=== PATIENT | female | born 1935 | race Caucasian/White ===

== ENCOUNTER → 2016-09-04 | Outpatient (CLI) | payer OTHER ==
[~2016-09-04] MED LIST: ACET-1311 PO; AMIL5TAB15 PO; ASPI-435 PO; ATOR-26 PO; BISA10SU3 PR; CALC500C3 PO; CHOL100010 PO; LCTX PO; LEVO50TA PO; LTH300T PO; MAALOX PO; MAGNSUS5 PO; NF406 PO; POLY335019 PO; PRAM0.129 PO; RISP-99 PO; RISP12.5 IM; SENN8.6C PO; SODI1ENE RE; UMEC1INH INH
[2016-09-04 11:19] LABS: URINE APPEARANCE CLEAR (CLEAR); URINE BILIRUBIN NEG (NEG); URINE COLOR YELLOW; URINE NITRITE NEG (NEG); URINE PH 7.5 (4.5-7.5); URINE SPECIFIC GRAVITY 1.002 (1.000-1.030); UROBILINOGEN NEG (NEG)
[2016-09-04 11:28] LABS: MANUAL MICROSCOPIC REQUIRED? NO; REVIEW REQ? NO
--- NOTE | 2016-09-05 15:03 | CODING QUERY NO DIAGNOSIS ---
TREATMENT RENDERED WITHOUT A DIAGNOSIS 37 To promote full compliance with coding requirements relating to patient care, physician participation is requested in all cases of set and exhibit designer uncertainty. Please assist us with providing a diagnosis/symptom for the test(s) below: A diagnosis/symptom was not documented on your Order. A valid diagnosis/symptom is required to bill all insurances. Please remember that we are unable to code a diagnosis of rule out, probable, possible, questionable, or suspected. DOS 09/04/16 Tests that require a diagnosis: * URINALYSIS DIAGNOSIS: * URINE CULTURE DIAGNOSIS: Provider Signature: Date: Thank you Claudia Gonzalez [facility] Information Management Once completed, please kindly fax back to [phone] For questions please call [phone]
== END ==
LOC: C.LABUPHEI 10:54
PROVIDERS: ATTEND Family Medicine
DX: R32 Unspecified urinary incontinence (principal)

== ENCOUNTER → 2016-09-05 | Outpatient (CLI) | payer OTHER ==
[2016-09-05 13:01] LABS: BLOOD UREA NITROGEN 26 mg/dl (7-18); BUN/CREATININE RATIO 18.5 (10-20); CARBON DIOXIDE 26 mmol/L (21-32); CHLORIDE 112 mmol/L (98-107); GLUCOSE 88 mg/dl (70-99); POTASSIUM 4.1 mmol/L (3.5-5.1); SODIUM 144 mmol/L (136-145)
== END ==
LOC: C.LABUPHEI 12:12
PROVIDERS: ATTEND Family Medicine
DX: F31.9 Bipolar disorder, unspecified (principal); N18.3 Chronic kidney disease, stage 3 (moderate); D64.9 Anemia, unspecified

== ENCOUNTER → 2016-09-11 | Outpatient (CLI) | payer OTHER ==
[2016-09-11 09:47] LABS: BLOOD UREA NITROGEN 35 mg/dl (7-18); BUN/CREATININE RATIO 24.6 (10-20); CALCIUM 9.7 mg/dl (8.5-10.1); CARBON DIOXIDE 23 mmol/L (21-32); CHLORIDE 112 mmol/L (98-107); GLUCOSE 77 mg/dl (70-99); POTASSIUM 5.6 mmol/L (3.5-5.1); SODIUM 143 mmol/L (136-145)
== END | disposition home or self-care (01) ==
LOC: C.LABUPHEI 09:08
PROVIDERS: ATTEND Family Medicine
DX: E87.1 Hypo-osmolality and hyponatremia (principal); F31.9 Bipolar disorder, unspecified; Z51.81 Encounter for therapeutic drug level monitoring; Z79.899 Other long term (current) drug therapy

== ENCOUNTER → 2016-09-17 | Outpatient (CLI) | payer OTHER ==
[2016-09-17 09:56] LABS: BLOOD UREA NITROGEN 29 mg/dl (7-18); CALCIUM 10.2 mg/dl (8.5-10.1); CARBON DIOXIDE 24 mmol/L (21-32); CHLORIDE 113 mmol/L (98-107); GLUCOSE 59 mg/dl (70-99); MAGNESIUM 2.6 mg/dl (1.8-2.4); SODIUM 144 mmol/L (136-145)
== END | disposition home or self-care (01) ==
LOC: C.LABUPHEI 09:02
PROVIDERS: ATTEND Family Medicine
DX: N18.3 Chronic kidney disease, stage 3 (moderate) (principal); M62.81 Muscle weakness (generalized)

== ENCOUNTER → 2016-09-19 | Outpatient (CLI) | payer OTHER ==
[2016-09-19 08:50] LABS: BLOOD UREA NITROGEN 29 mg/dl (7-18); BUN/CREATININE RATIO 20.5 (10-20); CALCIUM 10.1 mg/dl (8.5-10.1); CARBON DIOXIDE 23 mmol/L (21-32); CHLORIDE 115 mmol/L (98-107); GLUCOSE 79 mg/dl (70-99); MAGNESIUM 2.4 mg/dl (1.8-2.4); POTASSIUM 4.8 mmol/L (3.5-5.1); SODIUM 144 mmol/L (136-145)
== END | disposition home or self-care (01) ==
LOC: C.LABUPHEI 08:14
PROVIDERS: ATTEND Family Medicine
DX: E87.0 Hyperosmolality and hypernatremia (principal); M62.81 Muscle weakness (generalized)

== ENCOUNTER → 2016-09-20 | Outpatient (CLI) | payer OTHER | LOC: C.LABUPHEI 12:17 | PROVIDERS: ATTEND Family Medicine | DX: F31.9 Bipolar disorder, unspecified (principal) ==

== ENCOUNTER → 2016-09-23 | Outpatient (CLI) | payer OTHER | LOC: C.LABUPHEI 09:03 | PROVIDERS: ATTEND Family Medicine | DX: F31.9 Bipolar disorder, unspecified (principal) ==

== ENCOUNTER → 2016-09-30 | Outpatient (CLI) | payer OTHER ==
[2016-09-30 09:13] LABS: BLOOD UREA NITROGEN 28 mg/dl (7-18); BUN/CREATININE RATIO 18.5 (10-20); CALCIUM 9.8 mg/dl (8.5-10.1); CARBON DIOXIDE 23 mmol/L (21-32); CHLORIDE 114 mmol/L (98-107); GLUCOSE 84 mg/dl (70-99); MAGNESIUM 2.4 mg/dl (1.8-2.4); POTASSIUM 4.6 mmol/L (3.5-5.1); SODIUM 145 mmol/L (136-145)
== END ==
LOC: C.LABUPHEI 08:48
PROVIDERS: ATTEND Family Medicine
DX: N18.3 Chronic kidney disease, stage 3 (moderate) (principal); M62.81 Muscle weakness (generalized); F31.9 Bipolar disorder, unspecified

== ENCOUNTER → 2016-10-10 | Outpatient (CLI) | payer OTHER | LOC: C.LABUPHEI 08:51 | PROVIDERS: ATTEND Family Medicine | DX: F31.9 Bipolar disorder, unspecified (principal) ==

== ENCOUNTER → 2016-10-16 | Outpatient (CLI) | payer OTHER ==
[2016-10-16 09:34] LABS: BLOOD UREA NITROGEN 29 mg/dl (7-18); BUN/CREATININE RATIO 22.2 (10-20); CALCIUM 9.2 mg/dl (8.5-10.1); CARBON DIOXIDE 22 mmol/L (21-32); CHLORIDE 113 mmol/L (98-107); GLUCOSE 104 mg/dl (70-99); SODIUM 143 mmol/L (136-145)
== END ==
LOC: C.LABUPHEI 09:04
PROVIDERS: ATTEND Family Medicine
DX: J44.9 Chronic obstructive pulmonary disease, unspecified (principal); F31.9 Bipolar disorder, unspecified

== ENCOUNTER → 2016-10-22 | Outpatient (CLI) | payer OTHER | LOC: C.LABUPHEI 08:37 | PROVIDERS: ATTEND Family Medicine | DX: F31.9 Bipolar disorder, unspecified (principal) ==

== ENCOUNTER → 2016-10-22 | Outpatient (CLI) | payer OTHER ==
[2016-10-22 09:43] LABS: URINE APPEARANCE CLEAR (CLEAR); URINE BILIRUBIN NEG (NEG); URINE COLOR YELLOW; URINE NITRITE NEG (NEG); URINE SPECIFIC GRAVITY 1.002 (1.000-1.030); UROBILINOGEN NEG (NEG)
[2016-10-22 09:58] LABS: MANUAL MICROSCOPIC REQUIRED? NO; REVIEW REQ? NO
== END ==
LOC: C.LABUPHEI 08:51
PROVIDERS: ATTEND Family Medicine
DX: R30.0 Dysuria (principal)

== ENCOUNTER → 2016-10-29 | Outpatient (CLI) | payer OTHER ==
[2016-10-29 09:21] LABS: BLOOD UREA NITROGEN 33 mg/dl (7-18); BUN/CREATININE RATIO 21.9 (10-20); CALCIUM 10.3 mg/dl (8.5-10.1); CARBON DIOXIDE 22 mmol/L (21-32); CHLORIDE 114 mmol/L (98-107); GLUCOSE 90 mg/dl (70-99); SODIUM 144 mmol/L (136-145)
== END ==
LOC: C.LABUPHEI 08:47
PROVIDERS: ATTEND Family Medicine
DX: E87.0 Hyperosmolality and hypernatremia (principal)

== ENCOUNTER → 2016-11-12 | Outpatient (CLI) | payer OTHER ==
[2016-11-12 10:01] LABS: BLOOD UREA NITROGEN 41 mg/dl (7-18); BUN/CREATININE RATIO 31.3 (10-20); CALCIUM 9.8 mg/dl (8.5-10.1); CARBON DIOXIDE 22 mmol/L (21-32); CHLORIDE 118 mmol/L (98-107); GLUCOSE 62 mg/dl (70-99); POTASSIUM 5.5 mmol/L (3.5-5.1); SODIUM 145 mmol/L (136-145)
== END ==
LOC: C.LABUPBEA 09:37
PROVIDERS: ATTEND Family Medicine
DX: E87.0 Hyperosmolality and hypernatremia (principal)

== ENCOUNTER → 2016-11-15 | Outpatient (CLI) | payer OTHER ==
[2016-11-15 08:55] LABS: BLOOD UREA NITROGEN 40 mg/dl (7-18); BUN/CREATININE RATIO 30.8 (10-20); CARBON DIOXIDE 22 mmol/L (21-32); CHLORIDE 116 mmol/L (98-107); GLUCOSE 72 mg/dl (70-99); POTASSIUM 5.9 mmol/L (3.5-5.1); SODIUM 144 mmol/L (136-145)
== END | disposition home or self-care (01) ==
LOC: C.LABUPBEA 10:37
PROVIDERS: ATTEND Family Medicine
DX: E87.0 Hyperosmolality and hypernatremia (principal)

== ENCOUNTER → 2016-11-16 | Outpatient (CLI) | payer OTHER ==
[2016-11-16 12:44] LABS: BLOOD UREA NITROGEN 35 mg/dl (7-18); BUN/CREATININE RATIO 23.2 (10-20); CALCIUM 9.5 mg/dl (8.5-10.1); CARBON DIOXIDE 26 mmol/L (21-32); CHLORIDE 113 mmol/L (98-107); GLUCOSE 66 mg/dl (70-99); POTASSIUM 5.3 mmol/L (3.5-5.1); SODIUM 146 mmol/L (136-145)
== END | disposition home or self-care (01) ==
LOC: C.LABUPBEA 10:04
PROVIDERS: ATTEND Family Medicine
DX: E87.5 Hyperkalemia (principal)

== ENCOUNTER → 2016-11-18 | Outpatient (CLI) | payer OTHER ==
[2016-11-18 10:14] LABS: BLOOD UREA NITROGEN 41 mg/dl (7-18); BUN/CREATININE RATIO 27.5 (10-20); CALCIUM 9.5 mg/dl (8.5-10.1); CARBON DIOXIDE 24 mmol/L (21-32); CHLORIDE 113 mmol/L (98-107); GLUCOSE 85 mg/dl (70-99); SODIUM 144 mmol/L (136-145)
== END ==
LOC: C.LABUPBEA 09:31
PROVIDERS: ATTEND Family Medicine
DX: E87.5 Hyperkalemia (principal)

== ENCOUNTER → 2016-11-22 | Outpatient (CLI) | payer OTHER ==
[2016-11-22 06:37] LABS: URINE APPEARANCE CLEAR (CLEAR); URINE BILIRUBIN NEG (NEG); URINE COLOR YELLOW; URINE NITRITE NEG (NEG); URINE PH 6.5 (4.5-7.5); URINE SPECIFIC GRAVITY 1.006 (1.000-1.030); UROBILINOGEN NEG (NEG)
[2016-11-22 06:44] LABS: MANUAL MICROSCOPIC REQUIRED? NO; REVIEW REQ? NO
== END ==
LOC: C.LABUPBEA 11:00
PROVIDERS: ATTEND Family Medicine
DX: R30.0 Dysuria (principal)

== ENCOUNTER → 2016-11-24 | Outpatient (CLI) | payer OTHER ==
[2016-11-24 08:52] LABS: BLOOD UREA NITROGEN 37 mg/dl (7-18); BUN/CREATININE RATIO 26.1 (10-20); CALCIUM 9.8 mg/dl (8.5-10.1); CARBON DIOXIDE 24 mmol/L (21-32); CHLORIDE 116 mmol/L (98-107); GLUCOSE 71 mg/dl (70-99); MAGNESIUM 2.6 mg/dl (1.8-2.4); POTASSIUM 5.9 mmol/L (3.5-5.1); SODIUM 145 mmol/L (136-145)
== END | disposition home or self-care (01) ==
LOC: C.LABUPUNI 08:24
PROVIDERS: ATTEND Family Medicine
DX: E87.5 Hyperkalemia (principal); M62.81 Muscle weakness (generalized)

== ENCOUNTER → 2016-12-05 | Outpatient (CLI) | payer OTHER ==
[2016-12-05 08:23] LABS: BASO % 0.2 %; BASO ABS # 0.01 K/uL (0-0.2); EOS % 5.5 %; HEMATOCRIT 26.3 % (37-47); IG% 0.2 %; LYMPH % 36.9 %; LYMPH ABS # 1.69 K/uL (1.2-3.4); MEAN CELL VOLUME 87.7 fL (80-100); MEAN CORPUSCULAR HEMOGLOBIN 26.7 pg (25-34); MEAN CORPUSCULAR HGB CONC 30.4 g/dl (32-36); MEAN PLATELET VOLUME 9.8 fL (7.4-10.4); MONO % 9.8 %; NEUT % 47.4 %; PLATELET COUNT 163 K/uL (130-400); WHITE BLOOD COUNT 4.58 K/uL (4.8-10.8)
[2016-12-05 08:30] LABS: ALT/SGPT 42 U/L (12-78); BLOOD UREA NITROGEN 28 mg/dl (7-18); BUN/CREATININE RATIO 19.9 (10-20); CALCIUM 9.2 mg/dl (8.5-10.1); CARBON DIOXIDE 22 mmol/L (21-32); CHLORIDE 112 mmol/L (98-107); GLUCOSE 80 mg/dl (70-99); POTASSIUM 5.1 mmol/L (3.5-5.1); SODIUM 142 mmol/L (136-145)
[2016-12-05 08:40] LABS: ALB/GLOB RATIO 0.8 (0.9-2); ALKALINE PHOSPHATASE 132 U/L (45-117); AST/SGOT 33 U/L (15-37)
[2016-12-05 08:47] LABS: COMPLETE YES
== END ==
LOC: C.LABUPBEA 07:56
PROVIDERS: ATTEND Family Medicine
DX: E03.9 Hypothyroidism, unspecified (principal); E87.5 Hyperkalemia; E56.8 Deficiency of other vitamins

== ENCOUNTER → 2016-12-09 | Outpatient (CLI) | payer OTHER ==
[2016-12-09 08:37] LABS: BLOOD UREA NITROGEN 29 mg/dl (7-18); BUN/CREATININE RATIO 19.1 (10-20); CALCIUM 9.3 mg/dl (8.5-10.1); CARBON DIOXIDE 22 mmol/L (21-32); CHLORIDE 116 mmol/L (98-107); GLUCOSE 78 mg/dl (70-99); SODIUM 145 mmol/L (136-145)
== END ==
LOC: C.LABUPBEA 07:55
PROVIDERS: ATTEND Family Medicine
DX: E87.0 Hyperosmolality and hypernatremia (principal)

== ENCOUNTER → 2016-12-10 | Outpatient (CLI) | payer OTHER ==
[2016-12-10 09:15] LABS: HEMATOCRIT 27.2 % (37-47)
[2016-12-10 09:47] LABS: BLOOD UREA NITROGEN 25 mg/dl (7-18); CALCIUM 9.6 mg/dl (8.5-10.1); CARBON DIOXIDE 24 mmol/L (21-32); CHLORIDE 116 mmol/L (98-107); GLUCOSE 99 mg/dl (70-99); POTASSIUM 5.4 mmol/L (3.5-5.1); SODIUM 144 mmol/L (136-145)
== END | disposition home or self-care (01) ==
LOC: C.LABUPBEA 08:50
PROVIDERS: ATTEND Family Medicine
DX: D64.9 Anemia, unspecified (principal); E87.5 Hyperkalemia

== ENCOUNTER → 2016-12-12 | Outpatient (CLI) | payer OTHER ==
[2016-12-12 10:13] LABS: URINE APPEARANCE CLEAR (CLEAR); URINE BILIRUBIN NEG (NEG); URINE COLOR YELLOW; URINE NITRITE NEG (NEG); URINE SPECIFIC GRAVITY 1.007 (1.000-1.030); UROBILINOGEN NEG (NEG)
[2016-12-12 10:25] LABS: MANUAL MICROSCOPIC REQUIRED? NO; REVIEW REQ? NO
== END ==
LOC: C.LABUPBEA 09:03
PROVIDERS: ATTEND Family Medicine
DX: N39.0 Urinary tract infection, site not specified (principal)

== ENCOUNTER → 2016-12-13 | Outpatient (CLI) | payer OTHER ==
[2016-12-13 10:09] LABS: C-REACTIVE PROTEIN 0.32 mg/dl (0-0.29); RHEUMATOID FACTOR < 10.0 U/mL (0-15)
--- NOTE | 2016-12-18 16:23 | CODING QUERY MEDICAL NECESSITY ---
CQSUPPORTING DIAGNOSIS NEEDED A supporting diagnosis is required for the test/procedure performed on this patient in order for us to be reimbursed by the patient's insurance. Please provide a supporting diagnosis for the following test/procedure listed below next to the test name along with your signature. *If there is no additional diagnosis for this patient that would support the following test/procedure please document that below next to the test/procedure. Test(s)/Procedure(s) that require a supporting diagnosis: DOS 12/13/16 VITAMIN D TEST HEARTHSIDE -EKLUTNA QUERY RETURNED WITH SIGANATURE BUT NO DIAGNOSIS TO COVER TEST-PLEASE ADD DIAGNOSIS AND SIGNATURE THANK YOU Provider Signature: Date: Thank you Colleen Ruiz Health Information Management Once completed, please kindly fax back to [phone] For questions please call [phone]
== END | disposition home or self-care (01) ==
LOC: C.LABUPBEA 10:43
PROVIDERS: ATTEND Family Medicine
DX: E87.5 Hyperkalemia (principal); E56.8 Deficiency of other vitamins

== ENCOUNTER → 2016-12-15 | Outpatient (CLI) | payer OTHER ==
[2016-12-15 09:27] LABS: HEMATOCRIT 28.1 % (37-47); MEAN CORPUSCULAR HEMOGLOBIN 26.6 pg (25-34); MEAN CORPUSCULAR HGB CONC 30.6 g/dl (32-36); MEAN PLATELET VOLUME 9.8 fL (7.4-10.4); PLATELET COUNT 243 K/uL (130-400); RED BLOOD COUNT 3.23 M/uL (4.2-5.4); WHITE BLOOD COUNT 6.19 K/uL (4.8-10.8)
== END | disposition home or self-care (01) ==
LOC: C.LABUPBEA 09:09
PROVIDERS: ATTEND Family Medicine
DX: E78.5 Hyperlipidemia, unspecified (principal)

== ENCOUNTER → 2016-12-17 | Outpatient (CLI) | payer OTHER ==
[2016-12-17 08:27] LABS: HEMATOCRIT 28.1 % (37-47)
[2016-12-17 08:33] LABS: BLOOD UREA NITROGEN 33 mg/dl (7-18); BUN/CREATININE RATIO 23.5 (10-20); CARBON DIOXIDE 22 mmol/L (21-32); CHLORIDE 114 mmol/L (98-107); GLUCOSE 81 mg/dl (70-99); POTASSIUM 5.5 mmol/L (3.5-5.1); SODIUM 142 mmol/L (136-145)
[2016-12-17 09:10] LABS: CALCIUM 9.6 mg/dl (8.5-10.1)
== END ==
LOC: C.LABUPBEA 08:05
PROVIDERS: ATTEND Family Medicine
DX: D64.9 Anemia, unspecified (principal); E87.0 Hyperosmolality and hypernatremia

== ENCOUNTER → 2016-12-18 | Outpatient (CLI) | payer OTHER | END | disposition home or self-care (01) | LOC: C.LABUPBEA 07:56 | PROVIDERS: ATTEND Family Medicine | DX: E87.5 Hyperkalemia (principal) ==

== ENCOUNTER → 2016-12-19 | Outpatient (CLI) | payer OTHER | END | disposition home or self-care (01) | LOC: C.LABUPBEA 08:38 | PROVIDERS: ATTEND Family Medicine | DX: E87.5 Hyperkalemia (principal) ==

== ENCOUNTER → 2016-12-23 | Outpatient (CLI) | payer OTHER ==
[2016-12-23 10:09] LABS: CALCIUM 9.9 mg/dl (8.5-10.1)
[2016-12-23 10:11] LABS: BLOOD UREA NITROGEN 31 mg/dl (7-18); BUN/CREATININE RATIO 22.2 (10-20); CARBON DIOXIDE 24 mmol/L (21-32); CHLORIDE 115 mmol/L (98-107); GLUCOSE 75 mg/dl (70-99); POTASSIUM 5.7 mmol/L (3.5-5.1); SODIUM 144 mmol/L (136-145)
== END | disposition home or self-care (01) ==
LOC: C.LABUPBEA 09:44
PROVIDERS: ATTEND Family Medicine
DX: E87.0 Hyperosmolality and hypernatremia (principal)

== ENCOUNTER → 2016-12-26 | Outpatient (CLI) | payer OTHER ==
[2016-12-26 09:13] LABS: BLOOD UREA NITROGEN 31 mg/dl (7-18); BUN/CREATININE RATIO 20.5 (10-20); CARBON DIOXIDE 24 mmol/L (21-32); CHLORIDE 116 mmol/L (98-107); GLUCOSE 88 mg/dl (70-99); POTASSIUM 5.6 mmol/L (3.5-5.1); SODIUM 146 mmol/L (136-145)
== END | disposition home or self-care (01) ==
LOC: C.LABUPBEA 08:37
PROVIDERS: ATTEND Nurse Practitioner Family
DX: E87.0 Hyperosmolality and hypernatremia (principal)

== ENCOUNTER → 2016-12-30 | Outpatient (CLI) | payer OTHER ==
[2016-12-30 10:24] LABS: BLOOD UREA NITROGEN 28 mg/dl (7-18); BUN/CREATININE RATIO 21.6 (10-20); CARBON DIOXIDE 24 mmol/L (21-32); CHLORIDE 114 mmol/L (98-107); GLUCOSE 74 mg/dl (70-99); POTASSIUM 4.9 mmol/L (3.5-5.1); SODIUM 145 mmol/L (136-145)
[2016-12-30 10:28] LABS: CALCIUM 9.8 mg/dl (8.5-10.1)
== END ==
LOC: C.LABUPBEA 09:26
PROVIDERS: ATTEND Family Medicine
DX: E87.0 Hyperosmolality and hypernatremia (principal)

== ENCOUNTER → 2017-01-06 | Outpatient (CLI) | payer OTHER ==
[2017-01-06 09:48] LABS: CALCIUM 9.9 mg/dl (8.5-10.1)
[2017-01-06 09:55] LABS: BLOOD UREA NITROGEN 40 mg/dl (7-18); BUN/CREATININE RATIO 23.6 (10-20); CARBON DIOXIDE 24 mmol/L (21-32); CHLORIDE 115 mmol/L (98-107); GLUCOSE 80 mg/dl (70-99); POTASSIUM 5.4 mmol/L (3.5-5.1); SODIUM 145 mmol/L (136-145)
== END | disposition home or self-care (01) ==
LOC: C.LABUPBEA 09:15
PROVIDERS: ATTEND Family Medicine
DX: E87.0 Hyperosmolality and hypernatremia (principal)

== ENCOUNTER → 2017-01-12 | Outpatient (CLI) | payer OTHER ==
[2017-01-12 09:16] LABS: CALCIUM 9.6 mg/dl (8.5-10.1)
[2017-01-12 09:18] LABS: BLOOD UREA NITROGEN 31 mg/dl (7-18); BUN/CREATININE RATIO 19.4 (10-20); CARBON DIOXIDE 24 mmol/L (21-32); CHLORIDE 114 mmol/L (98-107); GLUCOSE 76 mg/dl (70-99); SODIUM 145 mmol/L (136-145)
== END ==
LOC: C.LABUPBEA 08:41
PROVIDERS: ATTEND Family Medicine
DX: E87.5 Hyperkalemia (principal)

== ENCOUNTER → 2017-01-14 | Outpatient (CLI) | payer OTHER ==
[2017-01-14 09:01] LABS: BLOOD UREA NITROGEN 34 mg/dl (7-18); BUN/CREATININE RATIO 22.9 (10-20); CALCIUM 9.7 mg/dl (8.5-10.1); CARBON DIOXIDE 28 mmol/L (21-32); CHLORIDE 114 mmol/L (98-107); GLUCOSE 85 mg/dl (70-99); MAGNESIUM 2.6 mg/dl (1.8-2.4); POTASSIUM 5.1 mmol/L (3.5-5.1); SODIUM 145 mmol/L (136-145)
[2017-01-14 09:02] LABS: PHOSPHORUS 4.2 mg/dl (2.5-4.9)
== END ==
LOC: C.LABUPBEA 08:37
PROVIDERS: ATTEND Family Medicine
DX: N18.3 Chronic kidney disease, stage 3 (moderate) (principal)

== ENCOUNTER → 2017-01-20 | Outpatient (CLI) | payer OTHER ==
[2017-01-20 11:05] LABS: BLOOD UREA NITROGEN 31 mg/dl (7-18); BUN/CREATININE RATIO 22.3 (10-20); CALCIUM 9.2 mg/dl (8.5-10.1); CARBON DIOXIDE 25 mmol/L (21-32); CHLORIDE 114 mmol/L (98-107); GLUCOSE 76 mg/dl (70-99); POTASSIUM 5.3 mmol/L (3.5-5.1); SODIUM 145 mmol/L (136-145)
== END | disposition home or self-care (01) ==
LOC: C.LABUPBEA 09:17
PROVIDERS: ATTEND Nurse Practitioner Family
DX: E87.0 Hyperosmolality and hypernatremia (principal); F31.9 Bipolar disorder, unspecified; Z51.81 Encounter for therapeutic drug level monitoring; Z79.899 Other long term (current) drug therapy

== ENCOUNTER → 2017-01-28 | Outpatient (CLI) | payer OTHER ==
[2017-01-28 09:16] LABS: BLOOD UREA NITROGEN 31 mg/dl (7-18); BUN/CREATININE RATIO 22.3 (10-20); CARBON DIOXIDE 25 mmol/L (21-32); CHLORIDE 112 mmol/L (98-107); GLUCOSE 101 mg/dl (70-99); POTASSIUM 4.5 mmol/L (3.5-5.1); SODIUM 145 mmol/L (136-145)
--- NOTE | 2017-03-06 09:46 | CODING QUERY NO DIAGNOSIS ---
TREATMENT RENDERED WITHOUT A DIAGNOSIS To promote full compliance with coding requirements relating to patient care, physician participation is requested in all cases of pocket setter uncertainty. Please assist us with providing a diagnosis/symptom for the test(s) below: A diagnosis/symptom was not documented on your Order. A valid diagnosis/symptom is required to bill all insurances. Please remember that we are unable to code a diagnosis of rule out, probable, possible, questionable, or suspected. Tests that require a diagnosis: * PARTIAL RENAL PROFILE DIAGNOSIS: Provider Signature: Date: Thank you Aurelia Hutchinson [employer] Information Management Once completed, please kindly fax back to [phone] For questions please call [phone]
== END ==
LOC: C.LABUPBEA 08:41
PROVIDERS: ATTEND Nurse Practitioner Family
DX: N18.9 Chronic kidney disease, unspecified (principal)

== ENCOUNTER → 2017-02-09 | Outpatient (CLI) | payer OTHER ==
[2017-02-09 11:27] LABS: BLOOD UREA NITROGEN 33 mg/dl (7-18); BUN/CREATININE RATIO 20.7 (10-20); CALCIUM 9.6 mg/dl (8.5-10.1); CARBON DIOXIDE 24 mmol/L (21-32); CHLORIDE 116 mmol/L (98-107); GLUCOSE 70 mg/dl (70-99); MAGNESIUM 2.3 mg/dl (1.8-2.4); POTASSIUM 5.1 mmol/L (3.5-5.1); SODIUM 148 mmol/L (136-145)
[2017-02-09 11:28] LABS: PHOSPHORUS 3.5 mg/dl (2.5-4.9)
== END ==
LOC: C.LABUPBEA 09:12
PROVIDERS: ATTEND Family Medicine
DX: N18.3 Chronic kidney disease, stage 3 (moderate) (principal)

== ENCOUNTER → 2017-02-19 | Outpatient (CLI) | payer OTHER ==
[2017-02-19 10:47] LABS: BLOOD UREA NITROGEN 31 mg/dl (7-18); BUN/CREATININE RATIO 20.5 (10-20); CALCIUM 9.5 mg/dl (8.5-10.1); CARBON DIOXIDE 28 mmol/L (21-32); CHLORIDE 110 mmol/L (98-107); GLUCOSE 95 mg/dl (70-99); POTASSIUM 4.4 mmol/L (3.5-5.1); SODIUM 142 mmol/L (136-145)
== END | disposition home or self-care (01) ==
LOC: C.LABUPBEA 09:25
PROVIDERS: ATTEND Family Medicine
DX: N18.3 Chronic kidney disease, stage 3 (moderate) (principal)

== ENCOUNTER → 2017-02-27 | Outpatient (CLI) | payer OTHER ==
[2017-02-27 09:31] LABS: BLOOD UREA NITROGEN 28 mg/dl (7-18); BUN/CREATININE RATIO 19.8 (10-20); CALCIUM 9.7 mg/dl (8.5-10.1); CARBON DIOXIDE 25 mmol/L (21-32); CHLORIDE 112 mmol/L (98-107); GLUCOSE 114 mg/dl (70-99); POTASSIUM 4.5 mmol/L (3.5-5.1); SODIUM 143 mmol/L (136-145)
== END ==
LOC: C.LABUPBEA 08:26
PROVIDERS: ATTEND Nurse Practitioner Family
DX: N18.3 Chronic kidney disease, stage 3 (moderate) (principal)

== ENCOUNTER → 2017-03-25 | Outpatient (CLI) | payer OTHER | LOC: C.LABUPBEA 09:06 | PROVIDERS: ATTEND Family Medicine | DX: F31.9 Bipolar disorder, unspecified (principal) ==

== ENCOUNTER → 2017-03-31 | Outpatient (CLI) | payer OTHER ==
[2017-03-31 11:41] LABS: HEMATOCRIT 28.9 % (37-47); MEAN CELL VOLUME 89.2 fL (80-100); MEAN CORPUSCULAR HEMOGLOBIN 25.9 pg (25-34); MEAN CORPUSCULAR HGB CONC 29.1 g/dl (32-36); MEAN PLATELET VOLUME 9.9 fL (7.4-10.4); PLATELET COUNT 318 K/uL (130-400); RED BLOOD COUNT 3.24 M/uL (4.2-5.4); WHITE BLOOD COUNT 6.54 K/uL (4.8-10.8)
[2017-03-31 11:49] LABS: BLOOD UREA NITROGEN 33 mg/dl (7-18); BUN/CREATININE RATIO 20.8 (10-20); CALCIUM 9.6 mg/dl (8.5-10.1); CARBON DIOXIDE 26 mmol/L (21-32); CHLORIDE 112 mmol/L (98-107); GLUCOSE 91 mg/dl (70-99); MAGNESIUM 2.4 mg/dl (1.8-2.4); PHOSPHORUS 3.6 mg/dl (2.5-4.9); POTASSIUM 4.2 mmol/L (3.5-5.1); SODIUM 142 mmol/L (136-145)
== END | disposition home or self-care (01) ==
LOC: C.LABUPBEA 10:14
PROVIDERS: ATTEND Nurse Practitioner Family
DX: D64.9 Anemia, unspecified (principal); N18.3 Chronic kidney disease, stage 3 (moderate); M62.81 Muscle weakness (generalized)

== ENCOUNTER → 2017-04-14 | Outpatient (CLI) | payer OTHER | LOC: C.LABUPBEA 10:05 | PROVIDERS: ATTEND Nurse Practitioner Family | DX: D64.9 Anemia, unspecified (principal) ==

== ENCOUNTER → 2017-04-21 | Outpatient (CLI) | payer OTHER ==
[2017-04-21 10:07] LABS: HEMATOCRIT 30.1 % (37-47)
--- NOTE | 2017-04-27 13:15 | CODING QUERY MEDICAL NECESSITY ---
CQSUPPORTING DIAGNOSIS NEEDED A supporting diagnosis is required for the test/procedure performed on this patient in order for us to be reimbursed by the patient's insurance. Please provide a supporting diagnosis for the following test/procedure listed below next to the test name along with your signature. *If there is no additional diagnosis for this patient that would support the following test/procedure please document that below next to the test/procedure. Test(s)/Procedure(s) that require a supporting diagnosis: DOS 04/21/17 FOLIC ACID TEST VITAMIN B12 TEST Provider Signature: Date: Thank you Colleen Ruiz Health Information Management Once completed, please kindly fax back to [phone] For questions please call [phone]
== END ==
LOC: C.LABUPBEA 09:41
PROVIDERS: ATTEND Nurse Practitioner Family
DX: D64.9 Anemia, unspecified (principal)

== ENCOUNTER → 2017-04-24 | Outpatient (CLI) | payer OTHER ==
[2017-04-24 10:45] LABS: BLOOD UREA NITROGEN 31 mg/dl (7-18); BUN/CREATININE RATIO 22.1 (10-20); CALCIUM 10.2 mg/dl (8.5-10.1); CARBON DIOXIDE 24 mmol/L (21-32); CHLORIDE 111 mmol/L (98-107); GLUCOSE 79 mg/dl (70-99); POTASSIUM 4.3 mmol/L (3.5-5.1); SODIUM 143 mmol/L (136-145)
== END ==
LOC: C.LABUPBEA 09:00
PROVIDERS: ATTEND Nurse Practitioner Family
DX: E87.0 Hyperosmolality and hypernatremia (principal)

== ENCOUNTER → 2017-05-01 | Outpatient (CLI) | payer OTHER ==
[2017-05-01 10:33] LABS: BLOOD UREA NITROGEN 34 mg/dl (7-18); BUN/CREATININE RATIO 22.7 (10-20); CALCIUM 9.7 mg/dl (8.5-10.1); CARBON DIOXIDE 29 mmol/L (21-32); CHLORIDE 110 mmol/L (98-107); GLUCOSE 69 mg/dl (70-99); MAGNESIUM 2.5 mg/dl (1.8-2.4); PHOSPHORUS 3.7 mg/dl (2.5-4.9); POTASSIUM 3.8 mmol/L (3.5-5.1); SODIUM 143 mmol/L (136-145)
== END ==
LOC: C.LABUPBEA 09:38
PROVIDERS: ATTEND Internal Medicine Nephrology
DX: N18.3 Chronic kidney disease, stage 3 (moderate) (principal); M62.81 Muscle weakness (generalized)

== ENCOUNTER → 2017-05-19 | Outpatient (CLI) | payer OTHER ==
[2017-05-19 09:24] LABS: HEMATOCRIT 30.9 % (37-47)
[2017-05-19 09:33] LABS: BLOOD UREA NITROGEN 31 mg/dl (7-18); BUN/CREATININE RATIO 20.9 (10-20); CALCIUM 9.8 mg/dl (8.5-10.1); CARBON DIOXIDE 29 mmol/L (21-32); CHLORIDE 112 mmol/L (98-107); GLUCOSE 89 mg/dl (70-99); POTASSIUM 4.7 mmol/L (3.5-5.1); SODIUM 144 mmol/L (136-145)
[2017-05-19 11:20] LABS: MEAN PLATELET VOLUME 9.7 fL (7.4-10.4); PLATELET COUNT 211 K/uL (130-400); RED BLOOD COUNT 3.22 M/uL (4.2-5.4); WHITE BLOOD COUNT 6.47 K/uL (4.8-10.8)
[2017-05-19 14:44] LABS: MEAN CELL VOLUME 95.1 fL (80-100); MEAN CORPUSCULAR HGB CONC 29.1 g/dl (32-36)
== END | disposition home or self-care (01) ==
LOC: C.LABUPBEA 08:54
PROVIDERS: ATTEND Nurse Practitioner Family
DX: D64.9 Anemia, unspecified (principal); R60.9 Edema, unspecified

== ENCOUNTER → 2017-05-20 | Outpatient (CLI) | payer OTHER ==
[2017-05-20 10:06] LABS: HEMATOCRIT 30.6 % (37-47); MEAN CELL VOLUME 94.4 fL (80-100); MEAN CORPUSCULAR HEMOGLOBIN 27.5 pg (25-34); MEAN CORPUSCULAR HGB CONC 29.1 g/dl (32-36); MEAN PLATELET VOLUME 9.4 fL (7.4-10.4); PLATELET COUNT 213 K/uL (130-400); RED BLOOD COUNT 3.24 M/uL (4.2-5.4); WHITE BLOOD COUNT 6.96 K/uL (4.8-10.8)
[2017-05-20 10:21] LABS: URINE APPEARANCE CLOUDY (CLEAR); URINE BILIRUBIN NEG (NEG); URINE COLOR YELLOW; URINE NITRITE POS (NEG); URINE PH 7.5 (4.5-7.5); URINE SPECIFIC GRAVITY 1.015 (1.000-1.030); UROBILINOGEN NEG (NEG)
[2017-05-20 10:22] LABS: MANUAL MICROSCOPIC REQUIRED? NO; REVIEW REQ? NO
== END ==
LOC: C.LABUPBEA 09:22
PROVIDERS: ATTEND Nurse Practitioner Family
DX: D64.9 Anemia, unspecified (principal); R30.0 Dysuria

== ENCOUNTER → 2017-05-23 | Outpatient (CLI) | payer OTHER ==
[2017-05-23 07:16] LABS: HEMATOCRIT 31.1 % (37-47); MEAN CELL VOLUME 93.7 fL (80-100); MEAN CORPUSCULAR HEMOGLOBIN 28.3 pg (25-34); MEAN CORPUSCULAR HGB CONC 30.2 g/dl (32-36); MEAN PLATELET VOLUME 9.4 fL (7.4-10.4); PLATELET COUNT 209 K/uL (130-400); RED BLOOD COUNT 3.32 M/uL (4.2-5.4); WHITE BLOOD COUNT 6.78 K/uL (4.8-10.8)
[2017-05-23 07:27] LABS: BLOOD UREA NITROGEN 27 mg/dl (7-18); BUN/CREATININE RATIO 14.3 (10-20); CALCIUM 9.1 mg/dl (8.5-10.1); CARBON DIOXIDE 26 mmol/L (21-32); CHLORIDE 112 mmol/L (98-107); GLUCOSE 75 mg/dl (70-99); POTASSIUM 4.1 mmol/L (3.5-5.1); SODIUM 143 mmol/L (136-145)
== END ==
LOC: C.LABUPBEA 09:16
PROVIDERS: ATTEND Nurse Practitioner Family
DX: D64.9 Anemia, unspecified (principal); R60.9 Edema, unspecified; Z16.21 Resistance to vancomycin

== ENCOUNTER → 2017-05-24 | Outpatient (CLI) | payer OTHER | LOC: C.LABUPBEA 09:24 | PROVIDERS: ATTEND Nurse Practitioner Family | DX: Z16.21 Resistance to vancomycin (principal) ==

== ENCOUNTER → 2017-05-27 | Outpatient (CLI) | payer OTHER ==
[2017-05-27 08:48] LABS: BLOOD UREA NITROGEN 37 mg/dl (7-18); GLUCOSE 75 mg/dl (70-99)
[2017-05-27 08:49] LABS: BUN/CREATININE RATIO 21.5 (10-20); CALCIUM 9.8 mg/dl (8.5-10.1); CARBON DIOXIDE 24 mmol/L (21-32); CHLORIDE 110 mmol/L (98-107); POTASSIUM 4.4 mmol/L (3.5-5.1); SODIUM 142 mmol/L (136-145)
[2017-05-27 09:10] LABS: HEMATOCRIT 32.2 % (37-47); MEAN CELL VOLUME 95.8 fL (80-100); MEAN CORPUSCULAR HGB CONC 29.2 g/dl (32-36); MEAN PLATELET VOLUME 9.8 fL (7.4-10.4); PLATELET COUNT 219 K/uL (130-400); RED BLOOD COUNT 3.36 M/uL (4.2-5.4)
== END ==
LOC: C.LABUPBEA 08:31
PROVIDERS: ATTEND Nurse Practitioner Family
DX: N18.3 Chronic kidney disease, stage 3 (moderate) (principal); E87.0 Hyperosmolality and hypernatremia; Z51.81 Encounter for therapeutic drug level monitoring; Z79.2 Long term (current) use of antibiotics

== ENCOUNTER → 2017-05-27 | Outpatient (CLI) | payer OTHER ==
[2017-05-27 10:31] LABS: BLOOD UREA NITROGEN 34 mg/dl (7-18); CALCIUM 9.8 mg/dl (8.5-10.1); CARBON DIOXIDE 23 mmol/L (21-32); CHLORIDE 110 mmol/L (98-107); GLUCOSE 140 mg/dl (70-99); POTASSIUM 4.4 mmol/L (3.5-5.1); SODIUM 142 mmol/L (136-145)
== END ==
LOC: C.LABUPBEA 09:56
PROVIDERS: ATTEND Nurse Practitioner Family
DX: Z51.81 Encounter for therapeutic drug level monitoring (principal); Z79.2 Long term (current) use of antibiotics

== ENCOUNTER → 2017-05-28 | Outpatient (CLI) | payer OTHER ==
[2017-05-28 08:53] LABS: BLOOD UREA NITROGEN 38 mg/dl (7-18); BUN/CREATININE RATIO 22.3 (10-20); CALCIUM 9.6 mg/dl (8.5-10.1); CARBON DIOXIDE 24 mmol/L (21-32); CHLORIDE 111 mmol/L (98-107); GLUCOSE 81 mg/dl (70-99); POTASSIUM 4.2 mmol/L (3.5-5.1); SODIUM 143 mmol/L (136-145)
== END | disposition home or self-care (01) ==
LOC: C.LABUPBEA 08:25
PROVIDERS: ATTEND Nurse Practitioner Family
DX: E87.0 Hyperosmolality and hypernatremia (principal); Z16.30 Resistance to unspecified antimicrobial drugs

== ENCOUNTER → 2017-05-29 | Outpatient (CLI) | payer OTHER | LOC: C.LABUPBEA 09:31 | PROVIDERS: ATTEND Nurse Practitioner Family | DX: N39.0 Urinary tract infection, site not specified (principal) ==

== ENCOUNTER → 2017-05-30 | Outpatient (CLI) | payer OTHER | LOC: C.LABUPBEA 06:19 | PROVIDERS: ATTEND Nurse Practitioner Family | DX: Z51.81 Encounter for therapeutic drug level monitoring (principal) ==

== ENCOUNTER → 2017-06-01 | Outpatient (CLI) | payer OTHER ==
[2017-06-01 10:01] LABS: BLOOD UREA NITROGEN 34 mg/dl (7-18); BUN/CREATININE RATIO 18.9 (10-20); CALCIUM 10.2 mg/dl (8.5-10.1); CARBON DIOXIDE 26 mmol/L (21-32); CHLORIDE 109 mmol/L (98-107); GLUCOSE 77 mg/dl (70-99); MAGNESIUM 2.4 mg/dl (1.8-2.4); POTASSIUM 4.2 mmol/L (3.5-5.1); SODIUM 142 mmol/L (136-145)
[2017-06-01 10:02] LABS: PHOSPHORUS 3.5 mg/dl (2.5-4.9)
== END ==
LOC: C.LABUPBEA 09:04
PROVIDERS: ATTEND Nurse Practitioner Family
DX: N18.3 Chronic kidney disease, stage 3 (moderate) (principal)

== ENCOUNTER → 2017-06-18 | Outpatient (CLI) | payer OTHER ==
[2017-06-18 08:34] LABS: HEMATOCRIT 31.8 % (37-47)
== END ==
LOC: C.LABUPBEA 08:12
PROVIDERS: ATTEND Nurse Practitioner Family
DX: D64.9 Anemia, unspecified (principal)

== ENCOUNTER → 2017-06-22 | Outpatient (CLI) | payer OTHER | LOC: C.LABUPBEA 09:06 | PROVIDERS: ATTEND Nurse Practitioner Family | DX: E03.9 Hypothyroidism, unspecified (principal) ==

== ENCOUNTER → 2017-07-20 | Outpatient (CLI) | payer OTHER ==
[2017-07-20 09:47] LABS: HEMATOCRIT 34.8 % (37-47)
== END ==
LOC: C.LABUPBEA 08:42
PROVIDERS: ATTEND Nurse Practitioner Family
DX: D64.9 Anemia, unspecified (principal)

== ENCOUNTER → 2017-08-05 | Outpatient (CLI) | payer OTHER ==
[~2017-08-05] MED LIST changes: -NF406 PO; +OSEL75CA23 PO; +PRAM0.1212 PO; -PRAM0.129 PO
[2017-08-05 09:46] LABS: BLOOD UREA NITROGEN 27 mg/dl (7-18); CARBON DIOXIDE 28 mmol/L (21-32); CREATININE 1.52 mg/dl (0.60-1.20); GLUCOSE 78 mg/dl (70-99); POTASSIUM 3.6 mmol/L (3.5-5.1); SODIUM 140 mmol/L (136-145)
--- NOTE | 2017-08-06 14:07 | CODING QUERY NO DIAGNOSIS ---
: 1935 TREATMENT RENDERED WITHOUT A DIAGNOSIS To promote full compliance with coding requirements relating to patient care, physician participation is requested in all cases of livestock broker uncertainty. Please assist us with providing a diagnosis/symptom for the test(s) below: A diagnosis/symptom was not documented on your Order. A valid diagnosis/symptom is required to bill all insurances. Please remember that we are unable to code a diagnosis of rule out, probable, possible, questionable, or suspected. Tests that require a diagnosis: DOS: 08/05/17 * PARTIAL RENAL PROFILE DIAGNOSIS: Provider Signature: Date: Thank you Ya Leach Health Information Management Once completed, please kindly fax back to [phone] For questions please call [phone]
== END ==
LOC: C.LABUPBEA 08:59
PROVIDERS: ATTEND Nurse Practitioner Family
DX: N18.3 Chronic kidney disease, stage 3 (moderate) (principal)

== ENCOUNTER → 2017-08-11 | Outpatient (CLI) | payer OTHER ==
[~2017-08-11] MED LIST changes: +NF406 PO; -OSEL75CA23 PO; -PRAM0.1212 PO; +PRAM0.129 PO
[2017-08-11 08:51] LABS: ALKALINE PHOSPHATASE 95 U/L (45-117); ALT/SGPT 29 U/L (12-78); AST/SGOT 17 U/L (15-37); BLOOD UREA NITROGEN 18 mg/dl (7-18); BUN/CREATININE RATIO 12.7 (10-20); CALCIUM 9.8 mg/dl (8.5-10.1); CARBON DIOXIDE 26 mmol/L (21-32); CHLORIDE 108 mmol/L (98-107); CREATININE 1.45 mg/dl (0.60-1.20); GLUCOSE 99 mg/dl (70-99); POTASSIUM 3.8 mmol/L (3.5-5.1); SODIUM 141 mmol/L (136-145)
== END | disposition home or self-care (01) ==
LOC: C.LABUPBEA 08:10
PROVIDERS: ATTEND Nurse Practitioner Family
DX: R60.9 Edema, unspecified (principal)

== ENCOUNTER → 2017-08-25 | Outpatient (CLI) | payer OTHER ==
[2017-08-25 09:47] LABS: HEMATOCRIT 37.8 % (37-47)
== END ==
LOC: C.LABUPBEA 08:50
PROVIDERS: ATTEND Nurse Practitioner Family
DX: D64.9 Anemia, unspecified (principal)

== ENCOUNTER → 2017-09-01 | Outpatient (CLI) | payer OTHER ==
[~2017-09-01] MED LIST changes: -NF406 PO; +OSEL75CA23 PO
[2017-09-01 08:19] LABS: ALBUMIN 2.8 gm/dl (3.4-5.0); ALT/SGPT 26 U/L (12-78); AST/SGOT 19 U/L (15-37); BLOOD UREA NITROGEN 25 mg/dl (7-18); CARBON DIOXIDE 28 mmol/L (21-32); CREATININE 1.27 mg/dl (0.60-1.20); GLUCOSE 84 mg/dl (70-99); POTASSIUM 4.2 mmol/L (3.5-5.1); SODIUM 143 mmol/L (136-145)
[2017-09-01 08:22] LABS: ALKALINE PHOSPHATASE 102 U/L (45-117)
--- NOTE | 2017-09-25 07:21 | CODING QUERY NO DIAGNOSIS ---
TREATMENT RENDERED WITHOUT A DIAGNOSIS To promote full compliance with coding requirements relating to patient care, physician participation is requested in all cases of clothespin machine operator uncertainty. Please assist us with providing a diagnosis/symptom for the test(s) below: A diagnosis/symptom was not documented on your Order. A valid diagnosis/symptom is required to bill all insurances. Please remember that we are unable to code a diagnosis of rule out, probable, possible, questionable, or suspected. Tests that require a diagnosis: DOS: 09/01/17 * COMPREHNSIVE METABOLIC PANEL DIAGNOSIS: Provider Signature: Date: Thank you Anna Aguilar [employer] Information Management Once completed, please kindly fax back to [phone] For questions please call [phone]
== END ==
LOC: C.LABUPBEA 07:32
PROVIDERS: ATTEND Nurse Practitioner Family
DX: N18.9 Chronic kidney disease, unspecified (principal)

== ENCOUNTER → 2017-09-22 | Outpatient (CLI) | payer OTHER | LOC: C.LABUPBEA 08:55 | PROVIDERS: ATTEND Nurse Practitioner Family | DX: E03.9 Hypothyroidism, unspecified (principal) ==

== ENCOUNTER → 2017-10-01 | Outpatient (CLI) | payer OTHER ==
[2017-10-01 08:23] LABS: BLOOD UREA NITROGEN 18 mg/dl (7-18); CALCIUM 9.9 mg/dl (8.5-10.1); CARBON DIOXIDE 27 mmol/L (21-32); CREATININE 1.41 mg/dl (0.60-1.20); GLUCOSE 105 mg/dl (70-99); POTASSIUM 4.1 mmol/L (3.5-5.1); SODIUM 142 mmol/L (136-145)
--- NOTE | 2017-10-06 13:17 | CODING QUERY NO DIAGNOSIS ---
DOS: 1935 Valid Physician Order Needed A valid physician order must be submitted in order to properly bill for the service(s) provided, including date of service(s), valid diagnosis, and physician signature. If these tests are done on a recurring basis the original physician order must be submitted in order to code and bill for the service(s) provided. Please fax us the original, signed physician order so that we may expedite billing to [phone] DOS 10/01/2017 * BMP (code that was provided on form is invalid for patient {vomiting of P92.09}) Thank you Elin Han [facility] Information [facility]
== END ==
LOC: C.LABUPBEA 07:55
PROVIDERS: ATTEND Nurse Practitioner Family
DX: N18.3 Chronic kidney disease, stage 3 (moderate) (principal)

== ENCOUNTER → 2017-10-20 | Outpatient (CLI) | payer OTHER ==
[~2017-10-20] MED LIST changes: +PRAM0.1212 PO; -PRAM0.129 PO
[2017-10-20 09:51] LABS: HEMATOCRIT 34.1 % (37-47); HEMOGLOBIN 10.4 g/dL (12.0-16.0)
== END | disposition home or self-care (01) ==
LOC: C.LABUPBEA 09:10
PROVIDERS: ATTEND Nurse Practitioner Family
DX: D64.9 Anemia, unspecified (principal)

== ENCOUNTER → 2017-12-21 | Outpatient (CLI) | payer OTHER | END | disposition home or self-care (01) | LOC: C.LABUPBEA 08:49 | PROVIDERS: ATTEND Nurse Practitioner Family | DX: E03.9 Hypothyroidism, unspecified (principal) ==

== ENCOUNTER → 2018-01-11 | Outpatient (CLI) | payer OTHER ==
[2018-01-11 10:15] LABS: BASO % 0.2 %; BASO ABS # 0.02 K/uL (0-0.2); EOS % 1.9 %; EOS ABS # 0.21 K/uL (0-0.5); HEMATOCRIT 39.4 % (37-47); HEMOGLOBIN 12.2 g/dL (12.0-16.0); IG# 0.02 K/uL (0.00-0.02); LYMPH % 13.7 %; LYMPH ABS # 1.54 K/uL (1.2-3.4); MEAN CELL VOLUME 92.9 fL (80-100); MEAN CORPUSCULAR HEMOGLOBIN 28.8 pg (25-34); MEAN PLATELET VOLUME 9.5 fL (7.4-10.4); MONO % 6.1 %; MONO ABS # 0.68 K/uL (0.11-0.59); NEUT % 77.9 %; NEUT ABS # 8.76 K/uL (1.4-6.5); PLATELET COUNT 296 K/uL (130-400); RED CELL DISTRIBUTION WIDTH CV 15.2 % (11.5-14.5); RED CELL DISTRIBUTION WIDTH SD 51.3 fL (36.4-46.3); WHITE BLOOD COUNT 11.23 K/uL (4.8-10.8)
[2018-01-11 10:40] LABS: ALBUMIN 3.3 gm/dl (3.4-5.0); BLOOD UREA NITROGEN 24 mg/dl (7-18); CALCIUM 9.8 mg/dl (8.5-10.1); CARBON DIOXIDE 25 mmol/L (21-32); CREATININE 1.48 mg/dl (0.60-1.20); GLUCOSE 134 mg/dl (70-99); PHOSPHORUS 2.6 mg/dl (2.5-4.9); POTASSIUM 3.8 mmol/L (3.5-5.1); SODIUM 143 mmol/L (136-145)
== END | disposition home or self-care (01) ==
LOC: C.LABUPBEA 09:45
PROVIDERS: ATTEND Nurse Practitioner Family
DX: E56.8 Deficiency of other vitamins (principal); N18.3 Chronic kidney disease, stage 3 (moderate); E03.9 Hypothyroidism, unspecified

== ENCOUNTER → 2018-01-13 | Outpatient (CLI) | payer OTHER ==
[2018-01-13 08:47] LABS: BASO % 0.3 %; BASO ABS # 0.03 K/uL (0-0.2); EOS % 3.7 %; EOS ABS # 0.38 K/uL (0-0.5); HEMATOCRIT 37.3 % (37-47); HEMOGLOBIN 11.6 g/dL (12.0-16.0); IG# 0.04 K/uL (0.00-0.02); LYMPH % 23.3 %; MEAN CELL VOLUME 92.1 fL (80-100); MEAN CORPUSCULAR HEMOGLOBIN 28.6 pg (25-34); MEAN CORPUSCULAR HGB CONC 31.1 g/dl (32-36); MEAN PLATELET VOLUME 9.5 fL (7.4-10.4); MONO % 6.9 %; MONO ABS # 0.71 K/uL (0.11-0.59); NEUT % 65.4 %; NEUT ABS # 6.75 K/uL (1.4-6.5); PLATELET COUNT 264 K/uL (130-400); RED CELL DISTRIBUTION WIDTH CV 15.3 % (11.5-14.5); RED CELL DISTRIBUTION WIDTH SD 51.2 fL (36.4-46.3); WHITE BLOOD COUNT 10.31 K/uL (4.8-10.8)
== END ==
LOC: C.LABUPBEA 08:04
PROVIDERS: ATTEND Nurse Practitioner Family
DX: D64.9 Anemia, unspecified (principal)

== ENCOUNTER → 2018-03-22 | Outpatient (CLI) | payer OTHER ==
[2018-03-22 11:53] LABS: HEMOGLOBIN A1C < 4.0 % (4.5-5.6)
== END ==
LOC: C.LABUPBEA 08:48
PROVIDERS: ATTEND Nurse Practitioner Family
DX: N18.3 Chronic kidney disease, stage 3 (moderate) (principal); E03.9 Hypothyroidism, unspecified

== ENCOUNTER 2019-07-01 10:33 | Inpatient (IN) ==
[2019-07-01 12:03] LABS: Hematocrit (blood only) 27.1 % (37-47); Hemoglobin 7.7 g/dL (12.0-16.0); Mean Corpuscular Hemoglobin 25.6 pg (25-34); Mean Corpuscular Hgb Conc 28.4 g/dL (32-36); Mean Platelet Volume 8.7 fL (7.4-10.4); Nucleated RBC # (auto) 0.05 K/uL (0-0); Nucleated RBC % (auto) 0.3 %; Platelet Count 425 K/uL (130-400); RDW Coefficient of Variation 18.5 % (11.5-14.5); RDW Standard Deviation 60.8 fL (36.4-46.3); Red Blood Count 3.01 M/uL (4.2-5.4); White Blood Count 17.46 K/uL (4.8-10.8)
[2019-07-01 12:22] LABS: Albumin Level 2.3 gm/dl (3.4-5.0); BUN Creatinine Ratio 9.9 (10-20); Calcium 9.8 mg/dl (8.5-10.1); Creatinine Clr Calc Pharmacy 35.7 ml/min; Est GFR (Non-African American) 34.6; Potassium 3.7 mmol/L (3.5-5.1)
[2019-07-01 12:24] LABS: Albumin Globulin Ratio 0.5 (0.9-2); Bilirubin,Total 0.2 mg/dl (0.2-1); Globulin 4.4 gm/dl (2.5-4.0); Total Protein 6.7 gm/dl (6.4-8.2)
[2019-07-01 12:30] LABS: Basophils # (auto) 0.02 K/uL (0-0.2); Basophils % (auto) 0.1 %; Eosinophils # (auto) 0.36 K/uL (0-0.5); Eosinophils % (auto) 2.1 %; Immature Granulocytes % (auto) 0.6 %; Lymphocytes # (auto) 1.28 K/uL (1.2-3.4); Lymphocytes % (auto) 7.3 %; Monocytes # (auto) 0.79 K/uL (0.11-0.59); Monocytes % (auto) 4.5 %; Neutrophils # (auto) 14.91 K/uL (1.4-6.5); Neutrophils % (auto) 85.4 %
[2019-07-01] MEDS ORDERED: SODIUM CHLORIDE 0.9% 1000ML 1,000 ML IV SCH (12:30)
[2019-07-01 12:35] LABS: Anisocytosis Present; Hypochromasia Present
[2019-07-01] MEDS ORDERED: IOVERSOL 100ml IV PRN (12:36)
--- NOTE | 2019-07-01 12:52 | CT Scan Report ---
CT abd pelvis IV con only CT DOSE: 884.15 mGy.cm HISTORY: Pain. Nausea. abd pain TECHNIQUE: Multiaxial CT images of the abdomen and pelvis were performed following the use of intrave nous contrast. A dose lowering technique was utilized adhering to the principles of ALARA. COMPARISON STUDY: 12/22/2013 FINDINGS: Minimal nonspecific interstitial infiltrative change right base. Left base is clear. Liver spleen and pancreas are unremarkable. No evidence for gallbladder distention. 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 Left kidney is negative for hydronephrosis. There is a 2.3 cm exophytic cyst extending from the anter ior aspect of the upper pole. This is unchanged from the prior exam. Nonobstructive bowel pattern. Mild wall thickening of the rectosigmoid and transverse colon consisten t with a nonspecific colitis. No evidence for abscess collection or obstructive change. IMPRESSION: 1. Mild nonspecific mid to distal colitis. 2. No evidence for abscess collection or obstruction. 3. Minimal interstitial infiltrative process right lung base. The above report was generated using voice recognition software. It may contain grammatical, syntax or spelling errors. Electronically signed by: Marvel Yanez M.D. 07/01/2019 12:50 PM
[2019-07-01 13:42] LABS: Partial Thromboplastin Ratio 0.9; Partial Thromboplastin Time 24.2 Seconds (21.0-31.0); Prothrombin Time 10.7 Seconds (9.0-12.0)
[2019-07-01 13:45] LABS: Appearance Urine Turbid (Clear); Bacteria Urine Automated 1+ (Negative); Bilirubin Urine Negative (Negative); Blood Urine 2+ (Negative); Color Urine Yellow; Epithelial Cell Urine Auto 20-30 /lpf (0-5); Glucose Urine UA Negative (Negative); Ketones Urine Negative (Negative); Leukocyte Esterase Urine 3+ (Negative); Nitrite Urine Negative (Negative); Protein Urine Trace (Negative); Specific Gravity Urine 1.013 (1.000-1.030); Urobilinogen Urine Negative (Negative); WBC Urine Automated >30 /hpf (0-5); pH Urine 6.5 (4.5-7.5)
--- NOTE | 2019-07-01 15:05 | Emergency Department Note ---
Entered by Kimi Trinidad acting as a scribe for History of Present Illness General Chief complaint: Illness Source: patient History of Present Illness Onset (ago): day(s) (several) Location: abdomen Pain Consistency: + intermittent Maximum Pain Intensity: 5 Quality: + other (rectal bleeding) Associated symptoms: + cough (blood), + nausea/vomiting (with blood) and + other (abdominal pain, burning with urination) The patient is a 83 year old female who presents to the Emergency Room with complaints of bleeding of questionable etiology for several days. Per [facility] staff the bleeding was thought to be vaginal and has now resolved. Patient apparently had some coughing the patient reports abdominal pain. The patient denies a history of a blood transfusion, and states she does not want one-she would rather "." She reports a history of hysterectomy. Per the nurses note, the patient was coughing or vomiting blood, and she had burning with urination. HPI is limited. Home Medications Home Medications Medication Instructions Recorded Confirmed Type ascorbic acid (vitamin C) 500 mg 500 mg PO QAM tab 04/20/19 07/01/19 History tablet atorvastatin 80 mg tablet 80 mg PO HS tab 04/20/19 07/01/19 History folic acid 1 mg tablet 1 mg PO QAM #30 tab 04/20/19 07/01/19 History furosemide 20 mg tablet 20 mg PO QAM #90 tab 04/20/19 07/01/19 History levothyroxine 75 mcg tablet 75 mcg PO HS #90 tab 04/20/19 07/01/19 History lithium carbonate 300 mg capsule 300 mg PO QAM cap 04/20/19 07/01/19 History melatonin 3 mg tablet 3 mg PO HS tab 04/20/19 07/01/19 History potassium chloride ER 10 mEq 10 meq PO QAM tab 04/20/19 07/01/19 History tablet,extended release pramipexole 0.5 mg tablet 0.5 mg PO HS tab 04/20/19 07/01/19 History risperidone 0.5 mg tablet 0.5 mg PO BID tab 04/20/19 07/01/19 History umeclidinium 62.5 mcg/actuation 1 puffs INHALATION QAM ea 04/20/19 07/01/19 History blister powder for inhalation acetaminophen 300 mg-codeine 30 mg 1 tab PO DAILY@1200 tab 05/06/19 07/01/19 History tablet cholecalciferol (vitamin D3) 2,000 4,000 units PO QAM cap 05/06/19 07/01/19 History unit capsule d-mannose 1,000 mg PO BID 05/06/19 07/01/19 History ferrous sulfate 325 mg (65 mg 325 mg PO QAM #60 tab 05/06/19 07/01/19 History iron) tablet lactobacillus combination no.8 3 0 mmu cells PO BID 05/06/19 07/01/19 History billion cell capsule polyethylene glycol 3350 17 17 gm PO QAM 05/06/19 07/01/19 History gram/dose oral powder sennosides 8.6 mg-docusate sodium 1 tab PO BID 05/06/19 07/01/19 History 50 mg tablet Calazime 1 applic TOPICAL BID 07/01/19 07/01/19 History acetaminophen [Tylenol] 650 mg PO TID 07/01/19 07/01/19 History aspirin 81 mg PO QAM 07/01/19 07/01/19 History hyoscyamine sulfate [Levsin] 0.125 mg PO BID 07/01/19 07/01/19 History vitamin B complex 1 tab PO QAM 07/01/19 07/01/19 History Allergies Allergy/AdvReac Type Severity Reaction Status Date / Time levofloxacin Allergy Intermediate RASH Verified 07/01/19 12:20 tramadol Allergy Intermediate rash Verified 07/01/19 12:20 amoxicillin Allergy Unknown UNKNOWN Verified 07/01/19 12:20 Penicillins Allergy Unknown HIVES Verified 07/01/19 12:20 Past Med/Surg History Medical History Bipolar disorder COPD (chronic obstructive pulmonary disease) Chronic kidney disease Dementia UTI (urinary tract infection) Surgical History S/P hysterectomy Family History Other Lung cancer Social History Preferred Language: Wolof Communication Ability: Effective Beliefs That Will Affect Care: None Current Living Situation: Correction Feels Safe at Home: Yes Smoking Status: Former smoker Hx Alcohol Use: No Hx Substance Use: No Review of Systems See HPI for pertinent positives & negatives. and A total of 10 systems reviewed and were otherwise negative Physical Exam Vital Signs Vital Signs - 24 hr 07/01/19 10:36 07/01/19 10:39 07/01/19 10:41 Temperature 36.4 C L Temperature Source Oral Sepsis Recent Fever Within 48 Hours No Sepsis New/Unexplained Change in Mental Status No Sepsis Action Taken by Nursing No Action Required Pulse Rate 122 H 95 H 97 H Pulse Rate from SpO2 Sensor 97 H 94 H Respiratory Rate 23 14 20 Respiratory Effort / Characteristics Non-Labored Spontaneous Respiratory Depth Normal Blood Pressure 142/68 H 142/68 H Blood Pressure Mean 92 92 Pulse Oximetry 93 94 93 Oxygen Delivery Method Room Air 07/01/19 11:00 07/01/19 11:30 07/01/19 12:00 Temperature Temperature Source Sepsis Recent Fever Within 48 Hours Sepsis New/Unexplained Change in Mental Status Sepsis Action Taken by Nursing Pulse Rate 71 77 95 H Pulse Rate from SpO2 Sensor 72 Respiratory Rate 14 18 21 Respiratory Effort / Characteristics Respiratory Depth Blood Pressure Blood Pressure Mean Pulse Oximetry Oxygen Delivery Method 07/01/19 12:01 07/01/19 12:29 07/01/19 12:30 Temperature Temperature Source Sepsis Recent Fever Within 48 Hours Sepsis New/Unexplained Change in Mental Status Sepsis Action Taken by Nursing Pulse Rate 87 80 Pulse Rate from SpO2 Sensor Respiratory Rate 20 19 Respiratory Effort / Characteristics Respiratory Depth Blood Pressure 135/98 Blood Pressure Mean 110 Pulse Oximetry Oxygen Delivery Method Room Air 07/01/19 13:00 07/01/19 13:30 07/01/19 14:00 Temperature Temperature Source Sepsis Recent Fever Within 48 Hours Sepsis New/Unexplained Change in Mental Status Sepsis Action Taken by Nursing Pulse Rate 87 64 Pulse Rate from SpO2 Sensor Respiratory Rate 21 19 17 Respiratory Effort / Characteristics Respiratory Depth Blood Pressure Blood Pressure Mean Pulse Oximetry Oxygen Delivery Method 07/01/19 14:30 07/01/19 14:49 07/01/19 15:00 Temperature Temperature Source Sepsis Recent Fever Within 48 Hours Sepsis New/Unexplained Change in Mental Status Sepsis Action Taken by Nursing Pulse Rate 72 80 78 Pulse Rate from SpO2 Sensor Respiratory Rate 21 18 15 Respiratory Effort / Characteristics Respiratory Depth Blood Pressure 142/69 H Blood Pressure Mean 93 Pulse Oximetry Oxygen Delivery Method 07/01/19 15:30 Temperature Temperature Source Sepsis Recent Fever Within 48 Hours Sepsis New/Unexplained Change in Mental Status Sepsis Action Taken by Nursing Pulse Rate 72 Pulse Rate from SpO2 Sensor Respiratory Rate 26 H Respiratory Effort / Characteristics Respiratory Depth Blood Pressure Blood Pressure Mean Pulse Oximetry Oxygen Delivery Method Vital signs reviewed. General: Chronically ill-appearing obese elderly female , in no significant distress. HEENT: Dried secretions around mouth. No scleral icterus, PERRLA, neck supple. Atraumatic. Cardiovascular: Regular rate and rhythm, no extra sounds. Pulmonary: Clear to auscultation bilaterally, normal work of breathing. Abdomen: Tender to lower abdomen, no rebound or guarding. Soft, nondistended, positive bowel sounds. Musculoskeletal: Atraumatic, no peripheral edema. Neurologic: Patient awake alert and answering questions appropriately. Moves all extremities equally however limited by body habitus and deconditioning. Skin: Warm, dry, no rash Rectal: Incontinent of loose brown stool, no gross blood, guaiac positive. Course 1215: Past medical records reviewed. The patient was evaluated in room B04B. A complete history and physical exam was performed. 1410: Upon reevaluation, I discussed findings and results with the patient. She verbalized agreement of the treatment plan. I spoke with Dr. Kohler of the [facility] Hospitalist Service. The patient will be evaluated for further management and care. Administered Medications Atorvastatin Calcium (Lipitor) 80 mg PO HS [facility] Stop: 07/31/19 20:59 Last Admin: 07/01/19 20:02 Dose: 80 mg Documented by: [id number] Piperacillin Sod/Tazobactam (Sod 3.375 gm/ Dextrose) 115 mls @ 28.75 mls/hr IV Q8H RODOLFO; Protocol Stop: 07/11/19 17:59 Last Infusion: 07/02/19 06:06 Dose: 0 mls/hr Documented by: [id number] Admin: 07/02/19 02:00 Dose: 28.8 mls/hr Documented by: [id number] Pantoprazole Sodium 40 mg/ (Syringe) 10 mls @ 5 mls/min IV BID@0900,2100 RODOLFO Stop: 07/31/19 20:59 Last Admin: 07/01/19 20:18 Dose: 5 mls/min Documented by: [id number] Levothyroxine Sodium (Synthroid) 75 mcg PO HS RODOLFO Stop: 07/31/19 20:59 Last Admin: 07/01/19 20:02 Dose: 75 mcg Documented by: [id number] Miscellaneous (Order Awaiting Action) 1 ea N/A QS RODOLFO Stop: 08/01/19 00:00 Last Admin: 07/01/19 23:40 Dose: Not Given Documented by: [id number] Ondansetron HCl (Zofran) 4 mg IV Q6H PRN PRN Reason: Nausea Stop: 07/31/19 23:42 Last Admin: 07/02/19 00:00 Dose: 4 mg Documented by: [id number] Pramipexole Dihydrochloride (Mirapex) 0.5 mg PO HS RODLOFO Stop: 07/31/19 20:59 Last Admin: 07/01/19 20:03 Dose: 0.5 mg Documented by: [id number] Risperidone (Risperdal) 0.5 mg PO BID RODOLFO Stop: 07/31/19 20:59 Last Admin: 07/01/19 20:03 Dose: 0.5 mg Documented by: [id number] Discontinued Medications Sodium Chloride (Nss 1000ml) 1,000 mls @ 100 mls/hr IV .Q10H RODOLFO Stop: 07/01/19 22:29 Last Infusion: 07/01/19 22:31 Dose: 100 mls/hr Documented by: [id number] Admin: 07/01/19 12:27 Dose: 100 mls/hr Documented by: [id number] Piperacillin Sod/Tazobactam (Sod 3.375 gm/ Dextrose) 115 mls @ 230 mls/hr IV 1930 ONE; Protocol Stop: 07/01/19 19:59 Last Infusion: 07/01/19 20:19 Dose: 230 mls/hr Documented by: [id number] Admin: 07/01/19 19:41 Dose: 230 mls/hr Documented by: [id number] Ioversol (Optiray 320 100ml) 94 ml IV ONCE PRN PRN Reason: Interaction Checking Stop: 07/05/19 12:35 Last Admin: 07/01/19 12:37 Dose: 94 ml Documented by: [id number] Medical Decision Making Differential Diagnosis Differential diagnosis includes etiologies such as diverticulosis, AVM, coagulopathy, colitis, inflammatory bowel disease, malignancy, [place] tear, esophagitis, peptic ulcer disease, variceal bleed, gastritis, epistaxis, fissure, hemorrhoids, as well as others were entertained. Medical Records Attestation: I reviewed the patient's medical records. Home Medications Current Medication List: was personally reviewed by me Laboratory Data Attestation: I reviewed the patient's lab results. Result diagrams: 07/02/19 05:47 07/02/19 05:47 Lab Results 07/01/19 07/01/19 07/01/19 Range/Units 11:42 11:42 12:29 WBC 17.46 H (4.8-10.8) K/uL RBC 3.01 L (4.2-5.4) M/uL Hgb 7.7 L (12.0-16.0) g/dL Hct 27.1 L (37-47) % MCV 90.0 (80-100) fL MCH 25.6 (25-34) pg MCHC 28.4 L (32-36) g/dL RDW Std Deviation 60.8 H (36.4-46.3) fL RDW Coeff of Catarino 18.5 H (11.5-14.5) % Plt Count 425 H (130-400) K/uL MPV 8.7 (7.4-10.4) fL Immature Gran % (Auto) 0.6 % Neut % (Auto) 85.4 % Lymph % (Auto) 7.3 % [place] % (Auto) 4.5 % Eos % (Auto) 2.1 % Baso % (Auto) 0.1 % Immature Gran # (Auto) 0.10 H (0.00-0.02) K/uL Neut # (Auto) 14.91 H (1.4-6.5) K/uL Lymph # (Auto) 1.28 (1.2-3.4) K/uL [place] # (Auto) 0.79 H (0.11-0.59) K/uL Eos # (Auto) 0.36 (0-0.5) K/uL Baso # (Auto) 0.02 (0-0.2) K/uL Absolute Nucleated RBC 0.05 H (0-0) K/uL Nucleated RBC % (auto) 0.3 % Hypochromasia Present Anisocytosis Present PT (9.0-12.0) Seconds INR (0.9-1.1) APTT (21.0-31.0) Seconds PTT Ratio Sodium 141 (136-145) mmol/L Potassium 3.7 (3.5-5.1) mmol/L Chloride 109 H (98-107) mmol/L Carbon Dioxide 28 (21-32) mmol/L Anion Gap 4.0 (3-11) BUN 14 (7-18) mg/dl Creatinine 1.42 H (0.6-1.2) mg/dl Est Cr Clr Drug Dosing 35.7 ml/min Est GFR ( Amer) 40.0 Est GFR (Non-Af Amer) 34.6 BUN/Creatinine Ratio 9.9 L (10-20) Glucose 152 H (70-99) mg/dl Calcium 9.8 (8.5-10.1) mg/dl Total Bilirubin 0.2 (0.2-1) mg/dl AST 10 L (15-37) U/L ALT 19 (12-78) U/L Alkaline Phosphatase 128 H (45-117) U/L Total Protein 6.7 (6.4-8.2) gm/dl Albumin 2.3 L (3.4-5.0) gm/dl Globulin 4.4 H (2.5-4.0) gm/dl Albumin/Globulin Ratio 0.5 L (0.9-2) Urine Color Urine Appearance (Clear) Urine pH (4.5-7.5) Ur Specific [place] (1.000-1.030) Urine Protein (Negative) Urine Glucose (UA) (Negative) Urine Ketones (Negative) Urine Blood (Negative) Urine Nitrite (Negative) Urine Bilirubin (Negative) Urine Urobilinogen (Negative) Ur Leukocyte Esterase (Negative) Urine WBC (Auto) (0-5) /hpf Urine RBC (Auto) (0-4) /hpf U Hyaline Cast (Auto) (0-5) /lpf U Epithel Cells (Auto) (0-5) /lpf Urine Bacteria (Auto) (Negative) POC Stool Occult Blood Positive A (Negative) Blood Type Antibody Screen 07/01/19 07/01/19 07/01/19 Range/Units 12:59 12:59 13:22 WBC (4.8-10.8) K/uL RBC (4.2-5.4) M/uL Hgb (12.0-16.0) g/dL Hct (37-47) % MCV (80-100) fL MCH (25-34) pg MCHC (32-36) g/dL RDW Std Deviation (36.4-46.3) fL RDW Coeff of Catarino (11.5-14.5) % Plt Count (130-400) K/uL MPV (7.4-10.4) fL Immature Gran % (Auto) % Neut % (Auto) % Lymph % (Auto) % [place] % (Auto) % Eos % (Auto) % Baso % (Auto) % Immature Gran # (Auto) (0.00-0.02) K/uL Neut # (Auto) (1.4-6.5) K/uL Lymph # (Auto) (1.2-3.4) K/uL [place] # (Auto) (0.11-0.59) K/uL Eos # (Auto) (0-0.5) K/uL Baso # (Auto) (0-0.2) K/uL Absolute Nucleated RBC (0-0) K/uL Nucleated RBC % (auto) % Hypochromasia Anisocytosis PT 10.7 (9.0-12.0) Seconds INR 1.0 (0.9-1.1) APTT 24.2 (21.0-31.0) Seconds PTT Ratio 0.9 Sodium (136-145) mmol/L Potassium (3.5-5.1) mmol/L Chloride (98-107) mmol/L Carbon Dioxide (21-32) mmol/L Anion Gap (3-11) BUN (7-18) mg/dl Creatinine (0.6-1.2) mg/dl Est Cr Clr Drug Dosing ml/min Est GFR ( Amer) Est GFR (Non-Af Amer) BUN/Creatinine Ratio (10-20) Glucose (70-99) mg/dl Calcium (8.5-10.1) mg/dl Total Bilirubin (0.2-1) mg/dl AST (15-37) U/L ALT (12-78) U/L Alkaline Phosphatase (45-117) U/L Total Protein (6.4-8.2) gm/dl Albumin (3.4-5.0) gm/dl Globulin (2.5-4.0) gm/dl Albumin/Globulin Ratio (0.9-2) Urine Color Yellow Urine Appearance Turbid A (Clear) Urine pH 6.5 (4.5-7.5) Ur Specific [place] 1.013 (1.000-1.030) Urine Protein Trace H (Negative) Urine Glucose (UA) Negative (Negative) Urine Ketones Negative (Negative) Urine Blood 2+ H (Negative) Urine Nitrite Negative (Negative) Urine Bilirubin Negative (Negative) Urine Urobilinogen Negative (Negative) Ur Leukocyte Esterase 3+ H (Negative) Urine WBC (Auto) >30 H (0-5) /hpf Urine RBC (Auto) 5-10 H (0-4) /hpf U Hyaline Cast (Auto) 1-5 (0-5) /lpf U Epithel Cells (Auto) 20-30 H (0-5) /lpf Urine Bacteria (Auto) 1+ H (Negative) POC Stool Occult Blood (Negative) Blood Type O Positive Antibody Screen NEGATIVE Imaging Data Radiologist's Impression: Radiology results as stated below per my review and the radiologist's interpretation: CT abd pelvis IV con only CT DOSE: 884.15 mGy.cm HISTORY: Pain. Nausea. abd pain TECHNIQUE: Multiaxial CT images of the abdomen and pelvis were performed fo llowing the use of intravenous contrast. A dose lowering technique was utilized adhering to the principles of ALARA. COMPARISON STUDY: 12/22/2013 FINDINGS: Minimal nonspecific interstitial infiltrative change right base. Left base is clear. Liver spleen and pancreas are unremarkable. No evidence for gallbladder distention. 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 Left kidney is negative for hydronephrosis. There is a 2.3 cm exophytic cyst extending from the anterior aspect of the upper pole. This is unchanged from the prior exam. Nonobstructive bowel pattern. Mild wall thickening of the rectosigmoid and transverse colon consistent with a nonspecific colitis. No evidence for abscess collection or obstructive change. IMPRESSION: 1. Mild nonspecific mid to distal colitis. 2. No evidence for abscess collection or obstruction. 3. Minimal interstitial infiltrative process right lung base. The above report was generated using voice recognition software. It may contain grammatical, syntax or spelling errors. Electronically signed by: Marvel Yanez M.D. 07/01/2019 12:50 PM ECG Data Attestation: I personally reviewed and interpreted this ECG as follows: Indication: weakness Rate (beats per minute): 84 Rhythm: normal sinus ECG ST segments: ST depression (no ) ECG Findings: PACs (no), PVCs (no) and Other (low voltage, previous septal infarct, nonspecific ST change, no ST elevation) Comparison ECG Date: from (08/19/2016) Change: the following changes noted (rate has decreased by 20 bpm, lower voltage, otherwise no change) Blood Pressure Blood Pressure Findings: Elevated blood pressure Blood Pressure Disposition: Referred to patients primary care provider MDM Narrative This patient was evaluated and appeared to be in no significant distress. Vital signs are stable and patient is afebrile. Patient is incontinent of a soft/liquid brown stool that is guaiac positive. She admits to history of hysterectomy. Catheterized urine specimen was obtained and reveals evidence of greater than 30 WBCs however is contaminated. It is negative for nitrates positive for leukocyte Estrace. It is difficult to say if this is a true UTI or contamination. CT scan of the abdomen and pelvis was performed and is read as above. There is "minimal infiltrate" at the right base however the patient has no signs or symptoms of pneumonia at this time. Patient's hemoglobin is noted to be 7.7 from 7.6 yesterday which is a significant drop from her baseline of approximately 10 in March. WBC is 17 which is slightly increased from yesterday which was 15. A type and screen has been sent. IV normal saline solution has been initiated. Patient will be evaluated by the hospitalist service for further management. Impression & Plan Anemia, GI bleed, Leukocytosis Discharge Plan Visit Data *Final* Discharge Date/Time: 07/01/19 18:13 Chief Complaint: Illness ED Provider: Purvi Sierra Discharge Problem: Anemia, GI bleed, Leukocytosis Patient Disposition: Admitted As Inpatient Discharge Instructions Interventions: ED Discharge Assessment Last Done: 07/01/19 18:13 The scribe's documentation has been prepared under my direction and personally reviewed by me in its entirety. I confirm that the note above accurately reflects all work, treatment, procedures, and medical decision making performed by me.
--- NOTE | 2019-07-01 15:41 | History & Physical Report ---
Date of Service July 01, 2019 Assessment & Plan (1) GI bleed: Rule out lower GI bleed. Consult gastroenterology. Monitor CBC and transfuse accordingly. Further plan per GI. Add IV Protonix. (2) Colitis: Rule out colitis. Questionable colitis changes on the CAT scan. Will start IV antibiotics. Check stool cultures. (3) CKD (chronic kidney disease), stage III: Monitor renal function closely. We will add gentle IV fluids. (4) COPD, moderate: DuoNeb as needed basis. (5) Bipolar disorder: Continue home medications. (6) Hypothyroidism: Continue Synthroid (7) Hyperlipemia: Continue statins. (8) HTN (hypertension): Monitor the blood pressure closely as patient has rectal bleeding. (9) Drug-induced Parkinsonism: (10) History of hysterectomy: (11) Dementia with Lewy bodies: (12) Dementia, vascular: (13) Leukocytosis: Probably secondary colitis. Repeat labs in a.m. Add SCD for DVT prophylaxis History of Present Illness Chief Complaint: Rectal bleeding [facility] The patient is 83 years old female was is a resident of retirement. She has history of dementia and bipolar disorder and is a poor historian. She has sent from the retirement with the complaints of rectal bleeding for last few days. It appears that initially the nursing staff thought that she is having vaginal bleeding but now it appears that she is having rectal bleeding. Stool for occult blood is positive in the ER. The CT scan shows questionable colitis. Labs showed leukocytosis. The patient herself is a very poor historian. No history of vomiting or hematemesis. No significant abdominal pain. The patient will be admitted for further evaluation and management. Allergies Allergy/AdvReac Type Severity Reaction Status Date / Time levofloxacin Allergy Intermediate RASH Verified 07/01/19 12:20 tramadol Allergy Intermediate rash Verified 07/01/19 12:20 amoxicillin Allergy Unknown UNKNOWN Verified 07/01/19 12:20 Penicillins Allergy Unknown HIVES Verified 07/01/19 12:20 Home Medications Home Medications Medication Instructions Recorded Confirmed Type ascorbic acid (vitamin C) 500 mg 500 mg PO QAM tab 04/20/19 07/01/19 History tablet atorvastatin 80 mg tablet 80 mg PO HS tab 04/20/19 07/01/19 History folic acid 1 mg tablet 1 mg PO QAM #30 tab 04/20/19 07/01/19 History furosemide 20 mg tablet 20 mg PO QAM #90 tab 04/20/19 07/01/19 History levothyroxine 75 mcg tablet 75 mcg PO HS #90 tab 04/20/19 07/01/19 History lithium carbonate 300 mg capsule 300 mg PO QAM cap 04/20/19 07/01/19 History melatonin 3 mg tablet 3 mg PO HS tab 04/20/19 07/01/19 History potassium chloride ER 10 mEq 10 meq PO QAM tab 04/20/19 07/01/19 History tablet,extended release pramipexole 0.5 mg tablet 0.5 mg PO HS tab 04/20/19 07/01/19 History risperidone 0.5 mg tablet 0.5 mg PO BID tab 04/20/19 07/01/19 History umeclidinium 62.5 mcg/actuation 1 puffs INHALATION QAM ea 04/20/19 07/01/19 History blister powder for inhalation acetaminophen 300 mg-codeine 30 mg 1 tab PO DAILY@1200 tab 05/06/19 07/01/19 History tablet cholecalciferol (vitamin D3) 2,000 4,000 units PO QAM cap 05/06/19 07/01/19 History unit capsule d-mannose 1,000 mg PO BID 05/06/19 07/01/19 History ferrous sulfate 325 mg (65 mg 325 mg PO QAM #60 tab 05/06/19 07/01/19 History iron) tablet lactobacillus combination no.8 3 0 mmu cells PO BID 05/06/19 07/01/19 History billion cell capsule polyethylene glycol 3350 17 17 gm PO QAM 05/06/19 07/01/19 History gram/dose oral powder sennosides 8.6 mg-docusate sodium 1 tab PO BID 05/06/19 07/01/19 History 50 mg tablet Calazime 1 applic TOPICAL BID 07/01/19 07/01/19 History acetaminophen [Tylenol] 650 mg PO TID 07/01/19 07/01/19 History aspirin 81 mg PO QAM 07/01/19 07/01/19 History hyoscyamine sulfate [Levsin] 0.125 mg PO BID 07/01/19 07/01/19 History vitamin B complex 1 tab PO QAM 07/01/19 07/01/19 History Past Med/Surg History Medical History Bipolar disorder COPD (chronic obstructive pulmonary disease) Chronic kidney disease Dementia UTI (urinary tract infection) Surgical History S/P hysterectomy Family History Other Lung cancer Social History Preferred Language: Argentine Communication Ability: Effective Beliefs That Will Affect Care: None Current Living Situation: [facility] Other Information That Helps Us Care for You: No Feels Safe at Home: Yes Safety Concerns: Feels Safe At This Time Smoking Status: Former smoker Hx Alcohol Use: No Hx Substance Use: No Review of Systems Review of Systems: Unobtainable due to mental health condition Physical Exam Physical Exam: GENERAL : No acute distress EYES: No icterus, gaze conjugate NOSE: No evidence of epistaxis MOUTH: No lesions or candidiasis, mucosa moist NECK: Supple LUNGS: CTA B/L, no wheezes, rales or rhonchi HEART: Regular, rate controlled ABDOMEN: Soft, NT, ND, BS Present EXTREMITIES: No LE edema, pedal pulses intact NEURO: A&OX3 Results & Data Vital Signs (Past 12 Hours) Vital Signs Temp Pulse Resp BP Pulse Ox 07/01/19 15:00 78 15 07/01/19 14:49 80 18 142/69 H 07/01/19 14:30 72 21 07/01/19 14:00 64 17 07/01/19 13:30 19 07/01/19 13:00 87 21 07/01/19 12:30 80 19 07/01/19 12:01 87 20 135/98 07/01/19 12:00 95 H 21 07/01/19 11:30 77 18 07/01/19 11:00 71 14 07/01/19 10:41 97.5 F L 97 H 20 142/68 H 93 07/01/19 10:39 95 H 14 94 07/01/19 10:36 122 H 23 142/68 H 93 Laboratory Results 07/01/19 11:42 07/01/19 11:[address] abd pelvis IV con only CT DOSE: 884.15 mGy.cm HISTORY: Pain. Nausea. abd pain TECHNIQUE: Multiaxial CT images of the abdomen and pelvis were performed follow ing the use of intravenous contrast. A dose lowering technique was utilized adhering to the principles of ALARA. COMPARISON STUDY: 12/22/2013 FINDINGS: Minimal nonspecific interstitial infiltrative change right base. Left base is clear. Liver spleen and pancreas are unremarkable. No evidence for gallbladder distention. 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 Left kidney is negative for hydronephrosis. There is a 2.3 cm exophytic cyst extending from the anterior aspect of the upper pole. This is unchanged from the prior exam. Nonobstructive bowel pattern. Mild wall thickening of the rectosigmoid and transverse colon consistent with a nonspecific colitis. No evidence for abscess collection or obstructive change. IMPRESSION: 1. Mild nonspecific mid to distal colitis. 2. No evidence for abscess collection or obstruction. 3. Minimal interstitial infiltrative process right lung base. Code Status & VTE Plan VTE Prophylaxis Plan VTE Prophylaxis will be ordered: Yes PG Care Time/CCT Total # of Minutes Spent Total Time Spent with Patient: Total time spent is greater than 50% in coordination of care (as documented) at patient's floor/unit and/or counseling patient: 60m (1) GI bleed GI bleed type/associated pathology: unspecified gastrointestinal hemorrhage type Qualified Code(s): K92.2 - Gastrointestinal hemorrhage, unspecified
[2019-07-01] MEDS ORDERED: PIPERACILL/TAZOBAC CONSULT ACTIVE PRN (18:53)
[2019-07-01] MEDS ORDERED: PIPERACILLIN/TAZOBACTAM 3.375 GM in DEXTROSE 5% 100 ML IV ONE (19:30)
[2019-07-01] MEDS: ATORVASTATIN 40 MG TAB PO SCH (20:02)
[2019-07-01] MEDS: LEVOTHYROXINE SODIUM 75 MCG TABLET PO SCH (20:02)
[2019-07-01] MEDS: risperiDONE 0.5 MG TABLET PO SCH (20:03)
[2019-07-01] MEDS: PRAMIPEXOLE DIHYDROCHLO 0.5 MG TAB PO SCH (20:03)
[2019-07-01] MEDS: PANTOprazole 40 MG in SYRINGE 0 ML IV SCH (20:18)
[2019-07-01 20:57] LABS: Basophils # (auto) 0.04 K/uL (0-0.2); Basophils % (auto) 0.2 %; Eosinophils # (auto) 0.26 K/uL (0-0.5); Eosinophils % (auto) 1.5 %; Hematocrit (blood only) 27.7 % (37-47); Hemoglobin 8.2 g/dL (12.0-16.0); Immature Granulocytes # (auto) 0.09 K/uL (0.00-0.02); Immature Granulocytes % (auto) 0.5 %; Lymphocytes # (auto) 1.15 K/uL (1.2-3.4); Lymphocytes % (auto) 6.5 %; Mean Corpuscular Hemoglobin 26.5 pg (25-34); Mean Corpuscular Hgb Conc 29.6 g/dL (32-36); Mean Corpuscular Volume 89.4 fL (80-100); Mean Platelet Volume 8.6 fL (7.4-10.4); Monocytes # (auto) 0.62 K/uL (0.11-0.59); Monocytes % (auto) 3.5 %; Neutrophils % (auto) 87.8 %; Nucleated RBC # (auto) 0.06 K/uL (0-0); Nucleated RBC % (auto) 0.3 %; Platelet Count 418 K/uL (130-400); RDW Coefficient of Variation 18.4 % (11.5-14.5); RDW Standard Deviation 60.2 fL (36.4-46.3); White Blood Count 17.66 K/uL (4.8-10.8)
[2019-07-01] MEDS ORDERED: DiphenhydrAMINE HCL 50 MG/ML VIAL IV PRN (21:02)
[2019-07-02] MEDS: ONDANSETRON INJ 2 MG/ML 2 ML VIAL IV PRN
[2019-07-02] MEDS: PIPERACILLIN/TAZOBACTAM 3.375 GM in DEXTROSE 5% 100 ML IV SCH ×3 (02:00→18:04)
[2019-07-02 06:43] LABS: Hematocrit (blood only) 29.6 % (37-47); Hemoglobin 8.3 g/dL (12.0-16.0); Mean Corpuscular Hemoglobin 25.9 pg (25-34); Mean Corpuscular Volume 92.2 fL (80-100); Mean Platelet Volume 8.6 fL (7.4-10.4); Platelet Count 435 K/uL (130-400); RDW Coefficient of Variation 18.5 % (11.5-14.5); RDW Standard Deviation 62.5 fL (36.4-46.3); Red Blood Count 3.21 M/uL (4.2-5.4); White Blood Count 18.09 K/uL (4.8-10.8)
[2019-07-02 07:09] LABS: Albumin Level 2.5 gm/dl (3.4-5.0); BUN Creatinine Ratio 8.2 (10-20); Bilirubin Direct 0.1 mg/dl (0-0.2); Calcium 9.7 mg/dl (8.5-10.1); Creatinine Clr Calc Pharmacy 35.2 ml/min; Est GFR (African American) 39.4; Magnesium 2.5 mg/dl (1.8-2.4); Potassium 3.9 mmol/L (3.5-5.1)
[2019-07-02 07:12] LABS: Albumin Globulin Ratio 0.6 (0.9-2); Bilirubin,Total 0.3 mg/dl (0.2-1); Globulin 4.5 gm/dl (2.5-4.0)
[2019-07-02] MEDS ORDERED: UMECLIDINIUM INH SCH (09:00)
[2019-07-02] MEDS: FOLIC ACID 1 MG TAB PO SCH (09:58)
[2019-07-02] MEDS: LITHIUM CARBONATE 300 MG TAB PO SCH (09:59)
[2019-07-02] MEDS: risperiDONE 0.5 MG TABLET PO SCH ×2 (09:59→20:01)
[2019-07-02] MEDS: PANTOprazole 40 MG in SYRINGE 0 ML IV SCH ×2 (10:33→20:06)
--- NOTE | 2019-07-02 12:11 | Consultation Report ---
DATE OF CONSULTATION: 07/02/2019 GASTROINTESTINAL CONSULT NOTE REASON FOR EVALUATION: Anemia with heme-positive stool and dysphagia. HISTORY OF PRESENT ILLNESS: The patient is an 83-year-old with bipolar disorder, who presented to the Emergency Room with abdominal pain and weakness. The patient was noted to be anemic with heme-positive stools. She is taking a baby aspirin daily and has not been on any gastric protective medication. The patient has had frequent urinary tract infections in the past and also appears to have an E. coli UTI as well. She was started empirically on piperacillin and her aspirin is being held and she has been placed on twice a day Protonix 40 mg. She has also been having difficulty swallowing intermittently. She had a speech evaluation this morning and she was able to swallow normally, but now is spitting up just mucus and saliva. She was observed to swallow gulps of water without difficulty. She does not recall if she has ever had an upper endoscopy or colonoscopy. PAST MEDICAL HISTORY: Remarkable for bipolar disorder, COPD, chronic kidney disease, dementia, urinary tract infections and a hysterectomy. SOCIAL HISTORY: The patient lives in a custodial. She is a former smoker, does not use any alcohol. FAMILY HISTORY: Positive for lung cancer. MEDICATIONS: Per list including a baby aspirin once a day. ALLERGIES: LEVOFLOXACIN, TRAMADOL, AMOXICILLIN, PENICILLIN. REVIEW OF SYSTEMS: Not really reliable due to her mental status. PHYSICAL EXAMINATION: GENERAL: The patient is sitting in bed, spitting up saliva. VITAL SIGNS: She is afebrile. Blood pressure is 142/68, pulse 95. HEENT: Mouth shows her to be edentulous with a retracted chin. LUNGS: Clear. HEART: Showed a normal S1 and S2. Regular rate and rhythm. ABDOMEN: Shows a low transverse scar. It is distended. There are no masses or tenderness appreciated. EXTREMITIES: Have sequential compression devices on, but there is no significant edema present. IMPRESSION AND PLAN: The patient has anemia with hemoglobin of 8.3, MCV is normal at 90. Stool is heme positive. It is possible she may have an ulcer from her aspirin. She could have a tumor. It is not clear whether she has ever been endoscoped before. I discussed with her about the possibility of doing a bowel prep and doing an upper and lower endoscopy. She is amenable to this, but will need to find out if she can swallow first. We will get a barium swallow to make sure there is nothing obstructing her esophagus or preventing her from taking a colon prep. If that is acceptable, then we will prep her tomorrow and Thursday morning and do EGD and colonoscopy Thursday. In the meantime, she will stay on Protonix. Her aspirin is being held and her urinary tract infection will be treated. She will stay on clear liquids.
--- NOTE | 2019-07-02 14:37 | Hospitalist Progress Note ---
Date of Service July 02, 2019 Assessment & Plan (1) GI bleed: reports of melena at SNF and also had some melena here this morning Hb is stable at 8.6 repeat tomorrow AM continue Protonix IV BID Dr. Galen mijares, might consider endoscopy early this week (2) Colitis: colitis seen on CT WBC is elevated at 18k with the bleeding and colitis might consider C diff, high risk living in SNF will check stool for C diff if she can provide sample (3) Recurrent UTI: culture growing E coli continue on Zosyn no signs of sepsis at this time (4) CKD (chronic kidney disease), stage III: continue on IV fluids with GI losses Cr is stable at 1.44 (5) Leukocytosis: high at 18k has evidence of both colitis but also UTI, growing E coli continue on Zosyn check for C diff (6) COPD, moderate: DuoNeb as needed basis. (7) Bipolar disorder: Continue home medications. (8) Hypothyroidism: Continue Synthroid (9) Hyperlipemia: Continue statins. (10) HTN (hypertension): Monitor the blood pressure closely as patient has rectal bleeding. (11) Drug-induced Parkinsonism: (12) History of hysterectomy: (13) Dementia with Lewy bodies: (14) Dementia, vascular: (15) Vaginal candidiasis: has vaginal discharge and labia are red, irritated place on both Miconazole insert and topical cream for 7 days, today is day 1 Subjective patient alert and conversive today she was seen by speech therapy due to concerns for aspiration she passed their bedside study, but then coughed up a large amount of liquids later will get video swallow on Thursday might consider EGD with colonoscopy for the dark stools Hb is up slightly at 8.3 WBC is elevated at 18k, asked RN to send sample for C diff if she can get sample Cr stable at 1.44 Review of Systems Review of Systems: All systems reviewed & are unremarkable except as noted in HPI & below Constitutional: + fatigue and + weakness; no fever, no chills and no sweats Respiratory: + cough; no dyspnea, no sputum production and no wheezing Cardiovascular: no chest pain Gastrointestinal: + diarrhea/loose stools and + melena; no abdominal pain, no nausea, no vomiting and no constipation Genitourinary: + vaginal discharge and + vaginal odor Physical Exam Constitutional: WD/WN, vitals as above + overweight Eyes: PERRL, conjunctivae normal, anicteric sclerae ENMT: external ear and nose normal, oropharynx normal Neck: trachea midline, no thyromegaly Respiratory: normal respiratory effort, lungs clear to auscultation (decreased in bases) Cardiovascular: RRR, no murmur, no edema Gastrointestinal (Abdomen): normal bowel sounds, soft, nontender, no hepatosplenomegaly Musculoskeletal: no cyanosis or clubbing, extremities motor strength 5/5 Skin: no rashes, warm and dry Neurologic: patellar DTR's 2+ bilat, sensation intact and PERRL, EOMI, accommodation nl, no face palsy, no dysarthria Psychiatric: Orientation: alert and oriented to person; + not oriented to place and + not oriented to time Lymphatic: no cervical or axillary lymphadenopathy Results & Data Vital Signs (Past 12 Hours) Vital Signs Temp Pulse Pulse Resp BP Pulse Ox 07/02/19 11:24 36.8 C 100 H 20 123/76 95 07/02/19 08:00 92 H 07/02/19 07:15 36.9 C 97 H 16 122/79 98 07/02/19 04:31 36.7 C 106 H 22 141/75 H 94 Laboratory Results Laboratory Results - last 24 hr 07/01/19 07/02/19 07/02/19 20:51 05:47 05:47 WBC 17.66 H 18.09 H RBC 3.10 L 3.21 L Hgb 8.2 L 8.3 L Hct 27.7 L 29.6 L MCV 89.4 92.2 MCH 26.5 25.9 MCHC 29.6 L 28.0 L RDW Std Deviation 60.2 H 62.5 H RDW Coeff of Catarino 18.4 H 18.5 H Plt Count 418 H 435 H MPV 8.6 8.6 Immature Gran % (Auto) 0.5 Neut % (Auto) 87.8 Lymph % (Auto) 6.5 [place] % (Auto) 3.5 Eos % (Auto) 1.5 Baso % (Auto) 0.2 Immature Gran # (Auto) 0.09 H Neut # (Auto) 15.50 H Lymph # (Auto) 1.15 L [place] # (Auto) 0.62 H Eos # (Auto) 0.26 Baso # (Auto) 0.04 Absolute Nucleated RBC 0.06 H Nucleated RBC % (auto) 0.3 Sodium 143 Potassium 3.9 Chloride 112 H Carbon Dioxide 25 Anion Gap 6.0 BUN 12 Creatinine 1.44 H Est Cr Clr Drug Dosing 35.2 Est GFR ( Amer) 39.4 Est GFR (Non-Af Amer) 34.0 BUN/Creatinine Ratio 8.2 L Glucose 137 H Calcium 9.7 Magnesium 2.5 H Total Bilirubin 0.3 Direct Bilirubin 0.1 AST 11 L ALT 19 Alkaline Phosphatase 135 H Total Protein 7.0 Albumin 2.5 L Globulin 4.5 H Albumin/Globulin Ratio 0.6 L Microbiology 07/01/19 13:22 Urine,Straight Cath Urine Culture - Preliminary Escherichia coli Medications Administered Current Inpatient Medications Atorvastatin Calcium (Lipitor) 80 mg PO [facility] Stop: 07/31/19 20:59 Last Admin: 07/01/19 20:02 Dose: 80 mg Documented by: Diphenhydramine HCl (Benadryl) 25 mg IV 3XDQ4 PRN PRN Reason: Allergic Symptoms Stop: 07/31/19 21:01 Folic Acid ([facility]vite) [facility] [place] Stop: 08/01/19 08:59 Last Admin: 07/02/19 09:58 Dose: 1 mg Documented by: Piperacillin Sod/Tazobactam (Sod 3.375 gm/ Dextrose) 115 mls @ 28.75 mls/hr IV Q8H [facility]; Protocol Stop: 07/11/19 17:59 Last Admin: 07/02/19 10:33 Dose: 28.8 mls/hr Documented by: Pantoprazole Sodium 40 mg/ (Syringe) 10 mls @ 5 mls/min IV BID@0900,2100 [facility] Stop: 07/31/19 20:59 Last Admin: 07/02/19 10:33 Dose: 5 mls/min Documented by: Levothyroxine Sodium (Synthroid) 75 mcg PO [facility] Stop: 07/31/19 20:59 Last Admin: 07/01/19 20:02 Dose: 75 mcg Documented by: Comer Carbonate (Comer Carbonate) 300 mg PO QAM [facility] Stop: 08/01/19 08:59 Last Admin: 07/02/19 09:59 Dose: 300 mg Documented by: Miconazole Nitrate (Monistat Derm) 1 appln EXT BID [facility] Stop: 07/09/19 20:59 Miconazole Nitrate (Monistat 7 Vag) 1 supp PV HS [facility] Stop: 07/09/19 20:59 Miscellaneous (Order Awaiting Action) 1 ea N/A QS [facility] Stop: 08/01/19 00:00 Last Admin: 07/01/19 23:40 Dose: Not Given Documented by: Miscellaneous Information (Consult) 1 ea N/A UD PRN PRN Reason: Consult Stop: 07/31/19 18:52 Ondansetron HCl (Zofran) 4 mg IV Q6H PRN PRN Reason: Nausea Stop: 07/31/19 23:42 Last Admin: 07/02/19 00:00 Dose: 4 mg Documented by: Pramipexole Dihydrochloride (Mirapex) 0.5 mg PO HS [facility] Stop: 07/31/19 20:59 Last Admin: 07/01/19 20:03 Dose: 0.5 mg Documented by: Risperidone (Risperdal) 0.5 mg PO BID [facility] Stop: 07/31/19 20:59 Last Admin: 07/02/19 09:59 Dose: 0.5 mg Documented by: PG Care Time/CCT Total # of Minutes Spent Total Time Spent with Patient: Total time spent is greater than 50% in coordina tion of care (as documented) at patient's floor/unit and/or counseling patient: (1) GI bleed GI bleed type/associated pathology: unspecified gastrointestinal hemorrhage type Qualified Code(s): K92.2 - Gastrointestinal hemorrhage, unspecified
[2019-07-02] MEDS: LEVOTHYROXINE SODIUM 75 MCG TABLET PO SCH (20:01)
[2019-07-02] MEDS: PRAMIPEXOLE DIHYDROCHLO 0.5 MG TAB PO SCH (20:01)
[2019-07-02] MEDS: ATORVASTATIN 40 MG TAB PO SCH (20:02)
[2019-07-02] MEDS: MICONAZOLE NITRATE 2% CR 30 GM TUBE EXT SCH (20:04)
[2019-07-02] MEDS: MICONAZOLE NITRATE-7 (100 MG EA SUPP) BOX PV SCH (20:05)
[2019-07-03] MEDS: PIPERACILLIN/TAZOBACTAM 3.375 GM in DEXTROSE 5% 100 ML IV SCH ×3 (01:38→17:28)
[2019-07-03 07:50] LABS: Creatinine Clr Calc Pharmacy 27.5 ml/min; Est GFR (African American) 26.6
[2019-07-03 08:21] LABS: Hematocrit (blood only) 25.6 % (37-47); Hemoglobin 7.3 g/dL (12.0-16.0); Mean Corpuscular Hgb Conc 28.5 g/dL (32-36); Mean Corpuscular Volume 91.1 fL (80-100); Mean Platelet Volume 8.5 fL (7.4-10.4); Nucleated RBC # (auto) 0.05 K/uL (0-0); Nucleated RBC % (auto) 0.3 %; Platelet Count 385 K/uL (130-400); RDW Coefficient of Variation 18.3 % (11.5-14.5); Red Blood Count 2.81 M/uL (4.2-5.4); White Blood Count 16.03 K/uL (4.8-10.8)
[2019-07-03] MEDS: FOLIC ACID 1 MG TAB PO SCH (08:49)
[2019-07-03] MEDS: LITHIUM CARBONATE 300 MG TAB PO SCH (08:49)
[2019-07-03] MEDS: risperiDONE 0.5 MG TABLET PO SCH ×2 (08:50→20:02)
[2019-07-03 08:52] LABS: Calcium 9.6 mg/dl (8.5-10.1); Creatinine Clr Calc Pharmacy 27.2 ml/min; Est GFR (African American) 26.3; Est GFR (Non-African American) 22.7; Potassium 3.8 mmol/L (3.5-5.1)
[2019-07-03] MEDS: PANTOprazole 40 MG in SYRINGE 0 ML IV SCH ×2 (08:52→20:07)
[2019-07-03 08:54] LABS: Anisocytosis Present; Basophils # (auto) 0.03 K/uL (0-0.2); Basophils % (auto) 0.2 %; Eosinophils % (auto) 1.9 %; Immature Granulocytes # (auto) 0.11 K/uL (0.00-0.02); Immature Granulocytes % (auto) 0.7 %; Lymphocytes # (auto) 1.36 K/uL (1.2-3.4); Lymphocytes % (auto) 8.5 %; Monocytes # (auto) 0.97 K/uL (0.11-0.59); Monocytes % (auto) 6.1 %; Neutrophils # (auto) 13.26 K/uL (1.4-6.5); Neutrophils % (auto) 82.6 %; Polychromasia 1+
[2019-07-03] MEDS: MICONAZOLE NITRATE 2% CR 30 GM TUBE EXT SCH ×2 (10:16→21:37)
--- NOTE | 2019-07-03 14:48 | Hospitalist Progress Note ---
Date of Service July 03, 2019 Assessment & Plan (1) Acute kidney injury superimposed on chronic kidney disease: Cr climbing to 2.[address] on NSS + 20mEq KCl at 80cc/hr repeat BMP in the morning (2) GI bleed: reports of melena at SNF and also had some melena here yesterday AM (07/02) Hb down slightly at 7.3, no need for transfusion unless < 7, BP is stable repeat tomorrow AM continue Protonix IV BID Dr. Aaron following, might consider endoscopy early this week (3) Colitis: colitis seen on CT WBC down to 16k from 18k with the bleeding and colitis might consider C diff, high risk living in SNF will check stool for C diff if she can provide sample, has not provided sample yet might consider colonoscopy later this week (4) Recurrent UTI: culture growing E coli, dugan sensitive change Zosyn to Rocephin 1gm IV q24 would complete 7 days total treatment no signs of sepsis at this time (5) Dysphagia: failed bedside study with nectar thick and thin liquids plan for video swallow tomorrow can have pills with pudding strict NPO otherwise place on maintenance IV fluids (6) Vaginal candidiasis: has vaginal discharge and labia are red, irritated place on both Miconazole insert and topical cream for 7 days, today is day 2 (7) CKD (chronic kidney disease), stage III: continue on IV fluids with GI losses Cr up to 2.0 today, see above (8) Leukocytosis: high at 18k on discharge down to 16k today has evidence of both colitis but also UTI, growing E coli continue on Rocephin check for C diff (9) COPD, moderate: DuoNeb as needed basis. (10) Bipolar disorder: Continue home medications. (11) Hypothyroidism: Continue Synthroid (12) Hyperlipemia: Continue statins. (13) HTN (hypertension): Monitor the blood pressure closely as patient has rectal bleeding. (14) Drug-induced Parkinsonism: (15) History of hysterectomy: (16) Dementia with Lewy bodies: (17) Dementia, vascular: she is DNR from [facility] that came from [facility] Subjective patient not very talkative today, sleeping a lot d/w speech therapy, they re-evaluated her with nectar thick liquids, she did not do well, aspirated will be NPO, can have pills with pudding plan for video swallow tomorrow WBC down to 16k from 18k, Hb down to 7.3 from 8.3 Cr trending up to 2.0, K is 3.8 no sample sent for C diff testing yet urine culture with E coli, dugan sensitive, change Zosyn to Rocephin Review of Systems Review of Systems: Unobtainable due to cognitive status (more sleepy today) Physical Exam Constitutional: WD/WN, vitals as above + lethargic and + overweight Eyes: PERRL, conjunctivae normal, anicteric sclerae ENMT: external ear and nose normal, oropharynx normal Neck: trachea midline, no thyromegaly Respiratory: normal respiratory effort, lungs clear to auscultation (decreased in bases) Cardiovascular: RRR, no murmur, no edema Gastrointestinal (Abdomen): normal bowel sounds, soft, nontender, no hepatosplenomegaly Musculoskeletal: no cyanosis or clubbing, extremities motor strength 5/5 Skin: no rashes, warm and dry Neurologic: patellar DTR's 2+ bilat, sensation intact and PERRL, EOMI, accommodation nl, no face palsy, no dysarthria Psychiatric: Orientation: oriented to person; + not alert, + not oriented to place and + not oriented to time Lymphatic: no cervical or axillary lymphadenopathy Results & Data Vital Signs (Past 12 Hours) Vital Signs Temp Pulse Pulse Resp BP Pulse Ox 07/03/19 11:00 36.8 C 69 18 127/78 93 07/03/19 07:28 91 H 07/03/19 07:00 36.7 C 78 18 116/79 97 07/03/19 03:25 36.6 C 90 20 119/74 96 Laboratory Results Laboratory Results - last 24 hr 07/03/19 07/03/19 07/03/19 06:32 08:02 08:02 WBC 16.03 H RBC 2.81 L Hgb 7.3 L Hct 25.6 L MCV 91.1 MCH 26.0 MCHC 28.5 L RDW Std Deviation 61.0 H RDW Coeff of Catarino 18.3 H Plt Count 385 MPV 8.5 Immature Gran % (Auto) 0.7 Neut % (Auto) 82.6 Lymph % (Auto) 8.5 [place] % (Auto) 6.1 Eos % (Auto) 1.9 Baso % (Auto) 0.2 Immature Gran # (Auto) 0.11 H Neut # (Auto) 13.26 H Lymph # (Auto) 1.36 [place] # (Auto) 0.97 H Eos # (Auto) 0.30 Baso # (Auto) 0.03 Absolute Nucleated RBC 0.05 H Nucleated RBC % (auto) 0.3 Polychromasia 1+ Anisocytosis Present Sodium 144 Potassium 3.8 Chloride 113 H Carbon Dioxide 25 Anion Gap 6.0 BUN 12 Creatinine 1.99 H D 2.01 H Est Cr Clr Drug Dosing 27.5 27.2 Est GFR ( Amer) 26.6 26.3 Est GFR (Non-Af Amer) 23.0 22.7 BUN/Creatinine Ratio 6.0 L Glucose 113 H Calcium 9.6 Microbiology 07/01/19 13:22 Urine,Straight Cath Urine Culture - Final Escherichia coli Medications Administered Current Inpatient Medications Atorvastatin Calcium (Lipitor) 80 mg PO [facility] Stop: 07/31/19 20:59 Last Admin: 07/02/19 20:02 Dose: 80 mg Documented by: Diphenhydramine HCl (Benadryl) 25 mg IV 3XDQ4 PRN PRN Reason: Allergic Symptoms Stop: 07/31/19 21:01 Folic Acid (Folvite) 1 mg PO [facility] Stop: 08/01/19 08:59 Last Admin: 07/03/19 08:49 Dose: 1 mg Documented by: Piperacillin Sod/Tazobactam (Sod 3.375 gm/ Dextrose) 115 mls @ 28.75 mls/hr IV Q8H [facility]; Protocol Stop: 07/11/19 17:59 Last Infusion: 07/03/19 14:35 Dose: Infused Documented by: Pantoprazole Sodium 40 mg/ (Syringe) 10 mls @ 5 mls/min IV BID@0900,2100 [facility] Stop: 07/31/19 20:59 Last Admin: 07/03/19 08:52 Dose: 5 mls/min Documented by: Levothyroxine Sodium (Synthroid) 75 mcg PO [facility] Stop: 07/31/19 20:59 Last Admin: 07/02/19 20:01 Dose: 75 mcg Documented by: Abiquiu Carbonate (Abiquiu Carbonate) 300 mg PO [facility] Stop: 08/01/19 08:59 Last Admin: 07/03/19 08:49 Dose: 300 mg Documented by: Miconazole Nitrate (Monistat Derm) 1 appln EXT BID [facility] Stop: 07/09/19 20:59 Last Admin: 07/03/19 10:16 Dose: 1 appln Documented by: Miconazole Nitrate (Monistat 7 Vag) 1 supp PV HS [facility] Stop: 07/09/19 20:59 Last Admin: 07/02/19 20:05 Dose: 1 supp Documented by: Miscellaneous (Order Awaiting Action) 1 ea N/A QS [facility] Stop: 08/01/19 00:00 Last Admin: 07/03/19 08:58 Dose: Not Given Documented by: Miscellaneous Information (Consult) 1 ea N/A UD PRN PRN Reason: Consult Stop: 07/31/19 18:52 Ondansetron HCl (Zofran) 4 mg IV Q6H PRN PRN Reason: Nausea Stop: 07/31/19 23:42 Last Admin: 07/02/19 00:00 Dose: 4 mg Documented by: Pramipexole Dihydrochloride (Mirapex) 0.5 mg PO HS [facility] Stop: 07/31/19 20:59 Last Admin: 07/02/19 20:01 Dose: 0.5 mg Documented by: Risperidone (Risperdal) 0.5 mg PO BID [facility] Stop: 07/31/19 20:59 Last Admin: 07/03/19 08:50 Dose: 0.5 mg Documented by: PG Care Time/CCT Total # of Minutes Spent Total Time Spent with Patient: Total time spent is greater than 50% in coordination of care (as documented) at patient's floor/unit and/or counseling patient: (1) GI bleed GI bleed type/associated pathology: unspecified gastrointestinal hemorrhage type Qualified Code(s): K92.2 - Gastrointestinal hemorrhage, unspecified
[2019-07-03] MEDS: ATORVASTATIN 40 MG TAB PO SCH (20:01)
[2019-07-03] MEDS: LEVOTHYROXINE SODIUM 75 MCG TABLET PO SCH (20:01)
[2019-07-03] MEDS: PRAMIPEXOLE DIHYDROCHLO 0.5 MG TAB PO SCH (20:01)
[2019-07-03] MEDS: MICONAZOLE NITRATE-7 (100 MG EA SUPP) BOX PV SCH (21:38)
[2019-07-03] MEDS: NSS + 20MEQ KCL 20 MEQ/1,000 ML BAG IV SCH (21:39)
[2019-07-04 06:47] LABS: Hematocrit (blood only) 25.4 % (37-47); Hemoglobin 7.1 g/dL (12.0-16.0); Mean Corpuscular Hemoglobin 25.4 pg (25-34); Mean Platelet Volume 8.6 fL (7.4-10.4); Nucleated RBC # (auto) 0.02 K/uL (0-0); Nucleated RBC % (auto) 0.2 %; Platelet Count 356 K/uL (130-400); RDW Coefficient of Variation 18.5 % (11.5-14.5); RDW Standard Deviation 62.2 fL (36.4-46.3); Red Blood Count 2.79 M/uL (4.2-5.4)
[2019-07-04 07:21] LABS: BUN Creatinine Ratio 6.5 (10-20); Basophilic Stippling 1+; Basophils # (auto) 0.03 K/uL (0-0.2); Basophils % (auto) 0.2 %; Calcium 9.5 mg/dl (8.5-10.1); Creatinine Clr Calc Pharmacy 27.5 ml/min; Eosinophils # (auto) 0.21 K/uL (0-0.5); Eosinophils % (auto) 1.5 %; Est GFR (African American) 26.8; Est GFR (Non-African American) 23.1; Immature Granulocytes # (auto) 0.06 K/uL (0.00-0.02); Immature Granulocytes % (auto) 0.4 %; Lymphocytes # (auto) 1.32 K/uL (1.2-3.4); Lymphocytes % (auto) 9.4 %; Monocytes # (auto) 0.78 K/uL (0.11-0.59); Monocytes % (auto) 5.6 %; Neutrophils % (auto) 82.9 %; Polychromasia 1+; Potassium 3.8 mmol/L (3.5-5.1)
[2019-07-04] MEDS ORDERED: cefTRIAXone SODIUM 1,000 MG in DEXTROSE 5% 50 ML IV SCH (09:00)
[2019-07-04] MEDS: FOLIC ACID 1 MG TAB PO SCH (09:53)
[2019-07-04] MEDS: LITHIUM CARBONATE 300 MG TAB PO SCH (09:54)
[2019-07-04] MEDS: risperiDONE 0.5 MG TABLET PO SCH ×2 (09:55→21:12)
[2019-07-04] MEDS: PANTOprazole 40 MG in SYRINGE 0 ML IV SCH ×2 (09:55→21:11)
[2019-07-04] MEDS: cefTRIAXone SODIUM 2,000 MG in DEXTROSE 5% 50 ML IV SCH (09:56)
[2019-07-04] MEDS: NSS + 20MEQ KCL 20 MEQ/1,000 ML BAG IV SCH ×2 (09:56→23:30)
[2019-07-04] MEDS: MICONAZOLE NITRATE 2% CR 30 GM TUBE EXT SCH ×2 (10:13→21:23)
--- NOTE | 2019-07-04 13:21 | Fluoroscopy Report ---
FL video swallow CLINICAL HISTORY: 83 years-old Female presenting with assess for aspiration. TECHNIQUE: Video fluoroscopic evaluation of swallowing was performed in the AP and lateral projection s in conjunction with speech pathology. The patient was administered various textures, including thin liquids, nectar thick liquids, honey thick liquids, pudding, and solids. COMPARISON: 12/17/2015. FINDINGS: Limited evaluation of the esophagus within normal limits. Delayed initiation of the swallow reflex with palatal oscillation though adequate tongue-soft palate seal during the oral transit. Normal soft palate-superior constrictor muscle seal without evidence of nasopharyngeal regurgitation. Normal oral transport/propulsion of the food bolus. Normal hyoid eleva tion and epiglottic deflection. Significant residual pharyngeal bolus with administration of solids w ith incomplete clearance on repeated swallows. Intermittent solid aspiration of thin liquids and nectar thick liquids. No aspiration resulted from a dministration of honey thick liquids. No evidence of aspiration of the administration of solids inclu ding barium pudding and cracker consistencies. Fluoroscopy dosage (mGy): Not available. Fluoroscopy time: 3.3 minutes Number or time of high level fluoroscopy (HLF), digital spot, or digital subtraction images: 0. IMPRESSION: 1. Silent aspiration intermittently observed with administration of all liquid consistencies. 2. Delayed swallow. 3. Please see the speech pathologist report for detailed findings and recommendations. Electronically signed by: Gino Haddad M.D. 07/04/2019 1:20 PM
--- NOTE | 2019-07-04 17:02 | Progress Note ---
DATE: 07/04/2019 SUBJECTIVE: The patient had a video swallow today, which showed that she has some difficulty getting food through her esophagus mechanically, but there is no obstruction. She does have a little bit of silent aspiration with certain textures, but there is no foreign body or obvious tumor in her esophagus. She continues to drop her blood count down to 7.1 today and continues to be treated for urinary tract infection. PHYSICAL EXAMINATION: GENERAL: The patient appears a little bit disheveled. VITAL SIGNS: Blood pressure is 126/60, pulse 90, temperature is 36.3. There is no gross bleeding evident. IMPRESSION AND PLAN: The patient has anemia and heme positive stool, dysphagia. I plan on prepping her tonight and proceeding with both an EGD and colonoscopy tomorrow for further evaluation of her symptoms.
[2019-07-04 17:30] LABS: Hematocrit (blood only) 24.9 % (37-47)
[2019-07-04] MEDS: LAVAGE SOLUTION 4000ML PO SCH (21:09)
[2019-07-04] MEDS: ATORVASTATIN 40 MG TAB PO SCH (21:12)
[2019-07-04] MEDS: LEVOTHYROXINE SODIUM 75 MCG TABLET PO SCH (21:13)
[2019-07-04] MEDS: PRAMIPEXOLE DIHYDROCHLO 0.5 MG TAB PO SCH (21:13)
[2019-07-04] MEDS: MICONAZOLE NITRATE-7 (100 MG EA SUPP) BOX PV SCH (21:24)
--- NOTE | 2019-07-04 21:34 | Hospitalist Progress Note ---
Date of Service July 04, 2019 Assessment & Plan (1) Acute kidney injury superimposed on chronic kidney disease: Cr peaked at 2, hoevering around this level for past 3 days. will continue to monitor Patient is having clear liquid diet and IVF (2) GI bleed: reports of melena at SNF and also had some melena here yesterday AM (07/02) Hb down slightly at 7.1, no need for transfusion unless < 7, BP is stable repeat tomorrow AM continue Protonix IV BID Dr. Aaron following, might consider endoscopy early this week Patient currently refusing blood product (3) Colitis: colitis seen on CT WBC down to 14k from 18k with the bleeding and colitis might consider C diff, high risk living in SNF not provided sample. doubt c diff at this point. also wbc is improving. (4) Recurrent UTI: culture growing E coli, dugan sensitive change Zosyn to Rocephin 1gm IV q24 would complete 7 days total treatment no signs of sepsis at this time (5) Dysphagia: failed bedside study with nectar thick and thin liquids plan for video swallow tomorrow can have pills with pudding on clear liquis diet place on maintenance IV fluids (6) Vaginal candidiasis: has vaginal discharge and labia are red, irritated place on both Miconazole insert and topical cream for 7 days, today is day 2 (7) CKD (chronic kidney disease), stage III: continue on IV fluids with GI losses Cr up to 2.0 today, see above (8) Leukocytosis: high at 18k on discharge down to 14k today has evidence of both colitis but also UTI, growing E coli continue on Rocephin (9) COPD, moderate: DuoNeb as needed basis. (10) Bipolar disorder: Continue home medications. (11) Hypothyroidism: Continue Synthroid (12) Hyperlipemia: Continue statins. (13) HTN (hypertension): Monitor the blood pressure closely as patient has rectal bleeding. 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 Subjective Patient reports no new symptoms. Review of Systems Review of Systems: All systems reviewed & are unremarkable except as noted in HPI & below Physical Exam Physical Exam: Constitutional: WD/WN, vitals as above + lethargic and + overweight Eyes: PERRL, conjunctivae normal, anicteric sclerae ENMT: external ear and nose normal, oropharynx normal Neck: trachea midline, no thyromegaly Respiratory: normal respiratory effort, lungs clear to auscultation (decreased in bases) Cardiovascular: RRR, no murmur, no edema Gastrointestinal (Abdomen): normal bowel sounds, soft, nontender, no hepatosplenomegaly Musculoskeletal: no cyanosis or clubbing, extremities motor strength 5/5 Skin: no rashes, warm and dry Neurologic: patellar DTR's 2+ bilat, sensation intact and PERRL, EOMI, accommodation nl, no face palsy, no dysarthria Psychiatric: Orientation: oriented to person; + not alert, + not oriented to place and + not oriented to time Lymphatic: no cervical or axillary lymphadenopathy Results & Data Vital Signs (Past 12 Hours) Vital Signs Temp Pulse Pulse Resp BP Pulse Ox 07/04/19 19:40 36.6 C 89 20 98/59 L 100 07/04/19 17:09 90 07/04/19 15:52 36.3 C L 90 18 126/60 99 07/04/19 11:53 36.5 C 90 18 144/71 H 99 PG Care Time/CCT Total # of Minutes Spent Total Time Spent with Patient: Total time spent is greater than 50% in coordina tion of care (as documented) at patient's floor/unit and/or counseling patient: (1) GI bleed GI bleed type/associated pathology: unspecified gastrointestinal hemorrhage type Qualified Code(s): K92.2 - Gastrointestinal hemorrhage, unspecified
[2019-07-05] MEDS: LAVAGE SOLUTION 4000ML PO SCH ×2 (05:53→21:06)
[2019-07-05 07:28] LABS: Hematocrit (blood only) 24.2 % (37-47); Hemoglobin 6.7 g/dL (12.0-16.0); Mean Corpuscular Hemoglobin 25.3 pg (25-34); Mean Corpuscular Hgb Conc 27.7 g/dL (32-36); Mean Corpuscular Volume 91.3 fL (80-100); Mean Platelet Volume 8.5 fL (7.4-10.4); Platelet Count 344 K/uL (130-400); RDW Coefficient of Variation 18.5 % (11.5-14.5); RDW Standard Deviation 61.6 fL (36.4-46.3); Red Blood Count 2.65 M/uL (4.2-5.4); White Blood Count 13.65 K/uL (4.8-10.8)
[2019-07-05 07:47] LABS: BUN Creatinine Ratio 5.8 (10-20); Calcium 9.2 mg/dl (8.5-10.1); Creatinine Clr Calc Pharmacy 35.4 ml/min; Est GFR (African American) 36.3; Est GFR (Non-African American) 31.3; Potassium 3.9 mmol/L (3.5-5.1)
[2019-07-05] MEDS: PANTOprazole 40 MG in SYRINGE 0 ML IV SCH ×2 (07:50→21:53)
[2019-07-05] MEDS: cefTRIAXone SODIUM 2,000 MG in DEXTROSE 5% 50 ML IV SCH (07:50)
[2019-07-05] MEDS: MICONAZOLE NITRATE 2% CR 30 GM TUBE EXT SCH ×2 (07:52→22:31)
[2019-07-05] MEDS: risperiDONE 0.5 MG TABLET PO SCH ×2 (07:53→21:51)
[2019-07-05] MEDS: LITHIUM CARBONATE 300 MG TAB PO SCH (07:53)
[2019-07-05] MEDS: FOLIC ACID 1 MG TAB PO SCH (07:53)
[2019-07-05] MEDS: NSS + 20MEQ KCL 20 MEQ/1,000 ML BAG IV SCH (12:28)
--- NOTE | 2019-07-05 16:02 | Progress Note ---
DATE: 07/05/2019 The patient was scheduled for an EGD and colonoscopy today to evaluate her anemia and heme positive stool. Unfortunately, she was not able to complete her bowel prep and only took 350 mL total and did not have any results. Her hemoglobin today is 6.7 and anesthesiologists were unwilling to sedate her today without blood transfusion and she is refusing blood. She does have a son, but no one has been able to reach him today to get a consent for endoscopic procedures or blood transfusions. Consequently, her procedures have to be canceled today. Hopefully, tomorrow, we will be able to get consent and get her some blood, which would make it is more safe to do sedation and hopefully we can proceed with at least an upper endoscopy tomorrow. There is probably no expectation that she will be able to complete a bowel prep to do a colonoscopy. We will follow the patient and see if she is able to complete her exam tomorrow.
[2019-07-05] MEDS ORDERED: SODIUM CHLORIDE 0.9% 250 ML IV PRN (19:49)
[2019-07-05] MEDS ORDERED: ALBUT/IPRATROP 3MG/0.5MG NEB 3 ML VIAL NEB ONE (21:42)
[2019-07-05] MEDS: ATORVASTATIN 40 MG TAB PO SCH (21:51)
[2019-07-05] MEDS: LEVOTHYROXINE SODIUM 75 MCG TABLET PO SCH (21:52)
[2019-07-05] MEDS: PRAMIPEXOLE DIHYDROCHLO 0.5 MG TAB PO SCH (21:52)
[2019-07-05] MEDS: MICONAZOLE NITRATE-7 (100 MG EA SUPP) BOX PV SCH (22:31)
--- NOTE | 2019-07-05 22:38 | Hospitalist Progress Note ---
Date of Service July 05, 2019 Assessment & Plan (1) Acute kidney injury superimposed on chronic kidney disease: Cr peaked at 2, improved to 1.5 will continue to monitor Patient is having clear liquid diet and IVF (2) GI bleed: reports of melena at SNF and also had some melena here yesterday AM (07/02) Hb down slightly at 6.8, patient refusing transfusion. uable to reach son. continue Protonix IV BID Dr. Aaron following, unable to do scope as patient refuses prep. Patient currently refusing blood product (3) Colitis: colitis seen on CT WBC down to 14k from 18k with the bleeding and colitis might consider C diff, high risk living in SNF not provided sample. doubt c diff at this point. also wbc is improving. (4) Recurrent UTI: culture growing E coli, dugan sensitive change Zosyn to Rocephin 1gm IV q24 would complete 7 days total treatment no signs of sepsis at this time (5) Dysphagia: failed bedside study with nectar thick and thin liquids plan for video swallow tomorrow can have pills with pudding on clear liquis diet place on maintenance IV fluids (6) Vaginal candidiasis: has vaginal discharge and labia are red, irritated place on both Miconazole insert and topical cream for 7 days, today is day 2 (7) CKD (chronic kidney disease), stage III: continue on IV fluids with GI losses (8) Leukocytosis: high at 18k on discharge down to 14k today has evidence of both colitis but also UTI, growing E coli continue on Rocephin (9) COPD, moderate: DuoNeb as needed basis. (10) Bipolar disorder: Continue home medications. (11) Hypothyroidism: Continue Synthroid (12) Hyperlipemia: Continue statins. (13) HTN (hypertension): Monitor the blood pressure closely as patient has rectal bleeding. 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 She is a poor historian Tried calling son, but no one answered. Patient refusing blood. Review of Systems Review of Systems: All systems reviewed & are unremarkable except as noted in HPI & below Physical Exam Physical Exam: Constitutional: WD/WN, vitals as above + lethargic and + overweight Eyes: PERRL, conjunctivae normal, anicteric sclerae ENMT: external ear and nose normal, oropharynx normal Neck: trachea midline, no thyromegaly Respiratory: normal respiratory effort, lungs clear to auscultation (decreased in bases) Cardiovascular: RRR, no murmur, no edema Gastrointestinal (Abdomen): normal bowel sounds, soft, nontender, no hepatosplenomegaly Musculoskeletal: no cyanosis or clubbing, extremities motor strength 5/5 Skin: no rashes, warm and dry Neurologic: patellar DTR's 2+ bilat, sensation intact and PERRL, EOMI, accommodation nl, no face palsy, no dysarthria Psychiatric: Orientation: oriented to person; + not alert, + not oriented to place and + not oriented to time Lymphatic: no cervical or axillary lymphadenopathy Results & Data Vital Signs (Past 12 Hours) Vital Signs Temp Pulse Pulse Resp BP BP Pulse Ox 07/05/19 22:11 96 H 16 96 07/05/19 22:05 36.2 C L 96 H 18 134/65 95 07/05/19 21:50 36.5 C 99 H 16 151/78 H 95 07/05/19 21:45 36.3 C L 97 H 18 126/77 96 07/05/19 21:31 36.8 C 88 20 105/69 98 07/05/19 19:31 36.4 C L 96 H 16 121/55 L 96 07/05/19 15:30 81 07/05/19 15:20 36.7 C 91 H 18 135/70 98 07/05/19 11:36 36.5 C 97 H 20 142/75 H 97 07/05/19 10:39 94 H PG Care Time/CCT Total # of Minutes Spent Total Time Spent with Patient: Total time spent is greater than 50% in coordination of care (as documented) at patient's floor/unit and/or counseling patient: (1) GI bleed GI bleed type/associated pathology: unspecified gastrointestinal hemorrhage type Qualified Code(s): K92.2 - Gastrointestinal hemorrhage, unspecified
[2019-07-06] MEDS: NSS + 20MEQ KCL 20 MEQ/1,000 ML BAG IV SCH ×2 (05:46→06:29)
[2019-07-06] MEDS: LAVAGE SOLUTION 4000ML PO SCH ×2 (06:30→20:57)
[2019-07-06 09:12] LABS: Creatinine Clr Calc Pharmacy 36.9 ml/min; Est GFR (African American) 37.2; Est GFR (Non-African American) 32.1
[2019-07-06] MEDS: FOLIC ACID 1 MG TAB PO SCH (09:32)
[2019-07-06] MEDS: LITHIUM CARBONATE 300 MG TAB PO SCH (09:33)
[2019-07-06] MEDS: risperiDONE 0.5 MG TABLET PO SCH ×2 (09:33→21:31)
[2019-07-06] MEDS: PANTOprazole 40 MG in SYRINGE 0 ML IV SCH ×2 (09:35→21:01)
[2019-07-06] MEDS: cefTRIAXone SODIUM 2,000 MG in DEXTROSE 5% 50 ML IV SCH (09:36)
[2019-07-06] MEDS: MICONAZOLE NITRATE 2% CR 30 GM TUBE EXT SCH ×2 (09:42→21:00)
[2019-07-06 09:50] LABS: Hematocrit (blood only) 31.4 % (37-47); Hemoglobin 9.3 g/dL (12.0-16.0); Mean Corpuscular Hgb Conc 29.6 g/dL (32-36); Mean Corpuscular Volume 91.3 fL (80-100); Mean Platelet Volume 8.8 fL (7.4-10.4); Platelet Count 363 K/uL (130-400); RDW Coefficient of Variation 17.2 % (11.5-14.5); RDW Standard Deviation 55.8 fL (36.4-46.3); Red Blood Count 3.44 M/uL (4.2-5.4); White Blood Count 12.67 K/uL (4.8-10.8)
[2019-07-06 10:03] LABS: BUN Creatinine Ratio 4.1 (10-20); Calcium 10.1 mg/dl (8.5-10.1); Creatinine Clr Calc Pharmacy 37.6 ml/min; Est GFR (African American) 38.1; Est GFR (Non-African American) 32.9; Potassium 4.3 mmol/L (3.5-5.1)
[2019-07-06] MEDS ORDERED: DEXTROSE 5% 500 ML IV SCH (10:15)
[2019-07-06] MEDS ORDERED: Nursing to Pharmacy Communication ONE (16:28)
--- NOTE | 2019-07-06 20:29 | Progress Note ---
DATE: 07/06/2019 The patient was not able to take her bowel prep yesterday to complete her colonoscopy and esophagogastroduodenoscopy and we were unable to secure consents from her son. He is here today, but her sodium is quite high at 158 and the anesthesiologists were reluctant to sedate her for an elective type procedure unless she was actively bleeding which she is not. Her hemoglobin remains relatively stable at 9.3. BUN 6. Creatinine 1.51. Plan is to reschedule her esophagogastroduodenoscopy for tomorrow in the hopes that we can get her sodium down to closer range to normal. I did secure consent from her son who is here today provided that conditions are better. We have abandoned trying to do a colonoscopy as she is not really able to drink the bowel prep at all to prep for colonoscopy. Hopefully, we will have more success tomorrow in completing her esophagogastroduodenoscopy.
[2019-07-06] MEDS: DEXTROSE 5% 1,000 ML IV SCH (20:56)
[2019-07-06] MEDS: ATORVASTATIN 40 MG TAB PO SCH (20:58)
[2019-07-06] MEDS: PRAMIPEXOLE DIHYDROCHLO 0.5 MG TAB PO SCH (20:59)
[2019-07-06] MEDS: MICONAZOLE NITRATE-7 (100 MG EA SUPP) BOX PV SCH (21:00)
[2019-07-06] MEDS: LEVOTHYROXINE SODIUM 75 MCG TABLET PO SCH (21:02)
--- NOTE | 2019-07-06 21:43 | Hospitalist Progress Note ---
Date of Service July 06, 2019 Assessment & Plan (1) Acute kidney injury superimposed on chronic kidney disease: Cr peaked at 2, improved to 1.48 will continue to monitor (2) GI bleed: reports of melena at SNF and also had some melena here yesterday AM (07/02) Hb improved appropiately with 2 blood transfusion. overnight resident discussed case with son who arrived after hours. (after 7 pm) Dr. Aaron following, unable to do scope as patient refuses prep. (3) Colitis: colitis seen on CT WBC down to 12k from 18k with the bleeding and colitis might consider C diff, high risk living in SNF not provided sample. doubt c diff at this point. also wbc is improving. (4) Recurrent UTI: culture growing E coli, dugan sensitive change Zosyn to Rocephin 1gm IV q24 would complete 7 days total treatment no signs of sepsis at this time (5) Dysphagia: failed bedside study with nectar thick and thin liquids plan for video swallow tomorrow can have pills with pudding on clear liquis diet place on maintenance IV fluids (6) Vaginal candidiasis: has vaginal discharge and labia are red, irritated place on both Miconazole insert and topical cream for 7 days, today is day 2 (7) CKD (chronic kidney disease), stage III: continue on IV fluids with GI losses (8) Leukocytosis: high at 18k on discharge down to 12k today has evidence of both colitis but also UTI, growing E coli continue on Rocephin (9) COPD, moderate: DuoNeb as needed basis. (10) Bipolar disorder: Continue home medications. (11) Hypothyroidism: Continue Synthroid (12) Hyperlipemia: Continue statins. (13) HTN (hypertension): Monitor the blood pressure closely as patient has rectal bleeding. 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 will give D5 and closely monitor. Subjective Patient does not provide signifcant medical histoty. She just moans and states that she is hungry. Had discussion with nurse, patient had no new episodes of bleeding. Review of Systems Review of Systems: All systems reviewed & are unremarkable except as noted in HPI & below Physical Exam Physical Exam: Constitutional: WD/WN, vitals as above + lethargic and + overweight Eyes: PERRL, conjunctivae normal, anicteric sclerae ENMT: external ear and nose normal, oropharynx normal Neck: trachea midline, no thyromegaly Respiratory: normal respiratory effort, lungs clear to auscultation (decreased in bases) Cardiovascular: RRR, no murmur, no edema Gastrointestinal (Abdomen): normal bowel sounds, soft, nontender, no hepatosplenomegaly Musculoskeletal: no cyanosis or clubbing, extremities motor strength 5/5 Skin: no rashes, warm and dry Neurologic: patellar DTR's 2+ bilat, sensation intact and PERRL, EOMI, accommodation nl, no face palsy, no dysarthria Psychiatric: Orientation: oriented to person; + not alert, + not oriented to place and + not oriented to time Lymphatic: no cervical or axillary lymphadenopathy Results & Data Vital Signs (Past 12 Hours) Vital Signs Temp Pulse Pulse Resp BP BP Pulse Ox 07/06/19 19:49 36.5 C 97 H 18 141/61 H 94 07/06/19 16:00 87 07/06/19 15:45 36.4 C L 89 18 141/81 H 98 07/06/19 11:14 36.3 C L 86 20 131/75 95 PG Care Time/CCT Total # of Minutes Spent Total Time Spent with Patient: Total time spent is greater than 50% in coordination of care (as documented) at patient's floor/unit and/or counseling patient: (1) GI bleed GI bleed type/associated pathology: unspecified gastrointestinal hemorrhage type Qualified Code(s): K92.2 - Gastrointestinal hemorrhage, unspecified
[2019-07-07] MEDS: DEXTROSE 5% 1,000 ML IV SCH ×3 (02:57→16:58)
[2019-07-07] MEDS: LAVAGE SOLUTION 4000ML PO SCH ×2 (06:42→20:02)
[2019-07-07 07:32] LABS: BUN Creatinine Ratio 3.7 (10-20); Calcium 9.9 mg/dl (8.5-10.1); Creatinine Clr Calc Pharmacy 39.6 ml/min; Est GFR (African American) 41.5; Est GFR (Non-African American) 35.8
[2019-07-07 07:52] LABS: Potassium 3.6 mmol/L (3.5-5.1)
[2019-07-07 08:37] LABS: Hematocrit (blood only) 31.3 % (37-47); Hemoglobin 9.1 g/dL (12.0-16.0); Mean Corpuscular Hemoglobin 26.8 pg (25-34); Mean Corpuscular Hgb Conc 29.1 g/dL (32-36); Mean Corpuscular Volume 92.3 fL (80-100); Mean Platelet Volume 8.9 fL (7.4-10.4); Platelet Count 364 K/uL (130-400); RDW Coefficient of Variation 17.7 % (11.5-14.5); RDW Standard Deviation 59.4 fL (36.4-46.3); Red Blood Count 3.39 M/uL (4.2-5.4); White Blood Count 13.27 K/uL (4.8-10.8)
[2019-07-07] MEDS: FOLIC ACID 1 MG TAB PO SCH (09:14)
[2019-07-07] MEDS: LITHIUM CARBONATE 300 MG TAB PO SCH (09:14)
[2019-07-07] MEDS: cefTRIAXone SODIUM 2,000 MG in DEXTROSE 5% 50 ML IV SCH (09:15)
[2019-07-07] MEDS: MICONAZOLE NITRATE 2% CR 30 GM TUBE EXT SCH ×2 (09:15→20:59)
[2019-07-07] MEDS: risperiDONE 0.5 MG TABLET PO SCH ×2 (09:15→21:00)
[2019-07-07] MEDS: PANTOprazole 40 MG in SYRINGE 0 ML IV SCH ×2 (10:12→20:59)
[2019-07-07] MEDS ORDERED: FAMOTIDINE 20 MG TAB PO ONE (16:27)
--- NOTE | 2019-07-07 16:27 | Progress Note ---
DATE: 07/07/2019 The patient has a sodium of 154 today down from 158 yesterday, but still out of the range where the anesthesiologist would feel comfortable sedating her for a semielective procedure. Her hemoglobin remains relatively stable at 9.1, white count is 13.27. At this point, we can go ahead and put her on full liquids and try to get her sodium down with some additional free water and see if we can get it below 150, at which point maybe tomorrow, we can complete her upper endoscopy. We did get consent yesterday from her son for the EGD.
[2019-07-07] MEDS: ATORVASTATIN 40 MG TAB PO SCH (20:58)
[2019-07-07] MEDS: PRAMIPEXOLE DIHYDROCHLO 0.5 MG TAB PO SCH (20:58)
[2019-07-07] MEDS: MICONAZOLE NITRATE-7 (100 MG EA SUPP) BOX PV SCH (20:59)
[2019-07-07] MEDS: LEVOTHYROXINE SODIUM 75 MCG TABLET PO SCH (21:00)
--- NOTE | 2019-07-07 22:05 | Hospitalist Progress Note ---
Date of Service July 07, 2019 Assessment & Plan (1) Acute kidney injury superimposed on chronic kidney disease: Cr peaked at 2, improved to 1.38 will continue to monitor (2) GI bleed: reports of melena at SNF and also had some melena on (07/02-07/05) Hb improved appropiately with [address] Aaron following, unable to do scope as patient refuses prep. plan is to do upper endoscpy, however patient has hypernatremia. awaiting to correct this. will monitor. (3) Colitis: colitis seen on CT WBC down to 13k from 18k, slight increase from 12k the day before. with the bleeding and colitis might consider C diff, high risk living in SNF not provided sample. doubt c diff at this point. also wbc is improving. (4) Recurrent UTI: culture growing E coli, dugan sensitive change Zosyn to Rocephin 1gm IV q24 would complete 7 days total treatment no signs of sepsis at this time (5) Dysphagia: failed bedside study with nectar thick and thin liquids plan for video swallow tomorrow can have pills with pudding on clear liquis diet place on maintenance IV fluids (6) Vaginal candidiasis: has vaginal discharge and labia are red, irritated place on both Miconazole insert and topical cream for 7 days, today is day 2 (7) CKD (chronic kidney disease), stage III: continue on IV fluids with GI losses (8) Leukocytosis: high at 18k on discharge down to 13k today has evidence of both colitis but also UTI, growing E coli continue on Rocephin (9) COPD, moderate: DuoNeb as needed basis. (10) Bipolar disorder: Continue home medications. (11) Hypothyroidism: Continue Synthroid (12) Hyperlipemia: Continue statins. (13) HTN (hypertension): Monitor the blood pressure closely as patient has rectal bleeding. 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 will give D5 and closely monitor. Subjective Patient does not provide significant past medical history. Review of Systems Review of Systems: All systems reviewed & are unremarkable except as noted in HPI & below Physical Exam Physical Exam: Constitutional: WD/WN, vitals as above + lethargic and + overweight Eyes: PERRL, conjunctivae normal, anicteric sclerae ENMT: external ear and nose normal, oropharynx normal Neck: trachea midline, no thyromegaly Respiratory: normal respiratory effort, lungs clear to auscultation (decreased in bases) Cardiovascular: RRR, no murmur, no edema Gastrointestinal (Abdomen): normal bowel sounds, soft, nontender, no hepatosplenomegaly Musculoskeletal: no cyanosis or clubbing, extremities motor strength 5/5 Skin: no rashes, warm and dry Neurologic: patellar DTR's 2+ bilat, sensation intact and PERRL, EOMI, accommodation nl, no face palsy, no dysarthria Psychiatric: Orientation: oriented to person; + not alert, + not oriented to place and + not oriented to time Lymphatic: no cervical or axillary lymphadenopathy Results & Data Vital Signs (Past 12 Hours) Vital Signs Temp Pulse Resp BP BP Pulse Ox 07/07/19 19:06 36.7 C 86 18 151/83 H 99 07/07/19 16:01 36.5 C 80 20 154/75 H 99 07/07/19 15:59 36.3 C L 80 16 153/81 H 97 07/07/19 13:55 84 146/74 H 07/07/19 12:26 36.3 C L 85 20 174/81 H 96 PG Care Time/CCT Total # of Minutes Spent Total Time Spent with Patient: Total time spent is greater than 50% in coordination of care (as documented) at patient's floor/unit and/or counseling patient: (1) GI bleed GI bleed type/associated pathology: unspecified gastrointestinal hemorrhage type Qualified Code(s): K92.2 - Gastrointestinal hemorrhage, unspecified
[2019-07-08] MEDS: DEXTROSE 5% 1,000 ML IV SCH ×5 (00:26→19:51)
[2019-07-08] MEDS ORDERED: ACETAMINOPHEN 1,000 MG/100 ML VIAL IV ONE (04:30)
[2019-07-08 06:49] LABS: Basophils # (auto) 0.03 K/uL (0-0.2); Basophils % (auto) 0.2 %; Eosinophils # (auto) 0.31 K/uL (0-0.5); Eosinophils % (auto) 2.6 %; Hematocrit (blood only) 32.9 % (37-47); Hemoglobin 9.5 g/dL (12.0-16.0); Immature Granulocytes # (auto) 0.03 K/uL (0.00-0.02); Immature Granulocytes % (auto) 0.2 %; Lymphocytes # (auto) 0.84 K/uL (1.2-3.4); Mean Corpuscular Hemoglobin 26.9 pg (25-34); Mean Corpuscular Hgb Conc 28.9 g/dL (32-36); Mean Corpuscular Volume 93.2 fL (80-100); Mean Platelet Volume 8.7 fL (7.4-10.4); Monocytes # (auto) 0.59 K/uL (0.11-0.59); Monocytes % (auto) 4.9 %; Neutrophils # (auto) 10.24 K/uL (1.4-6.5); Neutrophils % (auto) 85.1 %; Platelet Count 314 K/uL (130-400); RDW Coefficient of Variation 17.7 % (11.5-14.5); RDW Standard Deviation 60.4 fL (36.4-46.3); Red Blood Count 3.53 M/uL (4.2-5.4); White Blood Count 12.04 K/uL (4.8-10.8)
[2019-07-08 07:14] LABS: Albumin Level 2.1 gm/dl (3.4-5.0); BUN Creatinine Ratio 3.6 (10-20); Calcium 10.3 mg/dl (8.5-10.1); Creatinine Clr Calc Pharmacy 40.3 ml/min; Est GFR (African American) 41.8; Est GFR (Non-African American) 36.1; Potassium 3.4 mmol/L (3.5-5.1)
[2019-07-08 07:16] LABS: Albumin Globulin Ratio 0.5 (0.9-2); Bilirubin,Total 0.4 mg/dl (0.2-1); Globulin 4.3 gm/dl (2.5-4.0); Total Protein 6.4 gm/dl (6.4-8.2)
[2019-07-08] MEDS: FOLIC ACID 1 MG TAB PO SCH (08:29)
[2019-07-08] MEDS: LITHIUM CARBONATE 300 MG TAB PO SCH (08:29)
[2019-07-08] MEDS: PANTOprazole 40 MG in SYRINGE 0 ML IV SCH ×2 (08:30→21:21)
[2019-07-08] MEDS: MICONAZOLE NITRATE 2% CR 30 GM TUBE EXT SCH ×2 (08:30→21:21)
[2019-07-08] MEDS: risperiDONE 0.5 MG TABLET PO SCH ×2 (08:30→21:23)
[2019-07-08] MEDS: cefTRIAXone SODIUM 2,000 MG in DEXTROSE 5% 50 ML IV SCH (09:06)
[2019-07-08] MEDS: LAVAGE SOLUTION 4000ML PO SCH ×2 (09:56→19:52)
--- NOTE | 2019-07-08 12:43 | Progress Note ---
DATE: 07/01/2019 SUBJECTIVE: The patient continues with poor p.o. intake. She is getting D5 water at 150 an hour, but her sodium still remains at 154, which is too high for safe sedation per anesthesia, who would like to have her sodium below 150 at least. We will cancel her EGD for today and try for Thursday. In the meantime, she will continue on full liquids and will increase her IV from D5 water from 150-200 an hour. Her hemoglobin remains relatively stable at 9.5 today. Blood pressure is 123/59, pulse 83. IMPRESSION: The patient has anemia and heme positive stool with hypernatremia, will increase her free water intake 200 mL an hour and hopefully if her sodium is below 150 by Thursday, we will be able to proceed with her EGD at that time.
[2019-07-08] MEDS: ACETAMINOPHEN 325 MG TAB PO PRN (14:21)
[2019-07-08] MEDS ORDERED: Nursing to Pharmacy Communication ONE (20:58)
[2019-07-08] MEDS: ATORVASTATIN 40 MG TAB PO SCH (21:21)
[2019-07-08] MEDS: PRAMIPEXOLE DIHYDROCHLO 0.5 MG TAB PO SCH (21:22)
[2019-07-08] MEDS: POTASSIUM CHLORIDE 20 MEQ TABCR PO SCH (21:23)
[2019-07-08] MEDS: LEVOTHYROXINE SODIUM 75 MCG TABLET PO SCH (21:23)
--- NOTE | 2019-07-08 21:53 | Hospitalist Progress Note ---
Date of Service July 08, 2019 Assessment & Plan (1) Acute kidney injury superimposed on chronic kidney disease: Cr peaked at 2, improved to 1.35 will continue to monitor (2) GI bleed: reports of melena at SNF and also had some melena on (07/02-07/05) Hb improved appropiately with [address] Aaron following, unable to do scope as patient refuses prep. plan is to do upper endoscpy, however patient has hypernatremia. Sodium has been gradually improving, but needed to increase D5W to 200 ml/hr. will monitor. (3) Colitis: Colitis seen on CT WBC down to 12k from 18k, with the bleeding and colitis might consider C diff, high risk living in SNF not provided sample. doubt c diff at this point. also wbc is improving. (4) Recurrent UTI: culture growing E coli, dugan sensitive change Zosyn to Rocephin 1gm IV q24 would complete 7 days total treatment no signs of sepsis at this time will stop antibiotics on 07/09 (5) Dysphagia: failed bedside study with nectar thick and thin liquids plan for video swallow tomorrow can have pills with pudding on clear liquis diet place on maintenance IV fluids (6) Vaginal candidiasis: has vaginal discharge and labia are red, irritated place on both Miconazole insert and topical cream for 7 days, will complete day 7 on 07/09 (7) CKD (chronic kidney disease), stage III: continue on IV fluids with GI losses (8) Leukocytosis: high at 18k on discharge down to 12k today has evidence of both colitis but also UTI, growing E coli continue on Rocephin (9) COPD, moderate: DuoNeb as needed basis. (10) Bipolar disorder: Continue home medications. (11) Hypothyroidism: Continue Synthroid (12) Hyperlipemia: Continue statins. (13) HTN (hypertension): Monitor the blood pressure closely as patient has rectal bleeding. 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 will give D5 and closely monitor. Sodium remains elevated, will increase fluids to 200 ml/hr Subjective Patient is not very talkative Asking for water, continues to refuse lab test as per nursing staff. Patient denies any new complaints. Review of Systems Review of Systems: All systems reviewed & are unremarkable except as noted in HPI & below Physical Exam Physical Exam: Constitutional: WD/WN, vitals as above + lethargic and + overweight Eyes: PERRL, conjunctivae normal, anicteric sclerae ENMT: external ear and nose normal, oropharynx normal Neck: trachea midline, no thyromegaly Respiratory: normal respiratory effort, lungs clear to auscultation (decreased in bases) Cardiovascular: RRR, no murmur, no edema Gastrointestinal (Abdomen): normal bowel sounds, soft, nontender, no hepatosplenomegaly Musculoskeletal: no cyanosis or clubbing, extremities motor strength 5/5 Skin: no rashes, warm and dry Neurologic: patellar DTR's 2+ bilat, sensation intact and PERRL, EOMI, accommodation nl, no face palsy, no dysarthria Psychiatric: Orientation: oriented to person; + not alert, + not oriented to place and + not oriented to time Lymphatic: no cervical or axillary lymphadenopathy Results & Data Vital Signs (Past 12 Hours) Vital Signs Temp Pulse Pulse Resp BP BP Pulse Ox 07/08/19 18:54 36.5 C 66 20 112/72 100 07/08/19 15:17 36.3 C L 83 20 166/78 H 98 07/08/19 14:20 83 07/08/19 12:21 36.5 C 83 18 123/59 L 100 PG Care Time/CCT Total # of Minutes Spent Total Time Spent with Patient: Total time spent is greater than 50% in coordination of care (as documented) at patient's floor/unit and/or counseling patient: (1) GI bleed GI bleed type/associated pathology: unspecified gastrointestinal hemorrhage type Qualified Code(s): K92.2 - Gastrointestinal hemorrhage, unspecified
[2019-07-08] MEDS: MICONAZOLE NITRATE-7 (100 MG EA SUPP) BOX PV SCH (22:20)
[2019-07-09] MEDS: DEXTROSE 5% 1,000 ML IV SCH ×5 (00:55→22:41)
[2019-07-09] MEDS: ACETAMINOPHEN 325 MG TAB PO PRN ×2 (03:52→16:48)
[2019-07-09] MEDS: LAVAGE SOLUTION 4000ML PO SCH ×2 (05:44→21:02)
[2019-07-09 07:52] LABS: Basophils # (auto) 0.02 K/uL (0-0.2); Basophils % (auto) 0.2 %; Eosinophils # (auto) 0.38 K/uL (0-0.5); Eosinophils % (auto) 3.1 %; Hematocrit (blood only) 28.3 % (37-47); Hemoglobin 8.3 g/dL (12.0-16.0); Immature Granulocytes # (auto) 0.03 K/uL (0.00-0.02); Immature Granulocytes % (auto) 0.2 %; Lymphocytes % (auto) 9.9 %; Mean Corpuscular Hemoglobin 26.9 pg (25-34); Mean Corpuscular Hgb Conc 29.3 g/dL (32-36); Mean Corpuscular Volume 91.9 fL (80-100); Mean Platelet Volume 8.6 fL (7.4-10.4); Monocytes # (auto) 0.51 K/uL (0.11-0.59); Monocytes % (auto) 4.2 %; Neutrophils # (auto) 10.04 K/uL (1.4-6.5); Neutrophils % (auto) 82.4 %; Platelet Count 267 K/uL (130-400); RDW Coefficient of Variation 17.6 % (11.5-14.5); RDW Standard Deviation 58.6 fL (36.4-46.3); Red Blood Count 3.08 M/uL (4.2-5.4); White Blood Count 12.18 K/uL (4.8-10.8)
[2019-07-09 08:28] LABS: BUN Creatinine Ratio 4.5 (10-20); Calcium 9.6 mg/dl (8.5-10.1); Est GFR (African American) 42.6; Est GFR (Non-African American) 36.7; Potassium 3.3 mmol/L (3.5-5.1)
[2019-07-09] MEDS: POTASSIUM CHLORIDE 20 MEQ TABCR PO SCH ×3 (09:27→21:05)
[2019-07-09] MEDS: FOLIC ACID 1 MG TAB PO SCH (09:27)
[2019-07-09] MEDS: LITHIUM CARBONATE 300 MG TAB PO SCH (09:28)
[2019-07-09] MEDS: MICONAZOLE NITRATE 2% CR 30 GM TUBE EXT SCH (09:34)
[2019-07-09] MEDS: PANTOprazole 40 MG in SYRINGE 0 ML IV SCH ×2 (09:35→21:49)
[2019-07-09] MEDS: risperiDONE 0.5 MG TABLET PO SCH ×2 (09:37→21:06)
[2019-07-09] MEDS: cefTRIAXone SODIUM 2,000 MG in DEXTROSE 5% 50 ML IV SCH (09:39)
[2019-07-09] MEDS: TIOTROPIUM BROMIDE 5 PUFF/90 MCG INH INH SCH (09:39)
[2019-07-09] MEDS: ATORVASTATIN 40 MG TAB PO SCH (21:05)
[2019-07-09] MEDS: LEVOTHYROXINE SODIUM 75 MCG TABLET PO SCH (21:06)
[2019-07-09] MEDS: PRAMIPEXOLE DIHYDROCHLO 0.5 MG TAB PO SCH (21:06)
--- NOTE | 2019-07-09 23:01 | Hospitalist Progress Note ---
Date of Service July 09, 2019 Assessment & Plan (1) Acute kidney injury superimposed on chronic kidney disease: Cr peaked at 2, improved to 1.35 will continue to monitor. (2) GI bleed: reports of melena at SNF and also had some melena on (07/02-07/05) Hb improved appropiately with [address] Aaron following, unable to do scope as patient refuses prep. plan is to do upper endoscpy, however patient has hypernatremia. Sodium has been gradually improving, but needed to increase D5W to 200 ml/hr. will monitor. (3) Colitis: Colitis seen on CT WBC down to 12k from 18k, with the bleeding and colitis might consider C diff, high risk living in SNF not provided sample. doubt c diff at this point. also wbc is improving. (4) Recurrent UTI: culture growing E coli, dugan sensitive change Zosyn to Rocephin 1gm IV q24 would complete 7 days total treatment no signs of sepsis at this time will stop antibiotics on 07/09 (5) Dysphagia: failed bedside study with nectar thick and thin liquids plan for video swallow tomorrow can have pills with pudding on clear liquis diet place on maintenance IV fluids (6) Vaginal candidiasis: has vaginal discharge and labia are red, irritated place on both Miconazole insert and topical cream for 7 days, will complete day 7 on 07/09 (7) CKD (chronic kidney disease), stage III: continue on IV fluids with GI losses (8) Leukocytosis: high at 18k on discharge down to 12k today has evidence of both colitis but also UTI, growing E coli continue on Rocephin (9) COPD, moderate: DuoNeb as needed basis. (10) Bipolar disorder: Continue home medications. (11) Hypothyroidism: Continue Synthroid (12) Hyperlipemia: Continue statins. (13) HTN (hypertension): Monitor the blood pressure closely as patient has rectal bleeding. 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 will give D5 and closely monitor. Sodium is responding, will continue fluids to 200 ml/hr Sodium improved to 148. Patient has been intermittently refusing blood draws which makes monitoring sodium difficult. If unable to draw sodium, will likely hold IVF at 21:00 and monitor morning sodium. Subjective Patient is a 57 yo female who reports no new symptoms today. Review of Systems Review of Systems: All systems reviewed & are unremarkable except as noted in HPI & below Physical Exam Physical Exam: Constitutional: WD/WN, vitals as above +awake, + overweight Eyes: PERRL, conjunctivae normal, anicteric sclerae ENMT: external ear and nose normal, oropharynx normal Neck: trachea midline, no thyromegaly Respiratory: normal respiratory effort, lungs clear to auscultation (decreased in bases) Cardiovascular: RRR, no murmur, no edema Gastrointestinal (Abdomen): normal bowel sounds, soft, nontender, no hepatosplenomegaly Musculoskeletal: no cyanosis or clubbing, extremities motor strength 5/5 Skin: no rashes, warm and dry Neurologic: patellar DTR's 2+ bilat, sensation intact and PERRL, EOMI, accommodation nl, no face palsy, no dysarthria Psychiatric: Orientation: oriented to person; + not alert, + not oriented to place and + not oriented to time Lymphatic: no cervical or axillary lymphadenopathy Results & Data Vital Signs (Past 12 Hours) Vital Signs Temp Pulse Pulse Resp BP BP Pulse Ox 07/09/19 18:55 36.4 C L 66 16 103/65 99 07/09/19 18:01 67 07/09/19 15:10 73 20 130/80 100 07/09/19 11:15 36.7 C 72 20 116/72 99 PG Care Time/CCT Total # of Minutes Spent Total Time Spent with Patient: Total time spent is greater than 50% in coordination of care (as documented) at patient's floor/unit and/or counseling patient: (1) GI bleed GI bleed type/associated pathology: unspecified gastrointestinal hemorrhage type Qualified Code(s): K92.2 - Gastrointestinal hemorrhage, unspecified
[2019-07-10] MEDS: ACETAMINOPHEN 325 MG TAB PO PRN ×4 (05:52→21:05)
[2019-07-10 06:47] LABS: Basophils # (auto) 0.02 K/uL (0-0.2); Basophils % (auto) 0.1 %; Eosinophils # (auto) 0.46 K/uL (0-0.5); Eosinophils % (auto) 3.4 %; Hematocrit (blood only) 34.2 % (37-47); Immature Granulocytes # (auto) 0.03 K/uL (0.00-0.02); Immature Granulocytes % (auto) 0.2 %; Lymphocytes # (auto) 1.16 K/uL (1.2-3.4); Lymphocytes % (auto) 8.6 %; Mean Corpuscular Hemoglobin 26.7 pg (25-34); Mean Corpuscular Hgb Conc 29.2 g/dL (32-36); Mean Corpuscular Volume 91.4 fL (80-100); Monocytes # (auto) 0.56 K/uL (0.11-0.59); Monocytes % (auto) 4.1 %; Neutrophils # (auto) 11.27 K/uL (1.4-6.5); Neutrophils % (auto) 83.6 %; Platelet Count 305 K/uL (130-400); RDW Coefficient of Variation 17.4 % (11.5-14.5); RDW Standard Deviation 58.3 fL (36.4-46.3); Red Blood Count 3.74 M/uL (4.2-5.4)
[2019-07-10 07:32] LABS: BUN Creatinine Ratio 5.5 (10-20); Calcium 10.4 mg/dl (8.5-10.1); Creatinine Clr Calc Pharmacy 43.3 ml/min; Est GFR (African American) 46.7; Est GFR (Non-African American) 40.3; Potassium 4.4 mmol/L (3.5-5.1)
[2019-07-10] MEDS: POTASSIUM CHLORIDE 20 MEQ TABCR PO SCH (08:14)
[2019-07-10] MEDS: PANTOprazole 40 MG in SYRINGE 0 ML IV SCH ×2 (08:14→21:06)
[2019-07-10] MEDS: LITHIUM CARBONATE 300 MG TAB PO SCH (08:15)
[2019-07-10] MEDS: TIOTROPIUM BROMIDE 5 PUFF/90 MCG INH INH SCH (08:15)
[2019-07-10] MEDS: risperiDONE 0.5 MG TABLET PO SCH ×2 (08:15→21:08)
[2019-07-10] MEDS: FOLIC ACID 1 MG TAB PO SCH (08:15)
[2019-07-10] MEDS: cefTRIAXone SODIUM 2,000 MG in DEXTROSE 5% 50 ML IV SCH (08:26)
[2019-07-10] MEDS ORDERED: DEXTROSE 5% 500 ML IV SCH (11:15)
[2019-07-10] MEDS: DEXTROSE 5% 1,000 ML IV SCH ×2 (13:46→21:04)
[2019-07-10] MEDS: ATORVASTATIN 40 MG TAB PO SCH (21:06)
[2019-07-10] MEDS: PRAMIPEXOLE DIHYDROCHLO 0.5 MG TAB PO SCH (21:06)
[2019-07-10] MEDS: LEVOTHYROXINE SODIUM 75 MCG TABLET PO SCH (21:08)
--- NOTE | 2019-07-10 23:38 | Hospitalist Progress Note ---
Date of Service July 10, 2019 Assessment & Plan (1) Acute kidney injury superimposed on chronic kidney disease: Cr peaked at 2, improved to 1.25 will continue to monitor. (2) GI bleed: reports of melena at SNF and also had some melena on (07/02-07/05) Hb improved appropiately with [address] Aaron following, unable to do scope as patient refuses prep. plan is to do upper endosocpy, however patient has hypernatremia. Sodium has been gradually improving, will continue d5w 200ml/hr will monitor. (3) Colitis: Colitis seen on CT WBC down to 12k from 18k, with the bleeding and colitis might consider C diff, high risk living in SNF not provided sample. doubt c diff at this point. also wbc is improving. (4) Recurrent UTI: culture growing E coli, dugan sensitive change Zosyn to Rocephin 1gm IV q24 will co stop antibiotics on 06/11. This will be ore than 10 days of antibiotics will check procal in the AM (5) Dysphagia: failed bedside study with nectar thick and thin liquids can have pills with pudding on clear liquis diet place on maintenance IV fluids (6) Vaginal candidiasis: has vaginal discharge and labia are red, irritated place on both Miconazole insert and topical cream for 7 days, will complete day 7 on 07/09 (7) CKD (chronic kidney disease), stage III: continue on IV fluids with GI losses (8) Leukocytosis: high at 18k on discharge down to 13k today has evidence of both colitis but also UTI, growing E coli will check procal on thursday (9) COPD, moderate: DuoNeb as needed basis. (10) Bipolar disorder: Continue home medications. (11) Hypothyroidism: Continue Synthroid (12) Hyperlipemia: Continue statins. (13) HTN (hypertension): Monitor the blood pressure closely as patient has rectal bleeding. 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 will give D5 and closely monitor. Sodium is responding, will continue fluids to 200 ml/hr Sodium improved to 149. will contt d5w at 200 ml/hr UPDATED SON ON 07/10 NPO aftermidnight for upper GI scope Subjective No new symptoms today. Review of Systems Review of Systems: All systems reviewed & are unremarkable except as noted in HPI & below Physical Exam Physical Exam: Constitutional: WD/WN, vitals as above +awake, + overweight Eyes: PERRL, conjunctivae normal, anicteric sclerae ENMT: external ear and nose normal, oropharynx normal Neck: trachea midline, no thyromegaly Respiratory: normal respiratory effort, lungs clear to auscultation (decreased in bases) Cardiovascular: RRR, no murmur, no edema Gastrointestinal (Abdomen): normal bowel sounds, soft, nontender, no hepatosplenomegaly Musculoskeletal: no cyanosis or clubbing, extremities motor strength 5/5 Skin: no rashes, warm and dry Neurologic: patellar DTR's 2+ bilat, sensation intact and PERRL, EOMI, accommodation nl, no face palsy, no dysarthria Psychiatric: Orientation: oriented to person; + not alert, + not oriented to place and + not oriented to time Lymphatic: no cervical or axillary lymphadenopathy Results & Data Vital Signs (Past 12 Hours) Vital Signs Temp Pulse Pulse Resp BP Pulse Ox 07/10/19 22:55 36.3 C L 75 21 156/83 H 99 07/10/19 19:27 36.3 C L 79 23 133/74 97 07/10/19 15:50 78 07/10/19 14:45 36.5 C 81 20 140/61 96 PG Care Time/CCT Total # of Minutes Spent Total Time Spent with Patient: Total time spent is greater than 50% in coordination of care (as documented) at patient's floor/unit and/or counseling patient: (1) GI bleed GI bleed type/associated pathology: unspecified gastrointestinal hemorrhage type Qualified Code(s): K92.2 - Gastrointestinal hemorrhage, unspecified
[2019-07-11] MEDS: DEXTROSE 5% 1,000 ML IV SCH ×3 (02:34→17:01)
[2019-07-11 06:49] LABS: Basophils # (auto) 0.03 K/uL (0-0.2); Basophils % (auto) 0.3 %; Eosinophils # (auto) 0.29 K/uL (0-0.5); Eosinophils % (auto) 2.6 %; Hematocrit (blood only) 31.9 % (37-47); Hemoglobin 9.5 g/dL (12.0-16.0); Immature Granulocytes # (auto) 0.02 K/uL (0.00-0.02); Immature Granulocytes % (auto) 0.2 %; Lymphocytes # (auto) 1.14 K/uL (1.2-3.4); Lymphocytes % (auto) 10.1 %; Mean Corpuscular Hemoglobin 27.5 pg (25-34); Mean Corpuscular Hgb Conc 29.8 g/dL (32-36); Mean Corpuscular Volume 92.2 fL (80-100); Mean Platelet Volume 9.2 fL (7.4-10.4); Monocytes % (auto) 4.4 %; Neutrophils % (auto) 82.4 %; Platelet Count 263 K/uL (130-400); RDW Coefficient of Variation 17.5 % (11.5-14.5); RDW Standard Deviation 59.1 fL (36.4-46.3); Red Blood Count 3.46 M/uL (4.2-5.4); White Blood Count 11.28 K/uL (4.8-10.8)
[2019-07-11 07:26] LABS: BUN Creatinine Ratio 7.6 (10-20); Calcium 10.1 mg/dl (8.5-10.1); Creatinine Clr Calc Pharmacy 41.5 ml/min; Est GFR (African American) 43.7; Est GFR (Non-African American) 37.7
[2019-07-11] MEDS: FOLIC ACID 1 MG TAB PO SCH (09:57)
[2019-07-11] MEDS: PANTOprazole 40 MG in SYRINGE 0 ML IV SCH (09:58)
[2019-07-11] MEDS: risperiDONE 0.5 MG TABLET PO SCH ×2 (09:59→20:18)
[2019-07-11] MEDS: TIOTROPIUM BROMIDE 5 PUFF/90 MCG INH INH SCH (10:01)
[2019-07-11] MEDS: cefTRIAXone SODIUM 2,000 MG in DEXTROSE 5% 50 ML IV SCH (10:01)
[2019-07-11] MEDS: ACETAMINOPHEN 325 MG TAB PO PRN ×2 (10:02→19:15)
[2019-07-11] MEDS: LITHIUM CARBONATE 300 MG TAB PO SCH (11:53)
[2019-07-11] MEDS ORDERED: LIDOCAINE HCL 2% 2 ML VIAL/AMP(20MG/ML) INFIL ONE (13:32)
[2019-07-11] MEDS ORDERED: PROPOFOL IV EMULSION 10 MG/ML 20 ML VIAL IV ONE (13:32)
--- NOTE | 2019-07-11 14:10 | Gastroenterology Progress Note ---
Date of Service July 11, 2019 Assessment & Plan (1) Anemia: heme pos stool TC and rectosigmoid thickening on CT EGD planned today but awaiting call back from son. Pt would not cooperate with prep so no plans for colonoscopy. Subjective cc f/u anemia, heme pos stool. HPI Pt denies abd pain. She was seen in endo. Dr Aaron obtained informed consent from son but anesthesia cannot get consent yet because no answer with sons number (message left). Review of Systems Respiratory: no dyspnea Cardiovascular: no chest pain Physical Exam Constitutional: WD/WN, vitals as above Respiratory: normal respiratory effort, lungs clear to auscultation Cardiovascular: RRR, no murmur, no edema Gastrointestinal (Abdomen): Inspection/Auscultation: abdomen normal to inspection pos bs, soft, no guarding nor rebound Neurologic: PERRL, EOMI, accommodation nl, no face palsy, no dysarthria Psychiatric: Insight: + poor insight Judgement: + poor judgement Results & Data Vital Signs (Past 12 Hours) Vital Signs Temp Pulse Pulse Resp BP BP Pulse Ox 07/11/19 13:42 36.4 C L 77 20 142/75 H 94 07/11/19 11:28 36.2 C L 80 12 133/78 99 07/11/19 09:05 36.2 C L 82 16 137/76 98 07/11/19 08:00 76 07/11/19 03:08 36.3 C L 80 22 135/80 94 (1) Anemia Anemia type: unspecified type Qualified Code(s): D64.9 - Anemia, unspecified
--- NOTE | 2019-07-11 14:39 | Anesthesiology Consultation ---
Date of Service July 11, 2019 Assessment & Plan (1) Encounter for pre-operative examination: Chart Review Chart Review: Acceptable Risk for Surgery and Patient NOT seen in Pre Admission Testing Consults Requested none Pulmonary ASA ASA3 Proposed Anesthesia Anesthesia Type: MAC History Surgery Operation Date: 07/06/19 16:00 Proposed Procedures p Esophagogastroduodenoscopy Dr Galen Aaron Operation Date: 07/07/19 16:30 Proposed Procedures p Esophagogastroduodenoscopy Dr Galen Aaron Operation Date: 07/11/19 16:00 Proposed Procedures p Esophagogastroduodenoscopy Dr Peri Whitt Height/Weight Height: 5 ft 6 in Weight: 107.8 kg Allergies Allergy/AdvReac Type Severity Reaction Status Date / Time levofloxacin Allergy Intermediate RASH Verified 07/01/19 12:20 Penicillins Allergy Intermediate HIVES Verified 07/02/19 14:24 tramadol Allergy Intermediate rash Verified 07/01/19 12:20 amoxicillin Allergy Unknown UNKNOWN Verified 07/01/19 12:20 Medications Home Medications Medication Instructions Recorded Confirmed Last Taken ascorbic acid (vitamin C) 500 mg 500 mg PO QAM tab 04/20/19 07/01/19 07/01/19 08:00 tablet atorvastatin 80 mg tablet 80 mg PO HS tab 04/20/19 07/01/19 06/30/19 20:00 folic acid 1 mg tablet 1 mg PO QAM #30 tab 04/20/19 07/01/19 07/01/19 08:00 furosemide 20 mg tablet 20 mg PO QAM #90 tab 04/20/19 07/01/19 07/01/19 08:00 levothyroxine 75 mcg tablet 75 mcg PO HS #90 tab 04/20/19 07/01/19 06/30/19 21:0 0 lithium carbonate 300 mg capsule 300 mg PO QAM cap 04/20/19 07/01/19 07/01/19 08:00 melatonin 3 mg tablet 3 mg PO HS tab 04/20/19 07/01/19 06/30/19 20:00 potassium chloride ER 10 mEq 10 meq PO QAM tab 04/20/19 07/01/19 07/01/19 08:00 tablet,extended release pramipexole 0.5 mg tablet 0.5 mg PO HS tab 04/20/19 07/01/19 06/30/19 20:00 risperidone 0.5 mg tablet 0.5 mg PO BID tab 04/20/19 07/01/19 07/01/19 08:00 umeclidinium 62.5 mcg/actuation 1 puffs INHALATION QAM ea 04/20/19 07/01/19 07/01/19 08:00 blister powder for inhalation acetaminophen 300 mg-codeine 30 mg 1 tab PO DAILY@1200 tab 05/06/19 07/01/19 06/30/19 12:00 tablet cholecalciferol (vitamin D3) 50 4,000 units PO QAM cap 05/06/19 07/01/19 07/01/19 08:00 mcg (2,000 unit) capsule d-mannose 1,000 mg PO BID 05/06/19 07/01/19 07/01/19 08:00 ferrous sulfate 325 mg (65 mg 325 mg PO QAM #60 tab 05/06/19 07/01/19 07/01/19 08:00 iron) tablet lactobacillus combination no.8 3 0 mmu cells PO BID 05/06/19 07/01/19 07/01/19 08:00 billion cell capsule polyethylene glycol 3350 17 17 gm PO QAM 05/06/19 07/01/19 07/01/19 08:00 gram/dose oral powder sennosides 8.6 mg-docusate sodium 1 tab PO BID 05/06/19 07/01/19 07/01/19 08:00 50 mg tablet acetaminophen [Tylenol] 650 mg PO TID 07/01/19 07/01/19 07/01/19 08:00 650mg aspirin 81 mg PO QAM 07/01/19 07/01/19 Unknown hyoscyamine sulfate [Levsin] 0.125 mg PO BID 07/01/19 07/01/19 07/01/19 09:00 vitamin B complex 1 tab PO QAM 07/01/19 07/01/19 07/01/19 09:00 Active Medications Generic Name Dose Route Start Last Admin Trade Name Freq PRN Reason Stop Dose Admin Acetaminophen 650 mg 07/08/19 13:55 07/11/19 10:02 Tylenol PO 08/07/19 13:54 650 mg Q4H PRN Administration Pain Atorvastatin Calcium 80 mg 07/01/19 21:00 07/10/19 21:06 Lipitor PO 07/31/19 20:59 80 mg HS RODOLFO Administration Folic Acid 1 mg 07/02/19 09:00 07/11/19 09:57 Folvite PO 08/01/19 08:59 1 mg QAM RODOLFO Administration Pantoprazole Sodium 40 mg/ 10 mls @ 5 mls/min 07/01/19 21:00 07/11/19 09:58 Syringe IV 07/31/19 20:59 5 mls/min BID@0900,2100 RODOLFO Administration Ceftriaxone Sodium 2,000 mg/ 70 mls @ 140 mls/hr 07/04/19 09:00 07/11/19 11:41 Dextrose IV 07/14/19 08:59 Infused Q24H RODOLFO Infusion Dextrose 1,000 mls @ 200 mls/hr 07/10/19 12:00 07/11/19 07:45 D5w IV 08/09/19 11:59 200 mls/hr .Q5H RODOLFO Administration Levothyroxine Sodium 75 mcg 07/01/19 21:00 07/10/19 21:08 Synthroid PO 07/31/19 20:59 75 mcg HS RODOLFO Administration Susitna Carbonate 300 mg 07/02/19 09:00 07/11/19 11:53 Susitna Carbonate PO 08/01/19 08:59 300 mg QAM RODOLFO Administration Ondansetron HCl 4 mg 07/01/19 23:43 07/02/19 00:00 Zofran IV 07/31/19 23:42 4 mg Q6H PRN Administration Nausea Pramipexole Dihydrochloride 0.5 mg 07/01/19 21:00 07/10/19 21:06 Mirapex PO 07/31/19 20:59 0.5 mg HS RODOLFO Administration Risperidone 0.5 mg 07/01/19 21:00 07/11/19 09:59 Risperdal PO 07/31/19 20:59 0.5 mg BID RODOLFO Administration Tiotropium [place] 1 puffs 07/09/19 09:00 07/11/19 10:01 Spiriva INH 08/08/19 08:59 1 puffs DAILY RODOLFO Administration Protocol NPO Date Last Intake of Fluids: 07/10/19 Time Last Intake of Fluids: 23:55 Date Last Intake of Solids: 07/10/19 Time Last Intake of Solids: 23:55 Past Medical History Medical History Bipolar disorder COPD (chronic obstructive pulmonary disease) Chronic kidney disease Dementia UTI (urinary tract infection) Past Family History Family History Other Lung cancer Past Surgical History Surgical History S/P hysterectomy Social History Smoking Status: Former smoker Hx Alcohol Use: No Hx Substance Use: No Physical Exam Vital Signs Last Vital Signs Temp 36.4 C L 07/11/19 13:42 Pulse 77 07/11/19 13:42 Resp 20 07/11/19 13:42 BP 142/75 H 07/11/19 13:42 Pulse Ox 94 07/11/19 13:42 Testing Laboratory Results 07/11/19 06:34 07/11/19 06:34 PT 10.7 Seconds (9.0-12.0) 07/01/19 12:59 INR 1.0 (0.9-1.1) 07/01/19 12:59 APTT 24.2 Seconds (21.0-31.0) 07/01/19 12:59 Urine Color Yellow 07/01/19 13:22 Urine Appearance Turbid (Clear) A 07/01/19 13:22 Urine pH 6.5 (4.5-7.5) 07/01/19 13:22 Ur Specific [place] 1.013 (1.000-1.030) 07/01/19 13:22 Urine Protein Trace (Negative) H 07/01/19 13:22 Urine Glucose (UA) Negative (Negative) 07/01/19 13:22 Urine Ketones Negative (Negative) 07/01/19 13:22 Urine Nitrite Negative (Negative) 07/01/19 13:22 Ur Leukocyte Esterase 3+ (Negative) H 07/01/19 13:22 Urine WBC (Auto) >30 /hpf (0-5) H 07/01/19 13:22 Urine RBC (Auto) 5-10 /hpf (0-4) H 07/01/19 13:22 U Hyaline Cast (Auto) 1-5 /lpf (0-5) 07/01/19 13:22 U Epithel Cells (Auto) 20-30 /lpf (0-5) H 07/01/19 13:22 Urine Bacteria (Auto) 1+ (Negative) H 07/01/19 13:22 Blood Type O Positive 07/05/19 19:58 Antibody Screen NEGATIVE 07/05/19 19:58 07/07/19 10:15 Escherichia coli Shiga Toxins Test - Final Stool Stool Culture - Final No Salmonella isolated, No Shigella isolated, No Campylobacter jejuni isolated. 07/07/19 10:15 WBC Smear - Final Stool 07/01/19 13:22 Urine Culture - Final Urine,Straight Cath Escherichia coli
[2019-07-11] MEDS ORDERED: ATROPINE SULFATE 0.1 MG/ML 10ML SYR IV PRN (14:42)
[2019-07-11] MEDS ORDERED: ePHEDrine sulfate 50 MG/ML AMP IV PRN (14:42)
--- NOTE | 2019-07-11 15:17 | GI REPORT ---
Patient Name: Lora Wright Procedure Date: 07/11/2019 2:13 PM Date of : 1935 Admit Type: Inpatient Age: 83 Gender: Female Attending MD: Chad Whitt MD Procedure: Upper GI endoscopy Providers: Chad Whitt MD Referring MD: Ramin Elam Indications: Iron deficiency anemia secondary to chronic blood loss, Heme positive stool Medicines: Monitored Anesthesia Care Complications: No immediate complications. Estimated blood loss: Minimal. Estimated Blood Loss: Estimated blood loss was minimal. Procedure: Pre-Anesthesia Assessment: - The risks and benefits of the procedure and the sedation options and risks were discussed with the patient. All questions were answered and informed consent was obtained. - Patient identification and proposed procedure were verified prior to the procedure by the physician, the nurse and the director long term care. The procedure was verified in the procedure room. After obtaining informed consent, the endoscope was passed under direct vision. Throughout the procedure, the patient's blood pressure, pulse, and oxygen saturations were monitored continuously. The Endoscope was introduced through the mouth, and advanced to the second part of duodenum. The upper GI endoscopy was accomplished without difficulty. The patient tolerated the procedure well. Procedure and risks explained to patient son on the phone just prior to procedure which include but not limited to medication reaction, bleeding, perforation, aspiration , and missed lesions. Judicious gas insufflation was used and gas removal done on the way out. The lumen was always visualized when advancing the scope. Prep was good. Washes and suctioning used as needed to get good visualization of the mucosa. Retroflexion to look at the fundus and cardia of the stomach and GE junction was done. Findings: The Z-line was irregular and was found 40 cm from the incisors. Biopsies were taken with a cold forceps for histology. Estimated blood loss was minimal. Two 2 to 5 mm non bleeding angioectasias were found on the greater curvature of the gastric body and on the lesser curvature of the gastric body. Coagulation for bleeding prevention using argon plasma at 0.8 liters/minute and 40 maynard was successful. Estimated blood loss: none. The examined duodenum was normal. The exam was otherwise without abnormality. Impression: - Z-line irregular, 40 cm from the incisors. Biopsied. 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 Treated with argon plasma coagulation (APC). - Normal examined duodenum. - The examination was otherwise normal. Recommendation: - [facility]. - Solid diet as tolerated. Chad Whitt M.D. Chad Whitt MD 07/11/2019 3:17:13 PM This report has been signed electronically. Note Initiated On: 07/11/2019 2:13 PM Number of Addenda: 0 I attest to the content of the Intraoperative Record and orders documented therein, exceptions below {[id number]}
--- NOTE | 2019-07-11 15:28 | Post Operative Brief Note ---
Immediate Post Op Note v1 Date of Surgery July 11, 2019 EGD irregular Z line (? 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 If AVM were source of bleeding then H and H should stabilize. Ok for solid diet Discussed with patients son. Pre & Post Diagnosis Operation Date: 07/06/19 16:00 <No data on this case meets the specified criteria> Operation Date: 07/07/19 16:30 <No data on this case meets the specified criteria> Operation Date: 07/11/19 16:00 Pre-Op Diagnosis: RECTAL BLEEDING I identified the patient and participated in the time-out.: Yes Procedure Operation Date: 07/06/19 16:00 <No data on this case meets the specified criteria> Operation Date: 07/07/19 16:30 <No data on this case meets the specified criteria> Operation Date: 07/11/19 16:00 <No data on this case meets the specified criteria> Surgeon Chad Whitt [employer] Reservation[employer] see formal report Estimated Blood Loss 3 Findings Consistent with Post-Op Diagnosis
--- NOTE | 2019-07-11 16:12 | Anesthesiology Progress Note ---
Date of Service July 11, 2019 Anesthesia Post Procedure Vital Signs Vital Signs: Temp Pulse Pulse Resp BP BP Pulse Ox 07/11/19 15:51 69 20 120/57 L 93 07/11/19 15:34 70 20 112/48 L 99 07/11/19 15:19 71 20 126/55 L 99 07/11/19 13:42 36.4 C L 77 20 142/75 H 94 07/11/19 11:28 36.2 C L 80 12 133/78 99 07/11/19 09:05 36.2 C L 82 16 137/76 98 07/11/19 08:00 76 07/11/19 03:08 36.3 C L 80 22 135/80 94 07/10/19 22:55 36.3 C L 75 21 156/83 H 99 07/10/19 22:20 75 07/10/19 19:27 36.3 C L 79 23 133/74 97 Pain Intensity Abdomen: Pain Intensity: 8 Transfer of Care Handoff Completed per policy Notes Mental Status: alert / awake / arousable Patient Amnestic to Procedure: Yes Nausea / Vomiting: adequately controlled Pain: adequately controlled Airway Patency, RR, SpO2: stable & adequate BP & HR: stable & adequate Hydration State: stable & adequate Anesthetic Complications: no major complications apparent and Pt Satisfied with anesthetic care
[2019-07-11] MEDS: PANTOprazole 40 MG TAB PO SCH ×2 (16:23→19:15)
[2019-07-11] MEDS: LEVOTHYROXINE SODIUM 75 MCG TABLET PO SCH (20:17)
[2019-07-11] MEDS: ATORVASTATIN 40 MG TAB PO SCH (20:17)
[2019-07-11] MEDS: PRAMIPEXOLE DIHYDROCHLO 0.5 MG TAB PO SCH (20:18)
[2019-07-12] MEDS: ACETAMINOPHEN 325 MG TAB PO PRN ×2 (05:10→21:24)
[2019-07-12 06:40] LABS: Basophils # (auto) 0.02 K/uL (0-0.2); Basophils % (auto) 0.2 %; Eosinophils % (auto) 3.4 %; Hematocrit (blood only) 31.1 % (37-47); Hemoglobin 8.9 g/dL (12.0-16.0); Immature Granulocytes # (auto) 0.02 K/uL (0.00-0.02); Immature Granulocytes % (auto) 0.2 %; Lymphocytes # (auto) 1.15 K/uL (1.2-3.4); Lymphocytes % (auto) 9.7 %; Mean Corpuscular Hemoglobin 26.6 pg (25-34); Mean Corpuscular Hgb Conc 28.6 g/dL (32-36); Mean Corpuscular Volume 93.1 fL (80-100); Mean Platelet Volume 9.6 fL (7.4-10.4); Monocytes # (auto) 0.66 K/uL (0.11-0.59); Monocytes % (auto) 5.6 %; Neutrophils # (auto) 9.56 K/uL (1.4-6.5); Neutrophils % (auto) 80.9 %; Platelet Count 253 K/uL (130-400); RDW Coefficient of Variation 17.6 % (11.5-14.5); RDW Standard Deviation 59.4 fL (36.4-46.3); Red Blood Count 3.34 M/uL (4.2-5.4); White Blood Count 11.81 K/uL (4.8-10.8)
[2019-07-12 07:19] LABS: BUN Creatinine Ratio 10.4 (10-20); Calcium 10.2 mg/dl (8.5-10.1); Creatinine Clr Calc Pharmacy 40.3 ml/min; Est GFR (African American) 42.2; Est GFR (Non-African American) 36.4; Potassium 4.1 mmol/L (3.5-5.1)
[2019-07-12 07:24] LABS: Albumin Globulin Ratio 0.5 (0.9-2); Bilirubin,Total 0.3 mg/dl (0.2-1); Globulin 4.1 gm/dl (2.5-4.0); Total Protein 6.1 gm/dl (6.4-8.2)
[2019-07-12] MEDS: cefTRIAXone SODIUM 2,000 MG in DEXTROSE 5% 50 ML IV SCH (09:29)
[2019-07-12] MEDS: FOLIC ACID 1 MG TAB PO SCH (09:31)
[2019-07-12] MEDS: PANTOprazole 40 MG TAB PO SCH (09:32)
[2019-07-12] MEDS: LITHIUM CARBONATE 300 MG TAB PO SCH (09:33)
[2019-07-12] MEDS: TIOTROPIUM BROMIDE 5 PUFF/90 MCG INH INH SCH (09:33)
[2019-07-12] MEDS: risperiDONE 0.5 MG TABLET PO SCH ×2 (09:33→20:13)
[2019-07-12] MEDS: DEXTROSE 5% 1,000 ML IV SCH ×2 (11:00→18:05)
[2019-07-12 13:41] LABS: BUN Creatinine Ratio 9.8 (10-20); Calcium 10.5 mg/dl (8.5-10.1); Creatinine Clr Calc Pharmacy 38.3 ml/min; Est GFR (African American) 39.7; Est GFR (Non-African American) 34.3; Potassium 4.3 mmol/L (3.5-5.1)
--- NOTE | 2019-07-12 17:55 | Progress Note ---
DATE: 07/12/2019 SUBJECTIVE: The patient is not having any overt signs of bleeding. She underwent an EGD yesterday by Dr. Whitt which showed normal caliber esophagus without any stricture. Biopsies of the GE junction showed some chronic inflammation, but no signs of malignancy or Pabon's esophagus. There were 2 small angioectasias in the stomach which he cauterized but he was not sure if these were the source of her anemia. Her blood count today is 8.9. Sodium is back up to 150, chloride is 116, creatinine 1.43. IMPRESSION: The patient's nutritional status and electrolytes continue to be problematic. There is nothing in her esophagus necessarily that would prevent her from swallowing or eating structurally. She is unable to take a bowel prep for colonoscopy. At this point, we really do not have anything more to add to her condition. If further GI input is needed, please contact us.
[2019-07-12] MEDS: ATORVASTATIN 40 MG TAB PO SCH (20:13)
[2019-07-12] MEDS: PRAMIPEXOLE DIHYDROCHLO 0.5 MG TAB PO SCH (20:13)
[2019-07-12] MEDS: LEVOTHYROXINE SODIUM 75 MCG TABLET PO SCH (20:13)
[2019-07-13] MEDS: DEXTROSE 5% 1,000 ML IV SCH ×3 (00:26→16:18)
[2019-07-13] MEDS: cefTRIAXone SODIUM 2,000 MG in DEXTROSE 5% 50 ML IV SCH (09:00)
[2019-07-13 09:22] LABS: BUN Creatinine Ratio 10.6 (10-20); Calcium 10.2 mg/dl (8.5-10.1); Est GFR (African American) 45.4; Est GFR (Non-African American) 39.2; Potassium 3.8 mmol/L (3.5-5.1)
--- NOTE | 2019-07-13 09:22 | Hospitalist Progress Note ---
Date of Service July 11, 2019 Assessment & Plan (1) Hypernatremia: likely due to poor oral intake, not drinking enough free water with nectar thick liquids Na down to 147 on 07/11 with D5W will stop fluids, allow her to drink, repeat Na in the morning (2) Acute kidney injury superimposed on chronic kidney disease: prerenal due to poor oral intake patient having difficulty swallowing Cr peaked at 2, down to 1.32 which is baseline continue fluids for now since not taking PO well (3) GI bleed: reports of melena at SNF and also had some melena on (07/02-07/05) Hb improved appropiately with 2 blood transfusion. EGD done on 07/11, showed AVM, no stigmata of recent bleeding cannot get colonoscopy because she will not complete the prep Hb is stable at 9.5, BP stable, no further melena acute issue likely resolved (4) Colitis: Colitis seen on CT WBC down to 11k from 18k, with the bleeding and colitis might consider C diff, high risk living in [facility] no evidence of C diff (5) Recurrent UTI: culture growing E coli, dugan sensitive change Zosyn to Rocephin 1gm IV q24 will stop antibiotics as she had more than 7 days procalcitonin normal on 07/11 (6) Dysphagia: failed bedside study with nectar thick and thin liquids can have pills with pudding unclear why she developed worsening dysphagia at this point she needs pureed diet and nectar thick liquids doubt she can maintain hydration with this (7) Vaginal candidiasis: has vaginal discharge and labia are red, irritated place on both Miconazole insert and topical cream for 7 days, treatment completed (8) CKD (chronic kidney disease), stage III: continue on IV fluids with GI losses (9) Leukocytosis: high at 18k on discharge down to 13k today has evidence of both colitis but also UTI, growing E coli will check procal on thursday (10) COPD, moderate: DuoNeb as needed basis. (11) Bipolar disorder: Continue home medications. (12) Hypothyroidism: Continue Synthroid (13) Hyperlipemia: Continue statins. (14) HTN (hypertension): Monitor the blood pressure closely as patient has rectal bleeding. 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 Whitt Review of Systems Review of Systems: All systems reviewed & are unremarkable except as noted in HPI & below Constitutional: + fatigue and + weakness; no fever Respiratory: no cough and no dyspnea Cardiovascular: no chest pain and no edema Gastrointestinal: + dysphagia; no abdominal pain, no nausea, no vomiting, no constipation, no diarrhea/loose stools and no blood in stools Physical Exam Constitutional: WD/WN, vitals as above + overweight Eyes: PERRL, conjunctivae normal, anicteric sclerae ENMT: external ear and nose normal, oropharynx normal Neck: trachea midline, no thyromegaly Respiratory: normal respiratory effort, lungs clear to auscultation (decreased in bases) Cardiovascular: RRR, no murmur, no edema Gastrointestinal (Abdomen): normal bowel sounds, soft, nontender, no hepatosplenomegaly Musculoskeletal: no cyanosis or clubbing, extremities motor strength 5/5 Skin: no rashes, warm and dry Neurologic: patellar DTR's 2+ bilat, sensation intact and PERRL, EOMI, accommodation nl, no face palsy, no dysarthria Psychiatric: Orientation: oriented to person; + not oriented to place and + not oriented to time Lymphatic: no cervical or axillary lymphadenopathy Results & Data Vital Signs (Past 12 Hours) Vital Signs Temp Pulse Pulse Resp BP BP Pulse Ox 07/13/19 07:29 76 20 126/70 96 07/13/19 03:54 37 C 81 20 103/68 93 07/12/19 23:18 36.5 C 83 20 146/72 H 98 07/12/19 22:56 90 Laboratory Results WBC 11k Hb 9.5 plts 263 Na 147, K 4.0, BUN 10, Cr 1.32 Medications Administered Current Inpatient Medications Acetaminophen (Tylenol) 650 mg PO Q4H PRN PRN Reason: Pain Stop: 08/07/19 13:54 Last Admin: 07/12/19 21:24 Dose: 650 mg Documented by: Atorvastatin Calcium (Lipitor) 80 mg PO HS [facility] Stop: 07/31/19 20:59 Last Admin: 07/12/19 20:13 Dose: 80 mg Documented by: Diphenhydramine HCl (Benadryl) 25 mg IV [id number] PRN PRN Reason: Allergic Symptoms Stop: 07/31/19 21:01 Folic Acid (Folvite) [facility] Stop: 08/01/19 08:59 Last Admin: 07/12/19 09:31 Dose: 1 mg Documented by: Ceftriaxone Sodium 2,000 mg/ (Dextrose) 70 mls @ 140 mls/hr IV Q24H [facility] Stop: 07/14/19 08:59 Last Infusion: 07/12/19 11:50 Dose: Infused Documented by: Sodium Chloride (Nss) 250 mls @ 15 mls/hr IV .[id number] PRN PRN Reason: For Transfusion Stop: 08/04/19 19:48 Dextrose (D5w) 1,000 mls @ 125 mls/hr IV .Q8H [facility] Stop: 08/11/19 07:59 Last Admin: 07/13/19 00:26 Dose: 125 mls/hr Documented by: Levothyroxine Sodium (Synthroid) 75 mcg PO [facility] Stop: 07/31/19 20:59 Last Admin: 07/12/19 20:13 Dose: 75 mcg Documented by: Lindy Carbonate (Lindy Carbonate) 300 mg [facility] Stop: 08/01/19 08:59 Last Admin: 07/12/19 09:33 Dose: 300 mg Documented by: Ondansetron HCl (Zofran) 4 mg IV Q6H PRN PRN Reason: Nausea Stop: 07/31/19 23:42 Last Admin: 07/02/19 00:00 Dose: 4 mg Documented by: Pantoprazole Sodium (Protonix) 40 mg PO [facility] Stop: 08/10/19 15:59 Last Admin: 07/12/19 09:32 Dose: 40 mg Documented by: Pramipexole Dihydrochloride (Mirapex) 0.5 mg PO [facility] Stop: 07/31/19 20:59 Last Admin: 07/12/19 20:13 Dose: 0.5 mg Documented by: Risperidone (Risperdal) 0.5 mg PO BID [facility] Stop: 07/31/19 20:59 Last Admin: 07/12/19 20:13 Dose: 0.5 mg Documented by: Tiotropium [place] (Spiriva) 1 puffs INH DAILY [facility]; Protocol Stop: 08/08/19 08:59 Last Admin: 07/12/19 09:33 Dose: 1 puffs Documented by: PG Care Time/CCT Total # of Minutes Spent Total Time Spent with Patient: Total time spent is greater than 50% in coordination of care (as documented) at patient's floor/unit and/or counseling patient: (1) GI bleed GI bleed type/associated pathology: unspecified gastrointestinal hemorrhage type Qualified Code(s): K92.2 - Gastrointestinal hemorrhage, unspecified
--- NOTE | 2019-07-13 09:35 | Hospitalist Progress Note ---
Date of Service July 12, 2019 Assessment & Plan (1) Hypernatremia: likely due to poor oral intake, not drinking enough free water with nectar thick liquids Na up to 150 after stopping free water replacement still not drinking enough discussed with her son that this will likely be very difficult to control since she cannot swallow well (2) Acute kidney injury superimposed on chronic kidney disease: prerenal due to poor oral intake patient having difficulty swallowing Cr peaked at 2, stable at 1.36 will need to resume fluids since Na went up (3) GI bleed: reports of melena at [facility] and also had some melena on (07/02-07/05) Hb improved appropriately with 2 units of PRBC EGD done on 07/11, showed AVM, no stigmata of recent bleeding cannot get colonoscopy because she will not complete the prep Hb is stable at 8.9, BP stable, no further melena acute issue likely resolved (4) Colitis: Colitis seen on CT WBC down to 11k from 18k, with the bleeding and colitis might consider C diff, high risk living in [facility] no evidence of C diff (5) Recurrent UTI: culture growing E coli, dugan sensitive change Zosyn to Rocephin 1gm IV q24 will stop antibiotics as she had more than 7 days procalcitonin normal on 07/11 (6) Dysphagia: failed bedside study with nectar thick and thin liquids can have pills with pudding unclear why she developed worsening dysphagia at this point she needs pureed diet and nectar thick liquids doubt she can maintain hydration with this discussed with her son, this happened before and then completely resolved at the [facility] (7) Vaginal candidiasis: has vaginal discharge and labia are red, irritated place on both Miconazole insert and topical cream for 7 days, treatment completed (8) CKD (chronic kidney disease), stage III: continue on IV fluids with GI losses (9) Leukocytosis: high at 18k on discharge down to 13k today has evidence of both colitis but also UTI, growing E coli will check procal on thursday (10) COPD, moderate: DuoNeb as needed basis. (11) Bipolar disorder: Continue home medications. (12) Hypothyroidism: Continue Synthroid (13) Hyperlipemia: Continue statins. (14) HTN (hypertension): Monitor the blood pressure closely as patient has rectal bleeding. 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 Subjective patient continues to struggle to drink enough long discussion with patient's son at the bedside on 07/12 he said that she has had issues with swallowing on prior admission, no clear reason he said that after she returned to [facility] she was able to advance back to clear liquids he says that every time he visits her there she is drinking water, able to feed herself reviewed labs, Na back up to 150, Cl 117, repeated in afternoon, still 150 resumed D5W BUN 14, Cr 1.36, Hb 8.9, WBC 11k Review of Systems Review of Systems: All systems reviewed & are unremarkable except as noted in HPI & below Respiratory: no cough Cardiovascular: no chest pain and no edema Gastrointestinal: + dysphagia and + diarrhea/loose stools; no abdominal pain, no nausea, no vomiting and no constipation Physical Exam Constitutional: WD/WN, vitals as above + overweight Eyes: PERRL, conjunctivae normal, anicteric sclerae ENMT: external ear and nose normal, oropharynx normal Neck: trachea midline, no thyromegaly Respiratory: normal respiratory effort, lungs clear to auscultation (decreased in bases) Cardiovascular: RRR, no murmur, no edema Gastrointestinal (Abdomen): normal bowel sounds, soft, nontender, no hepato splenomegaly Musculoskeletal: no cyanosis or clubbing, extremities motor strength 5/5 Skin: no rashes, warm and dry Neurologic: patellar DTR's 2+ bilat, sensation intact and PERRL, EOMI, accommodation nl, no face palsy, no dysarthria Psychiatric: Orientation: oriented to person; + not oriented to place and + not oriented to time Lymphatic: no cervical or axillary lymphadenopathy Results & Data Vital Signs (Past 12 Hours) Vital Signs Temp Pulse Pulse Resp BP BP Pulse Ox 07/13/19 07:29 76 20 126/70 96 07/13/19 03:54 37 C 81 20 103/68 93 07/12/19 23:18 36.5 C 83 20 146/72 H 98 07/12/19 22:56 90 Laboratory Results Na 150, Cl 117, BUN 14, Cr 1.36 Ca 10.2 but corrected it is closer to 12 Hb 8.9, WBC 11k Medications Administered Current Inpatient Medications Acetaminophen (Tylenol) 650 mg PO Q4H PRN PRN Reason: Pain Stop: 08/07/19 13:54 Last Admin: 07/12/19 21:24 Dose: 650 mg Documented by: Atorvastatin Calcium (Lipitor) 80 mg PO [facility] Stop: 07/31/19 20:59 Last Admin: 07/12/19 20:13 Dose: 80 mg Documented by: Diphenhydramine HCl (Benadryl) 25 mg IV [id number] PRN PRN Reason: Allergic Symptoms Stop: 07/31/19 21:01 Folic Acid (Folvite) 1 mg PO [facility] Stop: 08/01/19 08:59 Last Admin: 07/12/19 09:31 Dose: 1 mg Documented by: Sodium Chloride (Nss) 250 mls @ 15 mls/hr IV .[id number] PRN PRN Reason: For Transfusion Stop: 08/04/19 19:48 Dextrose (D5w) 1,000 mls @ 125 mls/hr IV .Q8H [facility] Stop: 08/11/19 07:59 Last Admin: 07/13/19 00:26 Dose: 125 mls/hr Documented by: Levothyroxine Sodium (Synthroid) 75 mcg PO [facility] Stop: 07/31/19 20:59 Last Admin: 07/12/19 20:13 Dose: 75 mcg Documented by: Donnell[place] Carbonate (Donnellson Carbonate) [facility] Stop: 08/01/19 08:59 Last Admin: 07/12/19 09:33 Dose: 300 mg Documented by: Ondansetron HCl (Zofran) 4 mg IV Q6H PRN PRN Reason: Nausea Stop: 07/31/19 23:42 Last Admin: 07/02/19 00:00 Dose: 4 mg Documented by: Pantoprazole Sodium (Protonix) 40 mg PO [facility] Stop: 08/10/19 15:59 Last Admin: 07/12/19 09:32 Dose: 40 mg Documented by: Pramipexole Dihydrochloride (Mirapex) 0.5 mg PO [facility] Stop: 07/31/19 20:59 Last Admin: 07/12/19 20:13 Dose: 0.5 mg Documented by: Risperidone (Risperdal) 0.5 mg PO BID [facility] Stop: 07/31/19 20:59 Last Admin: 07/12/19 20:13 Dose: 0.5 mg Documented by: Tiotropium [place] (Spiriva) 1 puffs INH DAILY [facility]; Protocol Stop: 08/08/19 08:59 Last Admin: 07/12/19 09:33 Dose: 1 puffs Documented by: PG Care Time/CCT Total # of Minutes Spent Total Time Spent with Patient: Total time spent is greater than 50% in coordination of care (as documented) at patient's floor/unit and/or counseling patient: (1) GI bleed GI bleed type/associated pathology: unspecified gastrointestinal hemorrhage type Qualified Code(s): K92.2 - Gastrointestinal hemorrhage, unspecified
[2019-07-13] MEDS: LITHIUM CARBONATE 300 MG TAB PO SCH (10:24)
[2019-07-13] MEDS: risperiDONE 0.5 MG TABLET PO SCH ×2 (10:24→20:27)
[2019-07-13] MEDS: FOLIC ACID 1 MG TAB PO SCH (10:24)
[2019-07-13] MEDS: PANTOprazole 40 MG TAB PO SCH (10:24)
[2019-07-13] MEDS: TIOTROPIUM BROMIDE 5 PUFF/90 MCG INH INH SCH (10:24)
--- NOTE | 2019-07-13 18:48 | Hospitalist Progress Note ---
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, unsure if it can be stopped she has always managed to control her DI and high calcium with adequate oral hydration (3) Acute kidney injury superimposed on chronic kidney disease: prerenal due to poor oral intake patient having difficulty swallowing Cr peaked at 2, stable at 1.28 will watch with stopping IV fluids (4) GI bleed: reports of melena at [facility] and also had some melena on (07/02-07/05) Hb improved appropriately with 2 units of PRBC EGD done on 07/11, showed AVM, no stigmata of recent bleeding cannot get colonoscopy because she will not complete the prep Hb was stable at 8.9 yesterday, BP stable, no further melena acute issue likely resolved (5) Colitis: Colitis seen on CT WBC down to 11k from 18k, with the bleeding and colitis might consider C diff, high risk living in SNF no evidence of C diff (6) Recurrent UTI: culture growing E coli, dugan sensitive change Zosyn to Rocephin 1gm IV q24 will stop antibiotics as she had more than 7 days procalcitonin normal on 07/11 (7) Dysphagia: failed bedside study with nectar thick and thin liquids can have pills with pudding unclear why she developed worsening dysphagia at this point she needs pureed diet and nectar thick liquids doubt she can maintain hydration with this discussed with her son, this happened before and then completely resolved at the [facility] (8) Vaginal candidiasis: has vaginal discharge and labia are red, irritated place on both Miconazole insert and topical cream for 7 days, treatment completed (9) CKD (chronic kidney disease), stage III: continue on IV fluids with GI losses (10) Leukocytosis: high at 18k on discharge down to 13k today has evidence of both colitis but also UTI, growing E coli will check procal on thursday (11) COPD, moderate: DuoNeb as needed basis. (12) Bipolar disorder: Continue home medications. (13) Hypothyroidism: Continue Synthroid (14) Hyperlipemia: Continue statins. (15) HTN (hypertension): Monitor the blood pressure closely as patient has rectal bleeding. 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: (17) History of hysterectomy: (18) Dementia with Lewy bodies: (19) Dementia, vascular: she is DNR from [facility] that came from [facility] Subjective patient still not drinking or eating enough today she just wants to take a shower reviewed outpatient records, she has a history of hypernatremia and hypercalcemia elevated PTH levels due to lithium use she follows with nephrology for this issue she was always instructed to try to drink 2-3 liters of fluid to combat diabetes insipidus certainly with concurrent dysphagia it is going to be very difficult, maybe impossible to manage could consider stopping Buford? can discuss artificial feeding and hydration with son labs today show Na down to 145, Ca elevated at 10.2 and corrected this would be 12 checked PTH and was mildly elevated at 87, consistent with chronic lithium use Review of Systems Review of Systems: All systems reviewed & are unremarkable except as noted in HPI & below Physical Exam Constitutional: WD/WN, vitals as above + overweight Eyes: PERRL, conjunctivae normal, anicteric sclerae ENMT: external ear and nose normal, oropharynx normal Neck: trachea midline, no thyromegaly Respiratory: normal respiratory effort, lungs clear to auscultation (decreased in bases) Cardiovascular: RRR, no murmur, no edema Gastrointestinal (Abdomen): normal bowel sounds, soft, nontender, no hepatosplenomegaly Musculoskeletal: no cyanosis or clubbing, extremities motor strength 5/5 Skin: no rashes, warm and dry Neurologic: patellar DTR's 2+ bilat, sensation intact and PERRL, EOMI, accommodation nl, no face palsy, no dysarthria Psychiatric: Orientation: oriented to person; + not oriented to place and + not oriented to time Lymphatic: no cervical or axillary lymphadenopathy Results & Data Vital Signs (Past 12 Hours) Vital Signs Temp Pulse Resp BP Pulse Ox 07/13/19 14:37 79 20 129/74 98 07/13/19 11:23 36.7 C 78 18 125/71 78 L 07/13/19 07:29 76 20 126/70 96 Laboratory Results Laboratory Results - last 24 hr 07/13/19 07/13/19 07/13/19 08:41 09:40 09:40 Sodium 145 Potassium 3.8 Chloride 111 H Carbon Dioxide 30 Anion Gap 4.0 BUN 14 Creatinine 1.28 H Est Cr Clr Drug Dosing 43.0 Est GFR ( Amer) 45.4 Est GFR (Non-Af Amer) 39.2 BUN/Creatinine Ratio 10.6 Glucose 170 H Calcium 10.2 H PTH Intact 87.1 H PTH Related Protein Pending Medications Administered Current Inpatient Medications Acetaminophen (Tylenol) 650 mg PO Q4H PRN PRN Reason: Pain Stop: 08/07/19 13:54 Last Admin: 07/12/19 21:24 Dose: 650 mg Documented by: Atorvastatin Calcium (Lipitor) [address] [facility] Stop: 07/31/19 20:59 Last Admin: 07/12/19 20:13 Dose: 80 mg Documented by: Diphenhydramine HCl (Benadryl) 25 mg IV [id number] PRN PRN Reason: Allergic Symptoms Stop: 07/31/19 21:01 Folic Acid (Folvite) 1 mg PO [facility] Stop: 08/01/19 08:59 Last Admin: 07/13/19 10:24 Dose: 1 mg Documented by: Sodium Chloride (Nss) 250 mls @ 15 mls/hr IV .[id number] PRN PRN Reason: For Transfusion Stop: 08/04/19 19:48 Levothyroxine Sodium (Synthroid) [address] [facility] Stop: 07/31/19 20:59 Last Admin: 07/12/19 20:13 Dose: 75 mcg Documented by: Buford Carbonate (Buford Carbonate) 300 mg PO [facility] Stop: 08/01/19 08:59 Last Admin: 07/13/19 10:24 Dose: 300 mg Documented by: Ondansetron HCl (Zofran) 4 mg IV Q6H PRN PRN Reason: Nausea Stop: 07/31/19 23:42 Last Admin: 07/02/19 00:00 Dose: 4 mg Documented by: Pantoprazole Sodium (Protonix) 40 mg PO [facility] Stop: 08/10/19 15:59 Last Admin: 07/13/19 10:24 Dose: 40 mg Documented by: Pramipexole Dihydrochloride (Mirapex) 0.5 mg PO HS [facility] Stop: 07/31/19 20:59 Last Admin: 07/12/19 20:13 Dose: 0.5 mg Documented by: Risperidone (Risperdal) 0.5 mg PO BID [facility] Stop: 07/31/19 20:59 Last Admin: 07/13/19 10:24 Dose: 0.5 mg Documented by: Tiotropium [place] (Spiriva) 1 puffs INH DAILY [facility]; Protocol Stop: 08/08/19 08:59 Last Admin: 07/13/19 10:24 Dose: 1 puffs Documented by: PG Care Time/CCT Total # of Minutes Spent Total Time Spent with Patient: Total time spent is greater than 50% in coordination of care (as documented) at patient's floor/unit and/or counseling patient: (1) GI bleed GI bleed type/associated pathology: unspecified gastrointestinal hemorrhage type Qualified Code(s): K92.2 - Gastrointestinal hemorrhage, unspecified
[2019-07-13] MEDS: ATORVASTATIN 40 MG TAB PO SCH (20:26)
[2019-07-13] MEDS: PRAMIPEXOLE DIHYDROCHLO 0.5 MG TAB PO SCH (20:26)
[2019-07-13] MEDS: LEVOTHYROXINE SODIUM 75 MCG TABLET PO SCH (20:27)
[2019-07-14] MEDS: ACETAMINOPHEN 325 MG TAB PO PRN (08:14)
[2019-07-14] MEDS: FOLIC ACID 1 MG TAB PO SCH (08:24)
[2019-07-14] MEDS: LITHIUM CARBONATE 300 MG TAB PO SCH (08:25)
[2019-07-14] MEDS: risperiDONE 0.5 MG TABLET PO SCH ×2 (08:25→19:27)
[2019-07-14] MEDS: PANTOprazole 40 MG TAB PO SCH (08:25)
[2019-07-14 10:06] LABS: Hematocrit (blood only) 33.3 % (37-47); Hemoglobin 9.5 g/dL (12.0-16.0); Mean Corpuscular Hemoglobin 26.5 pg (25-34); Mean Corpuscular Hgb Conc 28.5 g/dL (32-36); Mean Corpuscular Volume 92.8 fL (80-100); Mean Platelet Volume 9.9 fL (7.4-10.4); Platelet Count 265 K/uL (130-400); RDW Coefficient of Variation 17.7 % (11.5-14.5); RDW Standard Deviation 59.9 fL (36.4-46.3); Red Blood Count 3.59 M/uL (4.2-5.4); White Blood Count 13.62 K/uL (4.8-10.8)
[2019-07-14 10:17] LABS: BUN Creatinine Ratio 11.2 (10-20); Calcium 10.7 mg/dl (8.5-10.1); Creatinine Clr Calc Pharmacy 40.3 ml/min; Est GFR (African American) 42.6; Est GFR (Non-African American) 36.7; Potassium 4.3 mmol/L (3.5-5.1)
[2019-07-14] MEDS: TIOTROPIUM BROMIDE 5 PUFF/90 MCG INH INH SCH (10:38)
--- NOTE | 2019-07-14 16:23 | Hospitalist Progress Note ---
Date of Service July 14, 2019 Assessment & Plan (1) Hypernatremia: likely due to poor oral intake, not drinking enough free water with nectar thick liquids also, patient has chronic hypernatremia, diabetes insipidus with lithium therapy Na up to 149 off fluids still not drinking enough discussed with her son that this will likely be very difficult to control since she cannot swallow well will see how she does off of fluids IV site went bad and patient refusing a new site attempted to call son today, no answer, try again tomorrow (2) Hypercalcemia: Ca is 10 but corrected it is 12 PTH elevated at 87 suggesting hyperparathyroidism known to have elevated PTH levels due to chronic lithium use on lithium for years, unsure if it can be stopped, likely would not reverse any of the hyperplasia in parathyroid gland that has taken place she has always managed to control her DI and high calcium with adequate oral hydration (3) Acute kidney injury superimposed on chronic kidney disease: prerenal due to poor oral intake patient having difficulty swallowing Cr peaked at 2, stable at 1.28 will watch with stopping IV fluids (4) GI bleed: reports of melena at [facility] and also had some melena on (07/02-07/05) Hb improved appropriately with 2 units of PRBC EGD done on 07/11, showed AVM, no stigmata of recent bleeding cannot get colonoscopy because she will not complete the prep Hb was stable at 8.9, BP stable, no further melena acute issue likely resolved (5) Colitis: Colitis seen on CT WBC down to 11k from 18k, with the bleeding and colitis might consider C diff, high risk living in SNF no evidence of C diff (6) Recurrent UTI: culture growing E coli, dugan sensitive change Zosyn to Rocephin 1gm IV q24 will stop antibiotics as she had more than 7 days procalcitonin normal on 07/11 (7) Dysphagia: failed bedside study with nectar thick and thin liquids can have pills with pudding unclear why she developed worsening dysphagia, could just be progression of her dementia, Parkinsonism at this point she needs pureed diet and nectar thick liquids doubt she can maintain hydration with this discussed with her son, this [facility] will attempt to discuss feeding tube again tomorrow (8) Vaginal candidiasis: has vaginal discharge and labia are red, irritated place on both Miconazole insert and topical cream for 7 days, treatment completed (9) CKD (chronic kidney disease), stage III: Cr stable at 1.3, will likely trend up without IV fluids (10) Leukocytosis: high at 18k on discharge down to 13k today has evidence of both colitis but also UTI, growing E coli will check procal on thursday (11) COPD, moderate: DuoNeb as needed basis. (12) Bipolar disorder: Continue home medications. on [place] for years, has likely caused irreversible damage, DI and hyperparathyroidism (13) Hypothyroidism: Continue Synthroid (14) Hyperlipemia: Continue statins. (15) HTN (hypertension): Monitor the blood pressure closely as patient has rectal bleeding. 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: (17) History of hysterectomy: (18) Dementia with Lewy bodies: (19) Dementia, vascular: she is DNR from [facility] that came from [facility] Subjective patient still not doing well, struggling to eat and drinking due to dysphagia attempted to call her son Robert, went straight to voicemail twice will try again tomorrow morning will need to determine if he would want patient to have PEG Na trending up to 149 and Cl trending up, calcium elevated, Cr is 1.3 Review of Systems Review of Systems: Unobtainable due to mental health condition Physical Exam Constitutional: WD/WN, vitals as above + overweight Eyes: PERRL, conjunctivae normal, anicteric sclerae ENMT: external ear and nose normal, oropharynx normal Neck: trachea midline, no thyromegaly Respiratory: normal respiratory effort, lungs clear to auscultation (decreased in bases) Cardiovascular: RRR, no murmur, no edema Gastrointestinal (Abdomen): normal bowel sounds, soft, nontender, no hepatosplenomegaly Musculoskeletal: no cyanosis or clubbing, extremities motor strength 5/5 Skin: no rashes, warm and dry Neurologic: patellar DTR's 2+ bilat, sensation intact and PERRL, EOMI, accommodation nl, no face palsy, no dysarthria Psychiatric: Orientation: oriented to person; + not oriented to place and + not oriented to time Lymphatic: no cervical or axillary lymphadenopathy Results & Data Vital Signs (Past 12 Hours) Vital Signs Temp Pulse Resp BP BP Pulse Ox 07/14/19 15:30 36.3 C L 85 14 138/82 97 07/14/19 11:58 36.5 C 85 14 134/74 96 07/14/19 07:06 36.6 C 90 20 118/71 97 Laboratory Results Laboratory Results - last 24 hr 07/14/19 07/14/19 09:50 09:50 WBC 13.62 H RBC 3.59 L Hgb 9.5 L Hct 33.3 L MCV 92.8 MCH 26.5 MCHC 28.5 L RDW Std Deviation 59.9 H RDW Coeff of Catarino 17.7 H Plt Count 265 MPV 9.9 Sodium 149 H Potassium 4.3 Chloride 115 H Carbon Dioxide 32 Anion Gap 2.0 L BUN 15 Creatinine 1.35 H Est Cr Clr Drug Dosing 40.3 Est GFR ( Amer) 42.6 Est GFR (Non-Af Amer) 36.7 BUN/Creatinine Ratio 11.2 Glucose 188 H Calcium 10.7 H Medications Administered Current Inpatient Medications Acetaminophen (Tylenol) 650 mg PO Q4H PRN PRN Reason: Pain Stop: 08/07/19 13:54 Last Admin: 07/14/19 08:14 Dose: 650 mg Documented by: Atorvastatin Calcium (Lipitor) 80 mg PO [facility] Stop: 07/31/19 20:59 Last Admin: 07/13/19 20:26 Dose: 80 mg Documented by: Diphenhydramine HCl (Benadryl) 25 mg IV [id number] PRN PRN Reason: Allergic Symptoms Stop: 07/31/19 21:01 Folic Acid (Folvite) 1 mg PO [facility] Stop: 08/01/19 08:59 Last Admin: 07/14/19 08:24 Dose: 1 mg Documented by: Sodium Chloride (Nss) 250 mls @ 15 mls/hr IV .[id number] PRN PRN Reason: For Transfusion Stop: 08/04/19 19:48 Levothyroxine Sodium (Synthroid) 75 mcg PO [facility] Stop: 07/31/19 20:59 Last Admin: 07/13/19 20:27 Dose: 75 mcg Documented by: [place] Carbonate ([place] Carbonate) [facility] Stop: 08/01/19 08:59 Last Admin: 07/14/19 08:25 Dose: 300 mg Documented by: Ondansetron HCl (Zofran) 4 mg IV Q6H PRN PRN Reason: Nausea Stop: 07/31/19 23:42 Last Admin: 07/02/19 00:00 Dose: 4 mg Documented by: Pantoprazole Sodium (Protonix) 40 mg PO QAM [facility] Stop: 08/10/19 15:59 Last Admin: 07/14/19 08:25 Dose: 40 mg Documented by: Pramipexole Dihydrochloride (Mirapex) 0.5 mg PO HS [facility] Stop: 07/31/19 20:59 Last Admin: 07/13/19 20:26 Dose: 0.5 mg Documented by: Risperidone (Risperdal) 0.5 mg PO BID [facility] Stop: 07/31/19 20:59 Last Admin: 07/14/19 08:25 Dose: 0.5 mg Documented by: Tiotropium [place] (Spiriva) 1 puffs INH DAILY [facility]; Protocol Stop: 08/08/19 08:59 Last Admin: 07/14/19 10:38 Dose: 1 puffs Documented by: PG Care Time/CCT Total # of Minutes Spent Total Time Spent with Patient: Total time spent is greater than 50% in coordination of care (as documented) at patient's floor/unit and/or counseling patient: (1) GI bleed GI bleed type/associated pathology: unspecified gastrointestinal hemorrhage type Qualified Code(s): K92.2 - Gastrointestinal hemorrhage, unspecified
[2019-07-14] MEDS: PRAMIPEXOLE DIHYDROCHLO 0.5 MG TAB PO SCH (19:27)
[2019-07-14] MEDS: ATORVASTATIN 40 MG TAB PO SCH (19:27)
[2019-07-14] MEDS: LEVOTHYROXINE SODIUM 75 MCG TABLET PO SCH (19:28)
[2019-07-15] MEDS: PANTOprazole 40 MG TAB PO SCH (08:02)
[2019-07-15] MEDS: LITHIUM CARBONATE 300 MG TAB PO SCH (08:03)
[2019-07-15] MEDS: FOLIC ACID 1 MG TAB PO SCH (08:03)
[2019-07-15] MEDS: risperiDONE 0.5 MG TABLET PO SCH ×2 (08:04→21:13)
[2019-07-15] MEDS: TIOTROPIUM BROMIDE 5 PUFF/90 MCG INH INH SCH (08:04)
[2019-07-15 08:39] LABS: BUN Creatinine Ratio 11.9 (10-20); Calcium 11.1 mg/dl (8.5-10.1); Creatinine Clr Calc Pharmacy 41.7 ml/min; Est GFR (Non-African American) 38.8; Potassium 4.2 mmol/L (3.5-5.1)
--- NOTE | 2019-07-15 15:35 | Hospitalist Progress Note ---
Date of Service July 15, 2019 Assessment & Plan (1) Hypernatremia: likely due to poor oral intake, not drinking enough free water with nectar thick liquids also, patient has chronic hypernatremia, diabetes insipidus with lithium therapy Na up to 153 off of IV fluids still not drinking enough discussed with her son that this will likely be very difficult to control since she cannot swallow well discussed PEG tube today son is reasonable, she has a good quality of life at [facility], she enjoys socializing with her friends, not in chronic pain without route for free water intake she would rather quickly from electrolyte abnormalities will resume D5W today, plan for PEG on Thursday/Thursday if at anytime she is not experiencing a good quality of life the son would stop tube feeds and place on hospice (2) Hypercalcemia: Ca is 11 but corrected it is 13 PTH elevated at 87 suggesting hyperparathyroidism known to have elevated PTH levels due to chronic lithium use on lithium for years, stopping now would not reverse any of the hyperplasia in parathyroid gland that has taken place she has always managed to control her DI and high calcium with adequate oral hydration resume D5W to lower Ca and will give a dose of Zoledronic acid ultimately plan for PEG for free water administration (3) Acute kidney injury superimposed on chronic kidney disease: prerenal due to poor oral intake patient having difficulty swallowing Cr peaked at 2, stable at 1.3 today despite not drinking well repeat tomorrow resume IV fluids today (4) GI bleed: reports of melena at [facility] and also had some melena on (07/02-07/05) Hb improved appropriately with 2 units of PRBC EGD done on 07/11, showed AVM, no stigmata of recent bleeding cannot get colonoscopy because she will not complete the prep Hb was stable at 8.9, BP stable, no further melena acute issue likely resolved (5) Colitis: Colitis seen on CT WBC down to normal from 18k, with the bleeding and colitis might consider C diff, high risk living in SNF no evidence of C diff (6) Recurrent UTI: culture growing E coli, dugan sensitive change Zosyn to Rocephin 1gm IV q24 will stop antibiotics as she had more than 7 days procalcitonin normal on 07/11 (7) Dysphagia: failed bedside study with nectar thick and thin liquids can have pills with pudding unclear why she developed worsening dysphagia, could just be progression of her dementia, Parkinsonism at this point she needs pureed diet and nectar thick liquids cannot maintain hydration with this discussed with her son, this happened before and then completely resolved at the [facility] will plan for PEG tube because she still has good quality of life (8) Vaginal candidiasis: has vaginal discharge and labia are red, irritated place on both Miconazole insert and topical cream for 7 days, treatment completed (9) CKD (chronic kidney disease), stage III: Cr stable at 1.3, will likely trend up without IV fluids (10) Leukocytosis: high at 18k on discharge down to 13k today has evidence of both colitis but also UTI, growing E coli will check procal on thursday (11) COPD, moderate: DuoNeb as needed basis. (12) Bipolar disorder: Continue home medications. on [place] for years, has likely caused irreversible damage, DI and hyperparathyroidism (13) Hypothyroidism: Continue Synthroid (14) Hyperlipemia: Continue statins. (15) HTN (hypertension): Monitor the blood pressure closely as patient has rectal bleeding. 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: (17) History of hysterectomy: (18) Dementia with Lewy bodies: (19) Dementia, vascular: she is DNR from [facility] that came from [facility] (20) Malnutrition: moderate to severe protein-calorie malnutrition difficult time eating enough due to dysphagia tentative plans for PEG tube which would provide route for better nutrition Subjective long discussion with the patient and her son at the bedside discussed situation with Na going up and calcium rising as well discussed that diabetes insipidus and hyperparathyroidism irreversible due to chronic lithium I had discussed the situation with patient's laborer landscape, 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, without ability to provide aggressive hydration she would not survive due to dysphagia, the only option would be a feeding tube to provide free water and nutrition discussed PEG tube, what it would involve which would essentially be an EGD which she underwent earlier this week discussed that she would still be at risk for aspiration, that she would likely deal with chronic diarrhea he said that prior to hospitalization she had a good quality of life at [facility], that she would sit in her wheelchair in dining area she would socialize with others, she would play cards and Bingo she confirmed that she enjoys being at [facility] and wants to go back when asked if she would want a feeding tube she said "no" told her that without a feeding tube she will soon, she said "no I won't, I am a survivor" both myself and her son felt that she really did not comprehend her situation he is the designated POA he would like to pursue getting a PEG, seeing if she can tolerate tube feeds and free water flushes if at any point he feels like she does not have a good quality of life then he would stop the tube feeds labs show that both Ca and Na rising with lack of adequate hydration instructed RN to call IV team, have new IV placed, will put on D5W 150cc/hr and Zoledronic acid for a dose Review of Systems Review of Systems: All systems reviewed & are unremarkable except as noted in HPI & below Physical Exam Constitutional: WD/WN, vitals as above + overweight Eyes: PERRL, conjunctivae normal, anicteric sclerae ENMT: external ear and nose normal, oropharynx normal Neck: trachea midline, no thyromegaly Respiratory: normal respiratory effort, lungs clear to auscultation (decreased in bases) Cardiovascular: RRR, no murmur, no edema Gastrointestinal (Abdomen): normal bowel sounds, soft, nontender, no hepatosplenomegaly Musculoskeletal: no cyanosis or clubbing, extremities motor strength 5/5 Skin: no rashes, warm and dry Neurologic: patellar DTR's 2+ bilat, sensation intact and PERRL, EOMI, accommodation nl, no face palsy, no dysarthria Psychiatric: Orientation: oriented to person; + not oriented to place and + not oriented to time Lymphatic: no cervical or axillary lymphadenopathy Results & Data Vital Signs (Past 12 Hours) Vital Signs Temp Pulse Resp BP Pulse Ox 07/15/19 14:50 36.9 C 98 H 20 136/75 94 07/15/19 07:00 36.6 C 93 H 16 133/77 94 PG Care Time/CCT Total # of Minutes Spent Total Time Spent with Patient: Total time spent is greater than 50% in coordination of care (as documented) at patient's floor/unit and/or counseling patient: (1) GI bleed GI bleed type/associated pathology: unspecified gastrointestinal hemorrhage type Qualified Code(s): K92.2 - Gastrointestinal hemorrhage, unspecified
[2019-07-15] MEDS ORDERED: ZOLEDRONIC ACID 4 MG in 0.9 % SODIUM CHLORIDE 100 ML IV ONE (16:00)
[2019-07-15] MEDS: DEXTROSE 5% 1,000 ML IV SCH ×2 (17:18→23:59)
[2019-07-15] MEDS: PRAMIPEXOLE DIHYDROCHLO 0.5 MG TAB PO SCH (21:13)
[2019-07-15] MEDS: LEVOTHYROXINE SODIUM 75 MCG TABLET PO SCH (21:13)
[2019-07-15] MEDS: ATORVASTATIN 40 MG TAB PO SCH (21:13)
[2019-07-16] MEDS: DEXTROSE 5% 1,000 ML IV SCH ×3 (06:20→19:51)
[2019-07-16] MEDS: PANTOprazole 40 MG TAB PO SCH (07:55)
[2019-07-16] MEDS: FOLIC ACID 1 MG TAB PO SCH (07:55)
[2019-07-16] MEDS: risperiDONE 0.5 MG TABLET PO SCH ×2 (07:56→21:03)
[2019-07-16] MEDS: LITHIUM CARBONATE 300 MG TAB PO SCH (07:56)
[2019-07-16] MEDS: TIOTROPIUM BROMIDE 5 PUFF/90 MCG INH INH SCH (07:57)
[2019-07-16 08:56] LABS: BUN Creatinine Ratio 8.7 (10-20); Calcium 10.3 mg/dl (8.5-10.1); Creatinine Clr Calc Pharmacy 36.3 ml/min; Est GFR (African American) 37.5; Est GFR (Non-African American) 32.3
--- NOTE | 2019-07-16 11:52 | Hospitalist Progress Note ---
Date of Service July 16, 2019 Assessment & Plan (1) Hypernatremia: likely due to poor oral intake, not drinking enough free water with nectar thick liquids also, patient has chronic hypernatremia, diabetes insipidus with lithium therapy Na down to 145 from 153 on D5W still not drinking enough discussed with her son that this will likely be very difficult to control since she cannot swallow well discussed PEG tube 07/15 son is reasonable, she has a good quality of life at [facility], she enjoys socializing with her friends, not in chronic pain without route for free water intake she would rather quickly from electrolyte abnormalities will resume D5W 07/15, plan for PEG on Thursday/Thursday if at anytime she is not experiencing a good quality of life the son would stop tube feeds and place on hospice (2) Hypercalcemia: Ca is down to 10 from 11 PTH elevated at 87 suggesting hyperparathyroidism known to have elevated PTH levels due to chronic lithium use on lithium for years, stopping now would not reverse any of the hyperplasia in parathyroid gland that has taken place she has always managed to control her DI and high calcium with adequate oral hydration resume D5W to lower Ca and will give a dose of Zoledronic acid on 07/15 ultimately plan for PEG for free water administration (3) Acute kidney injury superimposed on chronic kidney disease: prerenal due to poor oral intake patient having difficulty swallowing Cr peaked at 2, stable at 1.5 continue IV fluids today (4) GI bleed: reports of melena at [facility] and also had some melena on (07/02-07/05) Hb improved appropriately with 2 units of PRBC EGD done on 07/11, showed AVM, no stigmata of recent bleeding cannot get colonoscopy because she will not complete the prep Hb was stable at 8.9, BP stable, no further melena acute issue likely resolved (5) Colitis: Colitis seen on CT WBC down to normal from 18k, with the bleeding and colitis might consider C diff, high risk living in SNF no evidence of C diff (6) Recurrent UTI: culture growing E coli, dugan sensitive change Zosyn to Rocephin 1gm IV q24 will stop antibiotics as she had more than 7 days procalcitonin normal on 07/11 (7) Dysphagia: failed bedside study with nectar thick and thin liquids can have pills with pudding unclear why she developed worsening dysphagia, could just be progression of her dementia, Parkinsonism at this point she needs pureed diet and nectar thick liquids cannot maintain hydration with this discussed with her son, this happened before and then completely resolved at the [facility] will plan for PEG tube because she still has good quality of life (8) Vaginal candidiasis: has vaginal discharge and labia are red, irritated place on both Miconazole insert and topical cream for 7 days, treatment completed (9) CKD (chronic kidney disease), stage III: Cr stable at 1.3, will likely trend up without IV fluids (10) Leukocytosis: high at 18k on discharge down to 13k today has evidence of both colitis but also UTI, growing E coli will check procal on thursday (11) COPD, moderate: DuoNeb as needed basis. (12) Bipolar disorder: Continue home medications. on [place] for years, has likely caused irreversible damage, DI and hyperparathyroidism (13) Hypothyroidism: Continue Synthroid (14) Hyperlipemia: Continue statins. (15) HTN (hypertension): Monitor the blood pressure closely as patient has rectal bleeding. 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: (17) History of hysterectomy: (18) Dementia with Lewy bodies: (19) Dementia, vascular: she is DNR from [facility] that came from [facility] (20) Malnutrition: moderate to severe protein-calorie malnutrition difficult time eating enough due to dysphagia tentative plans for PEG tube which would provide route for better nutrition Subjective patient doing fine this morning no distress, denies pain she says she talked with her grandson which made her happy eating what she can, not drinking much Na down to 145 from 153 and Ca down to 10 from 11 continue D5W, decrease rates updated son that we will reach out to GI to make them aware of PEG request Review of Systems Review of Systems: Unobtainable due to mental health condition Physical Exam Constitutional: WD/WN, vitals as above + overweight Eyes: PERRL, conjunctivae normal, anicteric sclerae ENMT: external ear and nose normal, oropharynx normal Neck: trachea midline, no thyromegaly Respiratory: normal respiratory effort, lungs clear to auscultation (decreased in bases) Cardiovascular: RRR, no murmur, no edema Gastrointestinal (Abdomen): normal bowel sounds, soft, nontender, no hepatosplenomegaly Musculoskeletal: no cyanosis or clubbing, extremities motor strength 5/5 Skin: no rashes, warm and dry Neurologic: patellar DTR's 2+ bilat, sensation intact and PERRL, EOMI, accommodation nl, no face palsy, no dysarthria Psychiatric: Orientation: oriented to person; + not oriented to place and + not oriented to time Lymphatic: no cervical or axillary lymphadenopathy Results & Data Vital Signs (Past 12 Hours) Vital Signs Temp Pulse Resp BP Pulse Ox 07/16/19 07:34 36.4 C L 89 18 129/71 98 Laboratory Results Laboratory Results - last 24 hr 07/16/19 07:50 Sodium 146 H Potassium 4.0 Chloride 112 H Carbon Dioxide 30 Anion Gap 4.0 BUN 13 Creatinine 1.50 H Est Cr Clr Drug Dosing 36.3 Est GFR ( Amer) 37.5 Est GFR (Non-Af Amer) 32.3 BUN/Creatinine Ratio 8.7 L Glucose 225 H Calcium 10.3 H Medications Administered Current Inpatient Medications Acetaminophen (Tylenol) 650 mg PO Q4H PRN PRN Reason: Pain Stop: 08/07/19 13:54 Last Admin: 07/14/19 08:14 Dose: 650 mg Documented by: Atorvastatin Calcium (Lipitor) 80 mg PO [facility] Stop: 07/31/19 20:59 Last Admin: 07/15/19 21:13 Dose: 80 mg Documented by: Diphenhydramine HCl (Benadryl) 25 mg IV [id number] PRN PRN Reason: Allergic Symptoms Stop: 07/31/19 21:01 Folic Acid (Folvite) [facility] Stop: 08/01/19 08:59 Last Admin: 07/16/19 07:55 Dose: 1 mg Documented by: Sodium Chloride (Nss) 250 mls @ 15 mls/hr IV .[id number] PRN PRN Reason: For Transfusion Stop: 08/04/19 19:48 Dextrose (D5w) 1,000 mls @ 150 mls/hr IV .[id number] [facility] Stop: 08/14/19 15:29 Last Admin: 07/16/19 06:20 Dose: 150 mls/hr Documented by: Levothyroxine Sodium (Synthroid) 75 mcg PO [facility] Stop: 07/31/19 20:59 Last Admin: 07/15/19 21:13 Dose: 75 mcg Documented by: [place] Carbonate ([place] Carbonate) 300 mg PO QAM [facility] Stop: 08/01/19 08:59 Last Admin: 07/16/19 07:56 Dose: 300 mg Documented by: Ondansetron HCl (Zofran) 4 mg IV Q6H PRN PRN Reason: Nausea Stop: 07/31/19 23:42 Last Admin: 07/02/19 00:00 Dose: 4 mg Documented by: Pantoprazole Sodium (Protonix) 40 mg PO QAM [facility] Stop: 08/10/19 15:59 Last Admin: 07/16/19 07:55 Dose: 40 mg Documented by: Pramipexole Dihydrochloride (Mirapex) 0.5 mg PO HS [facility] Stop: 07/31/19 20:59 Last Admin: 07/15/19 21:13 Dose: 0.5 mg Documented by: Risperidone (Risperdal) 0.5 mg PO BID [facility] Stop: 07/31/19 20:59 Last Admin: 07/16/19 07:56 Dose: 0.5 mg Documented by: Tiotropium [place] (Spiriva) 1 puffs INH DAILY [facility]; Protocol Stop: 08/08/19 08:59 Last Admin: 07/16/19 07:57 Dose: 1 puffs Documented by: PG Care Time/CCT Total # of Minutes Spent Total Time Spent with Patient: Total time spent is greater than 50% in coordination of care (as documented) at patient's floor/unit and/or counseling patient: (1) GI bleed GI bleed type/associated pathology: unspecified gastrointestinal hemorrhage type Qualified Code(s): K92.2 - Gastrointestinal hemorrhage, unspecified
[2019-07-16] MEDS: ATORVASTATIN 40 MG TAB PO SCH (21:02)
[2019-07-16] MEDS: PRAMIPEXOLE DIHYDROCHLO 0.5 MG TAB PO SCH (21:03)
[2019-07-16] MEDS: LEVOTHYROXINE SODIUM 75 MCG TABLET PO SCH (21:03)
[2019-07-17] MEDS: DEXTROSE 5% 1,000 ML IV SCH ×3 (02:23→15:23)
[2019-07-17 07:57] LABS: BUN Creatinine Ratio 8.7 (10-20); Calcium 9.5 mg/dl (8.5-10.1); Creatinine Clr Calc Pharmacy 43.1 ml/min; Est GFR (African American) 45.8; Est GFR (Non-African American) 39.5; Potassium 3.9 mmol/L (3.5-5.1)
[2019-07-17] MEDS: TIOTROPIUM BROMIDE 5 PUFF/90 MCG INH INH SCH (08:16)
[2019-07-17] MEDS: risperiDONE 0.5 MG TABLET PO SCH ×2 (08:17→20:10)
[2019-07-17] MEDS: FOLIC ACID 1 MG TAB PO SCH (08:18)
[2019-07-17] MEDS: LITHIUM CARBONATE 300 MG TAB PO SCH (08:18)
[2019-07-17] MEDS: PANTOprazole 40 MG TAB PO SCH (08:18)
[2019-07-17 12:07] LABS: Hematocrit (blood only) 29.6 % (37-47); Hemoglobin 8.5 g/dL (12.0-16.0); Mean Corpuscular Hemoglobin 26.2 pg (25-34); Mean Corpuscular Hgb Conc 28.7 g/dL (32-36); Mean Corpuscular Volume 91.1 fL (80-100); Mean Platelet Volume 10.1 fL (7.4-10.4); Nucleated RBC # (auto) 0.03 K/uL (0-0); Nucleated RBC % (auto) 0.2 %; Platelet Count 222 K/uL (130-400); RDW Coefficient of Variation 18.1 % (11.5-14.5); RDW Standard Deviation 60.5 fL (36.4-46.3); Red Blood Count 3.25 M/uL (4.2-5.4); White Blood Count 14.26 K/uL (4.8-10.8)
[2019-07-17 12:11] LABS: INR 1.1 (0.9-1.1); Partial Thromboplastin Ratio 1.2; Partial Thromboplastin Time 31.5 Seconds (21.0-31.0); Prothrombin Time 11.6 Seconds (9.0-12.0)
[2019-07-17 12:49] LABS: Basophils # (auto) 0.02 K/uL (0-0.2); Basophils % (auto) 0.1 %; Eosinophils # (auto) 0.31 K/uL (0-0.5); Eosinophils % (auto) 2.2 %; Immature Granulocytes # (auto) 0.05 K/uL (0.00-0.02); Immature Granulocytes % (auto) 0.4 %; Monocytes # (auto) 0.84 K/uL (0.11-0.59); Monocytes % (auto) 5.9 %; Neutrophils # (auto) 12.04 K/uL (1.4-6.5); Neutrophils % (auto) 84.4 %
--- NOTE | 2019-07-17 14:48 | Hospitalist Progress Note ---
Date of Service July 17, 2019 Assessment & Plan (1) Hypernatremia: likely due to poor oral intake, not drinking enough free water with nectar thick liquids also, patient has chronic hypernatremia, diabetes insipidus with lithium therapy Na down to 139 from 153 on D5W change fluids today to D5W 1/2 NSS at 80cc/hr discussed with her son that this will likely be very difficult to control since she cannot swallow well discussed PEG tube 07/15 son is reasonable, she has a good quality of life at [facility], she enjoys socializing with her friends, not in chronic pain without route for free water intake she would rather quickly from electrolyte abnormalities if at anytime she is not experiencing a good quality of life the son would stop tube feeds and place on hospice NPO after midnight, plan for PEG tomorrow, Dr. Whitt made aware of request today once PEG in place would consult nutrition for TF recommendations would also need free water flushes daily, total amount in the range of 1-2 liters, could be adjust based on her sodium (2) Hypercalcemia: Ca is down to 9 from peak of 11 PTH elevated at 87 suggesting hyperparathyroidism known to have elevated PTH levels due to chronic lithium use on lithium for years, stopping now would not reverse any of the hyperplasia in parathyroid gland that has taken place she has always managed to control her DI and high calcium with adequate oral hydration Zoledronic acid on 07/15 ultimately plan for PEG for free water administration (3) Acute kidney injury superimposed on chronic kidney disease: prerenal due to poor oral intake patient having difficulty swallowing Cr peaked at 2, stable at 1.2 continue IV fluids today, change to D5W 1/2 NSS at 80cc/hr (4) GI bleed: reports of melena at [facility] and also had some melena on (07/02-07/05) Hb improved appropriately with 2 units of PRBC EGD done on 07/11, showed AVM, no stigmata of recent bleeding cannot get colonoscopy because she will not complete the prep Hb is 8.5 today, no signs of active bleeding (5) Colitis: Colitis seen on CT WBC down to normal from 18k, with the bleeding and colitis might consider C diff, high risk living in [facility] no evidence of C diff (6) Recurrent UTI: culture growing E coli, dugan sensitive change Zosyn to Rocephin 1gm IV q24 will stop antibiotics as she had more than 7 days procalcitonin normal on 07/11 (7) Dysphagia: failed bedside study with nectar thick and thin liquids can have pills with pudding unclear why she developed worsening dysphagia, could just be progression of her dementia, Parkinsonism at this point she needs pureed diet and nectar thick liquids cannot maintain hydration with this discussed with her son, this happened before and then completely resolved at the [facility] will plan for PEG tube because she still has good quality of life and needs free water intake (8) Vaginal candidiasis: has vaginal discharge and labia are red, irritated place on both Miconazole insert and topical cream for 7 days, treatment co mpleted (9) CKD (chronic kidney disease), stage III: Cr stable at 1.3, will likely trend up without IV fluids (10) Leukocytosis: high at 18k on discharge down to 13k today has evidence of both colitis but also UTI, growing E coli will check procal on thursday (11) COPD, moderate: DuoNeb as needed basis. (12) Bipolar disorder: Continue home medications. on [place] for years, has likely caused irreversible damage, DI and hyper parathyroidism (13) Hypothyroidism: Continue Synthroid (14) Hyperlipemia: Continue statins. (15) HTN (hypertension): Monitor the blood pressure closely as patient has rectal bleeding. 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: (17) History of hysterectomy: (18) Dementia with Lewy bodies: (19) Dementia, vascular: she is DNR from [facility] that came from [facility] (20) Malnutrition: moderate to severe protein-calorie malnutrition difficult time eating enough due to dysphagia tentative plans for PEG tube which would provide route for better nutrition Plan: PEG tomorrow if possible, then start tube feeds and free water administration will ultimately go back to [facility] once tolerating the feeds Subjective patient stable today, no major issues continues to have some loose stools intermittently Na down to 139 and Cl is 106 and Ca is 9.5 Cr is stable at 1.[address] Whitt for PEG tube placement tomorrow, placed new consult manuel Jones would be willing to give consent Review of Systems Review of Systems: Unobtainable due to cognitive status Physical Exam Constitutional: WD/WN, vitals as above + overweight Eyes: PERRL, conjunctivae normal, anicteric sclerae ENMT: Nose: + dry nasal mucous membranes Mouth: + dry oral mucous membranes Neck: trachea midline, no thyromegaly Respiratory: normal respiratory effort, lungs clear to auscultation (decreased in bases) Cardiovascular: RRR, no murmur, no edema Gastrointestinal (Abdomen): normal bowel sounds, soft, nontender, no hepatosplenomegaly Musculoskeletal: no cyanosis or clubbing, extremities motor strength 5/5 Skin: no rashes, warm and dry Neurologic: patellar DTR's 2+ bilat, sensation intact and PERRL, EOMI, accommodation nl, no face palsy, no dysarthria Psychiatric: Orientation: oriented to person; + not oriented to place and + not oriented to time Lymphatic: no cervical or axillary lymphadenopathy Results & Data Vital Signs (Past 12 Hours) Vital Signs Temp Pulse Resp BP Pulse Ox 07/17/19 07:00 36.6 C 86 18 127/76 96 Laboratory Results Laboratory Results - last 24 hr 07/17/19 07/17/19 07/17/19 06:56 11:46 11:46 WBC 14.26 H RBC 3.25 L Hgb 8.5 L Hct 29.6 L MCV 91.1 MCH 26.2 MCHC 28.7 L RDW Std Deviation 60.5 H RDW Coeff of Catarino 18.1 H Plt Count 222 MPV 10.1 Immature Gran % (Auto) 0.4 Neut % (Auto) 84.4 Lymph % (Auto) 7.0 [place] % (Auto) 5.9 Eos % (Auto) 2.2 Baso % (Auto) 0.1 Immature Gran # (Auto) 0.05 H Neut # (Auto) 12.04 H Lymph # (Auto) 1.00 L [place] # (Auto) 0.84 H Eos # (Auto) 0.31 Baso # (Auto) 0.02 Absolute Nucleated RBC 0.03 H Nucleated RBC % (auto) 0.2 PT 11.6 INR 1.1 APTT 31.5 H PTT Ratio 1.2 Sodium 139 Potassium 3.9 Chloride 106 Carbon Dioxide 30 Anion Gap 3.0 BUN 11 Creatinine 1.27 H Est Cr Clr Drug Dosing 43.1 Est GFR ( Amer) 45.8 Est GFR (Non-Af Amer) 39.5 BUN/Creatinine Ratio 8.7 L Glucose 185 H Calcium 9.5 Medications Administered Current Inpatient Medications Acetaminophen (Tylenol) 650 mg PO Q4H PRN PRN Reason: Pain Stop: 08/07/19 13:54 Last Admin: 07/14/19 08:14 Dose: 650 mg Documented by: Atorvastatin Calcium (Lipitor) 80 mg PO [facility] Stop: 07/31/19 20:59 Last Admin: 07/16/19 21:02 Dose: 80 mg Documented by: Diphenhydramine HCl (Benadryl) 25 mg IV [id number] PRN PRN Reason: Allergic Symptoms Stop: 07/31/19 21:01 Folic Acid ([facility]vite) [facility] Stop: 08/01/19 08:59 Last Admin: 07/17/19 08:18 Dose: 1 mg Documented by: Sodium Chloride (Nss) 250 mls @ 15 mls/hr IV .[id number] PRN PRN Reason: For Transfusion Stop: 08/04/19 19:48 Dextrose/Sodium Chloride (D5w And 1/2nss) 1,000 mls @ 80 mls/hr IV .[id number] RODOLFO Stop: 08/16/19 14:44 Levothyroxine Sodium (Synthroid) 75 mcg PO [facility] Stop: 07/31/19 20:59 Last Admin: 07/16/19 21:03 Dose: 75 mcg Documented by: [place] Carbonate ([place] Carbonate) 300 mg PO [facility] Stop: 08/01/19 08:59 Last Admin: 07/17/19 08:18 Dose: 300 mg Documented by: Ondansetron HCl (Zofran) 4 mg IV Q6H PRN PRN Reason: Nausea Stop: 07/31/19 23:42 Last Admin: 07/02/19 00:00 Dose: 4 mg Documented by: Pantoprazole Sodium (Protonix) 40 mg PO [facility] Stop: 08/10/19 15:59 Last Admin: 07/17/19 08:18 Dose: 40 mg Documented by: Pramipexole Dihydrochloride (Mirapex) 0.5 mg PO [facility] Stop: 07/31/19 20:59 Last Admin: 07/16/19 21:03 Dose: 0.5 mg Documented by: Risperidone (Risperdal) 0.5 mg PO BID [facility] Stop: 07/31/19 20:59 Last Admin: 07/17/19 08:17 Dose: 0.5 mg Documented by: Tiotropium [place] (Spiriva) 1 puffs INH DAILY RODOLFO; Protocol Stop: 08/08/19 08:59 Last Admin: 07/17/19 08:16 Dose: 1 puffs Documented by: PG Care Time/CCT Total # of Minutes Spent Total Time Spent with Patient: Total time spent is greater than 50% in coordination of care (as documented) at patient's floor/unit and/or counseling patient: (1) GI bleed GI bleed type/associated pathology: unspecified gastrointestinal hemorrhage type Qualified Code(s): K92.2 - Gastrointestinal hemorrhage, unspecified
[2019-07-17] MEDS: D5W AND 1/2NSS 1,000 ML IV SCH (15:08)
--- NOTE | 2019-07-17 16:10 | Gastroenterology Progress Note ---
Date of Service July 17, 2019 Assessment & Plan (1) Anemia: seconary to Fe def---Hgb down to 8.5 today. s/p cautery of stomach avms 07/11/19 heme pos stool--at time of EGD hoping AVMs were explanation for heme pos stool and anemia. Pt would not take prep adequtely for colonscopy. dysphagia--Dr Elam recommends PEG and son agrees. Plan EGD/PEG 07/18/19. Proc and risks explained which include but not limited to med reaction, bleeding, perforation, aspiration, and infection. Subjective cc unobtainable from patient HPI Called by DR Elam for poor po intake with inability to take enough po to keep Na in range. Pt denies abd pain. Son with pt for H and P. Review of Systems Respiratory: no dyspnea Cardiovascular: no chest pain Physical Exam Constitutional: WD/WN, vitals as above Respiratory: normal respiratory effort, lungs clear to auscultation Cardiovascular: RRR, no murmur, no edema Gastrointestinal (Abdomen): normal bowel sounds, soft, nontender, no hepatosplenomegaly Neurologic: PERRL, EOMI, accommodation nl, no face palsy, no dysarthria Psychiatric: Insight: + poor insight Judgement: + poor judgement Results & Data Vital Signs (Past 12 Hours) Vital Signs Temp Pulse Resp BP Pulse Ox 07/17/19 16:00 36.6 C 79 18 116/78 97 07/17/19 07:00 36.6 C 86 18 127/76 96 (1) Anemia Anemia type: unspecified type Qualified Code(s): D64.9 - Anemia, unspecified
[2019-07-17] MEDS: PRAMIPEXOLE DIHYDROCHLO 0.5 MG TAB PO SCH (20:10)
[2019-07-17] MEDS: ATORVASTATIN 40 MG TAB PO SCH (20:10)
[2019-07-17] MEDS: LEVOTHYROXINE SODIUM 75 MCG TABLET PO SCH (20:10)
[2019-07-18] MEDS: D5W AND 1/2NSS 1,000 ML IV SCH ×2 (03:46→21:38)
[2019-07-18 07:52] LABS: Basophils # (auto) 0.03 K/uL (0-0.2); Basophils % (auto) 0.2 %; Eosinophils # (auto) 0.41 K/uL (0-0.5); Eosinophils % (auto) 2.6 %; Hematocrit (blood only) 28.8 % (37-47); Hemoglobin 8.4 g/dL (12.0-16.0); Immature Granulocytes # (auto) 0.08 K/uL (0.00-0.02); Immature Granulocytes % (auto) 0.5 %; Lymphocytes # (auto) 0.93 K/uL (1.2-3.4); Lymphocytes % (auto) 5.9 %; Mean Corpuscular Hemoglobin 26.3 pg (25-34); Mean Corpuscular Hgb Conc 29.2 g/dL (32-36); Mean Corpuscular Volume 90.3 fL (80-100); Mean Platelet Volume 10.7 fL (7.4-10.4); Monocytes # (auto) 0.89 K/uL (0.11-0.59); Monocytes % (auto) 5.6 %; Neutrophils # (auto) 13.43 K/uL (1.4-6.5); Neutrophils % (auto) 85.2 %; Nucleated RBC # (auto) 0.02 K/uL (0-0); Nucleated RBC % (auto) 0.1 %; Platelet Count 232 K/uL (130-400); RDW Standard Deviation 59.5 fL (36.4-46.3); Red Blood Count 3.19 M/uL (4.2-5.4); White Blood Count 15.77 K/uL (4.8-10.8)
[2019-07-18 08:08] LABS: BUN Creatinine Ratio 8.4 (10-20); Calcium 9.2 mg/dl (8.5-10.1); Creatinine Clr Calc Pharmacy 40.6 ml/min; Est GFR (African American) 42.6; Est GFR (Non-African American) 36.7
[2019-07-18] MEDS: TIOTROPIUM BROMIDE 5 PUFF/90 MCG INH INH SCH (10:06)
[2019-07-18] MEDS: FOLIC ACID 1 MG TAB PO SCH (10:06)
[2019-07-18] MEDS: PANTOprazole 40 MG TAB PO SCH (10:06)
[2019-07-18] MEDS: risperiDONE 0.5 MG TABLET PO SCH ×2 (10:06→21:38)
[2019-07-18] MEDS: LITHIUM CARBONATE 300 MG TAB PO SCH (10:06)
--- NOTE | 2019-07-18 12:46 | Hospitalist Progress Note ---
Date of Service July 18, 2019 Assessment & Plan (1) Hypernatremia: * Improved- stable -- likely secondary to poor oral intake, dysphagia. Na 139 today * Patient with chronic hypernatremia/diabetes inspidus secondary to chronic lithium therapy * Per previous discussions with family, patient with good QOL at SNF -- if at anytime QOL declines, son would move forward with hospice * NPO for OR today with Dr. Whitt --> PEG tube this afternoon * Attendant [employer] consult for TF recommendations * Will need free water flushes daily, 1-2 liters, adjusted based on sodium (2) Hypercalcemia: * Chronic * Stable- secondary to hyperparathyroidism d/t chronic lithium use/parathyroid gland hyperplasia-- with elevated PTH at 87.1 * With adequate hydration, patient has been able to manage DI and hypercalcemia, however given recent difficulty swallowing patient to undergo PEG placement as above * Ca is down to 9.2 from peak of 11.1- may have been higher d/t low albumin * PTH related protein pending * Would not stop lithium at this time, as reversal of hyperplasia not likley. * Zoledronic acid on 07/15 * Continue to monitor (3) Acute kidney injury superimposed on chronic kidney disease: * Improving-- likely prerenal due to poor PO intake * Cr elevated at 2 on 07/03 * Improved to 1.35 today * Continue to monitor (4) GI bleed: * Melena prior to admission with subsequent EGD on 07/11 with cautery of AVM * Colonoscopy not able to be done due to inability to complete prep * Patient did receive 2 units PRBC on 07/05 with hemoglobin improved to 9.3 * H/H stable, currently 8.5/29.6 * Continue to monitor (5) Colitis: * Colitis seen on CT on admission * WBC continue to be elevated-- 15.77 currently * ? CLL * Peripheral smear pending * Repeat CT Abd/Pelvis * ??cdiff with bleeding and colitis given high risk living in SNF (6) Recurrent UTI: * culture growing E coli, dugan sensitive -- patient intially treated with Zosyn-- transitioned to Rocephin-- completed >7 day course * Procalcitonin wnl 07/11 (7) Dysphagia: * Failed bedside study with nectar thick/thin liquids-- may have pills with pudding * Unclear as to why worsening dysphagia-- possible progression of dementia/parkinsonism * will check a TSH * PEG tube as above (8) Vaginal candidiasis: * Resolved -- placed on both Miconazole insert and topical cream for 7 days, treatment completed (9) CKD (chronic kidney disease), stage III: * As above * Cr stable at 1.3 * Baseline creat appears ~1.4 (10) Leukocytosis: * high at 18k on discharge * 14K today -- colitis on initial CT, E.coli in urine * Peripheral smear * May need further work-up to r/o malignancy * Procalcitonin (11) COPD, moderate: * DuoNeb as needed basis (12) Bipolar disorder: * Continue home medications. 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: * As above (17) History of hysterectomy: (18) Dementia with Lewy bodies: (19) Dementia, vascular: (20) Malnutrition: * moderate to severe protein-calorie malnutrition * difficult time eating enough due to dysphagia * PEG tube today to provide route for better nutrition (21) Hyperglycemia: * SSI * A1c in AM (22) DVT prophylaxis: * SCDs * Chemical prophylaxis held in setting of GIB Dispo: PEG this afternoon, start tube feeds and free water administration --> will ultimately go back to [facility] once tolerating the feeds CODE STATUS: she is DNR from [facility] that came from [facility] Supervising Physician Co-Signing Physician Notes PA Supervision Note: I did not personally see or examine the patient today, but I verified all nielsen points of PEARL Rehman's assessment and plan with the following exceptions/additions: Patient had repeat CT scan of the abdomen pelvis performed later in the day today due to persistent leukocytosis for unknown reason. Found possible a spiration pneumonitis in the right lower lobe and started Zosyn for that. Also of note, the patient had some possible vaginal bleeding noted by the nurses aide and a moderate amount of blood in a bowel movement, some of which may have been coming from the vagina. 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 She states "I feel pretty good". She confirms she is to have a procedure this afternoon for PEG tube and is hopeful to return back to [facility]. She states she is typically more active at [facility] and is able to maneuver around with her wheelchair without too much difficulty. She states she has not been out of bed much due to not having her chair. She states she has oxygen available at home, but states she only uses it 2-3 times/year when her told by her son/grandson "you're breathing heavy, you should put your oxygen on". She states she does also have a pulse-ox which she uses and her oxygen sat is above >90%. Review of Systems Constitutional: no fever and no chills Ear, Nose, Mouth, Throat: + dysphagia; no tinnitus and no dizziness Respiratory: no cough and no dyspnea Cardiovascular: no chest pain and no palpitations Gastrointestinal: no abdominal pain, no nausea, no vomiting, no constipation and no diarrhea/loose stools Genitourinary: no dysuria Neurologic: no syncope and no headache(s) Physical Exam Constitutional: well nourished, + obese and cooperative Eyes: PERRL, conjunctivae normal, anicteric sclerae ENMT: mucous membranes dry Neck: trachea midline, no thyromegaly Respiratory: Auscultation: + diminished lung sounds (bases, bilaterally) Cardiovascular: RRR, no murmur, no edema Gastrointestinal (Abdomen): Inspection/Auscultation: abdomen normal to inspection and normal bowel sounds Percussion/Palpation: abdomen soft; abdomen nontender Musculoskeletal: no cyanosis or clubbing, extremities motor strength 5/5 Skin: no rashes, warm and dry Psychiatric: Orientation: alert, oriented to person and oriented to place Lymphatic: no cervical or axillary lymphadenopathy Results & Data Vital Signs (Past 12 Hours) Vital Signs Temp Pulse Resp BP Pulse Ox 07/18/19 07:21 37.2 C 93 H 20 118/64 96 Laboratory Results 07/18/19 07/18/19 Range/Units 07:17 07:17 WBC 15.77 H (4.8-10.8) K/uL RBC 3.19 L (4.2-5.4) M/uL Hgb 8.4 L (12.0-16.0) g/dL Hct 28.8 L (37-47) % MCV 90.3 (80-100) fL MCH 26.3 (25-34) pg MCHC 29.2 L (32-36) g/dL RDW Std Deviation 59.5 H (36.4-46.3) fL RDW Coeff of Catarino 18.0 H (11.5-14.5) % Plt Count 232 (130-400) K/uL MPV 10.7 H (7.4-10.4) fL Immature Gran % (Auto) 0.5 % Neut % (Auto) 85.2 % Lymph % (Auto) 5.9 % [place] % (Auto) 5.6 % Eos % (Auto) 2.6 % Baso % (Auto) 0.2 % Immature Gran # (Auto) 0.08 H (0.00-0.02) K/uL Neut # (Auto) 13.43 H (1.4-6.5) K/uL Lymph # (Auto) 0.93 L (1.2-3.4) K/uL [place] # (Auto) 0.89 H (0.11-0.59) K/uL Eos # (Auto) 0.41 (0-0.5) K/uL Baso # (Auto) 0.03 (0-0.2) K/uL Absolute Nucleated RBC 0.02 H (0-0) K/uL Nucleated RBC % (auto) 0.1 % Sodium 143 (136-145) mmol/L Potassium 4.0 (3.5-5.1) mmol/L Chloride 110 H (98-107) mmol/L Carbon Dioxide 29 (21-32) mmol/L Anion Gap 4.0 (3-11) BUN 11 (7-18) mg/dl Creatinine 1.35 H (0.6-1.2) mg/dl Est Cr Clr Drug Dosing 40.6 ml/min Est GFR ( Amer) 42.6 Est GFR (Non-Af Amer) 36.7 BUN/Creatinine Ratio 8.4 L (10-20) Glucose 160 H (70-99) mg/dl Calcium 9.2 (8.5-10.1) mg/dl PG Care Time/CCT Total # of Minutes Spent Total Time Spent with Patient: Total time spent is greater than 50% in coordination of care (as documented) at patient's floor/unit and/or counseling patient: (1) GI bleed GI bleed type/associated pathology: unspecified gastrointestinal hemorrhage type Qualified Code(s): K92.2 - Gastrointestinal hemorrhage, unspecified
[2019-07-18] MEDS ORDERED: CARBOHYDRATES FOR HYPOGLYCEMIA PO PRN (14:01)
[2019-07-18] MEDS ORDERED: GLUCAGON FOR INJ 1 MG VIAL SQ PRN (14:01)
[2019-07-18] MEDS ORDERED: DEXTROSE 50% 50 ML SYRINGE IV PRN (14:01)
[2019-07-18] MEDS ORDERED: GLUCOSE 10 TABS/TUBE PO PRN (14:01)
[2019-07-18] MEDS ORDERED: GLUCOSE 40% GEL 15 GM TUBE PO PRN (14:01)
--- NOTE | 2019-07-18 14:44 | Anesthesiology Consultation ---
Date of Service July 18, 2019 Assessment & Plan Chart Review Chart Review: Acceptable Risk for Surgery and Patient NOT seen in Pre Admission Testing Consults Requested none History Surgery Operation Date: 07/06/19 16:00 Proposed Procedures p Esophagogastroduodenoscopy Dr Galen Aaron Operation Date: 07/07/19 16:30 Proposed Procedures p Esophagogastroduodenoscopy Dr Galen Aaron Operation Date: 07/11/19 16:00 Proposed Procedures p Esophagogastroduodenoscopy Dr Peri Whitt Operation Date: 07/18/19 17:45 Proposed Procedures p Esophagogastroduodenoscopy with Peg Tube Placement Dr Peri Whitt Height/Weight Height: 5 ft 6 in Weight: 107.9 kg Allergies Allergy/AdvReac Type Severity Reaction Status Date / Time levofloxacin Allergy Intermediate RASH Verified 07/01/19 12:20 Penicillins Allergy Intermediate HIVES Verified 07/02/19 14:24 tramadol Allergy Intermediate rash Verified 07/01/19 12:20 amoxicillin Allergy Unknown UNKNOWN Verified 07/01/19 12:20 Medications Home Medications Medication Instructions Recorded Confirmed Last Taken ascorbic acid (vitamin C) 500 mg 500 mg PO QAM tab 04/20/19 07/01/19 07/01/19 08:00 tablet atorvastatin 80 mg tablet 80 mg PO HS tab 04/20/19 07/01/19 06/30/19 20:00 folic acid 1 mg tablet 1 mg PO QAM #30 tab 04/20/19 07/01/19 07/01/19 08:00 furosemide 20 mg tablet 20 mg PO QAM #90 tab 04/20/19 07/01/19 07/01/19 08:00 levothyroxine 75 mcg tablet 75 mcg PO HS #90 tab 04/20/19 07/01/19 06/30/19 21:00 lithium carbonate 300 mg capsule 300 mg PO QAM cap 04/20/19 07/01/19 07/01/19 08:00 melatonin 3 mg tablet 3 mg PO HS tab 04/20/19 07/01/19 06/30/19 20:00 potassium chloride 10 mEq 10 meq PO QAM tab 04/20/19 07/01/19 07/01/19 08:00 tablet,extended release pramipexole 0.5 mg tablet 0.5 mg PO HS tab 04/20/19 07/01/19 06/30/19 20:00 risperidone 0.5 mg tablet 0.5 mg PO BID tab 04/20/19 07/01/19 07/01/19 08:00 umeclidinium 62.5 mcg/actuation 1 puffs INHALATION QAM ea 04/20/19 07/01/19 07/01/19 08:00 blister powder for inhalation acetaminophen 300 mg-codeine 30 mg 1 tab PO DAILY@1200 tab 05/06/19 07/01/19 06/30/19 12:00 tablet cholecalciferol (vitamin D3) 50 4,000 units PO QAM cap 05/06/19 07/01/19 07/01/19 08:00 mcg (2,000 unit) capsule d-mannose 1,000 mg PO BID 05/06/19 07/01/19 07/01/19 08:00 ferrous sulfate 325 mg (65 mg 325 mg PO QAM #60 tab 05/06/19 07/01/19 07/01/19 08:00 iron) tablet lactobacillus combination no.8 3 0 mmu cells PO BID 05/06/19 07/01/19 07/01/19 08:00 billion cell capsule polyethylene glycol 3350 17 17 gm PO QAM 05/06/19 07/01/19 07/01/19 08:00 gram/dose oral powder sennosides 8.6 mg-docusate sodium 1 tab PO BID 05/06/19 07/01/19 07/01/19 08:00 50 mg tablet acetaminophen [Tylenol] 650 mg PO TID 07/01/19 07/01/19 07/01/19 08:00 650 mg aspirin 81 mg PO QAM 07/01/19 07/01/19 Unknown hyoscyamine sulfate [Levsin] 0.125 mg PO BID 07/01/19 07/01/19 07/01/19 09:00 vitamin B complex 1 tab PO QAM 07/01/19 07/01/19 07/01/19 09:00 Active Medications Generic Name Dose Route Start Last Admin Trade Name Freq PRN Reason Stop Dose Admin Acetaminophen 650 mg 07/08/19 13:55 07/14/19 08:14 Tylenol PO 08/07/19 13:54 650 mg Q4H PRN Administration Pain Atorvastatin Calcium 80 mg 07/01/19 21:00 07/17/19 20:10 Lipitor PO 07/31/19 20:59 80 mg HS RODOLFO Administration Folic Acid 1 mg 07/02/19 09:00 07/18/19 10:06 Folvite PO 08/01/19 08:59 Not Given QAM RODOLFO Dextrose/Sodium Chloride 1,000 mls @ 80 mls/hr 07/17/19 14:45 07/18/19 14:33 D5w And 1/2nss IV 08/16/19 14:44 0 mls/hr .[id number] RODOLFO Infusion Levothyroxine Sodium 75 mcg 07/01/19 21:00 07/17/19 20:10 Synthroid PO 07/31/19 20:59 75 mcg HS RODOLFO Administration [place] Carbonate 300 mg 07/02/19 09:00 07/18/19 10:06 [place] Carbonate PO 08/01/19 08:59 Not Given QAM RODOLFO Ondansetron HCl 4 mg 07/01/19 23:43 07/02/19 00:00 Zofran IV 07/31/19 23:42 4 mg Q6H PRN Administration Nausea Pantoprazole Sodium 40 mg 07/11/19 16:00 07/18/19 10:06 Protonix PO 08/10/19 15:59 Not Given QAM RODOLFO Pramipexole Dihydrochloride 0.5 mg 07/01/19 21:00 07/17/19 20:10 Mirapex PO 07/31/19 20:59 0.5 mg HS RODOLFO Administration Risperidone 0.5 mg 07/01/19 21:00 07/18/19 10:06 Risperdal PO 07/31/19 20:59 Not Given BID RODOLFO Tiotropium [place] 1 puffs 07/09/19 09:00 07/18/19 10:06 Spiriva INH 08/08/19 08:59 1 puffs DAILY RODOLFO Administration Protocol NPO Date Last Intake of Fluids: 07/17/19 Time Last Intake of Fluids: 23:59 Date Last Intake of Solids: 07/17/19 Time Last Intake of Solids: 22:30 Past Medical History Medical History Bipolar disorder Chronic kidney disease COPD (chronic obstructive pulmonary disease) Dementia UTI (urinary tract infection) Past Family History Family History Other Lung cancer Past Surgical History Surgical History S/P hysterectomy Social History Smoking Status: Former smoker Hx Alcohol Use: No Hx Substance Use: No Physical Exam Vital Signs Last Vital Signs Temp 37.2 C 07/18/19 07:21 Pulse 93 H 07/18/19 07:21 Resp 20 07/18/19 07:21 BP 118/64 07/18/19 07:21 Pulse Ox 96 07/18/19 07:21 Testing Laboratory Results 07/18/19 07:17 07/18/19 07:17 PT 11.6 Seconds (9.0-12.0) 07/17/19 11:46 INR 1.1 (0.9-1.1) 07/17/19 11:46 APTT 31.5 Seconds (21.0-31.0) H 07/17/19 11:46 Urine Color Yellow 07/01/19 13:22 Urine Appearance Turbid (Clear) A 07/01/19 13:22 Urine pH 6.5 (4.5-7.5) 07/01/19 13:22 Ur Specific [place] 1.013 (1.000-1.030) 07/01/19 13:22 Urine Protein Trace (Negative) H 07/01/19 13:22 Urine Glucose (UA) Negative (Negative) 07/01/19 13:22 Urine Ketones Negative (Negative) 07/01/19 13:22 Urine Nitrite Negative (Negative) 07/01/19 13:22 Ur Leukocyte Esterase 3+ (Negative) H 07/01/19 13:22 Urine WBC (Auto) >30 /hpf (0-5) H 07/01/19 13:22 Urine RBC (Auto) 5-10 /hpf (0-4) H 07/01/19 13:22 U Hyaline Cast (Auto) 1-5 /lpf (0-5) 07/01/19 13:22 U Epithel Cells (Auto) 20-30 /lpf (0-5) H 07/01/19 13:22 Urine Bacteria (Auto) 1+ (Negative) H 07/01/19 13:22 Blood Type O Positive 07/05/19 19:58 Antibody Screen NEGATIVE 07/05/19 19:58 07/07/19 10:15 Escherichia coli Shiga Toxins Test - Final Stool Stool Culture - Final No Salmonella isolated, No Shigella isolated, No Campylobacter jejuni isolated. 07/07/19 10:15 WBC Smear - Final Stool 07/01/19 13:22 Urine Culture - Final Urine,Straight Cath Escherichia coli
[2019-07-18] MEDS ORDERED: ePHEDrine sulfate 50 MG/ML AMP IV PRN ×2 (14:48→14:59)
[2019-07-18] MEDS ORDERED: ATROPINE SULFATE 0.1 MG/ML 10ML SYR IV PRN ×2 (14:48→14:59)
--- NOTE | 2019-07-18 15:38 | History & Physical Report ---
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 s/p cautery of stomach avms 07/11/19 heme pos stool--at time of EGD hoping AVMs were explanation for heme pos stool and anemia. Pt would not take prep adequtely for colonscopy. dysphagia--Dr Elam recommends PEG and son agrees. Plan EGD/PEG today Anemia type: unspecified type Qualified Code(s): D64.9 - Anemia, unspecified History of Present Illness Chief Complaint: CC not obtainable Primary Care Provider: [facility] NO complaints. See full consult from this admit and progress note 07/17/19.. Allergies Allergy/AdvReac Type Severity Reaction Status Date / Time levofloxacin Allergy Intermediate RASH Verified 07/01/19 12:20 Penicillins Allergy Intermediate HIVES Verified 07/02/19 14:24 tramadol Allergy Intermediate rash Verified 07/01/19 12:20 amoxicillin Allergy Unknown UNKNOWN Verified 07/01/19 12:20 Home Medications Home Medications Medication Instructions Recorded Confirmed Type ascorbic acid (vitamin C) 500 mg 500 mg PO QAM tab 04/20/19 07/01/19 History tablet atorvastatin 80 mg tablet 80 mg PO HS tab 04/20/19 07/01/19 History folic acid 1 mg tablet 1 mg PO QAM #30 tab 04/20/19 07/01/19 History furosemide 20 mg tablet 20 mg PO QAM #90 tab 04/20/19 07/01/19 History levothyroxine 75 mcg tablet 75 mcg PO HS #90 tab 04/20/19 07/01/19 History lithium carbonate 300 mg capsule 300 mg PO QAM cap 04/20/19 07/01/19 History melatonin 3 mg tablet 3 mg PO HS tab 04/20/19 07/01/19 History potassium chloride 10 mEq 10 meq PO QAM tab 04/20/19 07/01/19 History tablet,extended release pramipexole 0.5 mg tablet 0.5 mg PO HS tab 04/20/19 07/01/19 History risperidone 0.5 mg tablet 0.5 mg PO BID tab 04/20/19 07/01/19 History umeclidinium 62.5 mcg/actuation 1 puffs INHALATION QAM ea 04/20/19 07/01/19 History blister powder for inhalation acetaminophen 300 mg-codeine 30 mg 1 tab PO DAILY@1200 tab 05/06/19 07/01/19 History tablet cholecalciferol (vitamin D3) 50 4,000 units PO QAM cap 05/06/19 07/01/19 History mcg (2,000 unit) capsule d-mannose 1,000 mg PO BID 05/06/19 07/01/19 History ferrous sulfate 325 mg (65 mg 325 mg PO QAM #60 tab 05/06/19 07/01/19 History iron) tablet lactobacillus combination no.8 3 0 mmu cells PO BID 05/06/19 07/01/19 History billion cell capsule polyethylene glycol 3350 17 17 gm PO QAM 05/06/19 07/01/19 History gram/dose oral powder sennosides 8.6 mg-docusate sodium 1 tab PO BID 05/06/19 07/01/19 History 50 mg tablet acetaminophen [Tylenol] 650 mg PO TID 07/01/19 07/01/19 History aspirin 81 mg PO QAM 07/01/19 07/01/19 History hyoscyamine sulfate [Levsin] 0.125 mg PO BID 07/01/19 07/01/19 History vitamin B complex 1 tab PO QAM 07/01/19 07/01/19 History Past Med/Surg History Medical History Bipolar disorder Chronic kidney disease COPD (chronic obstructive pulmonary disease) Dementia UTI (urinary tract infection) Surgical History S/P hysterectomy Family History Other Lung cancer Social History Preferred Language: Croatian Communication Ability: Effective Beliefs That Will Affect Care: None Current Living Situation: Skilled Nursing Feels Safe at Home: Yes Smoking Status: Former smoker Hx Alcohol Use: No Hx Substance Use: No Physical Exam Constitutional: WD/WN, vitals as above Gastrointestinal (Abdomen): normal bowel sounds, soft, nontender, no hepatosplenomegaly Inspection/Auscultation: abdomen normal to inspection Results & Data Vital Signs (Past 12 Hours) Vital Signs Temp Pulse Resp BP Pulse Ox 07/18/19 07:21 37.2 C 93 H 20 118/64 96 Code Status & VTE Plan VTE Prophylaxis Plan VTE Prophylaxis will be ordered: Yes
[2019-07-18] MEDS ORDERED: CLINDAMYCIN PHOS 300 MG/2 ML VIAL ONE (15:55)
--- NOTE | 2019-07-18 16:19 | GI REPORT ---
Patient Name: Lora Wright Procedure Date: 07/18/2019 3:34 PM Date of : 1935 Admit Type: Inpatient Age: 83 Gender: Female Attending MD: Chad Whitt MD Procedure: Upper GI endoscopy Providers: Chad Whitt MD Referring MD: Pratibha Garg Md Indications: Dysphagia Medicines: Monitored Anesthesia Care Complications: No immediate complications. Estimated blood loss: Minimal. Estimated Blood Loss: Estimated blood loss was minimal. Procedure: Pre-Anesthesia Assessment: - The risks and benefits of the procedure and the sedation options and risks were discussed with the patient. All questions were answered and informed consent was obtained. - Patient identification and proposed procedure were verified prior to the procedure by the physician, the nurse and the bagel maker. The procedure was verified in the procedure room. After obtaining informed consent, the endoscope was passed under direct vision. Throughout the procedure, the patient's blood pressure, pulse, and oxygen saturations were monitored continuously. The Endoscope was introduced through the mouth, and advanced to the second part of duodenum. The upper GI endoscopy was accomplished without difficulty. The patient tolerated the procedure well. Procedure and risks explained to patients son which include but not limited to medication reaction, bleeding, perforation, aspiration , and missed lesions. Judicious gas insufflation was used and gas removal done on the way out. The lumen was always visualized when advancing the scope. Prep was good. Washes and suctioning used as needed to get good visualization of the mucosa. Retroflexion to look at the fundus and cardia of the stomach and GE junction was done. Findings: The Z-line was regular and was found 40 cm from the incisors. The stomach mucosa was normal. The patient was placed in the supine position for PEG placement. The stomach was insufflated to appose gastric and abdominal cook. A site was located in the distal body/proximal antrum of the stomach with excellent transillumination and manual external pressure for placement. The abdominal wall was marked and prepped in a sterile manner. The area was anesthetized with 2 mL of 1% lidocaine. The trocar needle was introduced through the abdominal wall and into the stomach under direct endoscopic view. A snare was introduced through the endoscope and opened in the gastric lumen. The guide wire was passed through the trocar and into the open snare. The snare was closed around the guide wire. The endoscope and snare were removed, pulling the wire out through the mouth. A skin incision was made at the site of needle insertion. The externally removable 20 Fr Mor-Cook gastrostomy tube was lubricated. The G-tube was tied to the guide wire and pulled through the mouth and into the stomach. The trocar needle was removed, and the gastrostomy tube was pulled out from the stomach through the skin. The external bumper was attached to the gastrostomy tube, and the tube was cut to remove the guide wire. The final position of the gastrostomy tube was confirmed by relook endoscopy, and skin marking noted to be 4 cm at the external bumper. The final tension and compression of the abdominal wall by the PEG tube and external bumper were checked and revealed that the bumper was loose and not touching the skin. The feeding tube was capped, and the tube site cleaned and dressed. Estimated blood loss was minimal. The examined duodenum was normal. The exam was otherwise without abnormality. Impression: - Z-line regular, 40 cm from the incisors. - Normal antrum. - Normal examined duodenum. - The examination was otherwise normal. - An externally removable PEG placement was successfully completed. - No specimens collected. Recommendation: - [facility]. - Can give meds, liquids through tube today and tube feeds tomorrow am. Chad Whitt M.D. Chad Whitt MD 07/18/2019 4:19:42 PM This report has been signed electronically. Note Initiated On: 07/18/2019 3:34 PM Number of Addenda: 0 I attest to the content of the Intraoperative Record and orders documented therein, exceptions below {[id number]}
--- NOTE | 2019-07-18 16:23 | Post Operative Brief Note ---
Immediate Post Op Note v1 Date of Surgery July 18, 2019 Pre & Post Diagnosis Operation Date: 07/06/19 16:00 <No data on this case meets the specified criteria> Operation Date: 07/07/19 16:30 <No data on this case meets the specified criteria> Operation Date: 07/11/19 16:00 Pre-Op Diagnosis: anemia, heme positive stools Post-Op Diagnosis: irregular z line, stomach AVMs x2 Operation Date: 07/18/19 17:45 Pre-Op Diagnosis: Dysphagia Post-Op Diagnosis: peg tube placement I identified the patient and participated in the time-out.: Yes Procedure Operation Date: 07/06/19 16:00 <No data on this case meets the specified criteria> Operation Date: 07/07/19 16:30 <No data on this case meets the specified criteria> Operation Date: 07/11/19 16:00 Actual Procedures p EGD Biopsy Cytology - Chad Whitt s EGD Hemostasis - Chad Whitt Operation Date: 07/18/19 17:45 Actual Procedures p EGD Gastric Tube Placement - Chad Whitt EGD with PEG placed. Can use PEG for meds and can take po liquids today. Can use tube feeds and resume her previous po diet in am. Surgeon Chad Whitt Regional Director Of Finance see formal report Estimated Blood Loss 3 Findings Consistent with Post-Op Diagnosis
[2019-07-18] MEDS ORDERED: PHENYLEPHRINE 100MCG/ML 5ML SYR ONE (16:24)
[2019-07-18] MEDS ORDERED: ePHEDrine sulfate 50 MG/ML SYR ONE (16:24)
[2019-07-18] MEDS ORDERED: LIDOCAINE HCL 2% 2 ML VIAL/AMP(20MG/ML) INFIL ONE (16:24)
[2019-07-18] MEDS ORDERED: PROPOFOL IV EMULSION 10 MG/ML 20 ML VIAL IV ONE (16:24)
--- NOTE | 2019-07-18 17:01 | Anesthesiology Progress Note ---
Date of Service July 18, 2019 Anesthesia Post Procedure Vital Signs Vital Signs: Temp Pulse Resp BP BP Pulse Ox 07/18/19 16:52 80 18 107/82 100 07/18/19 16:37 88 16 101/48 L 100 07/18/19 16:22 90 16 96/49 L 97 07/18/19 07:21 37.2 C 93 H 20 118/64 96 07/17/19 22:44 36.6 C 95 H 18 143/67 H 95 Pain Intensity Abdomen: Pain Intensity: 8 Bilateral Foot: Pain Intensity: 8 Bilateral Leg: Pain Intensity: 8 Transfer of Care Handoff Completed per policy Notes Mental Status: alert / awake / arousable Patient Amnestic to Procedure: Yes Nausea / Vomiting: adequately controlled Pain: adequately controlled Airway Patency, RR, SpO2: stable & adequate BP & HR: stable & adequate Hydration State: stable & adequate Anesthetic Complications: no major complications apparent and Pt Satisfied with anesthetic care
[2019-07-18] MEDS ORDERED: IOVERSOL 100ml IV PRN (17:05)
--- NOTE | 2019-07-18 17:23 | CT Scan Report ---
CT abd pelvis IV con only CLINICAL HISTORY: 83 years-old Female presenting with f/u colitis. TECHNIQUE: Multidetector CT of the abdomen and pelvis was performed after the administration of intra venous contrast. IV contrast: 93 mL Optiray 320. One or more dose lowering techniques were used consi stent with the principles of ALARA (as low as reasonably achievable), including automatic exposure co ntrol, mA or kV adjustment to individual patient size, and/or use of iterative reconstruction. COMPARISON: 07/01/2019. CT DOSE (mGy.cm): The estimated cumulative dose is 1222.93 mGy.cm. FINDINGS: Brake Repairer topogram: Gastrostomy tube in place new from prior. Lung bases: Normal heart size. No pericardial or pleural effusion. Minimal dependent changes likely a telectasis. Extensive bronchial wall thickening in the right lower lobe. Some of the basilar reticula r opacities may relate to an infectious or inflammatory etiology rather than atelectasis. The appeara nce is increased from prior. Liver: Normal morphology. No liver lesion. Patent hepatic vasculature. Biliary: No intrahepatic or extrahepatic biliary ductal dilatation. Normal gallbladder. Pancreas: Mild parenchymal atrophy. Spleen: Normal. Adrenal glands: Normal. Kidneys and ureters: Anteriorly oriented right renal pelvis. Renal vascular calcification. Mild renal atrophy may be present. No nephrolithiasis or hydronephrosis. Ureters nondistended. Bladder: Normal. Pelvic organs: Uterus surgically absent. Extensive heterogeneously low dense possibly septated appear ance of the lower vagina and vulva. This may involve the Bartholin's glands. Bowel: The large bowel is normal appearing without wall thickening or pericolonic inflammatory change . The appendix is not visualized. No bowel obstruction. A gastrostomy tube is in place terminating ap propriately within the gastric lumen. No infiltrative changes or fluid along the course of the tube. Peritoneal cavity: No free fluid or intraperitoneal gas. Lymph nodes: No enlarged lymph nodes in the abdomen or pelvis. Vasculature: Atherosclerosis with mild irregularity of the abdominal aorta. Trace ectasia in the infr arenal portion immediately proximal to the eye furcation measuring 2.2 cm. IVC patent. Pelvic vessels patent. Abdominal wall: Diastasis of the rectus abdominis. Gastrostomy tube as mentioned new from prior. Musculoskeletal: Degenerative changes of the spine. IMPRESSION: 1. Appropriately positioned gastrostomy tube new from prior. 2. No evidence of colitis on the current exam. 3. Extensive abnormality of the lower vagina and vulva. This has worsened from prior. Underlying presley plastic etiology is not excluded though this could alternatively be infectious or inflammatory. Corre late with physical exam. Gynecologic consultation is necessary. 4. Changes in the right lower lung have increased from prior and could suggest aspiration or a mild infectious/inflammatory or postinfectious/postinflammatory change. The report will be called/faxed according to standard departmental protocol. Electronically signed by: Gino Haddad M.D. 07/18/2019 5:22 PM
[2019-07-18] MEDS ORDERED: PIPERACILL/TAZOBAC CONSULT ACTIVE PRN (18:21)
[2019-07-18] MEDS: INSULIN ASPART 100 UNITS/ML 3 ML PEN SC SCH ×2 (18:41→21:39)
[2019-07-18] MEDS ORDERED: PIPERACILLIN/TAZOBACTAM 4.5 GM in DEXTROSE 5% 100 ML IV ONE (18:45)
--- NOTE | 2019-07-18 19:49 | OB/GYN Consultation ---
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 This appears to be the most likely source of her bleeding from the time of her admission. The patient's son at this point is not leaning towards hospice care and wants to pursue diagnosis and at least explore what her treatment options might be. A biopsy was therefore obtained and a few tumor markers (ovarian/peritoneal and colorectal ca) were ordered as well in hopes of getting an idea of the primary source of this growt h. At this point I cannot be sure if vulvar, vaginal, colorectal, or even something else. The patient's ability to understand this appears limited by her dementia, but her son was counseled at length on the findings and their implications. If a malignancy is identified, and if it is of FLIGHT/TRANSPORT NURSE origin, he is aware we would refer them to [facility] at a tertiary center for further options. We will await results for further steps. Present on Admission?: Yes History of Present Illness Reason for Consultation: Vaginal abnormality identified on CT scan Requesting Physician: PEARL Gambino Attending Physician: Aurelia Linares MD FACOG History of Present Illness 83yo parous elderly female, s/p prior hysterectomy, admitted on 07/01/19 with initial complaint of rectal vs vaginal bleeding identified by staff at the [facility] where she resides. It seems the initial evaluation leaned more towards rectal bleeding as the source due to guaiac-positive loose stool. I have reviewed the patient's chart in detail and see that she was treated vaginally x7 days for suspected yeast due to labial erythema, with both suppository and external treatment. I see that she was unable to undergo a requested colonoscopy due to unwilling/unable to complete a prep procedure. 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 The patient was becoming less and less able to safely take PO and earlier today underwent placement of a PEG tube to allow adequate free water intake. A CT scan done today in follow up of colitis, for which she was treated with antibiotics, was read as showing a significant lower vaginal abnormality - at which point I was consulted. I initially met with the patient, her son, and the son's girlfriend. The son and patient both report that she has been better able to take PO today. Despite the peg tube she is now drinking multiple cups of liquid orally and in fact she requested both cranberry juice and zac tom from me while we talked. The patient is pleasant but noted to have some dementia and therefore her family's input at the bedside was greatly appreciated. We discussed that I was consulted to check a problem on her bottom. I asked if she had irritation, itching, or any problem with her bottom. She reports it "is sore on the right." I learn from the nurse caring for this patient that she has been using a purewick external suction catheter for urinary incontinence and that there was some concern this was causing labial erythema, so it was discontinued today. The patient is on a chux diaper currently and being changed every 1-2 hours. Allergies Allergy/AdvReac Type Severity Reaction Status Date / Time levofloxacin Allergy Intermediate RASH Verified 07/01/19 12:20 Penicillins Allergy Intermediate HIVES Verified 07/02/19 14:24 tramadol Allergy Intermediate rash Verified 07/01/19 12:20 amoxicillin Allergy Unknown UNKNOWN Verified 07/01/19 12:20 Home Medications Home Medications Medication Instructions Recorded Confirmed Type ascorbic acid (vitamin C) 500 mg 500 mg PO QAM tab 04/20/19 07/01/19 History tablet atorvastatin 80 mg tablet 80 mg PO HS tab 04/20/19 07/01/19 History folic acid 1 mg tablet 1 mg PO QAM #30 tab 04/20/19 07/01/19 History furosemide 20 mg tablet 20 mg PO QAM #90 tab 04/20/19 07/01/19 History levothyroxine 75 mcg tablet 75 mcg PO HS #90 tab 04/20/19 07/01/19 History lithium carbonate 300 mg capsule 300 mg PO QAM cap 04/20/19 07/01/19 History melatonin 3 mg tablet 3 mg PO HS tab 04/20/19 07/01/19 History potassium chloride 10 mEq 10 meq PO QAM tab 04/20/19 07/01/19 History tablet,extended release pramipexole 0.5 mg tablet 0.5 mg PO HS tab 04/20/19 07/01/19 History risperidone 0.5 mg tablet 0.5 mg PO BID tab 04/20/19 07/01/19 History umeclidinium 62.5 mcg/actuation 1 puffs INHALATION QAM ea 04/20/19 07/01/19 History blister powder for inhalation acetaminophen 300 mg-codeine 30 mg 1 tab PO DAILY@1200 tab 05/06/19 07/01/19 History tablet cholecalciferol (vitamin D3) 50 4,000 units PO QAM cap 05/06/19 07/01/19 History mcg (2,000 unit) capsule d-mannose 1,000 mg PO BID 05/06/19 07/01/19 History ferrous sulfate 325 mg (65 mg 325 mg PO QAM #60 tab 05/06/19 07/01/19 History iron) tablet lactobacillus combination no.8 3 0 mmu cells PO BID 05/06/19 07/01/19 History billion cell capsule polyethylene glycol 3350 17 17 gm PO QAM 05/06/19 07/01/19 History gram/dose oral powder sennosides 8.6 mg-docusate sodium 1 tab PO BID 05/06/19 07/01/19 History 50 mg tablet acetaminophen [Tylenol] 650 mg PO TID 07/01/19 07/01/19 History aspirin 81 mg PO QAM 07/01/19 07/01/19 History hyoscyamine sulfate [Levsin] 0.125 mg PO BID 07/01/19 07/01/19 History vitamin B complex 1 tab PO QAM 07/01/19 07/01/19 History Patient History Medical History Bipolar disorder Chronic kidney disease COPD (chronic obstructive pulmonary disease) Dementia UTI (urinary tract infection) Surgical History S/P hysterectomy Family History Other Lung cancer Social History Preferred Language: Portuguese Communication Ability: Effective Beliefs That Will Affect Care: None Current Living Situation: Skilled Nursing Feels Safe at Home: Yes Smoking Status: Former smoker Hx Alcohol Use: No Hx Substance Use: No Physical Exam Constitutional: Elderly, alert, nondistressed, somewhat confused, pleasant female of stated age. Centrally obese. Eyes: PERRL, conjunctivae normal, anicteric sclerae ENMT: Ears: no hearing impairment Nose: no external nose abnormality Mouth: no lip abnormality Neck: normal visual inspection Respiratory: normal respiratory effort and able to speak in complete sentences; no respiratory distress, does not use accessory muscles and no cough Gastrointestinal (Abdomen): Obese. PEG site not examined at this time. Musculoskeletal: Head/Neck/Chest: + head abnormal to inspection Extremities: extremities normal to inspection (Foot pumps in place. Some varicosities. ) Skin: no rashes, warm and dry (exam of buttocks/back not done. Skin of lower abdomen, vulva, thighs exam.) Neurologic: normal touch/pain/proprioception Psychiatric: Orientation: alert Apperance: appeared stated age Eye Contact: good eye contact Speech: normal rate/rhythm/volume of speech Affect: euthymic affect Genitourinary: Labia are pale, with appearance of padilla along midline from prior suction catheter pressure. No erythema, no satellite lesions, no external excoriation, no ulcers. Parting the labia reveals an immediately visible mass of caseous, white, crumbly, hard tissue replacing / arising from the posterior vaginal wall and perineal skin. There are clots adherent to this suggesting recent bleeding, though no active bleeding is seen on first exposure of this tissue. The area is tender when palpated and I am not able to feel all the way along/around the mass to identify exactly what it arises from or how broad the base is due to poor patient tolerance. A finger gently inserted into the vagina palpates this abnormal firm tissue at least 5cm proximal from the introitus up the posterior vaginal wall. Rectal exam not done as patient was asking for exam to be discontinued at this time due to pain. I counseled the patient's son on the above findings, and asked if he wanted me to attempt to get a biopsy of this tissue for diagnosis. I explained that my working diagnosis was cancer until proven otherwise, but that I cannot know that without tissue, and what *kind* of cancer would be important information for pursuing treatment options. He was counseled that there may be discomfort with a biopsy, and / or the tissue may bleed - possibly profusely - if disturbed. He wanted very much to have diagnostic information and to consider pursuing treatment of this new finding, and consented for procedure to be done. I brought two nurses back to the room and obtained verbal consent from Lora for another vaginal exam and attempt to retrieve a bit of tissue. It is unclear if she fully understood the implication of the procedure but she did consent to the process. She was placed back on a bedpan for lift and the labia were parted again. A betadine swab was used to cleanse the abnormal tissue, and a piece was elevated with adson forceps then snipped free with metzenbaum scissors. This was placed in formalin, then a second sample was retrieved in the same manner from a different location on the mass. At this point the patient was asking to end the exam, and all instruments were removed. A x-ray gauze was placed on the tumor bed, which was oozing a small stream of red blood, to aid in hemostasis. The patient's nurse is aware to remove and discard this gauze with the next diaper change in 1-2 hours and not to leave the gauze longer than that. Lymphatic: I do not appreciate femoral/inguinal lymphadenopathy but exam somewhat limited by obesity and intolerance. Results & Data Vital Signs (Past 12 Hours) Vital Signs Temp Pulse Resp BP Pulse Ox 07/18/19 19:22 96.4 F L 94 H 16 99/63 L 99 07/18/19 16:52 80 18 107/82 100 07/18/19 16:37 88 16 101/48 L 100 07/18/19 16:22 90 16 96/49 L 97 PG Care Time/CCT Total # of Minutes Spent Total Time Spent with Patient: Total time spent is greater than 50% in c oordination of care (as documented) at patient's floor/unit and/or counseling patient:
[2019-07-18] MEDS: LEVOTHYROXINE SODIUM 75 MCG TABLET PO SCH (21:38)
[2019-07-18] MEDS: PRAMIPEXOLE DIHYDROCHLO 0.5 MG TAB PO SCH (21:38)
[2019-07-18] MEDS: ATORVASTATIN 40 MG TAB PO SCH (21:39)
[2019-07-19] MEDS: PIPERACILLIN/TAZOBACTAM 4.5 GM in DEXTROSE 5% 100 ML IV SCH ×4 (00:13→23:52)
[2019-07-19] MEDS ORDERED: FIBERSOURCE HN 1.2 CAL 1000 ML BAG ONE (04:58)
[2019-07-19] MEDS: FIBERSOURCE HN 1.2 CAL 1000 ML BAG GT SCH (06:19)
[2019-07-19 07:35] LABS: Hematocrit (blood only) 27.7 % (37-47); Hemoglobin 7.9 g/dL (12.0-16.0); Mean Corpuscular Hgb Conc 28.5 g/dL (32-36); Mean Corpuscular Volume 91.1 fL (80-100); Platelet Count 198 K/uL (130-400); RDW Coefficient of Variation 18.4 % (11.5-14.5); Red Blood Count 3.04 M/uL (4.2-5.4); White Blood Count 18.55 K/uL (4.8-10.8)
[2019-07-19 08:00] LABS: Anisocytosis Present; Basophils # (auto) 0.03 K/uL (0-0.2); Basophils % (auto) 0.2 %; Eosinophils # (auto) 0.38 K/uL (0-0.5); Hypochromasia Present; Immature Granulocytes # (auto) 0.07 K/uL (0.00-0.02); Immature Granulocytes % (auto) 0.4 %; Lymphocytes # (auto) 0.65 K/uL (1.2-3.4); Lymphocytes % (auto) 3.5 %; Monocytes # (auto) 0.82 K/uL (0.11-0.59); Monocytes % (auto) 4.4 %; Neutrophils % (auto) 89.5 %
[2019-07-19 08:02] LABS: Albumin Level 1.8 gm/dl (3.4-5.0); BUN Creatinine Ratio 6.8 (10-20); Calcium 8.5 mg/dl (8.5-10.1); Creatinine Clr Calc Pharmacy 37.2 ml/min; Est GFR (African American) 38.1; Est GFR (Non-African American) 32.9; Potassium 3.7 mmol/L (3.5-5.1)
[2019-07-19 08:05] LABS: Albumin Globulin Ratio 0.4 (0.9-2); Bilirubin,Total 0.4 mg/dl (0.2-1); Globulin 4.1 gm/dl (2.5-4.0); Phosphorus 1.6 mg/dl (2.5-4.9); Total Protein 5.9 gm/dl (6.4-8.2)
[2019-07-19] MEDS: FOLIC ACID 1 MG TAB PO SCH (08:15)
[2019-07-19] MEDS: LITHIUM CARBONATE 300 MG TAB PO SCH (08:15)
[2019-07-19] MEDS: TIOTROPIUM BROMIDE 5 PUFF/90 MCG INH INH SCH (08:15)
[2019-07-19] MEDS: risperiDONE 0.5 MG TABLET PO SCH ×2 (08:16→21:01)
[2019-07-19] MEDS: PANTOprazole 40 MG TAB PO SCH (08:16)
[2019-07-19 08:18] LABS: Estimated Average Glucose 120 mg/dl; Hemoglobin A1C 5.8 % (4.5-5.6)
[2019-07-19] MEDS: D5W AND 1/2NSS 1,000 ML IV SCH (08:27)
[2019-07-19] MEDS: POT PHOSPHATE MONOBASIC W/ SOD TAB PO SCH ×4 (09:27→21:00)
[2019-07-19] MEDS: INSULIN ASPART 100 UNITS/ML 3 ML PEN SC SCH ×4 (09:54→21:01)
--- NOTE | 2019-07-19 09:59 | Anesthesiology Progress Note ---
Date of Service July 19, 2019 Anesthesia Post Procedure Vital Signs Vital Signs: Temp Pulse Resp BP BP Pulse Ox 07/19/19 07:41 90 19 121/73 98 07/19/19 04:26 36.3 C L 66 20 109/46 L 93 07/18/19 22:34 35 C L 90 19 143/80 H 99 07/18/19 19:22 35.8 C L 94 H 16 99/63 L 99 07/18/19 16:52 80 18 107/82 100 07/18/19 16:37 88 16 101/48 L 100 07/18/19 16:22 90 16 96/49 L 97 Pain Intensity Abdomen: Pain Intensity: 8 Bilateral Foot: Pain Intensity: 8 Bilateral Leg: Pain Intensity: 8 Notes Mental Status: alert / awake / arousable and participated in evaluation Nausea / Vomiting: adequately controlled Pain: adequately controlled Airway Patency, RR, SpO2: stable & adequate BP & HR: stable & adequate Hydration State: stable & adequate Anesthetic Complications: no major complications apparent
[2019-07-19 12:43] LABS: Cdiff Antigen Positive; Cdiff Toxin A+B Positive Cdiff Toxin (Negative)
[2019-07-19] MEDS ORDERED: ALBUT/IPRATROP 3MG/0.5MG NEB 3 ML VIAL NEB PRN (13:48)
[2019-07-19] MEDS ORDERED: FIDAXOMICIN 200 MG TAB PO SCH ×2 (14:00→21:00)
--- NOTE | 2019-07-19 14:36 | Hospitalist Progress Note ---
Date of Service July 19, 2019 Assessment & Plan (1) Vaginal mass: (2) Clostridium difficile infection: Subjective Patient reports diarrhea this morning with foul odor. Also with reports of mild vagina discomfort following her biopsy last evening. She states she does feel sore "inside her belly" but denies any nausea or vomiting. Denies difficulty swallowing, however has been tolerating thickened liquids. Review of Systems Constitutional: no fever and no chills Ear, Nose, Mouth, Throat: no dysphagia Respiratory: no cough, no chest congestion and no dyspnea Cardiovascular: no chest pain and no edema Gastrointestinal: + abdominal pain and + diarrhea/loose stools; no nausea and no vomiting Genitourinary: no dysuria, no hematuria and no vaginal itching Integumentary: no rash and no lesions Results & Data Vital Signs (Past 12 Hours) Vital Signs Temp Pulse Resp BP BP Pulse Ox 07/19/19 07:41 90 19 121/73 98 07/19/19 04:26 36.3 C L 66 20 109/46 L 93 Laboratory Results 07/19/19 07/19/19 07/19/19 Range/Units 11:42 11:39 11:38 WBC (4.8-10.8) K/uL RBC (4.2-5.4) M/uL Hgb (12.0-16.0) g/dL Hct (37-47) % MCV (80-100) fL MCH (25-34) pg MCHC (32-36) g/dL RDW Std Deviation (36.4-46.3) fL RDW Coeff of Catarino (11.5-14.5) % Plt Count (130-400) K/uL MPV (7.4-10.4) fL Immature Gran % (Auto) % Neut % (Auto) % Lymph % (Auto) % [place] % (Auto) % Eos % (Auto) % Baso % (Auto) % Immature Gran # (Auto) (0.00-0.02) K/uL Neut # (Auto) (1.4-6.5) K/uL Lymph # (Auto) (1.2-3.4) K/uL [place] # (Auto) (0.11-0.59) K/uL Eos # (Auto) (0-0.5) K/uL Baso # (Auto) (0-0.2) K/uL Hypochromasia Anisocytosis Peripher Smr Path Cons Sodium (136-145) mmol/L Potassium (3.5-5.1) mmol/L Chloride (98-107) mmol/L Carbon Dioxide (21-32) mmol/L Anion Gap (3-11) BUN (7-18) mg/dl Creatinine (0.6-1.2) mg/dl Est Cr Clr Drug Dosing ml/min Est GFR ( Amer) Est GFR (Non-Af Amer) BUN/Creatinine Ratio (10-20) Glucose (70-99) mg/dl POC Glucose 320 H* 320 H* 375 H* (70-99) Estimat Average Glucose mg/dl Hemoglobin A1c (4.5-5.6) % Calcium (8.5-10.1) mg/dl Phosphorus (2.5-4.9) mg/dl Total Bilirubin (0.2-1) mg/dl AST (15-37) U/L ALT (12-78) U/L Alkaline Phosphatase (45-117) U/L Total Protein (6.4-8.2) gm/dl Albumin (3.4-5.0) gm/dl Globulin (2.5-4.0) gm/dl Albumin/Globulin Ratio (0.9-2) CA 19-9 Antigen CA 125 Antigen TSH (0.300-4.500) uIu/ml Stl C. diff Tox B Gene (Neg) Stl C.difficile Tox A&B (Negative) 07/19/19 07/19/19 07/19/19 Range/Units 08:55 07:56 07:54 WBC (4.8-10.8) K/uL RBC (4.2-5.4) M/uL Hgb (12.0-16.0) g/dL Hct (37-47) % MCV (80-100) fL MCH (25-34) pg MCHC (32-36) g/dL RDW Std Deviation (36.4-46.3) fL RDW Coeff of Catarino (11.5-14.5) % Plt Count (130-400) K/uL MPV (7.4-10.4) fL Immature Gran % (Auto) % Neut % (Auto) % Lymph % (Auto) % [place] % (Auto) % Eos % (Auto) % Baso % (Auto) % Immature Gran # (Auto) (0.00-0.02) K/uL Neut # (Auto) (1.4-6.5) K/uL Lymph # (Auto) (1.2-3.4) K/uL [place] # (Auto) (0.11-0.59) K/uL Eos # (Auto) (0-0.5) K/uL Baso # (Auto) (0-0.2) K/uL Hypochromasia Anisocytosis Peripher Smr Path Cons Sodium (136-145) mmol/L Potassium (3.5-5.1) mmol/L Chloride (98-107) mmol/L Carbon Dioxide (21-32) mmol/L Anion Gap (3-11) BUN (7-18) mg/dl Creatinine (0.6-1.2) mg/dl Est Cr Clr Drug Dosing ml/min Est GFR ( Amer) Est GFR (Non-Af Amer) BUN/Creatinine Ratio (10-20) Glucose (70-99) mg/dl POC Glucose 263 H 404 H* (70-99) Estimat Average Glucose mg/dl Hemoglobin A1c (4.5-5.6) % Calcium (8.5-10.1) mg/dl Phosphorus (2.5-4.9) mg/dl Total Bilirubin (0.2-1) mg/dl AST (15-37) U/L ALT (12-78) U/L Alkaline Phosphatase (45-117) U/L Total Protein (6.4-8.2) gm/dl Albumin (3.4-5.0) gm/dl Globulin (2.5-4.0) gm/dl Albumin/Globulin Ratio (0.9-2) CA 19-9 Antigen CA 125 Antigen TSH (0.300-4.500) uIu/ml Stl C. diff Tox B Gene Positive Cdiff Gene H (Neg) Stl C.difficile Tox A&B Positive Cdiff Toxin A* (Negative) 07/19/19 07/19/19 07/19/19 Range/Units 07:53 06:57 06:57 WBC 18.55 H (4.8-10.8) K/uL RBC 3.04 L (4.2-5.4) M/uL Hgb 7.9 L (12.0-16.0) g/dL Hct 27.7 L (37-47) % MCV 91.1 (80-100) fL MCH 26.0 (25-34) pg MCHC 28.5 L (32-36) g/dL RDW Std Deviation 62.0 H (36.4-46.3) fL RDW Coeff of Catarino 18.4 H (11.5-14.5) % Plt Count 198 (130-400) K/uL MPV 11.0 H (7.4-10.4) fL Immature Gran % (Auto) 0.4 % Neut % (Auto) 89.5 % Lymph % (Auto) 3.5 % [place] % (Auto) 4.4 % Eos % (Auto) 2.0 % Baso % (Auto) 0.2 % Immature Gran # (Auto) 0.07 H (0.00-0.02) K/uL Neut # (Auto) 16.60 H (1.4-6.5) K/uL Lymph # (Auto) 0.65 L (1.2-3.4) K/uL [place] # (Auto) 0.82 H (0.11-0.59) K/uL Eos # (Auto) 0.38 (0-0.5) K/uL Baso # (Auto) 0.03 (0-0.2) K/uL Hypochromasia Present Anisocytosis Present Peripher Smr Path Cons Sodium 140 (136-145) mmol/L Potassium 3.7 (3.5-5.1) mmol/L Chloride 109 H (98-107) mmol/L Carbon Dioxide 28 (21-32) mmol/L Anion Gap 3.0 (3-11) BUN 10 (7-18) mg/dl Creatinine 1.48 H (0.6-1.2) mg/dl Est Cr Clr Drug Dosing 37.2 ml/min Est GFR ( Amer) 38.1 Est GFR (Non-Af Amer) 32.9 BUN/Creatinine Ratio 6.8 L (10-20) Glucose 256 H (70-99) mg/dl POC Glucose 303 H* (70-99) Estimat Average Glucose mg/dl Hemoglobin A1c (4.5-5.6) % Calcium 8.5 (8.5-10.1) mg/dl Phosphorus 1.6 L (2.5-4.9) mg/dl Total Bilirubin 0.4 (0.2-1) mg/dl AST 10 L (15-37) U/L ALT 15 (12-78) U/L Alkaline Phosphatase 134 H (45-117) U/L Total Protein 5.9 L (6.4-8.2) gm/dl Albumin 1.8 L (3.4-5.0) gm/dl Globulin 4.1 H (2.5-4.0) gm/dl Albumin/Globulin Ratio 0.4 L (0.9-2) CA 19-9 Antigen CA 125 Antigen TSH (0.300-4.500) uIu/ml Stl C. diff Tox B Gene (Neg) Stl C.difficile Tox A&B (Negative) 07/19/19 07/19/19 07/18/19 Range/Units 06:57 06:57 07:17 WBC (4.8-10.8) K/uL RBC (4.2-5.4) M/uL Hgb (12.0-16.0) g/dL Hct (37-47) % MCV (80-100) fL MCH (25-34) pg MCHC (32-36) g/dL RDW Std Deviation (36.4-46.3) fL RDW Coeff of Catarino (11.5-14.5) % Plt Count (130-400) K/uL MPV (7.4-10.4) fL Immature Gran % (Auto) % Neut % (Auto) % Lymph % (Auto) % [place] % (Auto) % Eos % (Auto) % Baso % (Auto) % Immature Gran # (Auto) (0.00-0.02) K/uL Neut # (Auto) (1.4-6.5) K/uL Lymph # (Auto) (1.2-3.4) K/uL [place] # (Auto) (0.11-0.59) K/uL Eos # (Auto) (0-0.5) K/uL Baso # (Auto) (0-0.2) K/uL Hypochromasia Anisocytosis Peripher Smr Path Cons Sodium (136-145) mmol/L Potassium (3.5-5.1) mmol/L Chloride (98-107) mmol/L Carbon Dioxide (21-32) mmol/L Anion Gap (3-11) BUN (7-18) mg/dl Creatinine (0.6-1.2) mg/dl Est Cr Clr Drug Dosing ml/min Est GFR ( Amer) Est GFR (Non-Af Amer) BUN/Creatinine Ratio (10-20) Glucose (70-99) mg/dl POC Glucose (70-99) Estimat Average Glucose 120 mg/dl Hemoglobin A1c 5.8 H (4.5-5.6) % Calcium (8.5-10.1) mg/dl Phosphorus (2.5-4.9) mg/dl Total Bilirubin (0.2-1) mg/dl AST (15-37) U/L ALT (12-78) U/L Alkaline Phosphatase (45-117) U/L Total Protein (6.4-8.2) gm/dl Albumin (3.4-5.0) gm/dl Globulin (2.5-4.0) gm/dl Albumin/Globulin Ratio (0.9-2) CA 19-9 Antigen Pending CA 125 Antigen Pending TSH 0.473 (0.300-4.500) uIu/ml Stl C. diff Tox B Gene (Neg) Stl C.difficile Tox A&B (Negative) 07/18/19 Range/Units 07:17 WBC (4.8-10.8) K/uL RBC (4.2-5.4) M/uL Hgb (12.0-16.0) g/dL Hct (37-47) % MCV (80-100) fL MCH (25-34) pg MCHC (32-36) g/dL RDW Std Deviation (36.4-46.3) fL RDW Coeff of Catarino (11.5-14.5) % Plt Count (130-400) K/uL MPV (7.4-10.4) fL Immature Gran % (Auto) % Neut % (Auto) % Lymph % (Auto) % [place] % (Auto) % Eos % (Auto) % Baso % (Auto) % Immature Gran # (Auto) (0.00-0.02) K/uL Neut # (Auto) (1.4-6.5) K/uL Lymph # (Auto) (1.2-3.4) K/uL [place] # (Auto) (0.11-0.59) K/uL Eos # (Auto) (0-0.5) K/uL Baso # (Auto) (0-0.2) K/uL Hypochromasia Anisocytosis Peripher Smr Path Cons Sodium (136-145) mmol/L Potassium (3.5-5.1) mmol/L Chloride (98-107) mmol/L Carbon Dioxide (21-32) mmol/L Anion Gap (3-11) BUN (7-18) mg/dl Creatinine (0.6-1.2) mg/dl Est Cr Clr Drug Dosing ml/min Est GFR ( Amer) Est GFR (Non-Af Amer) BUN/Creatinine Ratio (10-20) Glucose (70-99) mg/dl POC Glucose (70-99) Estimat Average Glucose mg/dl Hemoglobin A1c (4.5-5.6) % Calcium (8.5-10.1) mg/dl Phosphorus (2.5-4.9) mg/dl Total Bilirubin (0.2-1) mg/dl AST (15-37) U/L ALT (12-78) U/L Alkaline Phosphatase (45-117) U/L Total Protein (6.4-8.2) gm/dl Albumin (3.4-5.0) gm/dl Globulin (2.5-4.0) gm/dl Albumin/Globulin Ratio (0.9-2) CA 19-9 Antigen CA 125 Antigen TSH (0.300-4.500) uIu/ml Stl C. diff Tox B Gene (Neg) Stl C.difficile Tox A&B (Negative) PG Care Time/CCT Total # of Minutes Spent Total Time Spent with Patient: Total time spent is greater than 50% in coordination of care (as documented) at patient's floor/unit and/or counseling patient:
[2019-07-19] MEDS ORDERED: ALBUT/IPRATROP 3MG/0.5MG NEB 3 ML VIAL NEB SCH (15:00)
--- NOTE | 2019-07-19 15:01 | Hospitalist Progress Note ---
Date of Service July 19, 2019 Assessment & Plan (1) Vaginal mass: * NEW * Patient with extensive abnormality of lower vagina and vulva -- mass discovered on exam and CT yesterday (07/18). 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 * cdiff sent, + today -- patient also already high risk in SNF setting * Initiated Dificid, however may be too expensive after discussion with CM upon [facility] - will transition to oral vanc * Per GI, if bowels do not loosen up with tube feeds, will give laxative (3) Hypernatremia: * Improved-- Stable at 140 today -- as high as 158 on 07/06 -- likely secondary to poor oral intake, dysphagia. 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 Whitt * [employer] consult for TF recommendations -- held today temporarily due to increased resistance -- restarted at 10ml/hr with increase by 10ml q8h with goal of 60ml/hr -- will need to be intermittent feeds for discharge * start free water flushes at 100mL per PEG q4h * follow BMP (4) Hyperglycemia: * Patient with BSG as high as 404 today, however patient initiated on tube feeds and was continuing to receive D5 while continuing with clear liquid diet * Continue BSG AC/HS with SSI but will lower CF and CR as patient continuing to eat and SNF unable to do continuous feeds * Most recent BSG 109 after discontinuation of D5 this afternoon * Continue to monitor * start Lantus 8 units qhs (5) Hypercalcemia: * Chronic * Stable- secondary to hyperparathyroidism d/t chronic lithium use/parathyroid gland hyperplasia-- with elevated PTH at 87.1 * With adequate hydration, patient has been able to manage DI and hypercalcemia, however given recent difficulty swallowing patient to undergo PEG placement as above * Ca is down to 8.5 from peak of 11.1- may have been higher d/t low albumin (albumin currently 1.8) * PTH related protein pending * Would not stop lithium at this time, as reversal of hyperplasia not likely. * Zoledronic acid on 07/15 * Continue to monitor (6) Acute kidney injury superimposed on chronic kidney disease: * Cr elevated at 1.48 today from 1.35 yesterday, however did receive IV dye last evening for CT a/p * Previously elevated to max of 2 on 07/03-- likely prerenal due to poor PO intake * Continue to monitor (7) GI bleed: * Melena prior to admission with subsequent EGD on 07/11 with cautery of AVM * Colonoscopy not able to be done due to inability to complete prep * Patient did receive 2 units PRBC on 07/05 with hemoglobin improved to 9.3 * H/H declined to 7.7/27.7 today -- likely secondary to #1 * Continue to monitor (8) Recurrent UTI: * culture growing E coli, dugan sensitive -- patient intially treated with Zosyn-- transitioned to Rocephin-- completed >7 day course * Procalcitonin wnl 07/11 (9) Dysphagia: * Video swallow -- patient able to have nectar thick liquids but Speech Therapy recommended transition to honey thick if had difficulty-- may have pills with pudding -- will transition more medications to be administered via PEG to limit amount of medications given likley continued aspiration and evidence of possible aspiration/infectious process RLL * Unclear as to why worsening dysphagia-- possible progression of dementia/parkinsonism * TSH wnl * PEG tube as above * Given CT findings as above, patient initiated back on Zosyn for aspiration pneumonitis * can advance diet to pureed foods (10) CKD (chronic kidney disease), stage III: * As above * Cr elevated at 1.48, but baseline appears to be ~1.4 * Continue to monitor (11) Leukocytosis: * high at 18k on discharge * Increased again today to 18.5K today -- colitis on initial CT, E.coli in urine, and now with C. diff diarrhea contributing as well as Aspiration pneumonitis * Peripheral smear with normocytic anemia and leukocytosis, no overt evidence for dysplastic features, is likely reactive process * See #1- concern for vulvovaginal malignancy (12) COPD, moderate: * DuoNeb changed to Q4H WA for expiratory wheezing * Continue to monitor (13) Hypothyroidism: * Continue Synthroid * Last TSH on file 8.32 in February 2018 * TSH 0.473, wnl (14) Hyperlipemia: * Continue atorvastatin (15) HTN (hypertension): * Stable at 121/73 currently * Outpatient lasix held as patient borderline hypotensive throughout stay * Monitor the blood pressure closely (16) Colitis: * Colitis seen on CT on admission. Continued leukocytosis. Peripheral Smear as above. 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 Mainly, added Lantus and tightened down SSI, treating for aspiration pneumonitis and C. diff diarrhea now Continued stay Awaiting vaginal mass path results but would likely benefit from a Palliative Care consult once results come back Subjective Patient reports diarrhea this morning with foul odor. Also with reports of mild vagina discomfort following her biopsy last evening. She states she does feel sore "inside her belly" but denies any nausea or vomiting. Denies difficulty swallowing, however has been tolerating thickened liquids. Review of Systems Constitutional: no fever and no chills Respiratory: no cough, no chest congestion and no change in sputum Cardiovascular: no chest pain and no palpitations Gastrointestinal: + abdominal pain and + diarrhea/loose stools; no nausea and no vomiting Genitourinary: + urinary incontinence; no dysuria Integumentary: no rash and no urticaria Physical Exam Constitutional: WD/WN, vitals as above + obese; no acute distress Eyes: PERRL, conjunctivae normal, anicteric sclerae Neck: trachea midline, no thyromegaly Respiratory: normal respiratory effort; no respiratory distress and no labored breathing Auscultation: + rhonchi (RLL>L ) and + wheezes (expiratory wheezing throughout) Cardiovascular: Rate/Rhythm: regular rate and regular rhythm Heart Sounds: normal S1, normal S2 and + gallop (+S3) Gastrointestinal (Abdomen): Inspection/Auscultation: + abdomen distended and normal bowel sounds Percussion/Palpation: abdomen nontender Skin: no rashes, warm and dry PEG tube present- at 4cm -- dressing c/d/i Genitourinary: Visible mass of white, crumbly/hardened tissue arising from posterior vaginal wall, approximately 7 o'clock position from vaginal introitus Results & Data Vital Signs (Past 12 Hours) Vital Signs Temp Pulse Resp BP BP Pulse Ox 07/19/19 07:41 90 19 121/73 98 07/19/19 04:26 36.3 C L 66 20 109/46 L 93 Laboratory Results 07/19/19 07/19/19 07/19/19 Range/Units 11:42 11:39 11:38 WBC (4.8-10.8) K/uL RBC (4.2-5.4) M/uL Hgb (12.0-16.0) g/dL Hct (37-47) % MCV (80-100) fL MCH (25-34) pg MCHC (32-36) g/dL RDW Std Deviation (36.4-46.3) fL RDW Coeff of Catarino (11.5-14.5) % Plt Count (130-400) K/uL MPV (7.4-10.4) fL Immature Gran % (Auto) % Neut % (Auto) % Lymph % (Auto) % Spink % (Auto) % Eos % (Auto) % Baso % (Auto) % Immature Gran # (Auto) (0.00-0.02) K/uL Neut # (Auto) (1.4-6.5) K/uL Lymph # (Auto) (1.2-3.4) K/uL Spink # (Auto) (0.11-0.59) K/uL Eos # (Auto) (0-0.5) K/uL Baso # (Auto) (0-0.2) K/uL Hypochromasia Anisocytosis Peripher Smr Path Cons Sodium (136-145) mmol/L Potassium (3.5-5.1) mmol/L Chloride (98-107) mmol/L Carbon Dioxide (21-32) mmol/L Anion Gap (3-11) BUN (7-18) mg/dl Creatinine (0.6-1.2) mg/dl Est Cr Clr Drug Dosing ml/min Est GFR ( Amer) Est GFR (Non-Af Amer) BUN/Creatinine Ratio (10-20) Glucose (70-99) mg/dl POC Glucose 320 H* 320 H* 375 H* (70-99) Estimat Average Glucose mg/dl Hemoglobin A1c (4.5-5.6) % Calcium (8.5-10.1) mg/dl Phosphorus (2.5-4.9) mg/dl Total Bilirubin (0.2-1) mg/dl AST (15-37) U/L ALT (12-78) U/L Alkaline Phosphatase (45-117) U/L Total Protein (6.4-8.2) gm/dl Albumin (3.4-5.0) gm/dl Globulin (2.5-4.0) gm/dl Albumin/Globulin Ratio (0.9-2) CA 19-9 Antigen CA 125 Antigen TSH (0.300-4.500) uIu/ml Stl C. diff Tox B Gene (Neg) Stl C.difficile Tox A&B (Negative) 07/19/19 07/19/19 07/19/19 Range/Units 08:55 07:56 07:54 WBC (4.8-10.8) K/uL RBC (4.2-5.4) M/uL Hgb (12.0-16.0) g/dL Hct (37-47) % MCV (80-100) fL MCH (25-34) pg MCHC (32-36) g/dL RDW Std Deviation (36.4-46.3) fL RDW Coeff of Catarino (11.5-14.5) % Plt Count (130-400) K/uL MPV (7.4-10.4) fL Immature Gran % (Auto) % Neut % (Auto) % Lymph % (Auto) % Spink % (Auto) % Eos % (Auto) % Baso % (Auto) % Immature Gran # (Auto) (0.00-0.02) K/uL Neut # (Auto) (1.4-6.5) K/uL Lymph # (Auto) (1.2-3.4) K/uL Spink # (Auto) (0.11-0.59) K/uL Eos # (Auto) (0-0.5) K/uL Baso # (Auto) (0-0.2) K/uL Hypochromasia Anisocytosis Peripher Smr Path Cons Sodium (136-145) mmol/L Potassium (3.5-5.1) mmol/L Chloride (98-107) mmol/L Carbon Dioxide (21-32) mmol/L Anion Gap (3-11) BUN (7-18) mg/dl Creatinine (0.6-1.2) mg/dl Est Cr Clr Drug Dosing ml/min Est GFR ( Amer) Est GFR (Non-Af Amer) BUN/Creatinine Ratio (10-20) Glucose (70-99) mg/dl POC Glucose 263 H 404 H* (70-99) Estimat Average Glucose mg/dl Hemoglobin A1c (4.5-5.6) % Calcium (8.5-10.1) mg/dl Phosphorus (2.5-4.9) mg/dl Total Bilirubin (0.2-1) mg/dl AST (15-37) U/L ALT (12-78) U/L Alkaline Phosphatase (45-117) U/L Total Protein (6.4-8.2) gm/dl Albumin (3.4-5.0) gm/dl Globulin (2.5-4.0) gm/dl Albumin/Globulin Ratio (0.9-2) CA 19-9 Antigen CA 125 Antigen TSH (0.300-4.500) uIu/ml Stl C. diff Tox B Gene Positive Cdiff Gene H (Neg) Stl C.difficile Tox A&B Positive Cdiff Toxin A* (Negative) 07/19/19 07/19/19 07/19/19 Range/Units 07:53 06:57 06:57 WBC 18.55 H (4.8-10.8) K/uL RBC 3.04 L (4.2-5.4) M/uL Hgb 7.9 L (12.0-16.0) g/dL Hct 27.7 L (37-47) % MCV 91.1 (80-100) fL MCH 26.0 (25-34) pg MCHC 28.5 L (32-36) g/dL RDW Std Deviation 62.0 H (36.4-46.3) fL RDW Coeff of Catarino 18.4 H (11.5-14.5) % Plt Count 198 (130-400) K/uL MPV 11.0 H (7.4-10.4) fL Immature Gran % (Auto) 0.4 % Neut % (Auto) 89.5 % Lymph % (Auto) 3.5 % Spink % (Auto) 4.4 % Eos % (Auto) 2.0 % Baso % (Auto) 0.2 % Immature Gran # (Auto) 0.07 H (0.00-0.02) K/uL Neut # (Auto) 16.60 H (1.4-6.5) K/uL Lymph # (Auto) 0.65 L (1.2-3.4) K/uL Spink # (Auto) 0.82 H (0.11-0.59) K/uL Eos # (Auto) 0.38 (0-0.5) K/uL Baso # (Auto) 0.03 (0-0.2) K/uL Hypochromasia Present Anisocytosis Present Peripher Smr Path Cons Sodium 140 (136-145) mmol/L Potassium 3.7 (3.5-5.1) mmol/L Chloride 109 H (98-107) mmol/L Carbon Dioxide 28 (21-32) mmol/L Anion Gap 3.0 (3-11) BUN 10 (7-18) mg/dl Creatinine 1.48 H (0.6-1.2) mg/dl Est Cr Clr Drug Dosing 37.2 ml/min Est GFR ( Amer) 38.1 Est GFR (Non-Af Amer) 32.9 BUN/Creatinine Ratio 6.8 L (10-20) Glucose 256 H (70-99) mg/dl POC Glucose 303 H* (70-99) Estimat Average Glucose mg/dl Hemoglobin A1c (4.5-5.6) % Calcium 8.5 (8.5-10.1) mg/dl Phosphorus 1.6 L (2.5-4.9) mg/dl Total Bilirubin 0.4 (0.2-1) mg/dl AST 10 L (15-37) U/L ALT 15 (12-78) U/L Alkaline Phosphatase 134 H (45-117) U/L Total Protein 5.9 L (6.4-8.2) gm/dl Albumin 1.8 L (3.4-5.0) gm/dl Globulin 4.1 H (2.5-4.0) gm/dl Albumin/Globulin Ratio 0.4 L (0.9-2) CA 19-9 Antigen CA 125 Antigen TSH (0.300-4.500) uIu/ml Stl C. diff Tox B Gene (Neg) Stl C.difficile Tox A&B (Negative) 07/19/19 07/19/19 07/18/19 Range/Units 06:57 06:57 07:17 WBC (4.8-10.8) K/uL RBC (4.2-5.4) M/uL Hgb (12.0-16.0) g/dL Hct (37-47) % MCV (80-100) fL MCH (25-34) pg MCHC (32-36) g/dL RDW Std Deviation (36.4-46.3) fL RDW Coeff of Catarino (11.5-14.5) % Plt Count (130-400) K/uL MPV (7.4-10.4) fL Immature Gran % (Auto) % Neut % (Auto) % Lymph % (Auto) % Spink % (Auto) % Eos % (Auto) % Baso % (Auto) % Immature Gran # (Auto) (0.00-0.02) K/uL Neut # (Auto) (1.4-6.5) K/uL Lymph # (Auto) (1.2-3.4) K/uL Spink # (Auto) (0.11-0.59) K/uL Eos # (Auto) (0-0.5) K/uL Baso # (Auto) (0-0.2) K/uL Hypochromasia Anisocytosis Peripher Smr Path Cons Sodium (136-145) mmol/L Potassium (3.5-5.1) mmol/L Chloride (98-107) mmol/L Carbon Dioxide (21-32) mmol/L Anion Gap (3-11) BUN (7-18) mg/dl Creatinine (0.6-1.2) mg/dl Est Cr Clr Drug Dosing ml/min Est GFR ( Amer) Est GFR (Non-Af Amer) BUN/Creatinine Ratio (10-20) Glucose (70-99) mg/dl POC Glucose (70-99) Estimat Average Glucose 120 mg/dl Hemoglobin A1c 5.8 H (4.5-5.6) % Calcium (8.5-10.1) mg/dl Phosphorus (2.5-4.9) mg/dl Total Bilirubin (0.2-1) mg/dl AST (15-37) U/L ALT (12-78) U/L Alkaline Phosphatase (45-117) U/L Total Protein (6.4-8.2) gm/dl Albumin (3.4-5.0) gm/dl Globulin (2.5-4.0) gm/dl Albumin/Globulin Ratio (0.9-2) CA 19-9 Antigen Pending CA 125 Antigen Pending TSH 0.473 (0.300-4.500) uIu/ml Stl C. diff Tox B Gene (Neg) Stl C.difficile Tox A&B (Negative) 07/18/19 Range/Units 07:17 WBC (4.8-10.8) K/uL RBC (4.2-5.4) M/uL Hgb (12.0-16.0) g/dL Hct (37-47) % MCV (80-100) fL MCH (25-34) pg MCHC (32-36) g/dL RDW Std Deviation (36.4-46.3) fL RDW Coeff of Catarino (11.5-14.5) % Plt Count (130-400) K/uL MPV (7.4-10.4) fL Immature Gran % (Auto) % Neut % (Auto) % Lymph % (Auto) % Spink % (Auto) % Eos % (Auto) % Baso % (Auto) % Immature Gran # (Auto) (0.00-0.02) K/uL Neut # (Auto) (1.4-6.5) K/uL Lymph # (Auto) (1.2-3.4) K/uL Spink # (Auto) (0.11-0.59) K/uL Eos # (Auto) (0-0.5) K/uL Baso # (Auto) (0-0.2) K/uL Hypochromasia Anisocytosis Peripher Smr Path Cons Sodium (136-145) mmol/L Potassium (3.5-5.1) mmol/L Chloride (98-107) mmol/L Carbon Dioxide (21-32) mmol/L Anion Gap (3-11) BUN (7-18) mg/dl Creatinine (0.6-1.2) mg/dl Est Cr Clr Drug Dosing ml/min Est GFR ( Amer) Est GFR (Non-Af Amer) BUN/Creatinine Ratio (10-20) Glucose (70-99) mg/dl POC Glucose (70-99) Estimat Average Glucose mg/dl Hemoglobin A1c (4.5-5.6) % Calcium (8.5-10.1) mg/dl Phosphorus (2.5-4.9) mg/dl Total Bilirubin (0.2-1) mg/dl AST (15-37) U/L ALT (12-78) U/L Alkaline Phosphatase (45-117) U/L Total Protein (6.4-8.2) gm/dl Albumin (3.4-5.0) gm/dl Globulin (2.5-4.0) gm/dl Albumin/Globulin Ratio (0.9-2) CA 19-9 Antigen CA 125 Antigen TSH (0.300-4.500) uIu/ml Stl C. diff Tox B Gene (Neg) Stl C.difficile Tox A&B (Negative) PG Care Time/CCT Total # of Minutes Spent Total Time Spent with Patient: Total time spent is greater than 50% in coordination of care (as documented) at patient's floor/unit and/or counseling patient: (1) GI bleed GI bleed type/associated pathology: unspecified gastrointestinal hemorrhage type Qualified Code(s): K92.2 - Gastrointestinal hemorrhage, unspecified (2) Anemia Anemia type: unspecified type Qualified Code(s): D64.9 - Anemia, unspecified
--- NOTE | 2019-07-19 16:05 | XRay Report ---
KUB HISTORY: Acute abdominal distention abdominal distension COMPARISON: CT abdomen and pelvis 07/18/2019 FINDINGS: The bowel gas pattern is non-obstructive. Moderate fecal retention. Mild gaseous distention of the colon redemonstrated measuring up to 8.9 cm. G[address]rostomy tube in place. There is no organomeg aleksander. No renal calculi. No ureteral calculi. No pneumoperitoneum or pneumatosis. No fracture. IMPRESSION: 1. Nonobstructive bowel gas pattern. 2. Moderate fecal retention with persistent mild gaseous distention of the colon. Electronically signed by: Tommy Oh M.D. 07/19/2019 4:04 PM
--- NOTE | 2019-07-19 16:16 | Gastroenterology Progress Note ---
Date of Service July 19, 2019 Assessment & Plan (1) Anemia: Fe def anemia--likely from vaginal/vulvar bleeding Abd distension---from colon distension and probable constipation. Continue tube feeds and if bowels do not loosen up with tube feeds then give laxative. constipation as above Cdiff---pt on Dificid dysphagia--s/p PEG, tube feeds s/p cautery of stomach avms 07/11/19 Subjective CC f/u dysphagia HPI Per nurse there have been some high residuals up to 300 but patient is eating and drinking. Tube feeds have been intermittently at 10 ml/hour. Abd distension was noted yesteday and CT noted normal bowel but vulvar/vaginal les ion. 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 KUB this pm showed some moderate fecal burden and some gaseous distension of colon. Stool for Cdiff pos. Review of Systems Review of Systems: Unobtainable due to cognitive status Physical Exam Constitutional: WD/WN, vitals as above Respiratory: normal respiratory effort, lungs clear to auscultation Cardiovascular: RRR, no murmur, no edema Gastrointestinal (Abdomen): abdomen moderated distension but soft, pos bs, no guarding nor rebound. Psychiatric: Insight: + poor insight Judgement: + poor judgement Results & Data Vital Signs (Past 12 Hours) Vital Signs Temp Pulse Resp BP BP Pulse Ox 07/19/19 07:41 90 19 121/73 98 07/19/19 04:26 36.3 C L 66 20 109/46 L 93 (1) Anemia Anemia type: unspecified type Qualified Code(s): D64.9 - Anemia, unspecified
[2019-07-19] MEDS: ALBUT/IPRATROP 3MG/0.5MG NEB 3 ML VIAL NEB SCH ×2 (18:08→19:17)
[2019-07-19] MEDS ORDERED: DEXTROMETHORPHAN POLYMR COMPLX 30 MG/5 ML UDP PO PRN (19:00)
[2019-07-19] MEDS: TUBE FEEDING WATER FLUSH GT SCH ×2 (20:59→23:53)
[2019-07-19] MEDS: LEVOTHYROXINE SODIUM 75 MCG TABLET PO SCH (21:00)
[2019-07-19] MEDS: ATORVASTATIN 40 MG TAB PO SCH (21:00)
[2019-07-19] MEDS: PRAMIPEXOLE DIHYDROCHLO 0.5 MG TAB PO SCH (21:00)
[2019-07-19] MEDS: RASPBERRY SYRUP 5 ML UDP PO SCH (23:52)
[2019-07-19] MEDS: VANCOMYCIN HCL 125 MG/2.5ML SOLN PO SCH (23:53)
[2019-07-20] MEDS: INSULIN GLARGINE SOLOSTAR 100 UNITS/ML 3 ML PEN SC SCH ×2 (00:19→20:58)
[2019-07-20] MEDS: TUBE FEEDING WATER FLUSH GT SCH ×5 (04:15→19:22)
[2019-07-20] MEDS: RASPBERRY SYRUP 5 ML UDP PO SCH ×3 (05:04→17:29)
[2019-07-20] MEDS: VANCOMYCIN HCL 125 MG/2.5ML SOLN PO SCH ×3 (05:04→17:30)
[2019-07-20] MEDS: FIBERSOURCE HN 1.2 CAL 1000 ML BAG GT SCH (06:43)
[2019-07-20] MEDS: ALBUT/IPRATROP 3MG/0.5MG NEB 3 ML VIAL NEB SCH ×4 (07:18→19:26)
[2019-07-20 07:33] LABS: Hematocrit (blood only) 27.9 % (37-47); Mean Corpuscular Hemoglobin 25.8 pg (25-34); Mean Corpuscular Hgb Conc 28.7 g/dL (32-36); Mean Platelet Volume 10.8 fL (7.4-10.4); Platelet Count 194 K/uL (130-400); RDW Coefficient of Variation 18.4 % (11.5-14.5); RDW Standard Deviation 60.5 fL (36.4-46.3); White Blood Count 16.22 K/uL (4.8-10.8)
[2019-07-20 08:00] LABS: BUN Creatinine Ratio 6.1 (10-20); Calcium 8.3 mg/dl (8.5-10.1); Creatinine Clr Calc Pharmacy 37.2 ml/min; Est GFR (African American) 38.4; Est GFR (Non-African American) 33.1; Potassium 3.3 mmol/L (3.5-5.1)
[2019-07-20] MEDS ORDERED: POTASSIUM CHLORIDE 20 MEQ/15 ML UDC PO ONE (09:00)
[2019-07-20] MEDS: LITHIUM CARBONATE 300 MG TAB PO SCH (10:21)
[2019-07-20] MEDS: FOLIC ACID 1 MG TAB PO SCH (10:21)
[2019-07-20] MEDS: PANTOprazole 40 MG TAB PO SCH (10:22)
[2019-07-20] MEDS: risperiDONE 0.5 MG TABLET PO SCH ×2 (10:23→20:57)
[2019-07-20] MEDS: POT PHOSPHATE MONOBASIC W/ SOD TAB PO SCH ×4 (10:23→20:57)
[2019-07-20] MEDS: INSULIN ASPART 100 UNITS/ML 3 ML PEN SC SCH ×4 (10:26→21:00)
[2019-07-20] MEDS: AMOXICILLIN/CLAVULANATE 875 MG TAB PO SCH ×2 (11:13→17:31)
[2019-07-20] MEDS: TIOTROPIUM BROMIDE 5 PUFF/90 MCG INH INH SCH (13:30)
[2019-07-20] MEDS ORDERED: SOD PHOSPHATE/SOD BIPHOSPHATE ENEMA 132 ML BTL PR STA (14:16)
[2019-07-20] MEDS: PIPERACILLIN/TAZOBACTAM 4.5 GM in DEXTROSE 5% 100 ML IV SCH (15:03)
--- NOTE | 2019-07-20 15:47 | Hospitalist Progress Note ---
Date of Service July 20, 2019 Assessment & Plan (1) Squamous cell carcinoma: * Patient with extensive abnormality of lower vagina and vulva -- mass discovered on exam and CT 07/18. Patient with hx hysterectomy, so unlikely endometrial in origin * MANAGER SUPPLY consulted for likely neoplastic and malignant growth of posterior vaginal wall/perineum- appreciate recs * Biopsy done- pathology sent -- invasive squamous cell carcinoma, well-mod differentiate --> most likely source of bleeding, as EGD with cautery of AVM without significant bleeding -- son would like to speak with Rad Onc about palliative radiation/options moving forward * H/h stable today without further decline, at 8.0/27.9 * CA 19-9 and CA-125 without abnormality * Radiation Oncology consult -- appreciate input * Palliative Consult to discuss goals of care tomorrow after rad/onc (2) Vaginal mass: * As above (3) Clostridium difficile infection: * Abdominal distension 07/19 with fecal retention on KUB following episode of foul smelling diarrhea. 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 Whitt on 07/18 * Journeyman Level Acoustic Analyst consult for TF recommendations -- was initially given fibersource, but as patient with improved oral intake and worsening abdominal pain, held for now-- will re-assess off tube feeds -- may need to be used as supplemental nutrition source as patient unlikely to have adequate protein * Increased free water flushes to 150ml Q4h per PEG -- may need titrated based on response * follow BMP (5) Hyperglycemia: * Patient with BSG as high as 404 yesterday, however patient initiated on tube feeds and was continuing to receive D5 while continuing with clear liquid diet * Continue BSG AC/HS with SSI but lowered CF and CR as patient continuing to eat. Also, SNF unable to do continuous feeds * Continue to monitor * Lantus 8 units qhs added last evening, with sugars improved -- running 139-192 post prandially (6) Hypercalcemia: * Chronic * Stable- secondary to hyperparathyroidism d/t chronic lithium use/parathyroid gland hyperplasia-- with elevated PTH at 87.1 * With adequate hydration, patient has been able to manage DI and hypercalcemia, however given recent difficulty swallowing patient to undergo PEG placement as above * Ca is down to 8.3 from peak of 11.1- may have been higher d/t low albumin * PTH related protein elevated at 31 * Would not stop lithium at this time, as reversal of hyperplasia not likely. * Zoledronic acid on 07/15 * Continue to monitor (7) Acute kidney injury superimposed on chronic kidney disease: * Virtually unchanged from yesterday -- patient with cr 1.47, however baseline appears to be ~1.4 * Previously elevated to max of 2 on 07/03-- likely prerenal due to poor PO intake * Continue to monitor (8) GI bleed: * Melena prior to admission with subsequent EGD on 07/11 with cautery of AVM * Patient did receive 2 units PRBC on 07/05 with hemoglobin improved to 9.3 * H/H stable at 8/27.9 -- bleeding likely secondary to #1 (9) Dysphagia: * Video swallow -- patient able to have nectar thick liquids but Speech Therapy recommended transition to honey thick if had difficulty-- may have pills with pudding - likely continued aspiration and evidence of possible aspiration/infectious process RLL * Unclear as to why worsening dysphagia-- possible progression of dementia/parkinsonism * TSH wnl * PEG tube as above * Given CT findings as above, patient initiated back on Zosyn for aspiration pneumonitis --> transitioned to PO Augmentin * Advanced diet to pureed -- tolerating, although decreased appetite this morning secondary to abdominal pain (10) CKD (chronic kidney disease), stage III: * As above * Cr elevated at 1.48, but baseline appears to be ~1.4 * Continue to monitor (11) Leukocytosis: * high at 18k on discharge * Continues to be elevated, but decreased to 16.22k today * Peripheral smear with normocytic anemia and leukocytosis, no overt evidence for dysplastic features, is likely reactive process * Colitis on initial CT, E.coli in urine, and now with C. diff diarrhea contributing as well as Aspiration pneumonitis, as well as current MANAGER [employer]Y malignancy (12) COPD, moderate: * DuoNeb changed to Q4H WA for expiratory wheezing * Continue to monitor (13) Hypothyroidism: * Continue Synthroid * Last TSH on file 8.32 in February 2018 * TSH 0.473, wnl (14) Hyperlipemia: * Continue atorvastatin (15) HTN (hypertension): * Stable at 121/73 currently * Outpatient lasix held as patient borderline hypotensive throughout stay * Monitor the blood pressure closely (16) Colitis: * Colitis seen on CT on admission. Continued leukocytosis. Peripheral Smear as above. 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: * As above (21) Recurrent UTI: * culture growing E coli, dugan sensitive -- patient intially treated with Zosyn-- transitioned to Rocephin-- completed >7 day course * Procalcitonin wnl 07/11 (22) DVT prophylaxis: * SCDs * Chemical prophylaxis held in setting of bleeding Dispo: consult rad/onc for possible palliative radiation, possible discharge to back to [facility] Thursday Supervising Physician Co-Signing Physician Notes PA Supervision Note: I did not personally see or examine the patient today, but I verified all nielsen points of PEARL Rehman's assessment and plan with the following exceptions/additions: None Subjective Evaluated at bedside this morning. Complaints of abdominal pain. Feels like she has to have a bowel movement. Sore throat. Review of Systems Constitutional: no fever and no chills Ear, Nose, Mouth, Throat: + sore throat; no dysphagia Respiratory: + cough; no dyspnea Cardiovascular: no chest pain and no palpitations Gastrointestinal: + abdominal pain and + constipation; no vomiting Genitourinary: + urinary incontinence; no dysuria Integumentary: no rash and no lesions Neurologic: no headache(s) Physical Exam Constitutional: + obese and + disheveled; no acute distress Eyes: PERRL, conjunctivae normal, anicteric sclerae ENMT: oral candidiasis soft palate and posterior oropharynx Respiratory: normal respiratory effort; no labored breathing Auscultation: + diminished lung sounds and + rhonchi Coarse rhonchi on expiration Cardiovascular: Rate/Rhythm: regular rate and regular rhythm Heart Sounds: normal S1 and normal S2; no murmur Gastrointestinal (Abdomen): PEG tube in place dressing c/d/i- still at 4cm Neurologic: PERRL, EOMI, accommodation nl, no face palsy, no dysarthria Psychiatric: Insight: + poor insight Results & Data Vital Signs (Past 12 Hours) Vital Signs Temp Pulse Resp BP BP Pulse Ox 07/20/19 15:27 36.8 C 99 H 18 123/67 96 07/20/19 11:16 36.3 C L 95 H 18 135/77 97 07/20/19 07:34 36.9 C 98 H 18 112/70 98 07/20/19 04:54 36.6 C 85 17 101/55 L 99 Laboratory Results 07/20/19 07/20/19 07/20/19 Range/Units 11:49 07:52 07:08 WBC (4.8-10.8) K/uL RBC (4.2-5.4) M/uL Hgb (12.0-16.0) g/dL Hct (37-47) % MCV (80-100) fL MCH (25-34) pg MCHC (32-36) g/dL RDW Std Deviation (36.4-46.3) fL RDW Coeff of Catarino (11.5-14.5) % Plt Count (130-400) K/uL MPV (7.4-10.4) fL Sodium 143 (136-145) mmol/L Potassium 3.3 L (3.5-5.1) mmol/L Chloride 109 H (98-107) mmol/L Carbon Dioxide 27 (21-32) mmol/L Anion Gap 6.0 (3-11) BUN 9 (7-18) mg/dl Creatinine 1.47 H (0.6-1.2) mg/dl Est Cr Clr Drug Dosing 37.2 ml/min Est GFR ( Amer) 38.4 Est GFR (Non-Af Amer) 33.1 BUN/Creatinine Ratio 6.1 L (10-20) Glucose 151 H (70-99) mg/dl POC Glucose 192 H 167 H (70-99) Calcium 8.3 L (8.5-10.1) mg/dl PTH Related Protein (14-27) pg/mL 07/20/19 07/19/19 07/19/19 Range/Units 07:08 20:09 16:25 WBC 16.22 H (4.8-10.8) K/uL RBC 3.10 L (4.2-5.4) M/uL Hgb 8.0 L (12.0-16.0) g/dL Hct 27.9 L (37-47) % MCV 90.0 (80-100) fL MCH 25.8 (25-34) pg MCHC 28.7 L (32-36) g/dL RDW Std Deviation 60.5 H (36.4-46.3) fL RDW Coeff of Catarino 18.4 H (11.5-14.5) % Plt Count 194 (130-400) K/uL MPV 10.8 H (7.4-10.4) fL Sodium (136-145) mmol/L Potassium (3.5-5.1) mmol/L Chloride (98-107) mmol/L Carbon Dioxide (21-32) mmol/L Anion Gap (3-11) BUN (7-18) mg/dl Creatinine (0.6-1.2) mg/dl Est Cr Clr Drug Dosing ml/min Est GFR ( Amer) Est GFR (Non-Af Amer) BUN/Creatinine Ratio (10-20) Glucose (70-99) mg/dl POC Glucose 258 H 109 H (70-99) Calcium (8.5-10.1) mg/dl PTH Related Protein (14-27) pg/mL 07/13/19 Range/Units 09:40 WBC (4.8-10.8) K/uL RBC (4.2-5.4) M/uL Hgb (12.0-16.0) g/dL Hct (37-47) % MCV (80-100) fL MCH (25-34) pg MCHC (32-36) g/dL RDW Std Deviation (36.4-46.3) fL RDW Coeff of Catarino (11.5-14.5) % Plt Count (130-400) K/uL MPV (7.4-10.4) fL Sodium (136-145) mmol/L Potassium (3.5-5.1) mmol/L Chloride (98-107) mmol/L Carbon Dioxide (21-32) mmol/L Anion Gap (3-11) BUN (7-18) mg/dl Creatinine (0.6-1.2) mg/dl Est Cr Clr Drug Dosing ml/min Est GFR ( Amer) Est GFR (Non-Af Amer) BUN/Creatinine Ratio (10-20) Glucose (70-99) mg/dl POC Glucose (70-99) Calcium (8.5-10.1) mg/dl PTH Related Protein 31 H (14-27) pg/mL PG Care Time/CCT Total # of Minutes Spent Total Time Spent with Patient: Total time spent is greater than 50% in coordination of care (as documented) at patient's floor/unit and/or counseling patient: (1) GI bleed GI bleed type/associated pathology: unspecified gastrointestinal hemorrhage type Qualified Code(s): K92.2 - Gastrointestinal hemorrhage, unspecified (2) Anemia Anemia type: unspecified type Qualified Code(s): D64.9 - Anemia, unspecified
[2019-07-20 15:49] LABS: CA 125 13 U/ML (<35); Cancer Antigen 19-9 10 U/ML (<34)
--- NOTE | 2019-07-20 16:16 | Gastroenterology Progress Note ---
Date of Service July 20, 2019 Assessment & Plan (1) Anemia: Fe def anemia--likely from vaginal/vulvar bleeding which has been diagnosed as squamous cell cancer vulvar cancer--per product technician Abd distension---from constipation--improved constipation as above Cdiff---pt on Dificid dysphagia--s/p PEG, tube feeds s/p cautery of stomach avms 07/11/[address] Garg and esther sign off. Please call for further questions. Subjective cc no abd complaints HPI Spoke with DR Garg and halfway not set up for continuous feeds. They are going to use tube for free water adn supplement with bolus feeds as needed. Per nurse patient given enema today and had good brown bm just now. Pt denies abd pain Review of Systems Respiratory: no dyspnea Cardiovascular: no chest pain Physical Exam Constitutional: WD/WN, vitals as above Respiratory: normal respiratory effort, lungs clear to auscultation Cardiovascular: RRR, no murmur, no edema Gastrointestinal (Abdomen): normal bowel sounds, soft, nontender, no hepatosplenomegaly Neurologic: PERRL, EOMI, accommodation nl, no face palsy, no dysarthria Psychiatric: Insight: + poor insight Judgement: + poor judgement Results & Data Vital Signs (Past 12 Hours) Vital Signs Temp Pulse Resp BP BP Pulse Ox 07/20/19 15:27 36.8 C 99 H 18 123/67 96 07/20/19 11:16 36.3 C L 95 H 18 135/77 97 07/20/19 07:34 36.9 C 98 H 18 112/70 98 07/20/19 04:54 36.6 C 85 17 101/55 L 99 (1) Anemia Anemia type: unspecified type Qualified Code(s): D64.9 - Anemia, unspecified
[2019-07-20] MEDS: NYSTATIN SUSP 500,000 U/5 ML UDC PO SCH ×2 (17:28→20:56)
--- NOTE | 2019-07-20 17:43 | Gynecologic Progress Note ---
Date of Service July 20, 2019 Assessment & Plan (1) Vaginal mass: Present on Admission?: Yes (2) Squamous cell carcinoma: Patient and son were informed of pathology result that states she has squamous cell carcinoma. I discussed the patient's case and diagnosis with Dr. Abreu at [facility] earlier today and his advice was shared with the patient and son: specifically that surgical options would be limited in light of the patient's age and comorbidities, as the surgery required to address this tumor would be extensive - but that palliative radiation (off the cuff he mentioned a possible 7 or 10 day course) might be helpful in reducing tumor size and spread and minimizing risk of acute bleeding. Dr. Abreu suggested that Dr. Dayanara Pittman here at [facility] might be able to provide consultation for options and specifically to offer a course of palliative radiation. While either outpatient or inpatient evaluation at [facility] with Lois (whichever the patient's condition allows) is an option, at this time it's unlikely that he would proceed with significantly different treatment from what Dr. Pittman can do here, and the transfer itself might add unnecessary stress to Lora. The option to do nothing and move to hospice care was also discussed. At this time Lora and her son are interested in having Dr. Pittman come and see them to discuss what radiation might have to offer. I offered to answer any questions, of which there were none at this time, and to be available for further consultation if there is any way I can help. If there were to be an acute change in patient status, myself or my partners remain available to assist as well. But assuming that care proceeds with Dr. Pittman, I will just follow along peripherally from here forward. Present on Admission?: Yes Subjective Visited with patient and son at the bedside irma along with Constance KANG. Patient is comfortable, requesting water with ice to sip. She has thickened liquids at bedside and is being fed mashed potatoes on my arrival. Patient notes she is still passing loose stool involuntarily and is embarassed. She is alert, and after listening to my discussion with her son, she asks, "So Bill what do we do now?" She was able to express her wishes to be back at [facility] with her friends where she would like to play cards; she would like to be allowed to drink non thickened liquids; she would like to stop having diarrhea. Results & Data Vital Signs (Past 12 Hours) Vital Signs Temp Pulse Resp BP BP Pulse Ox 07/20/19 15:27 98.2 F 99 H 18 123/67 96 07/20/19 11:16 97.3 F L 95 H 18 135/77 97 07/20/19 07:34 98.4 F 98 H 18 112/70 98 PG Care Time/CCT Total # of Minutes Spent Total Time Spent with Patient: Total time spent is greater than 50% in coordination of care (as documented) at patient's floor/unit and/or counseling patient:
[2019-07-20] MEDS: LEVOTHYROXINE SODIUM 75 MCG TABLET PO SCH (20:56)
[2019-07-20] MEDS: ATORVASTATIN 40 MG TAB PO SCH (20:56)
[2019-07-20] MEDS: PRAMIPEXOLE DIHYDROCHLO 0.5 MG TAB PO SCH (20:57)
[2019-07-21] MEDS: VANCOMYCIN HCL 125 MG/2.5ML SOLN PO SCH ×4 (00:26→17:23)
[2019-07-21] MEDS: RASPBERRY SYRUP 5 ML UDP PO SCH ×4 (00:27→17:20)
[2019-07-21] MEDS: TUBE FEEDING WATER FLUSH GT SCH ×6 (00:28→20:19)
[2019-07-21] MEDS: ACETAMINOPHEN 325 MG TAB PO PRN (04:42)
[2019-07-21] MEDS: ALBUT/IPRATROP 3MG/0.5MG NEB 3 ML VIAL NEB SCH ×4 (07:09→19:04)
[2019-07-21 07:20] LABS: Hematocrit (blood only) 27.3 % (37-47); Hemoglobin 7.8 g/dL (12.0-16.0); Mean Corpuscular Hgb Conc 28.6 g/dL (32-36); Mean Platelet Volume 10.8 fL (7.4-10.4); Platelet Count 223 K/uL (130-400); RDW Coefficient of Variation 18.7 % (11.5-14.5); RDW Standard Deviation 61.7 fL (36.4-46.3); White Blood Count 13.24 K/uL (4.8-10.8)
[2019-07-21 07:41] LABS: Albumin Level 1.6 gm/dl (3.4-5.0); BUN Creatinine Ratio 5.9 (10-20); Calcium 8.4 mg/dl (8.5-10.1); Est GFR (African American) 36.9; Est GFR (Non-African American) 31.8; Potassium 3.6 mmol/L (3.5-5.1)
[2019-07-21 07:44] LABS: Albumin Globulin Ratio 0.4 (0.9-2); Bilirubin,Total 0.2 mg/dl (0.2-1); Globulin 4.3 gm/dl (2.5-4.0); Total Protein 5.9 gm/dl (6.4-8.2)
[2019-07-21 07:47] LABS: Anisocytosis Present; Basophils # (auto) 0.01 K/uL (0-0.2); Basophils % (auto) 0.1 %; Eosinophils # (auto) 0.32 K/uL (0-0.5); Eosinophils % (auto) 2.4 %; Immature Granulocytes # (auto) 0.04 K/uL (0.00-0.02); Immature Granulocytes % (auto) 0.3 %; Lymphocytes % (auto) 8.3 %; Monocytes % (auto) 4.5 %; Neutrophils # (auto) 11.17 K/uL (1.4-6.5); Neutrophils % (auto) 84.4 %; Polychromasia 1+; Spherocytes 1+
[2019-07-21] MEDS: LITHIUM CARBONATE 300 MG TAB PO SCH (07:52)
[2019-07-21] MEDS: POT PHOSPHATE MONOBASIC W/ SOD TAB PO SCH ×4 (07:53→20:57)
[2019-07-21] MEDS: TIOTROPIUM BROMIDE 5 PUFF/90 MCG INH INH SCH (07:53)
[2019-07-21] MEDS: FOLIC ACID 1 MG TAB PO SCH (07:55)
[2019-07-21] MEDS: NYSTATIN SUSP 500,000 U/5 ML UDC PO SCH ×4 (07:55→20:57)
[2019-07-21] MEDS: PANTOprazole 40 MG TAB PO SCH (07:58)
[2019-07-21] MEDS: INSULIN ASPART 100 UNITS/ML 3 ML PEN SC SCH ×4 (08:03→20:51)
[2019-07-21] MEDS: AMOXICILLIN/CLAVULANATE SUSP 400MG/5ML 50ML BOTTLE PO SCH ×2 (08:09→17:23)
--- NOTE | 2019-07-21 09:18 | Radiation OncologyConsultation ---
Date of Consultation July 21, 2019 Assessment & Plan (1) Squamous cell carcinoma of vagina: Assessment: Ms. 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 The patient was admitted to the hospital earlier this month due to anemia and had an extensive GI work-up which involved multiple upper endoscopies and PEG tube placement. Dr. 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 Dr. Linares has discussed the case with Dr. Abreu from gynecology oncology at [facility] who recommended consideration of palliative treatment including external beam radi ation therapy or vaginal cylinder brachytherapy. I am now seeing the patient in consultation to discuss the role of radiation therapy. Treatment Options: 1. Palliative radiation therapy. External beam radiation therapy and/or vaginal cylinder HDR brachytherapy. 2. Best supportive care including palliative care and hospice. Recommendation: I have recommended consideration of palliative external beam radiation therapy. I would recommend a course of treatment of 10-15 fractions. I do not believe that vaginal cylinder brachytherapy is an appropriate treatment option given the bulkiness of the disease. Alternatively, the patient could be considered for a supportive care with hospice. Plan: 1. CT simulation for treatment planning for anticipated palliative external beam radiation therapy. We will discuss case and recommendations with son prior to obtaining consent from patient/son and prior to starting radiation therapy. 2. Continue all other medical management follow-up as per primary medical team and other specialists including gastroenterology and 3. Patient and family encouraged to call us with any further questions or concerns. Rationale/Explanation of Treatment: I did explain the indications, alternatives, benefits, risks and side effects of external beam radiation therapy. I did explain the most common side effects including, but not limited to, skin erythema, skin breakdown, hyperpigmentation, telangiectasia, wound complications, perianal fistula development, fistula formation, nausea, vomiting, bowel obstruction, bowel perforation, dysuria, increased urinary frequency, urgency, diarrhea, constipation, melena, hematochezia, hematuria, radiation cystitis, radiation proctitis, fatigue, decreased blood counts, wound complications from surgery, rectal incontinence, secondary malignancy development. I did explain the procedures and daily process of radiation therapy. The patient understands and would be willing to consent to treatment. The patient and son had multiple questions which were answered to their full satisfaction. Thank you for allowing us to participate in the care of this patient. This chart was completed in part utilizing [email or web address] Speech Voice Recognition software. Attempts were made to minimize the grammatical errors, random word insertions, pronoun errors and incomplete sentences. Any formal questions or concerns about the content, text or information contained within the body of this dictation should be directly addressed to the provider for clarification. Dayanara Pittman MD Department of Radiation Oncology [facility] History of Present Illness Attending Physician: Pratibha Garg MD History of Present Illness 07/01/2019. Patient admitted to hospital due to rectal versus vaginal bleeding. During the course of her hospitalization, she did have 2 upper endoscopies to rule out gastrointestinal bleeding as a source of her anemia. During the course of her hospital admission, the patient has been diagnosed with C. difficile colitis is currently being treated with antibiotics. Additionally, the patient was having difficulty with p.o. intake and did have a PEG tube placed after evaluation with gastroenterology. 07/01/2019. CT of abdomen/pelvis. IMPRESSION: 1. Mild nonspecific mid to distal colitis. 2. No evidence for abscess collection or obstruction. 3. Minimal interstitial infiltrative process right lung base. 07/18/2019. CT of abdomen/pelvis. IMPRESSION: 1. Appropriately positioned gastrostomy tube new from prior. 2. No evidence of colitis on the current exam. 3. Extensive abnormality of the lower vagina and vulva. This has worsened from prior. Underlying neoplastic etiology is not excluded though this could alternatively be infectious or inflammatory. Correlate with physical exam. Gynecologic consultation is necessary. 4. Changes in the right lower lung have increased from prior and could suggest aspiration or a mild infectious/inflammatory or postinfectious/postinflammatory change. The report will be called/faxed according to standard departmental protocol. 07/18/2019. Gynecologic consultation by Dr. Linares. Physical examination reveals a large fungating mass involving the posterior vaginal wall with potential extension into the rectum. 07/19/2019. VAGINA, POSTERIOR WALL, BIOPSY: - INVASIVE SQUAMOUS CELL CARCINOMA, WELL TO MODERATELY DIFFERENTIATED. 07/20/2019. Gynecologic follow-up with Dr. Linares. Dr. Linares discussed the patient's case with Dr. Abreu, gynecology oncology at [facility] [place]. Dr. Linares has recommended consideration of palliative external beam radiation therapy. At bedside, the patient is moderately cooperative but still confused about her medical problems. She does note she has some discomfort below. Allergies Allergy/AdvReac Type Severity Reaction Status Date / Time levofloxacin Allergy Intermediate RASH Verified 07/01/19 12:20 Penicillins Allergy Intermediate HIVES Verified 07/02/19 14:24 tramadol Allergy Intermediate rash Verified 07/01/19 12:20 amoxicillin Allergy Unknown UNKNOWN Verified 07/01/19 12:20 Home Medications Home Medications Medication Instructions Recorded Confirmed Type ascorbic acid (vitamin C) 500 mg 500 mg PO QAM tab 04/20/19 07/01/19 History tablet atorvastatin 80 mg tablet 80 mg PO HS tab 04/20/19 07/01/19 History folic acid 1 mg tablet 1 mg PO QAM #30 tab 04/20/19 07/01/19 History furosemide 20 mg tablet 20 mg PO QAM #90 tab 04/20/19 07/01/19 History levothyroxine 75 mcg tablet 75 mcg PO HS #90 tab 04/20/19 07/01/19 History lithium carbonate 300 mg capsule 300 mg PO QAM cap 04/20/19 07/01/19 History melatonin 3 mg tablet 3 mg PO HS tab 04/20/19 07/01/19 History potassium chloride 10 mEq 10 meq PO QAM tab 04/20/19 07/01/19 History tablet,extended release pramipexole 0.5 mg tablet 0.5 mg PO HS tab 04/20/19 07/01/19 History risperidone 0.5 mg tablet 0.5 mg PO BID tab 04/20/19 07/01/19 History umeclidinium 62.5 mcg/actuation 1 puffs INHALATION QAM ea 04/20/19 07/01/19 History blister powder for inhalation acetaminophen 300 mg-codeine 30 mg 1 tab PO DAILY@1200 tab 05/06/19 07/01/19 History tablet cholecalciferol (vitamin D3) 50 4,000 units PO QAM cap 05/06/19 07/01/19 History mcg (2,000 unit) capsule d-mannose 1,000 mg PO BID 05/06/19 07/01/19 History ferrous sulfate 325 mg (65 mg 325 mg PO QAM #60 tab 05/06/19 07/01/19 History iron) tablet lactobacillus combination no.8 3 0 mmu cells PO BID 05/06/19 07/01/19 History billion cell capsule polyethylene glycol 3350 17 17 gm PO QAM 05/06/19 07/01/19 History gram/dose oral powder sennosides 8.6 mg-docusate sodium 1 tab PO BID 05/06/19 07/01/19 History 50 mg tablet acetaminophen [Tylenol] 650 mg PO TID 07/01/19 07/01/19 History aspirin 81 mg PO QAM 07/01/19 07/01/19 History hyoscyamine sulfate [Levsin] 0.125 mg PO BID 07/01/19 07/01/19 History vitamin B complex 1 tab PO QAM 07/01/19 07/01/19 History Patient History Medical History (Updated 07/21/19 @ 09:37 by Dayanara Pittman MD) Bipolar disorder Chronic kidney disease COPD (chronic obstructive pulmonary disease) Dementia PEG (percutaneous endoscopic gastrostomy) adjustment/replacement/removal on 07/[address] Whitt Squamous cell carcinoma of vagina (Chronic) UTI (urinary tract infection) Surgical History S/P hysterectomy Family History Other Lung cancer Social History Preferred Language: Tajik Communication Ability: Effective Beliefs That Will Affect Care: None Current Living Situation: [facility] Feels Safe at Home: Yes Smoking Status: Former smoker Hx Alcohol Use: No Hx Substance Use: No Physical Exam Constitutional: WD/WN, vitals as above well developed and well nourished Eyes: PERRL, conjunctivae normal, anicteric sclerae ENMT: external ear and nose normal, oropharynx normal Neck: trachea midline, no thyromegaly Respiratory: normal respiratory effort, lungs clear to auscultation Cardiovascular: RRR, no murmur, no edema Gastrointestinal (Abdomen): normal bowel sounds, soft, nontender, no hepatosplenomegaly Musculoskeletal: no cyanosis or clubbing, extremities motor strength 5/5 Skin: no rashes, warm and dry Neurologic: patellar DTR's 2+ bilat, sensation intact and PERRL, EOMI, accommodation nl, no face palsy, no dysarthria Psychiatric: A+Ox3, euthymic affect Genitourinary: A manager budget (PULMONOLOGY TECHNICIAN) was present for the female pelvic examination. External genitalia: Labia bilaterally appear pale but uninvolved with cancer. Minimal discharge noted externally as well that does not appear to be bloody. Minimal separation of the labia folds reveals a large necrotic mass involving the posterior vaginal wall with no evidence of significant bleeding. The mass does not appear to involve the introitus. Minimal palpation reveals a hard irregular shaped seedy mass that is tender to palpation. Minimal rectal examination does appear to reveal extension of the tumor into the anterior rectal wall potentially. A more thorough pelvic examination was not completed due to patient intolerance to examination. Results Additional Studies 07/01/19 12:16 CT abd pelvis IV con only Stat 07/01/19 12:17 ECG 12 lead EKG Stat 07/04/19 12:30 FL video swallow Routine 07/18/19 14:04 CT abd pelvis IV con only Urgent 07/19/19 13:39 XR KUB/Abdomen 1 view Urgent Time Spent Attending I spent 35 minutes for this consultation, which included obtaining clinical information, performing a physical exam, recommending a plan of action and answering questions. Additionally, I did coordinate care with Dr. Garg. Greater than 50% of the time spent was direct face to face interaction with the patient.
[2019-07-21] MEDS ORDERED: SODIUM CHLORIDE 0.9% 250 ML IV PRN ×2 (13:07→13:19)
[2019-07-21] MEDS: risperiDONE 0.5 MG TABLET PO SCH ×2 (13:36→20:58)
--- NOTE | 2019-07-21 13:50 | Hospitalist Progress Note ---
Date of Service July 21, 2019 Assessment & Plan (1) Squamous cell carcinoma: * Patient with extensive abnormality of lower vagina and vulva -- mass discovered on exam and CT 07/18. Patient with hx hysterectomy, so unlikely endometrial in origin * [employer] EDUCATION TEACHER consulted for likely neoplastic and malignant growth of posterior vaginal wall/perineum- appreciate recs * Biopsy done- pathology sent -- invasive squamous cell carcinoma, well-mod differentiate --> most likely source of bleeding, as EGD with cautery of AVM without significant bleeding -- son would like to speak with Rad Onc about palliative radiation/options moving forward * H/h with further decline to 7.8 -- transfused 1 unit PRBC -- repeat CBC this evening pending * CA 19-9 and CA-125 without abnormality * Radiation Oncology consult -- appreciate input -- plan to do palliative external beam radiation, 10-15 treatments and/or vaginal cylinder HDR brachytherapy * Palliative Consult placed today -- discuss goals of care tomorrow with son after rad/onc (2) Vaginal mass: * As above (3) Clostridium difficile infection: * Abdominal distension 07/19 with fecal retention on KUB following episode of foul smelling diarrhea. 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 As high as 158 on 07/06 -- likely secondary to poor oral intake, dysphagia * PEG tube placed by Dr. Whitt on 07/18 * Tin Can Laborer consult for TF recommendations -- was initially given fibersource, but as patient with improved oral intake and worsening abdominal pain, held for now-- will re-assess off tube feeds -- may need to be used as supplemental nutrition source as patient unlikely to have adequate protein * Increased free water flushes to 150ml Q4h per PEG on 07/20 -- may need to increase, however will monitor in AM as increased to 150ml in the evening prior to morning lab draw * BMP in AM (5) Hyperglycemia: * Patient with BSG as high as 404, however patient had initiated on tube feeds and was continuing to receive D5 while continuing with clear liquid diet * Continue BSG AC/HS with SSI but lowered CF and CR as patient continuing to eat. * SNF unable to do continuous feeds -- per conversation with can labeler, patient may benefit from overnight feeds to supplement if she continues to eat throughout the day. * Lantus 8 units qhs added 07/19 * Sugars improved -- running 130-190 * Continue to monitor (6) Hypercalcemia: * Chronic * Stable- secondary to hyperparathyroidism d/t chronic lithium use/parathyroid gland hyperplasia-- with elevated PTH at 87.1. PTH related protein elevated at 31 * With adequate hydration, patient has been able to manage DI and hypercalcemia, however given recent difficulty swallowing patient to undergo PEG placement as above * Would not stop lithium at this time, as reversal of hyperplasia not likely. * Zoledronic acid on 07/15 * Ca stable at 8.4, from peak of 11.1- may have been higher d/t low albumin * Continue to monitor (7) Acute kidney injury superimposed on chronic kidney disease: * Creatinine slightly worse, 1.52 from 1.47. * Baseline appears to be ~1.4. Previously elevated to max of 2 on 07/03-- likely prerenal due to poor PO intake * Continue to monitor (8) GI bleed: * Originally admitted for GI bleed, however addie d/t squamous cell carcinoma of vaginal origin * Melena prior to admission with subsequent EGD on 07/11 with cautery of AVM * Patient did receive 2 units PRBC on 07/05 with hemoglobin improved to 9.3 * Additional unit given today for hgb 7.8- repeat this evening pending * Continue to monitor (9) Dysphagia: * Video swallow -- patient able to have nectar thick liquids but Speech Therapy recommended transition to honey thick if had difficulty-- may have pills with pudding - likely continued aspiration and evidence of possible aspiration/infectious process RLL * Unclear as to why worsening dysphagia-- possible progression of dementia/parkinsonism * TSH wnl * PEG tube as above * Given CT findings as above, patient initiated back on Zosyn for aspiration pneumonitis --> transitioned to PO Augmentin syrup * Patient tolerating pureed diet (10) CKD (chronic kidney disease), stage III: * As above * Cr elevated at 1.52, but baseline appears to be ~1.4 * Continue to monitor (11) Leukocytosis: * high at 18k on discharge * Continues to be elevated, but decreased to 13k today * Peripheral smear with normocytic anemia and leukocytosis, no overt evidence for dysplastic features, is likely reactive process * Colitis on initial CT, E.coli in urine, and now with C. diff diarrhea contributing as well as Aspiration pneumonitis, as well as current PRESCHO[employer] SPECIAL EDUCATION TEACHER malignancy (12) Hypothyroidism: * Continue Synthroid * Last TSH on file 8.32 in February 2018 * TSH 0.473, wnl (13) Hyperlipemia: * Continue atorvastatin (14) HTN (hypertension): * Slightly elevated, but stable- 145/63 currently * Outpatient lasix held as patient borderline hypotensive throughout stay * Monitor the blood pressure closely * Consider re-initating in AM, but will hold off for now (15) Colitis: * Colitis seen on CT on admission. Continued leukocytosis. Peripheral Smear as above. 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 Supervising Physician Co-Signing Physician Notes PA Supervision Note: I did not personally see or examine the patient today, but I verified all nielsen points of PEARL Rehman's assessment and plan with the following exceptions/additions: None Subjective Patient evaluated this morning. She was pleasant, cooperative. She states she continues to have abdominal "soreness" but states she has been moving her bowels. She denies any shortness of breath, but does have occassional cough after eating. Her appetite is improved and she ate all of her mashed potatoes during our conversation. She is agreeable to radiation moving forward, but wants input from her son, Robert. Review of Systems Constitutional: no fever and no chills Ear, Nose, Mouth, Throat: + sore throat; no dysphagia Respiratory: + cough; no dyspnea Cardiovascular: no chest pain and no dyspnea Gastrointestinal: + abdominal pain and + diarrhea/loose stools; no vomiting Genitourinary: + urinary incontinence; no dysuria Integumentary: no rash and no lesions Psychiatric: no depression and no anxiety Physical Exam Constitutional: + obese and cooperative; no acute distress ENMT: oral ginger Neck: trachea midline, no thyromegaly Respiratory: no respiratory distress and no labored breathing Auscultation: + diminished lung sounds and + rhonchi Cardiovascular: Rate/Rhythm: regular rate and regular rhythm Heart Sounds: + gallop (+S3); no murmur Gastrointestinal (Abdomen): Inspection/Auscultation: abdomen normal to inspection and normal bowel sounds Percussion/Palpation: abdomen soft and normal to percussion PEG present Neurologic: PERRL, EOMI, accommodation nl, no face palsy, no dysarthria Psychiatric: Orientation: alert, oriented to person and oriented to place Insight: + poor insight Lymphatic: no cervical or axillary lymphadenopathy Results & Data Vital Signs (Past 12 Hours) Vital Signs Temp Pulse Resp BP BP Pulse Ox 07/21/19 11:46 88 18 109/62 96 07/21/19 07:35 78 17 118/67 100 07/21/19 07:09 81 19 96 07/21/19 03:00 35.8 C L 92 H 20 109/57 L 98 Laboratory Results 07/21/19 07/21/19 07/21/19 Range/Units 13:31 11:26 07:01 WBC 13.24 H (4.8-10.8) K/uL RBC 3.00 L (4.2-5.4) M/uL Hgb 7.8 L (12.0-16.0) g/dL Hct 27.3 L (37-47) % MCV 91.0 (80-100) fL MCH 26.0 (25-34) pg MCHC 28.6 L (32-36) g/dL RDW Std Deviation 61.7 H (36.4-46.3) fL RDW Coeff of Catarino 18.7 H (11.5-14.5) % Plt Count 223 (130-400) K/uL MPV 10.8 H (7.4-10.4) fL Immature Gran % (Auto) 0.3 % Neut % (Auto) 84.4 % Lymph % (Auto) 8.3 % [place] % (Auto) 4.5 % Eos % (Auto) 2.4 % Baso % (Auto) 0.1 % Immature Gran # (Auto) 0.04 H (0.00-0.02) K/uL Neut # (Auto) 11.17 H (1.4-6.5) K/uL Lymph # (Auto) 1.10 L (1.2-3.4) K/uL [place] # (Auto) 0.60 H (0.11-0.59) K/uL Eos # (Auto) 0.32 (0-0.5) K/uL Baso # (Auto) 0.01 (0-0.2) K/uL Polychromasia 1+ Anisocytosis Present Spherocytes 1+ Sodium (136-145) mmol/L Potassium (3.5-5.1) mmol/L Chloride (98-107) mmol/L Carbon Dioxide (21-32) mmol/L Anion Gap (3-11) BUN (7-18) mg/dl Creatinine (0.6-1.2) mg/dl Est Cr Clr Drug Dosing ml/min Est GFR ( Amer) Est GFR (Non-Af Amer) BUN/Creatinine Ratio (10-20) Glucose (70-99) mg/dl POC Glucose 122 H (70-99) Calcium (8.5-10.1) mg/dl Total Bilirubin (0.2-1) mg/dl AST (15-37) U/L ALT (12-78) U/L Alkaline Phosphatase (45-117) U/L Total Protein (6.4-8.2) gm/dl Albumin (3.4-5.0) gm/dl Globulin (2.5-4.0) gm/dl Albumin/Globulin Ratio (0.9-2) CA 19-9 Antigen (<34) U/ML CA 125 Antigen (<35) U/ML Blood Type Pending Antibody Screen Pending Crossmatch See Detail 07/21/19 07/20/19 07/20/19 Range/Units 07:01 20:10 16:39 WBC (4.8-10.8) K/uL RBC (4.2-5.4) M/uL Hgb (12.0-16.0) g/dL Hct (37-47) % MCV (80-100) fL MCH (25-34) pg MCHC (32-36) g/dL RDW Std Deviation (36.4-46.3) fL RDW Coeff of Catarino (11.5-14.5) % Plt Count (130-400) K/uL MPV (7.4-10.4) fL Immature Gran % (Auto) % Neut % (Auto) % Lymph % (Auto) % [place] % (Auto) % Eos % (Auto) % Baso % (Auto) % Immature Gran # (Auto) (0.00-0.02) K/uL Neut # (Auto) (1.4-6.5) K/uL Lymph # (Auto) (1.2-3.4) K/uL [place] # (Auto) (0.11-0.59) K/uL Eos # (Auto) (0-0.5) K/uL Baso # (Auto) (0-0.2) K/uL Polychromasia Anisocytosis Spherocytes Sodium 147 H (136-145) mmol/L Potassium 3.6 (3.5-5.1) mmol/L Chloride 114 H (98-107) mmol/L Carbon Dioxide 28 (21-32) mmol/L Anion Gap 4.0 (3-11) BUN 9 (7-18) mg/dl Creatinine 1.52 H (0.6-1.2) mg/dl Est Cr Clr Drug Dosing 36.0 ml/min Est GFR ( Amer) 36.9 Est GFR (Non-Af Amer) 31.8 BUN/Creatinine Ratio 5.9 L (10-20) Glucose 149 H (70-99) mg/dl POC Glucose 190 H 139 H (70-99) Calcium 8.4 L (8.5-10.1) mg/dl Total Bilirubin 0.2 (0.2-1) mg/dl AST 49 H (15-37) U/L ALT 41 (12-78) U/L Alkaline Phosphatase 185 H (45-117) U/L Total Protein 5.9 L (6.4-8.2) gm/dl Albumin 1.6 L (3.4-5.0) gm/dl Globulin 4.3 H (2.5-4.0) gm/dl Albumin/Globulin Ratio 0.4 L (0.9-2) CA 19-9 Antigen (<34) U/ML CA 125 Antigen (<35) U/ML Blood Type Antibody Screen Crossmatch 07/19/19 Range/Units 06:57 WBC (4.8-10.8) K/uL RBC (4.2-5.4) M/uL Hgb (12.0-16.0) g/dL Hct (37-47) % MCV (80-100) fL MCH (25-34) pg MCHC (32-36) g/dL RDW Std Deviation (36.4-46.3) fL RDW Coeff of Catarino (11.5-14.5) % Plt Count (130-400) K/uL MPV (7.4-10.4) fL Immature Gran % (Auto) % Neut % (Auto) % Lymph % (Auto) % [place] % (Auto) % Eos % (Auto) % Baso % (Auto) % Immature Gran # (Auto) (0.00-0.02) K/uL Neut # (Auto) (1.4-6.5) K/uL Lymph # (Auto) (1.2-3.4) K/uL [place] # (Auto) (0.11-0.59) K/uL Eos # (Auto) (0-0.5) K/uL Baso # (Auto) (0-0.2) K/uL Polychromasia Anisocytosis Spherocytes Sodium (136-145) mmol/L Potassium (3.5-5.1) mmol/L Chloride (98-107) mmol/L Carbon Dioxide (21-32) mmol/L Anion Gap (3-11) BUN (7-18) mg/dl Creatinine (0.6-1.2) mg/dl Est Cr Clr Drug Dosing ml/min Est GFR ( Amer) Est GFR (Non-Af Amer) BUN/Creatinine Ratio (10-20) Glucose (70-99) mg/dl POC Glucose (70-99) Calcium (8.5-10.1) mg/dl Total Bilirubin (0.2-1) mg/dl AST (15-37) U/L ALT (12-78) U/L Alkaline Phosphatase (45-117) U/L Total Protein (6.4-8.2) gm/dl Albumin (3.4-5.0) gm/dl Globulin (2.5-4.0) gm/dl Albumin/Globulin Ratio (0.9-2) CA 19-9 Antigen 10 (<34) U/ML CA 125 Antigen 13 (<35) U/ML Blood Type Antibody Screen Crossmatch PG Care Time/CCT Total # of Minutes Spent Total Time Spent with Patient: Total time spent is greater than 50% in coordination of care (as documented) at patient's floor/unit and/or counseling patient: (1) GI bleed GI bleed type/associated pathology: unspecified gastrointestinal hemorrhage type Qualified Code(s): K92.2 - Gastrointestinal hemorrhage, unspecified (2) Anemia Anemia type: unspecified type Qualified Code(s): D64.9 - Anemia, unspecified
--- NOTE | 2019-07-21 15:25 | Palliative Care Consultation ---
Date of Consultation July 21, 2019 Assessment & Plan (1) Goals of care, counseling/discussion: -83 year old female patient with PMH bipolar disorder, COPD, chronic kidney disease, dementia, UTI, and hysterectomy, presented to the hospital 20 days ago from the [facility] with c/o GI bleed. She underwent several EGDs and had cauterization of an AVM. She continued to struggle with anemia as well as issues with worsening dysphagia. Patient had a PEG tube placed and was started on tube feedings. The patient has since been advanced back to an oral diet of pureed foods and thickened liquids. Tube feedings have been stopped. Patient continued to have bleeding that was then thought to possibly be vaginal. Patient was examined and found to have a large posterior vaginal mass that actually could be involving the rectum as well. LANDSCAPE ARCHITECTURE PROFESSOR consulted. Biopsy was taken and has confirmed invasive squamous cell carcinoma. Radiation oncology consulted and are offering palliative XRT (10-15 fractions) to the mass, patient went for CT simulation today. Patient is also being treated for C. diff colitis. She is obese, but malnourished with albumin of 1.6. Baseline creatinine anywhere from 1.2-1.5 from what I can see in records, is currently 1.56. Patient does have dementia, but is mostly oriented x4 and able to make decisions. Rad/onc is going to discuss with wili's son prior to formally starting the palliative XRT. Palliative care is consulted to discuss long-term goals with patient and family. -Met with patient in room 255. She is awake, alert and oriented x3. Nursing staff reports that patient can be somewhat cantankerous at times and makes crude comments. She was pleasant and talkative with me. She does seem to have limited insight into her overall complex health situation, but she was able to tell me why she is in the hospital and that she is to be undergoing palliative XRT. She also makes off comments about having a baby and sexual innuendos. -Patient told me she has been living at the [facility] for several years now, but she continues to hope that she could someday live at home with her family. She acknowledged that for the foreseeable future, [facility] [place] [facility] the [facility]. She is not particularly fond of the thickened liquids, but understands why this is being done. -Patient states that she still wants whatever is treatable, to be treated. She feels that she has a good quality of life. She enjoys playing cards and talking with friends at the [facility]. -Patient has a POLST form stating DNR, limited additional interventions, abx with comfort as the goal, and trial periods of artificial hydration/nutrition. IT was signed by her son, Geovany Wright. -Would like to discuss with patient and her son about what to expect in the future and what patient's wishes are moving forward after the palliative XRT. Called son, no answer. Will try again tomorrow and continue to follow along. (2) Squamous cell carcinoma of vagina: (3) PEG (percutaneous endoscopic gastrostomy) adjustment/replacement/removal: (4) Clostridium difficile infection: (5) Acute kidney injury superimposed on chronic kidney disease: History of Present Illness Attending Physician: Pratibha Garg MD History of Present Illness This 83 year old female patient with PMH bipolar disorder, COPD, chronic kidney disease, dementia, UTI, and hysterectomy, presented to the hospital 20 days ago from the [facility] with c/o GI bleed. She underwent several EGDs and had cauterization of an AVM. She continued to struggle with anemia as well as issues with worsening dysphagia. Patient had a PEG tube placed and was started on tube feedings. The patient has since been advanced back to an oral diet of pureed foods and thickened liquids. Tube feedings have been stopped. Patient continued to have bleeding that was then thought to possibly be vaginal. Patient was examined and found to have a large posterior vaginal mass that actually could be involving the rectum as well. LANDSCAPE ARCHITECTURE PROFESSOR consulted. Biopsy was taken and has confirmed invasive squamous cell carcinoma. Radiation oncology consulted and are offering palliative XRT (10-15 fractions) to the mass, patient went for CT simulation today. Patient is also being treated for C. diff colitis. She is obese, but malnourished with albumin of 1.6. Baseline creatinine anywhere from 1.2-1.5 from what I can see in records, is currently 1.56. Patient does have dementia, but is mostly oriented x4 and able to make decisions. Rad/onc is going to discuss with wili's son prior to formally starting the palliative XRT. Palliative care is consulted to discuss long-term goals with patient and family. Thank you kindly for this consult. Palliative care team will follow as needed. Allergies Allergy/AdvReac Type Severity Reaction Status Date / Time levofloxacin Allergy Intermediate RASH Verified 07/01/19 12:20 Penicillins Allergy Intermediate HIVES Verified 07/02/19 14:24 tramadol Allergy Intermediate rash Verified 07/01/19 12:20 amoxicillin Allergy Unknown UNKNOWN Verified 07/01/19 12:20 Home Medications Home Medications Medication Instructions Recorded Confirmed Type ascorbic acid (vitamin C) 500 mg 500 mg PO QAM tab 04/20/19 07/01/19 History tablet atorvastatin 80 mg tablet 80 mg PO HS tab 04/20/19 07/01/19 History folic acid 1 mg tablet 1 mg PO QAM #30 tab 04/20/19 07/01/19 History furosemide 20 mg tablet 20 mg PO QAM #90 tab 04/20/19 07/01/19 History levothyroxine 75 mcg tablet 75 mcg PO HS #90 tab 04/20/19 07/01/19 History lithium carbonate 300 mg capsule 300 mg PO QAM cap 04/20/19 07/01/19 History melatonin 3 mg tablet 3 mg PO HS tab 04/20/19 07/01/19 History potassium chloride 10 mEq 10 meq PO QAM tab 04/20/19 07/01/19 History tablet,extended release pramipexole 0.5 mg tablet 0.5 mg PO HS tab 04/20/19 07/01/19 History risperidone 0.5 mg tablet 0.5 mg PO BID tab 04/20/19 07/01/19 History umeclidinium 62.5 mcg/actuation 1 puffs INHALATION QAM ea 04/20/19 07/01/19 History blister powder for inhalation acetaminophen 300 mg-codeine 30 mg 1 tab PO DAILY@1200 tab 05/06/19 07/01/19 History tablet cholecalciferol (vitamin D3) 50 4,000 units PO QAM cap 05/06/19 07/01/19 History mcg (2,000 unit) capsule d-mannose 1,000 mg PO BID 05/06/19 07/01/19 History ferrous sulfate 325 mg (65 mg 325 mg PO QAM #60 tab 05/06/19 07/01/19 History iron) tablet lactobacillus combination no.8 3 0 mmu cells PO BID 05/06/19 07/01/19 History billion cell capsule polyethylene glycol 3350 17 17 gm PO QAM 05/06/19 07/01/19 History gram/dose oral powder sennosides 8.6 mg-docusate sodium 1 tab PO BID 05/06/19 07/01/19 History 50 mg tablet acetaminophen [Tylenol] 650 mg PO TID 07/01/19 07/01/19 History aspirin 81 mg PO QAM 07/01/19 07/01/19 History hyoscyamine sulfate [Levsin] 0.125 mg PO BID 07/01/19 07/01/19 History vitamin B complex 1 tab PO QAM 07/01/19 07/01/19 History Patient History Medical History (Updated 07/21/19 @ 15:25 by KRISTI Abdul) Bipolar disorder Chronic kidney disease COPD (chronic obstructive pulmonary disease) Dementia Goals of care, counseling/discussion PEG (percutaneous endoscopic gastrostomy) adjustment/replacement/removal on 07/[address] Whitt Squamous cell carcinoma of vagina (Chronic) UTI (urinary tract infection) Surgical History S/P hysterectomy Family History Other Lung cancer Social History Preferred Language: Frisian Communication Ability: Effective Beliefs That Will Affect Care: None Current Living Situation: [facility] Feels Safe at Home: Yes Smoking Status: Former smoker Hx Alcohol Use: No Hx Substance Use: No Review of Systems Review of Systems: Const: + weakness ENMT: + dysphagia Resp: No SOB, no cough Cardio: No chest pain GI: No abdominal pain, no N/V MS: No musculoskeletal pain Neuro: + confusion(reported by staff) Physical Exam Constitutional: + ill appearing, + morbidly obese and + physical limitations ENMT: external ear and nose normal, oropharynx normal Respiratory: normal respiratory effort, lungs clear to auscultation Auscu ltation: + diminished lung sounds Cardiovascular: Rate/Rhythm: regular rate and regular rhythm Extremities: + edema (generalized trace edema) Gastrointestinal (Abdomen): Inspection/Auscultation: normal bowel sounds Percussion/Palpation: abdomen soft; abdomen nontender Dressing in center of abdomen c/d/i Skin: + pallor mild facial seborrheic dermatitis Neurologic: moves all extremities and awake Psychiatric: Orientation: alert, oriented to person and oriented to place Insight: + limited insight and + impaired insight Judgement: + limited judgement Results & Data Vital Signs (Past 12 Hours) Vital Signs Temp Pulse Pulse Resp BP BP BP 07/21/19 15:01 88 20 07/21/19 14:50 36.8 C 82 18 129/81 07/21/19 11:46 88 18 109/62 07/21/19 07:35 78 17 118/67 07/21/19 07:09 81 19 Pulse Ox 07/21/19 15:01 95 07/21/19 14:50 07/21/19 11:46 96 07/21/19 07:35 100 07/21/19 07:09 96 Time Spent Midlevel 50 minutes with >50% of the time spent at bedside with patient discussing condition and GOC, as well as collaborating with provider to discuss case.
[2019-07-21 19:59] LABS: Hematocrit (blood only) 35.1 % (37-47); Hemoglobin 10.3 g/dL (12.0-16.0); Mean Corpuscular Hemoglobin 27.3 pg (25-34); Mean Corpuscular Hgb Conc 29.3 g/dL (32-36); Mean Corpuscular Volume 93.1 fL (80-100); Mean Platelet Volume 10.9 fL (7.4-10.4); Platelet Count 223 K/uL (130-400); RDW Coefficient of Variation 18.4 % (11.5-14.5); RDW Standard Deviation 61.6 fL (36.4-46.3); Red Blood Count 3.77 M/uL (4.2-5.4); White Blood Count 14.31 K/uL (4.8-10.8)
[2019-07-21] MEDS: INSULIN GLARGINE SOLOSTAR 100 UNITS/ML 3 ML PEN SC SCH (20:48)
[2019-07-21] MEDS: ATORVASTATIN 40 MG TAB PO SCH (20:56)
[2019-07-21] MEDS: PRAMIPEXOLE DIHYDROCHLO 0.5 MG TAB PO SCH (20:57)
[2019-07-21] MEDS: LEVOTHYROXINE SODIUM 75 MCG TABLET PO SCH (20:58)
[2019-07-22] MEDS: RASPBERRY SYRUP 5 ML UDP PO SCH ×5 (00:21→23:54)
[2019-07-22] MEDS: VANCOMYCIN HCL 125 MG/2.5ML SOLN PO SCH ×5 (00:21→23:54)
[2019-07-22] MEDS: TUBE FEEDING WATER FLUSH GT SCH ×7 (00:22→23:49)
[2019-07-22] MEDS: ACETAMINOPHEN 325 MG TAB PO PRN (03:12)
[2019-07-22 07:50] LABS: Hematocrit (blood only) 33.8 % (37-47); Mean Corpuscular Hemoglobin 27.2 pg (25-34); Mean Corpuscular Hgb Conc 29.6 g/dL (32-36); Mean Corpuscular Volume 91.8 fL (80-100); Mean Platelet Volume 10.5 fL (7.4-10.4); Nucleated RBC # (auto) 0.07 K/uL (0-0); Nucleated RBC % (auto) 0.4 %; Platelet Count 256 K/uL (130-400); RDW Coefficient of Variation 18.5 % (11.5-14.5); RDW Standard Deviation 61.8 fL (36.4-46.3); Red Blood Count 3.68 M/uL (4.2-5.4); White Blood Count 15.33 K/uL (4.8-10.8)
[2019-07-22 08:22] LABS: Albumin Level 1.9 gm/dl (3.4-5.0); BUN Creatinine Ratio 5.5 (10-20); Calcium 8.3 mg/dl (8.5-10.1); Creatinine Clr Calc Pharmacy 35.2 ml/min; Est GFR (African American) 36.3; Est GFR (Non-African American) 31.3; Potassium 3.7 mmol/L (3.5-5.1)
[2019-07-22] MEDS: TIOTROPIUM BROMIDE 5 PUFF/90 MCG INH INH SCH (08:22)
[2019-07-22] MEDS: risperiDONE 0.5 MG TABLET PO SCH ×2 (08:22→20:55)
[2019-07-22] MEDS: LITHIUM CARBONATE 300 MG TAB PO SCH (08:22)
[2019-07-22] MEDS: FOLIC ACID 1 MG TAB PO SCH (08:22)
[2019-07-22] MEDS: POT PHOSPHATE MONOBASIC W/ SOD TAB PO SCH ×4 (08:22→20:55)
[2019-07-22] MEDS: NYSTATIN SUSP 500,000 U/5 ML UDC PO SCH ×4 (08:25→20:54)
[2019-07-22] MEDS: INSULIN ASPART 100 UNITS/ML 3 ML PEN SC SCH ×3 (08:25→18:05)
[2019-07-22] MEDS: PANTOprazole 40 MG TAB PO SCH (08:25)
[2019-07-22 08:26] LABS: Albumin Globulin Ratio 0.4 (0.9-2); Bilirubin,Total 0.3 mg/dl (0.2-1); Globulin 4.9 gm/dl (2.5-4.0); Total Protein 6.8 gm/dl (6.4-8.2)
[2019-07-22] MEDS: AMOXICILLIN/CLAVULANATE SUSP 400MG/5ML 50ML BOTTLE PO SCH ×2 (08:33→17:53)
--- NOTE | 2019-07-22 12:46 | Hospitalist Progress Note ---
Date of Service July 22, 2019 Assessment & Plan (1) Squamous cell carcinoma: * Patient with extensive abnormality of lower vagina and vulva -- mass discovered on exam and CT 07/18. Patient with hx hysterectomy, so unlikely endometrial in origin * INDUSTRIAL SPRAY PAINTER consulted for likely neoplastic and malignant growth of posterior vaginal wall/perineum- appreciate recs * Biopsy done- pathology sent -- invasive squamous cell carcinoma, well-mod differentiate --> most likely source of bleeding, as EGD with cautery of AVM without significant bleeding -- son had conversation with Dr. Pittman from Rad Onc last evening about palliative radiation/options moving forward --> patient had first RT today, next treatment on Thursday-- [facility] willing to provide transport for outpatient treatment * H/h with further decline to 7.8 on 07/21 -- transfused 1 unit PRBC -- today 10.0/33.8 * CA 19-9 and CA-125 without abnormality * Radiation Oncology consult -- appreciate input -- palliative external beam radiation, 1st treatment today -- will receive second treatment on Thursday -- unsure on total number of treatments until evaluated based on response, likely in the range of 10-15 treatments * Palliative Consult (2) Vaginal mass: * As above (3) Clostridium difficile infection: * Stable * Abdominal distension 07/19 with fecal retention on KUB following episode of foul smelling diarrhea. 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 As high as 158 on 07/06 -- likely secondary to poor oral intake, dysphagia * PEG tube placed by Dr. Whitt on 07/18 * Sales Analytics Manager consult for TF recommendations -- was initially given fibersource, but as patient with improved oral intake and worsening abdominal pain, held for now-- will have overnight feeding tonight -- may need to be used as supplemental nutrition source as patient unlikely to have adequate protein * Increased free water flushes to 150ml Q4h per PEG on 07/20 --> increased to 200ml Q4h today -- with feed overnight tonight and PO intake during day, hoping improvement in AM -- may need to increase free water, but monitor volume status (goal 1-2L/day) * BMP in AM (5) Hyperglycemia: * Patient with BSG as high as 404, however patient had initiated on tube feeds and was continuing to receive D5 while continuing with clear liquid diet * Continue BSG AC/HS with SSI but lowered CF and CR as patient continuing to eat. * SNF unable to do continuous feeds -- per conversation with sports management intern, patient may benefit from overnight feeds to supplement if she continues to eat throughout the day. * Lantus 8 units qhs added 07/19 * Sugars continue to be stable -- running 122-172 * Continue to monitor (6) Hypercalcemia: * Chronic * Stable- secondary to hyperparathyroidism d/t chronic lithium use/parathyroid gland hyperplasia-- with elevated PTH at 87.1. PTH related protein elevated at 31 * With adequate hydration, patient has been able to manage DI and hypercalcemia, however given recent difficulty swallowing patient underwent PEG placement as above * Would not stop lithium at this time, as reversal of hyperplasia not likely. * Zoledronic acid on 07/15 * Ca down to 8.3, from peak of 11.1 * Continue to monitor (7) Acute kidney injury superimposed on chronic kidney disease: * Creatinine slightly worse, 1.54 * Baseline appears to be ~1.4. Previously elevated to max of 2 on 07/03-- likely prerenal due to poor PO intake -- will continue to monitor as free water flushes increased and patient has only been taking 15-20% of trays today (8) GI bleed: * Originally admitted for GI bleed, however addie d/t squamous cell carcinoma of vaginal origin * Melena prior to admission with subsequent EGD on 07/11 with cautery of AVM * Patient did receive 2 units PRBC on 07/05 with hemoglobin improved to 9.3 * Additional unit given 07/21 for hgb 7.8- repeat with improvement to * Continue to monitor (9) Dysphagia: * Video swallow -- patient able to have nectar thick liquids but Speech Therapy recommended transition to honey thick if had difficulty-- may have pills with pudding - likely continued aspiration and evidence of possible aspiration/infectious process RLL * Unclear as to why worsening dysphagia-- possible progression of dementia/parkinsonism * TSH wnl * PEG tube as above * Given CT findings as above, patient initiated back on Zosyn for aspiration pneumonitis --> transitioned to PO Augmentin syrup * Patient tolerating pureed diet (10) CKD (chronic kidney disease), stage III: * As above * Cr elevated at 1.54, but baseline appears to be ~1.4 * Continue to monitor (11) Leukocytosis: * high at 18k on discharge * Continues to be elevated at 15k * Peripheral smear with normocytic anemia and leukocytosis, no overt evidence for dysplastic features, is likely reactive process * Colitis on initial CT, E.coli in urine, and now with C. diff diarrhea contributing as well as Aspiration pneumonitis, as well as current INDUSTRIAL SPRAY PAINTER malignancy (12) Hypothyroidism: * Continue Synthroid * Last TSH on file 8.32 in February 2018 * TSH 0.473, wnl (13) Hyperlipemia: * Continue atorvastatin (14) HTN (hypertension): * Slightly elevated, but stable- 148/77 currently * Outpatient lasix held as patient borderline hypotensive throughout stay * Monitor the blood pressure closely * Consider re-initiating in AM, but will hold off for now (15) Colitis: * Colitis seen on CT on admission. Continued leukocytosis. Peripheral Smear as above. 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: * As above (20) Recurrent UTI: * culture growing E coli, dugan sensitive -- patient intially treated with Zosyn-- transitioned to Rocephin-- completed >7 day course * Procalcitonin wnl 07/11 (21) DVT prophylaxis: * SCDs * Chemical prophylaxis held in setting of bleeding Dispo: external beam radiation today, next treatment Thursday with possible discharge thursday or thursday and will need transport from [facility] for continued treatment Supervising Physician Co-Signing Physician Notes PA Supervision Note: I did not personally see or examine the patient today, but I verified all nielsen points of PEARL Rehman's assessment and plan with the following exceptions/additions: None Subjective Patient confirms she continues to have diarrhea, but it is not as bad as it was yesterday. She continues to states she does have some soreness "inside" her abdomen, but is unable to localized. Having a BM does not decrease this pain. She denies any radiation of the pain or associated fevers, chills, nausea or vomit. She states she doesn't have too much of an appetite but was able to eat several bites of applesauce and half a chocolate pudding, as well as several sips of cranberry juice with my assistance without much difficulty. She denies much comment when asked about how radiation went today, and changes the topic. She continues to express she wants to go back to "[place]" at [facility], and is eager to be able to return. Discussion with the patient about being able to be discharged to [facility] and arranging transport for her continuing RT sometime later this or Thursday, with patient agreeable. Review of Systems Constitutional: no fever and no chills Ear, Nose, Mouth, Throat: no sore throat and no dysphagia Respiratory: no cough and no dyspnea Cardiovascular: no chest pain and no palpitations Gastrointestinal: + abdominal pain and + diarrhea/loose stools; no nausea and no vomiting Genitourinary: no dysuria and no hematuria Physical Exam Constitutional: + obese and cooperative; no acute distress Eyes: PERRL, conjunctivae normal, anicteric sclerae Neck: trachea midline, no thyromegaly Respiratory: normal respiratory effort; no respiratory distress and no labored breathing Auscultation: + diminished lung sounds Cardiovascular: Rate/Rhythm: regular rate and regular rhythm Heart Sounds: + gallop (+S3); no murmur Gastrointestinal (Abdomen): Inspection/Auscultation: normal bowel sounds; abdomen not distended Percussion/Palpation: + abdomen tender (minimally, diffusely), abdomen soft and + tympanic to percussion; no hepatosplenomegaly PEG tube present and still at 4cm Skin: no rashes, warm and dry Neurologic: awake Cranial Nerves: PERRL Psychiatric: Orientation: alert, oriented to person and oriented to place Insight: + poor insight Lymphatic: no cervical or axillary lymphadenopathy Results & Data Vital Signs (Past 12 Hours) Vital Signs Temp Pulse Resp BP Pulse Ox 07/22/19 07:26 35.6 C L 94 H 20 131/75 94 Laboratory Results 07/22/19 07/22/19 07/22/19 Range/Units 11:58 07:41 07:28 WBC (4.8-10.8) K/uL RBC (4.2-5.4) M/uL Hgb (12.0-16.0) g/dL Hct (37-47) % MCV (80-100) fL MCH (25-34) pg MCHC (32-36) g/dL RDW Std Deviation (36.4-46.3) fL RDW Coeff of Catarino (11.5-14.5) % Plt Count (130-400) K/uL MPV (7.4-10.4) fL Absolute Nucleated RBC (0-0) K/uL Nucleated RBC % (auto) % Sodium 154 H (136-145) mmol/L Potassium 3.7 (3.5-5.1) mmol/L Chloride 121 H (98-107) mmol/L Carbon Dioxide 28 (21-32) mmol/L Anion Gap 5.0 (3-11) BUN 9 (7-18) mg/dl Creatinine 1.54 H (0.6-1.2) mg/dl Est Cr Clr Drug Dosing 35.2 ml/min Est GFR ( Amer) 36.3 Est GFR (Non-Af Amer) 31.3 BUN/Creatinine Ratio 5.5 L (10-20) Glucose 152 H (70-99) mg/dl POC Glucose 134 H 172 H (70-99) Calcium 8.3 L (8.5-10.1) mg/dl Total Bilirubin 0.3 (0.2-1) mg/dl AST 30 (15-37) U/L ALT 39 (12-78) U/L Alkaline Phosphatase 206 H (45-117) U/L Total Protein 6.8 (6.4-8.2) gm/dl Albumin 1.9 L (3.4-5.0) gm/dl Globulin 4.9 H (2.5-4.0) gm/dl Albumin/Globulin Ratio 0.4 L (0.9-2) Blood Type Antibody Screen Crossmatch 07/22/19 07/21/19 07/21/19 Range/Units 07:28 20:41 19:47 WBC 15.33 H 14.31 H (4.8-10.8) K/uL RBC 3.68 L 3.77 L (4.2-5.4) M/uL Hgb 10.0 L 10.3 L (12.0-16.0) g/dL Hct 33.8 L 35.1 L (37-47) % MCV 91.8 93.1 (80-100) fL MCH 27.2 27.3 (25-34) pg MCHC 29.6 L 29.3 L (32-36) g/dL RDW Std Deviation 61.8 H 61.6 H (36.4-46.3) fL RDW Coeff of Catarino 18.5 H 18.4 H (11.5-14.5) % Plt Count 256 223 (130-400) K/uL MPV 10.5 H 10.9 H (7.4-10.4) fL Absolute Nucleated RBC 0.07 H (0-0) K/uL Nucleated RBC % (auto) 0.4 % Sodium (136-145) mmol/L Potassium (3.5-5.1) mmol/L Chloride (98-107) mmol/L Carbon Dioxide (21-32) mmol/L Anion Gap (3-11) BUN (7-18) mg/dl Creatinine (0.6-1.2) mg/dl Est Cr Clr Drug Dosing ml/min Est GFR ( Amer) Est GFR (Non-Af Amer) BUN/Creatinine Ratio (10-20) Glucose (70-99) mg/dl POC Glucose 182 H (70-99) Calcium (8.5-10.1) mg/dl Total Bilirubin (0.2-1) mg/dl AST (15-37) U/L ALT (12-78) U/L Alkaline Phosphatase (45-117) U/L Total Protein (6.4-8.2) gm/dl Albumin (3.4-5.0) gm/dl Globulin (2.5-4.0) gm/dl Albumin/Globulin Ratio (0.9-2) Blood Type Antibody Screen Crossmatch 07/21/19 07/21/19 07/21/19 Range/Units 16:35 13:31 07:45 WBC (4.8-10.8) K/uL RBC (4.2-5.4) M/uL Hgb (12.0-16.0) g/dL Hct (37-47) % MCV (80-100) fL MCH (25-34) pg MCHC (32-36) g/dL RDW Std Deviation (36.4-46.3) fL RDW Coeff of Catarino (11.5-14.5) % Plt Count (130-400) K/uL MPV (7.4-10.4) fL Absolute Nucleated RBC (0-0) K/uL Nucleated RBC % (auto) % Sodium (136-145) mmol/L Potassium (3.5-5.1) mmol/L Chloride (98-107) mmol/L Carbon Dioxide (21-32) mmol/L Anion Gap (3-11) BUN (7-18) mg/dl Creatinine (0.6-1.2) mg/dl Est Cr Clr Drug Dosing ml/min Est GFR ( Amer) Est GFR (Non-Af Amer) BUN/Creatinine Ratio (10-20) Glucose (70-99) mg/dl POC Glucose 170 H 146 H (70-99) Calcium (8.5-10.1) mg/dl Total Bilirubin (0.2-1) mg/dl AST (15-37) U/L ALT (12-78) U/L Alkaline Phosphatase (45-117) U/L Total Protein (6.4-8.2) gm/dl Albumin (3.4-5.0) gm/dl Globulin (2.5-4.0) gm/dl Albumin/Globulin Ratio (0.9-2) Blood Type O Positive Antibody Screen NEGATIVE Crossmatch See Detail PG Care Time/CCT Total # of Minutes Spent Total Time Spent with Patient: Total time spent is greater than 50% in coordination of care (as documented) at patient's floor/unit and/or counseling patient: (1) GI bleed GI bleed type/associated pathology: unspecified gastrointestinal hemorrhage type Qualified Code(s): K92.2 - Gastrointestinal hemorrhage, unspecified (2) Anemia Anemia type: unspecified type Qualified Code(s): D64.9 - Anemia, unspecified
[2019-07-22] MEDS ORDERED: Nursing to Pharmacy Communication ONE (12:52)
--- NOTE | 2019-07-22 15:41 | Palliative Care Progress Note ---
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 Undergoing palliative XRT. -Consulted for goals of care. Patient's goal is to continue to live with a good quality of life. She enjoys her time at the senior living playing cards and spending time with friends. Her family is very important to her as well. she states that she wants to continue treating her medical problems appropriately and coming to the hospital when necessary at this time. -Patient has a POLST form stating DNR, limited additional interventions, abx with comfort as the goal, and trial periods of artificial hydration/nutrition. -Attempted to call son, Shady, again today. No answer. -Patient will return to the [facility] tomorrow, tentatively. [facility] will provide her transportation to and from radiation treatments. -If patient and her son would like to continue conversation about goals of care, could follow up with Dr. Diallo as an outpatient. (2) Squamous cell carcinoma of vagina: (3) PEG (percutaneous endoscopic gastrostomy) adjustment/replacement/removal: (4) Clostridium difficile infection: (5) Acute kidney injury superimposed on chronic kidney disease: Subjective Patient went for first XRT today. Apparently tolerated well. She was sleeping comfortably this afternoon when I returned to room after treatment. Review of Systems Review of Systems: Denies pain, SOB or discomfort. Physical Exam Constitutional: + ill appearing, + morbidly obese and + physical limitations ENMT: external ear and nose normal, oropharynx normal Respiratory: normal respiratory effort, lungs clear to auscultation Auscultation: + diminished lung sounds Cardiovascular: Rate/Rhythm: regular rate and regular rhythm Extremities: + edema (generalized trace edema) Gastrointestinal (Abdomen): Inspection/Auscultation: normal bowel sounds Percussion/Palpation: abdomen soft; abdomen nontender Skin: + pallor Neurologic: moves all extremities and awake Psychiatric: Orientation: alert, oriented to person and oriented to place Insight: + limited insight and + impaired insight Judgement: + limited judgement Results & Data Vital Signs (Past 12 Hours) Vital Signs Temp Pulse Resp BP Pulse Ox 07/22/19 15:18 36.3 C L 88 20 148/77 H 96 07/22/19 07:26 35.6 C L 94 H 20 131/75 94 Time Spent Midlevel 15 minutes with >50% of time the spent at bedside with patient discussing plan of care; as well as collaborating with provider to discuss case.
[2019-07-22] MEDS: PEPTAMEN 1.5 CAL 1,000 ML BAG PO SCH (19:28)
[2019-07-22] MEDS: INSULIN GLARGINE SOLOSTAR 100 UNITS/ML 3 ML PEN SC SCH (20:53)
[2019-07-22] MEDS: PRAMIPEXOLE DIHYDROCHLO 0.5 MG TAB PO SCH (20:54)
[2019-07-22] MEDS: ATORVASTATIN 40 MG TAB PO SCH (20:54)
[2019-07-22] MEDS: LEVOTHYROXINE SODIUM 75 MCG TABLET PO SCH (22:00)
[2019-07-23] MEDS: INSULIN ASPART 100 UNITS/ML 3 ML PEN SC SCH ×4 (00:01→18:46)
[2019-07-23] MEDS: TUBE FEEDING WATER FLUSH GT SCH ×6 (03:40→23:41)
[2019-07-23] MEDS: VANCOMYCIN HCL 125 MG/2.5ML SOLN PO SCH ×3 (06:27→16:38)
[2019-07-23] MEDS: RASPBERRY SYRUP 5 ML UDP PO SCH ×3 (06:27→16:39)
[2019-07-23 07:17] LABS: INR 1.2 (0.9-1.1); Prothrombin Time 11.7 Seconds (9.0-12.0)
[2019-07-23] MEDS: NYSTATIN SUSP 500,000 U/5 ML UDC PO SCH ×5 (07:28→20:35)
[2019-07-23] MEDS: PANTOprazole 40 MG TAB PO SCH (07:28)
[2019-07-23] MEDS: FOLIC ACID 1 MG TAB PO SCH (07:29)
[2019-07-23] MEDS: LITHIUM CARBONATE 300 MG TAB PO SCH (07:29)
[2019-07-23] MEDS: risperiDONE 0.5 MG TABLET PO SCH ×3 (07:29→20:37)
[2019-07-23] MEDS: POT PHOSPHATE MONOBASIC W/ SOD TAB PO SCH ×5 (07:29→20:36)
[2019-07-23] MEDS: TIOTROPIUM BROMIDE 5 PUFF/90 MCG INH INH SCH (07:31)
[2019-07-23] MEDS: AMOXICILLIN/CLAVULANATE SUSP 400MG/5ML 50ML BOTTLE PO SCH ×2 (07:33→16:37)
[2019-07-23 07:49] LABS: Albumin Globulin Ratio 0.4 (0.9-2); Albumin Level 1.9 gm/dl (3.4-5.0); BUN Creatinine Ratio 5.2 (10-20); Bilirubin,Total 0.3 mg/dl (0.2-1); Calcium 8.1 mg/dl (8.5-10.1); Creatinine Clr Calc Pharmacy 30.6 ml/min; Est GFR (African American) 30.7; Est GFR (Non-African American) 26.5; Globulin 5.1 gm/dl (2.5-4.0); Potassium 3.8 mmol/L (3.5-5.1)
[2019-07-23 08:41] LABS: Hematocrit (blood only) 37.3 % (37-47); Hemoglobin 10.7 g/dL (12.0-16.0); Mean Corpuscular Hemoglobin 27.4 pg (25-34); Mean Corpuscular Hgb Conc 28.7 g/dL (32-36); Mean Corpuscular Volume 95.4 fL (80-100); Mean Platelet Volume 10.4 fL (7.4-10.4); Nucleated RBC # (auto) 0.05 K/uL (0-0); Nucleated RBC % (auto) 0.3 %; Platelet Count 273 K/uL (130-400); RDW Coefficient of Variation 19.2 % (11.5-14.5); RDW Standard Deviation 65.4 fL (36.4-46.3); Red Blood Count 3.91 M/uL (4.2-5.4); White Blood Count 17.44 K/uL (4.8-10.8)
[2019-07-23 08:57] LABS: Basophils # (auto) 0.01 K/uL (0-0.2); Basophils % (auto) 0.1 %; Eosinophils # (auto) 0.36 K/uL (0-0.5); Eosinophils % (auto) 2.1 %; Immature Granulocytes % (auto) 0.6 %; Lymphocytes # (auto) 0.98 K/uL (1.2-3.4); Lymphocytes % (auto) 5.6 %; Monocytes # (auto) 0.97 K/uL (0.11-0.59); Monocytes % (auto) 5.6 %; Neutrophils # (auto) 15.02 K/uL (1.4-6.5); RBC Morphology Unremarkable
[2019-07-23] MEDS: DEXTROSE 5% 1,000 ML IV SCH ×2 (09:23→21:29)
--- NOTE | 2019-07-23 16:28 | Hospitalist Progress Note ---
Date of Service July 23, 2019 Assessment & Plan (1) Squamous cell carcinoma: * Patient with extensive abnormality of lower vagina and vulva -- mass discovered on exam and CT 07/18. Patient with hx hysterectomy, so unlikely endometrial in origin * OCCUPATIONAL HEALTH NURSE SUPERVISOR consulted for likely neoplastic and malignant growth of posterior vaginal wall/perineum- discussion with family resulted in biopsy with subsequent palliative RT. CA 19-9 and CA-125 without abnormality. * Biopsy done- pathology sent -- invasive squamous cell carcinoma, well-mod differentiate --> most likely source of bleeding, as EGD with cautery of AVM without significant bleeding -- son had conversation with Dr. Pittman from Rad Onc last evening about palliative radiation/options moving forward --> patient had first RT yesterday, next treatment on Thursday-- [facility] for outpatient treatment * H/h with further decline to 7.8 on 07/21 -- transfused 1 unit PRBC -- today 10.7/37.3 * Radiation Oncology consult -- appreciate input -- palliative external beam radiation, 1st treatment today -- will receive second treatment on Thursday -- unsure on total number of treatments until evaluated based on response, likely in the range of 10-15 treatments * Palliative Consult-- had attempted to reach family multiple times -- as patient likely to remain hospitalized through Thursday, will re-evaluate at that point if family agreeable. (2) Vaginal mass: * As above (3) Clostridium difficile infection: * Stable * Abdominal distension 07/19 with fecal retention on KUB following episode of foul smelling diarrhea. 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 As high as 158 on 07/06 -- likely secondary to poor oral intake, dysphagia * PEG tube placed by Dr. Whitt on 07/18 * Corner Cutter consult for TF recommendations -- was initially given fibersource, but as patient with improved oral intake and worsening abdominal pain, held for now-- will have overnight feeding tonight -- may need to be used as supplemental nutrition source as patient unlikely to have adequate protein * Increased free water flushes to 150ml Q4h per PEG on 07/20 --> increased to 250ml Q4h today -- did receive TF overnight, with worsening of labs today -- continued need to titrate free water in order to reduce sodium level, but monitor volume status (goal 1-2L/day). Repeat BMP with sodium increased to 161. D5 increased to 100cc/hr * Repeat BMP this evening after increased flush and rate of IVF * Nursing to record ALL intake (IVF, PO and free water flushes) for more accurate I/O * BMP in AM (5) Hyperglycemia: * Patient with BSG as high as 404, however patient had initiated on tube feeds and was continuing to receive D5 while continuing with clear liquid diet * Continue BSG AC/HS with SSI but lowered CF and CR as patient continuing to eat. * SNF unable to do continuous feeds -- per conversation with director e learning, patient may benefit from overnight feeds to supplement if she continues to eat throughout the day. 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 PTH related protein elevated at 31 * With adequate hydration, patient has been able to manage DI and hypercalcemia, however given recent difficulty swallowing patient underwent PEG placement as above * Would not stop lithium at this time, as reversal of hyperplasia not likely. * Zoledronic acid on 07/15 * Ca 8.1, from peak of 11.1 * Continue to monitor (7) Acute kidney injury superimposed on chronic kidney disease: * Worsening * Creatinine 1.76 * Baseline appears to be ~1.4. Previously elevated to max of 2 on 07/03-- likely prerenal due to poor PO intake -- will continue to monitor as free water flushes increased and patient has only been taking 15-20% of trays (8) GI bleed: * Originally admitted for GI bleed, however addie d/t squamous cell carcinoma of vaginal origin * Melena prior to admission with subsequent EGD on 07/11 with cautery of AVM * Patient did receive 2 units PRBC on 07/05 with hemoglobin improved to 9.3 * Additional unit given 07/21 for hgb 7.8- repeat with improvement to -- continues to remain stable * Continue to monitor (9) Dysphagia: * Video swallow -- patient able to have nectar thick liquids but Speech Therapy recommended transition to honey thick if had difficulty-- may have pills with pudding - likely continued aspiration and evidence of possible aspiration/infectious process RLL * Unclear as to why worsening dysphagia-- possible progression of dementia/parkinsonism * TSH wnl * PEG tube as above * Given CT findings as above, patient initiated back on Zosyn for aspiration pneumonitis --> transitioned to PO Augmentin syrup * Patient tolerating pureed diet (10) CKD (chronic kidney disease), stage III: * As above * Cr elevated at 1.54, but baseline appears to be ~1.4 * Continue to monitor (11) Leukocytosis: * high at 18k on discharge * Continues to be elevated at 17 * Peripheral smear with normocytic anemia and leukocytosis, no overt evidence for dysplastic features, is likely reactive process * Colitis on initial CT, E.coli in urine, and now with C. diff diarrhea contributing as well as Aspiration pneumonitis, as well as current OCCUPATIONAL HEALTH NURSE SUPERVISOR malignancy (12) Hypothyroidism: * Continue Synthroid * Last TSH on file 8.32 in February 2018 * TSH 0.473, wnl (13) Hyperlipemia: * Continue atorvastatin (14) HTN (hypertension): * Slightly elevated, but stable- 148/77 currently * Outpatient lasix held as patient borderline hypotensive throughout stay * Monitor the blood pressure closely * Consider , but will hold off for now given poor intake (15) Colitis: * Colitis seen on CT on admission. Continued leukocytosis. Peripheral Smear as above. 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: * As above (20) Recurrent UTI: * culture growing E coli, dugan sensitive -- patient intially treated with Zosyn-- transitioned to Rocephin-- completed >7 day course * Procalcitonin wnl 07/11 (21) DVT prophylaxis: * SCDs * Chemical prophylaxis held in setting of bleeding Dispo: external beam radiation Thursday with likely prolonged stay, at least 2 days due to worsening hypernatremia Supervising Physician Co-Signing Physician Notes PA Supervision Note: I did not personally see or examine the patient today, but I verified all nielsen points of PEARL Rehman's assessment and plan with the following exceptions/additions: None Subjective Patient evaluated this morning. Patient states her appetite is decreased today. She is a little more sleepy today than yesterday and her goal continues to be to return to [facility] when medically stable. Review of Systems Review of Systems: Unobtainable due to cognitive status Physical Exam Constitutional: + obese, + disheveled and cooperative; no acute distress Eyes: PERRL, conjunctivae normal, anicteric sclerae Neck: trachea midline, no thyromegaly Respiratory: no labored breathing Auscultation: + diminished lung sounds and + wheezes (minimal end expiratory wheezing throughout, R>L sided) Cardiovascular: Rate/Rhythm: regular rate and regular rhythm Heart Sounds: no murmur Gastrointestinal (Abdomen): Inspection/Auscultation: normal bowel sounds; abdomen not distended Percussion/Palpation: + abdomen tender (minimally, diffusely), abdomen soft and + tympanic to percussion PEG tube present. securely attached.continues to be at 4cm Skin: no rashes, warm and dry Psychiatric: Orientation: alert (minimally - repeatedly falls alseep after minimal questioning) Affect: + labile affect Insight: + poor insight Judgement: + limited judgement Results & Data Vital Signs (Past 12 Hours) Vital Signs Temp Pulse Resp BP BP Pulse Ox 07/23/19 11:33 36.1 C L 83 18 105/66 95 07/23/19 07:19 36.2 C L 92 H 20 123/75 99 Laboratory Results 07/23/19 07/23/19 07/23/19 Range/Units 18:40 16:00 11:48 WBC (4.8-10.8) K/uL RBC (4.2-5.4) M/uL Hgb (12.0-16.0) g/dL Hct (37-47) % MCV (80-100) fL MCH (25-34) pg MCHC (32-36) g/dL RDW Std Deviation (36.4-46.3) fL RDW Coeff of Catarino (11.5-14.5) % Plt Count (130-400) K/uL MPV (7.4-10.4) fL Immature Gran % (Auto) % Neut % (Auto) % Lymph % (Auto) % Baxter % (Auto) % Eos % (Auto) % Baso % (Auto) % Immature Gran # (Auto) (0.00-0.02) K/uL Neut # (Auto) (1.4-6.5) K/uL Lymph # (Auto) (1.2-3.4) K/uL Baxter # (Auto) (0.11-0.59) K/uL Eos # (Auto) (0-0.5) K/uL Baso # (Auto) (0-0.2) K/uL Absolute Nucleated RBC (0-0) K/uL Nucleated RBC % (auto) % RBC Morphology PT (9.0-12.0) Seconds INR (0.9-1.1) Sodium 162 H* (136-145) mmol/L Potassium 3.6 (3.5-5.1) mmol/L Chloride 129 H (98-107) mmol/L Carbon Dioxide 30 (21-32) mmol/L Anion Gap 3.0 (3-11) BUN 9 (7-18) mg/dl Creatinine 1.85 H (0.6-1.2) mg/dl Est Cr Clr Drug Dosing 29.3 ml/min Est GFR ( Amer) 29.1 Est GFR (Non-Af Amer) 25.1 BUN/Creatinine Ratio 5.1 L (10-20) Glucose 152 H (70-99) mg/dl POC Glucose 270 H 131 H (70-99) Calcium 7.7 L (8.5-10.1) mg/dl Total Bilirubin (0.2-1) mg/dl AST (15-37) U/L ALT (12-78) U/L Alkaline Phosphatase (45-117) U/L Total Protein (6.4-8.2) gm/dl Albumin (3.4-5.0) gm/dl Globulin (2.5-4.0) gm/dl Albumin/Globulin Ratio (0.9-2) 07/23/19 07/23/19 07/23/19 Range/Units 10:33 06:51 06:51 WBC (4.8-10.8) K/uL RBC (4.2-5.4) M/uL Hgb (12.0-16.0) g/dL Hct (37-47) % MCV (80-100) fL MCH (25-34) pg MCHC (32-36) g/dL RDW Std Deviation (36.4-46.3) fL RDW Coeff of Catarino (11.5-14.5) % Plt Count (130-400) K/uL MPV (7.4-10.4) fL Immature Gran % (Auto) % Neut % (Auto) % Lymph % (Auto) % Baxter % (Auto) % Eos % (Auto) % Baso % (Auto) % Immature Gran # (Auto) (0.00-0.02) K/uL Neut # (Auto) (1.4-6.5) K/uL Lymph # (Auto) (1.2-3.4) K/uL Baxter # (Auto) (0.11-0.59) K/uL Eos # (Auto) (0-0.5) K/uL Baso # (Auto) (0-0.2) K/uL Absolute Nucleated RBC (0-0) K/uL Nucleated RBC % (auto) % RBC Morphology PT 11.7 (9.0-12.0) Seconds INR 1.2 H (0.9-1.1) Sodium 161 H* (136-145) mmol/L Potassium 3.8 (3.5-5.1) mmol/L Chloride 130 H (98-107) mmol/L Carbon Dioxide 29 (21-32) mmol/L Anion Gap 3.0 (3-11) BUN 9 (7-18) mg/dl Creatinine 1.77 H (0.6-1.2) mg/dl Est Cr Clr Drug Dosing 30.6 ml/min Est GFR ( Amer) 30.7 Est GFR (Non-Af Amer) 26.5 BUN/Creatinine Ratio 5.2 L (10-20) Glucose 145 H (70-99) mg/dl POC Glucose 130 H (70-99) Calcium 8.1 L (8.5-10.1) mg/dl Total Bilirubin 0.3 (0.2-1) mg/dl AST 21 (15-37) U/L ALT 33 (12-78) U/L Alkaline Phosphatase 190 H (45-117) U/L Total Protein 7.0 (6.4-8.2) gm/dl Albumin 1.9 L (3.4-5.0) gm/dl Globulin 5.1 H (2.5-4.0) gm/dl Albumin/Globulin Ratio 0.4 L (0.9-2) 07/23/19 07/23/19 07/22/19 Range/Units 06:51 06:03 23:52 WBC 17.44 H (4.8-10.8) K/uL RBC 3.91 L (4.2-5.4) M/uL Hgb 10.7 L (12.0-16.0) g/dL Hct 37.3 (37-47) % MCV 95.4 (80-100) fL MCH 27.4 (25-34) pg MCHC 28.7 L (32-36) g/dL RDW Std Deviation 65.4 H (36.4-46.3) fL RDW Coeff of Catarino 19.2 H (11.5-14.5) % Plt Count 273 (130-400) K/uL MPV 10.4 (7.4-10.4) fL Immature Gran % (Auto) 0.6 % Neut % (Auto) 86.0 % Lymph % (Auto) 5.6 % Baxter % (Auto) 5.6 % Eos % (Auto) 2.1 % Baso % (Auto) 0.1 % Immature Gran # (Auto) 0.10 H (0.00-0.02) K/uL Neut # (Auto) 15.02 H (1.4-6.5) K/uL Lymph # (Auto) 0.98 L (1.2-3.4) K/uL Baxter # (Auto) 0.97 H (0.11-0.59) K/uL Eos # (Auto) 0.36 (0-0.5) K/uL Baso # (Auto) 0.01 (0-0.2) K/uL Absolute Nucleated RBC 0.05 H (0-0) K/uL Nucleated RBC % (auto) 0.3 % RBC Morphology Unremarkable PT (9.0-12.0) Seconds INR (0.9-1.1) Sodium (136-145) mmol/L Potassium (3.5-5.1) mmol/L Chloride (98-107) mmol/L Carbon Dioxide (21-32) mmol/L Anion Gap (3-11) BUN (7-18) mg/dl Creatinine (0.6-1.2) mg/dl Est Cr Clr Drug Dosing ml/min Est GFR ( Amer) Est GFR (Non-Af Amer) BUN/Creatinine Ratio (10-20) Glucose (70-99) mg/dl POC Glucose 148 H 152 H (70-99) Calcium (8.5-10.1) mg/dl Total Bilirubin (0.2-1) mg/dl AST (15-37) U/L ALT (12-78) U/L Alkaline Phosphatase (45-117) U/L Total Protein (6.4-8.2) gm/dl Albumin (3.4-5.0) gm/dl Globulin (2.5-4.0) gm/dl Albumin/Globulin Ratio (0.9-2) 07/22/ Range/Units 20:18 WBC (4.8-10.8) K/uL RBC (4.2-5.4) M/uL Hgb (12.0-16.0) g/dL Hct (37-47) % MCV (80-100) fL MCH (25-34) pg MCHC (32-36) g/dL RDW Std Deviation (36.4-46.3) fL RDW Coeff of Catarino (11.5-14.5) % Plt Count (130-400) K/uL MPV (7.4-10.4) fL Immature Gran % (Auto) % Neut % (Auto) % Lymph % (Auto) % Baxter % (Auto) % Eos % (Auto) % Baso % (Auto) % Immature Gran # (Auto) (0.00-0.02) K/uL Neut # (Auto) (1.4-6.5) K/uL Lymph # (Auto) (1.2-3.4) K/uL Baxter # (Auto) (0.11-0.59) K/uL Eos # (Auto) (0-0.5) K/uL Baso # (Auto) (0-0.2) K/uL Absolute Nucleated RBC (0-0) K/uL Nucleated RBC % (auto) % RBC Morphology PT (9.0-12.0) Seconds INR (0.9-1.1) Sodium (136-145) mmol/L Potassium (3.5-5.1) mmol/L Chloride (98-107) mmol/L Carbon Dioxide (21-32) mmol/L Anion Gap (3-11) BUN (7-18) mg/dl Creatinine (0.6-1.2) mg/dl Est Cr Clr Drug Dosing ml/min Est GFR ( Amer) Est GFR (Non-Af Amer) BUN/Creatinine Ratio (10-20) Glucose (70-99) mg/dl POC Glucose 144 H (70-99) Calcium (8.5-10.1) mg/dl Total Bilirubin (0.2-1) mg/dl AST (15-37) U/L ALT (12-78) U/L Alkaline Phosphatase (45-117) U/L Total Protein (6.4-8.2) gm/dl Albumin (3.4-5.0) gm/dl Globulin (2.5-4.0) gm/dl Albumin/Globulin Ratio (0.9-2) PG Care Time/CCT Total # of Minutes Spent Total Time Spent with Patient: Total time spent is greater than 50% in coordination of care (as documented) at patient's floor/unit and/or counseling patient: (1) GI bleed GI bleed type/associated pathology: unspecified gastrointestinal hemorrhage type Qualified Code(s): K92.2 - Gastrointestinal hemorrhage, unspecified (2) Anemia Anemia type: unspecified type Qualified Code(s): D64.9 - Anemia, unspecified
[2019-07-23 16:59] LABS: BUN Creatinine Ratio 5.1 (10-20); Calcium 7.7 mg/dl (8.5-10.1); Creatinine Clr Calc Pharmacy 29.3 ml/min; Est GFR (African American) 29.1; Est GFR (Non-African American) 25.1; Potassium 3.6 mmol/L (3.5-5.1)
[2019-07-23] MEDS: PEPTAMEN 1.5 CAL 1,000 ML BAG PO SCH (20:16)
[2019-07-23] MEDS: ATORVASTATIN 40 MG TAB PO SCH ×2 (20:23→20:36)
[2019-07-23] MEDS: PRAMIPEXOLE DIHYDROCHLO 0.5 MG TAB PO SCH ×2 (20:23→20:36)
[2019-07-23] MEDS: LEVOTHYROXINE SODIUM 75 MCG TABLET PO SCH ×2 (20:23→20:37)
[2019-07-23] MEDS: INSULIN GLARGINE SOLOSTAR 100 UNITS/ML 3 ML PEN SC SCH (21:11)
[2019-07-23 22:52] LABS: BUN Creatinine Ratio 5.3 (10-20); Calcium 7.9 mg/dl (8.5-10.1); Creatinine Clr Calc Pharmacy 29.5 ml/min; Est GFR (African American) 29.3; Est GFR (Non-African American) 25.3; Potassium 3.6 mmol/L (3.5-5.1)
[2019-07-24] MEDS: INSULIN ASPART 100 UNITS/ML 3 ML PEN SC SCH ×5 (00:28→23:57)
[2019-07-24] MEDS: RASPBERRY SYRUP 5 ML UDP PO SCH ×5 (00:46→23:52)
[2019-07-24] MEDS: VANCOMYCIN HCL 125 MG/2.5ML SOLN PO SCH ×5 (00:46→23:52)
[2019-07-24] MEDS: TUBE FEEDING WATER FLUSH GT SCH ×6 (03:30→23:52)
[2019-07-24] MEDS: DEXTROSE 5% 1,000 ML IV SCH ×2 (07:31→19:43)
[2019-07-24] MEDS: NYSTATIN SUSP 500,000 U/5 ML UDC PO SCH ×4 (07:33→20:55)
[2019-07-24] MEDS: POT PHOSPHATE MONOBASIC W/ SOD TAB PO SCH (07:33)
[2019-07-24] MEDS: TIOTROPIUM BROMIDE 5 PUFF/90 MCG INH INH SCH (07:33)
[2019-07-24] MEDS: AMOXICILLIN/CLAVULANATE SUSP 400MG/5ML 50ML BOTTLE PO SCH ×2 (07:33→17:09)
[2019-07-24] MEDS: LITHIUM CARBONATE 300 MG TAB PO SCH (07:34)
[2019-07-24] MEDS: FOLIC ACID 1 MG TAB PO SCH (07:35)
[2019-07-24] MEDS: PANTOprazole 40 MG TAB PO SCH (07:36)
[2019-07-24] MEDS: risperiDONE 0.5 MG TABLET PO SCH ×2 (07:36→20:55)
[2019-07-24 07:53] LABS: Albumin Globulin Ratio 0.4 (0.9-2); Albumin Level 1.7 gm/dl (3.4-5.0); BUN Creatinine Ratio 5.6 (10-20); Bilirubin,Total 0.4 mg/dl (0.2-1); Calcium 7.6 mg/dl (8.5-10.1); Creatinine Clr Calc Pharmacy 27.3 ml/min; Est GFR (African American) 26.6; Globulin 4.8 gm/dl (2.5-4.0); Potassium 3.4 mmol/L (3.5-5.1); Total Protein 6.5 gm/dl (6.4-8.2)
[2019-07-24] MEDS ORDERED: POTASSIUM CHLORIDE 20 MEQ/15 ML UDC PO STA (07:58)
[2019-07-24 08:03] LABS: Hematocrit (blood only) 35.3 % (37-47); Hemoglobin 9.7 g/dL (12.0-16.0); Mean Corpuscular Hemoglobin 26.6 pg (25-34); Mean Corpuscular Hgb Conc 27.5 g/dL (32-36); Mean Platelet Volume 9.9 fL (7.4-10.4); Nucleated RBC # (auto) 0.03 K/uL (0-0); Nucleated RBC % (auto) 0.2 %; Platelet Count 248 K/uL (130-400); RDW Coefficient of Variation 19.6 % (11.5-14.5); RDW Standard Deviation 68.6 fL (36.4-46.3); Red Blood Count 3.64 M/uL (4.2-5.4)
--- NOTE | 2019-07-24 09:34 | XRay Report ---
XR chest 1V portable CLINICAL HISTORY: pulmonary congestion COMPARISON STUDY: 08/19/2016 FINDINGS: Minimal chronic basilar interstitial change. No well-defined focal infiltrate. Mid and uppe r lungs are clear. IMPRESSION: Chronic change. No acute process. The above report was generated using voice recognition software. It may contain grammatical, syntax or spelling errors. Electronically signed by: Marvel Yanez M.D. 07/24/2019 9:32 AM
[2019-07-24] MEDS: FLINTSTONES COMPLETE CHEWABLE TAB PO SCH (11:34)
--- NOTE | 2019-07-24 13:04 | Ultrasound Report ---
US renal/blad retro comp HISTORY: worsening creatinine, ?obstruction COMPARISON: None. FINDINGS: Right kidney: Right kidney is not well seen due to patient body habitus and overlying bowel content Left kidney: Left kidney is not well seen due to overlying bowel content and patient body habitus Bladder: No bladder wall thickening. The bilateral ureteral jets were identified. IMPRESSION: . Limited study due to patient body habitus and overlying bowel content. Non-visualization of the kid neys. The above report was generated using voice recognition software. It may contain grammatical, syntax or spelling errors. Electronically signed by: Marvel Yanez M.D. 07/24/2019 1:03 PM
--- NOTE | 2019-07-24 13:13 | Hospitalist Progress Note ---
Date of Service July 24, 2019 Assessment & Plan (1) Squamous cell carcinoma: * Patient with extensive abnormality of lower vagina and vulva -- mass discovered on exam and CT 07/18. Patient with hx hysterectomy, so unlikely endometrial in origin * QM NURSE consulted for likely neoplastic and malignant growth of posterior vaginal wall/perineum- discussion with family resulted in biopsy with subsequent palliative RT. CA 19-9 and CA-125 without abnormality. * Biopsy done- pathology sent -- invasive squamous cell carcinoma, well-mod differentiate --> most likely source of bleeding, as EGD with cautery of AVM without significant bleeding -- son had conversation with Dr. Pittman from Rad Onc last evening about palliative radiation/options moving forward --> patient had first RT Thursday, second treatment today-- [facility] willing to provide transport for outpatient treatment. Patient will receive third treatment tomorrow while inpatient. * H/h with further decline to 7.8 on 07/21 -- transfused 1 unit PRBC -- with h/h up to 10.7, down to 9.7/35.3 today -- continue to monitor * Radiation Oncology consult -- Dr Pittman initially, then Dr. Santana for treatments -- appreciate input -- palliative external beam radiation --> total number of treatments evaluated based on response, likely in the range of 10-15 treatments * Palliative Consult-- team reached out to reach family multiple times last week -- as patient to be hospitalized through Thursday, will re-evaluate at that point if family agreeable. (2) Clostridium difficile infection: * Stable * Abdominal distension 07/19 with fecal retention on KUB following episode of foul smelling diarrhea. Stool + cdiff * Initially treated with dificid, but transitioned to PO vanc d/t cost * Patient also with continued abdominal pain/constipation per patient 07/20-- given enema (per discussion with drawer maker) with large brown BM * Continue to monitor (3) Hypernatremia: * Improving -- likely secondary to poor oral intake, dysphagia * Peaked at 162 yesterday --> flushes increased to 250ml Q4h from 200ml and repeat Na down to 160. 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 * PEG tube placed by Dr. Whitt on 07/18 to assist with improving free water intake * Senior Cost Accountant consult for TF recommendations -- was initially given fibersource, but as patient with improved oral intake and worsening abdominal pain, held at that time -- patient with second overnight feed with decreased residual -- PEG may need to be used as supplemental nutrition source as patient unlikely to have adequate protein, but will need further discussion with nutrition in AM * Continued need to titrate free water in order to reduce sodium level, but monitor volume status (goal 1-2L/day). * Nursing to record ALL intake (IVF, PO and free water flushes) for more accurate I/O * BMP in AM (4) Acute kidney injury superimposed on chronic kidney disease: * Worsening * Creatinine 1.99, then later improved to 1.7 with continued hydration * Renal U/S today without visualization of kidneys * Alvarez cath today --?? retention * UA with likely contamination as patient incontinent and specimen collected from purewick -- although, WBC >> epi, and 3+ leuk est * Will continue Augmentin d/t coverage for aspiration and will need to follow Urine culture sensitivities and adjust as necessary * Baseline appears to be ~1.4. Previously elevated to max of 2 on 07/03-- likely initially prerenal due to poor PO intake -- will continue to monitor as free water flushes increased * Urine sodium 36, Urine creat 24.2 --> FeNa 1.9% * If creatinine continues to trend up, would consult Nephrology in AM (5) Hyperglycemia: * Patient with BSG as high as 404, however patient had initiated on tube feeds and was continuing to receive D5 while continuing with clear liquid diet * Continue BSG AC/HS with SSI but lowered CF and CR as patient continuing to eat. * SNF unable to do continuous feeds -- per conversation with drawer maker, patient may benefit from overnight feeds to supplement if she continues to eat throughout the day. * Lantus 8 units qhs added 07/19 * Sugars elevated today --- 127-240 -- likely secondary to D5 initiated yesterday -- will tighten CF/CR -- continue to monitor and adjust as necessary * Continue to monitor (6) Hypercalcemia: * Chronic * Stable- secondary to hyperparathyroidism d/t chronic lithium use/parathyroid gland hyperplasia-- with elevated PTH at 87.1. PTH related protein elevated at 31 * With adequate hydration, patient has been able to manage DI and hypercalcemia, however given recent difficulty swallowing patient underwent PEG placement as above * Would not stop lithium at this time, as reversal of hyperplasia not likely. * Zoledronic acid on 07/15 * Continue to monitor (7) GI bleed: * Originally admitted for GI bleed, however sydneyley d/t squamous cell carcinoma of vaginal origin * Melena prior to admission with subsequent EGD on 07/11 with cautery of AVM * Patient did receive 2 units PRBC on 07/05 with hemoglobin improved to 9.3 * Additional unit given 07/21 for hgb 7.8 -- trending back down, but remains stable -- 9.7/35.3 currently * Continue to monitor (8) Dysphagia: * Video swallow -- patient able to have nectar thick liquids but Speech Therapy recommended transition to honey thick if had difficulty-- may have pills with pudding - likely continued aspiration and evidence of possible aspiration/infectious process RLL * Unclear as to why worsening dysphagia-- possible progression of dementia/parkinsonism * TSH wnl * PEG tube as above * Given CT findings as above, patient initiated back on Zosyn for aspiration pneumonitis --> transitioned to PO Augmentin syrup * Patient tolerating pureed diet (9) CKD (chronic kidney disease), stage III: * As above * Cr elevated at 1.99 and then improved later to 1.7, baseline appears to be ~1.4 * Continue to monitor (10) Leukocytosis: * Continues to be elevated, 16.6k * Peripheral smear with normocytic anemia and leukocytosis, no overt evidence for dysplastic features, is likely reactive process to ongoing malignancy and infections * Colitis on initial CT, E.coli in urine, and now with C. diff diarrhea contributing as well as Aspiration pneumonitis, as well as current QM NURSE malignancy * Also, UA today with possible evidence of another UTI -- will need to monitor c/s and adjust accordingly (11) Hypothyroidism: * Continue Synthroid * Last TSH on file 8.32 in February 2018 * TSH 0.473, wnl (12) Hyperlipemia: * Continue atorvastatin (13) HTN (hypertension): * Slightly elevated, but stable- 148/77 currently * Outpatient lasix held as patient borderline hypotensive throughout stay * Monitor the blood pressure closely * Hesitant to restart as patient with poor intake already (14) Colitis: * Colitis seen on CT on admission. Continued leukocytosis. Peripheral Smear as above. 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: * As above (19) Recurrent UTI: * culture growing E coli, dugan sensitive -- patient intially treated with Zosyn-- transitioned to Rocephin-- completed >7 day course * Procalcitonin wnl 07/11 (20) Vaginal mass: * As above (21) DVT prophylaxis: * SCDs * Chemical prophylaxis held in setting of bleeding Dispo: external beam radiation tomorrow with likely stay 2-3 days and discharge to [facility] Supervising Physician Co-Signing Physician Notes PA Supervision Note: I did not personally see or examine the patient today, but I verified all nielsen points of PEARL Rehman's assessment and plan with the following exceptions/additions: None Subjective Patient more alert and awake today. Tolerating pureed diet without much difficulty. Patient had second RT treatment this morning. Still wishing to go back to [facility]. No other complaints. Review of Systems Constitutional: no fever and no chills Respiratory: no cough and no dyspnea Cardiovascular: no chest pain and no palpitations Gastrointestinal: + abdominal pain and + diarrhea/loose stools; no nausea, no vomiting and no constipation Genitourinary: + urinary incontinence; no dysuria Integumentary: no rash and no lesions Physical Exam Constitutional: + obese and cooperative; no acute distress Eyes: PERRL, conjunctivae normal, anicteric sclerae Neck: trachea midline, no thyromegaly Respiratory: no respiratory distress and no labored breathing Auscultation: + diminished lung sounds and + rhonchi Cardiovascular: RRR, no murmur, no edema Gastrointestinal (Abdomen): Inspection/Auscultation: normal bowel sounds; abdomen not distended Percussion/Palpation: + abdomen tender (minimally, diffusely) and abdomen soft; no hepatosplenomegaly PEG present Skin: no rashes, warm and dry Neurologic: awake Cranial Nerves: PERRL Psychiatric: Orientation: alert, oriented to person, oriented to place and cooperative Insight: + poor insight Judgement: + limited judgement Lymphatic: no cervical or axillary lymphadenopathy Results & Data Vital Signs (Past 12 Hours) Vital Signs Temp Pulse Pulse Resp BP Pulse Ox 07/23/19 22:58 36.4 C L 98 H 18 122/74 94 07/23/19 19:00 36.7 C 89 20 138/81 99 07/23/19 15:31 36.8 C 91 H 20 132/76 96 Intake and Output 07/23/19 07/24/19 07/24/19 22:59 06:59 14:59 Intake Total 1007.5 / 2653.5 1646 / 2653.5 752.5 / 752.5 Output Total 700 / 2101 900 / 2101 Balance 307.5 / 552.5 746 / 552.5 752.5 / 752.5 Intake: IV 907.5 / 907.5 752.5 / 752.5 D5w 1,000 ml @ 100 mls/hr IV . 907.5 / 907.5 752.5 / 752.5 Q10H [facility] Rx#:[id number] Oral 100 / 250 150 / 250 Tube Feeding 496 / 496 Tube Irrigant 1000 / 1000 Output: Urine Amount (Catheter) 700 / 2100 900 / 2100 External 700 / 1600 900 / 1600 Other: # Urine Diapers 1 Laboratory Results 07/24/19 07/24/19 07/24/19 Range/Units 06:48 06:48 06:14 WBC 16.60 H (4.8-10.8) K/uL RBC 3.64 L (4.2-5.4) M/uL Hgb 9.7 L (12.0-16.0) g/dL Hct 35.3 L (37-47) % MCV 97.0 (80-100) fL MCH 26.6 (25-34) pg MCHC 27.5 L (32-36) g/dL RDW Std Deviation 68.6 H (36.4-46.3) fL RDW Coeff of Catarino 19.6 H (11.5-14.5) % Plt Count 248 (130-400) K/uL MPV 9.9 (7.4-10.4) fL Absolute Nucleated RBC 0.03 H (0-0) K/uL Nucleated RBC % (auto) 0.2 % Sodium 156 H* (136-145) mmol/L Potassium 3.4 L (3.5-5.1) mmol/L Chloride 125 H (98-107) mmol/L Carbon Dioxide 28 (21-32) mmol/L Anion Gap 3.0 (3-11) BUN 11 (7-18) mg/dl Creatinine 1.99 H (0.6-1.2) mg/dl Est Cr Clr Drug Dosing 27.3 ml/min Est GFR ( Amer) 26.6 Est GFR (Non-Af Amer) 23.0 BUN/Creatinine Ratio 5.6 L (10-20) Glucose 292 H (70-99) mg/dl POC Glucose 240 H (70-99) Calcium 7.6 L (8.5-10.1) mg/dl Total Bilirubin 0.4 (0.2-1) mg/dl AST 18 (15-37) U/L ALT 25 (12-78) U/L Alkaline Phosphatase 172 H (45-117) U/L Total Protein 6.5 (6.4-8.2) gm/dl Albumin 1.7 L (3.4-5.0) gm/dl Globulin 4.8 H (2.5-4.0) gm/dl Albumin/Globulin Ratio 0.4 L (0.9-2) 07/24/19 07/23/19 07/23/19 Range/Units 00:25 22:03 21:09 WBC (4.8-10.8) K/uL RBC (4.2-5.4) M/uL Hgb (12.0-16.0) g/dL Hct (37-47) % MCV (80-100) fL MCH (25-34) pg MCHC (32-36) g/dL RDW Std Deviation (36.4-46.3) fL RDW Coeff of Catarino (11.5-14.5) % Plt Count (130-400) K/uL MPV (7.4-10.4) fL Absolute Nucleated RBC (0-0) K/uL Nucleated RBC % (auto) % Sodium 160 H* (136-145) mmol/L Potassium 3.6 (3.5-5.1) mmol/L Chloride 127 H (98-107) mmol/L Carbon Dioxide 28 (21-32) mmol/L Anion Gap 4.0 (3-11) BUN 10 (7-18) mg/dl Creatinine 1.84 H (0.6-1.2) mg/dl Est Cr Clr Drug Dosing 29.5 ml/min Est GFR ( Amer) 29.3 Est GFR (Non-Af Amer) 25.3 BUN/Creatinine Ratio 5.3 L (10-20) Glucose 134 H (70-99) mg/dl POC Glucose 168 H 148 H (70-99) Calcium 7.9 L (8.5-10.1) mg/dl Total Bilirubin (0.2-1) mg/dl AST (15-37) U/L ALT (12-78) U/L Alkaline Phosphatase (45-117) U/L Total Protein (6.4-8.2) gm/dl Albumin (3.4-5.0) gm/dl Globulin (2.5-4.0) gm/dl Albumin/Globulin Ratio (0.9-2) 07/23/19 07/23/19 Range/Units 18:40 16:00 WBC (4.8-10.8) K/uL RBC (4.2-5.4) M/uL Hgb (12.0-16.0) g/dL Hct (37-47) % MCV (80-100) fL MCH (25-34) pg MCHC (32-36) g/dL RDW Std Deviation (36.4-46.3) fL RDW Coeff of Catarino (11.5-14.5) % Plt Count (130-400) K/uL MPV (7.4-10.4) fL Absolute Nucleated RBC (0-0) K/uL Nucleated RBC % (auto) % Sodium 162 H* (136-145) mmol/L Potassium 3.6 (3.5-5.1) mmol/L Chloride 129 H (98-107) mmol/L Carbon Dioxide 30 (21-32) mmol/L Anion Gap 3.0 (3-11) BUN 9 (7-18) mg/dl Creatinine 1.85 H (0.6-1.2) mg/dl Est Cr Clr Drug Dosing 29.3 ml/min Est GFR ( Amer) 29.1 Est GFR (Non-Af Amer) 25.1 BUN/Creatinine Ratio 5.1 L (10-20) Glucose 152 H (70-99) mg/dl POC Glucose 270 H (70-99) Calcium 7.7 L (8.5-10.1) mg/dl Total Bilirubin (0.2-1) mg/dl AST (15-37) U/L ALT (12-78) U/L Alkaline Phosphatase (45-117) U/L Total Protein (6.4-8.2) gm/dl Albumin (3.4-5.0) gm/dl Globulin (2.5-4.0) gm/dl Albumin/Globulin Ratio (0.9-2) PG Care Time/CCT Total # of Minutes Spent Total Time Spent with Patient: Total time spent is greater than 50% in coordination of care (as documented) at patient's floor/unit and/or counseling patient: (1) GI bleed GI bleed type/associated pathology: unspecified gastrointestinal hemorrhage type Qualified Code(s): K92.2 - Gastrointestinal hemorrhage, unspecified (2) Anemia Anemia type: unspecified type Qualified Code(s): D64.9 - Anemia, unspecified
[2019-07-24 14:00] LABS: Appearance Urine Clear (Clear); Bacteria Urine Automated Negative (Negative); Bilirubin Urine Negative (Negative); Blood Urine 2+ (Negative); Cast Urine Automated 0 /lpf (0-5); Color Urine Yellow; Glucose Urine UA Trace (Negative); Ketones Urine Negative (Negative); Leukocyte Esterase Urine 3+ (Negative); Nitrite Urine Negative (Negative); Specific Gravity Urine 1.006 (1.000-1.030); Urobilinogen Urine Negative (Negative); WBC Urine Automated >30 /hpf (0-5); pH Urine 7.5 (4.5-7.5)
[2019-07-24 14:02] LABS: Protein Urine 1+ (Negative); Sulfosalicylic Acid Urine Positive (Negative)
[2019-07-24 14:17] LABS: Creatinine Urine Random 24.2 mg/dl
[2019-07-24 16:52] LABS: BUN Creatinine Ratio 6.9 (10-20); Calcium 7.5 mg/dl (8.5-10.1); Creatinine Clr Calc Pharmacy 31.7 ml/min; Est GFR (Non-African American) 27.6; Potassium 3.9 mmol/L (3.5-5.1)
[2019-07-24] MEDS: PEPTAMEN 1.5 CAL 1,000 ML BAG PO SCH (19:41)
[2019-07-24] MEDS: INSULIN GLARGINE SOLOSTAR 100 UNITS/ML 3 ML PEN SC SCH (20:54)
[2019-07-24] MEDS: PRAMIPEXOLE DIHYDROCHLO 0.5 MG TAB PO SCH (20:56)
[2019-07-24] MEDS: LEVOTHYROXINE SODIUM 75 MCG TABLET PO SCH (20:56)
[2019-07-24] MEDS: ATORVASTATIN 40 MG TAB PO SCH (20:56)
[2019-07-25] MEDS: TUBE FEEDING WATER FLUSH GT SCH ×5 (04:11→19:23)
[2019-07-25] MEDS: DEXTROSE 5% 1,000 ML IV SCH ×2 (05:56→09:19)
[2019-07-25] MEDS: RASPBERRY SYRUP 5 ML UDP PO SCH ×3 (05:57→17:58)
[2019-07-25] MEDS: VANCOMYCIN HCL 125 MG/2.5ML SOLN PO SCH ×3 (05:57→17:58)
[2019-07-25] MEDS: INSULIN ASPART 100 UNITS/ML 3 ML PEN SC SCH ×3 (05:59→18:09)
[2019-07-25] MEDS: ACETAMINOPHEN 325 MG TAB PO PRN ×3 (06:03→15:50)
[2019-07-25 06:13] LABS: Basophils # (auto) 0.01 K/uL (0-0.2); Basophils % (auto) 0.1 %; Eosinophils # (auto) 0.29 K/uL (0-0.5); Eosinophils % (auto) 1.7 %; Hematocrit (blood only) 31.9 % (37-47); Immature Granulocytes # (auto) 0.11 K/uL (0.00-0.02); Immature Granulocytes % (auto) 0.7 %; Lymphocytes # (auto) 1.03 K/uL (1.2-3.4); Lymphocytes % (auto) 6.1 %; Mean Corpuscular Hemoglobin 26.7 pg (25-34); Mean Corpuscular Hgb Conc 28.2 g/dL (32-36); Mean Corpuscular Volume 94.7 fL (80-100); Mean Platelet Volume 10.1 fL (7.4-10.4); Monocytes # (auto) 0.66 K/uL (0.11-0.59); Monocytes % (auto) 3.9 %; Neutrophils # (auto) 14.69 K/uL (1.4-6.5); Neutrophils % (auto) 87.5 %; Nucleated RBC # (auto) 0.06 K/uL (0-0); Nucleated RBC % (auto) 0.4 %; Platelet Count 214 K/uL (130-400); RDW Coefficient of Variation 19.5 % (11.5-14.5); RDW Standard Deviation 67.6 fL (36.4-46.3); Red Blood Count 3.37 M/uL (4.2-5.4); White Blood Count 16.79 K/uL (4.8-10.8)
[2019-07-25 06:31] LABS: Albumin Level 1.5 gm/dl (3.4-5.0); Calcium 7.5 mg/dl (8.5-10.1); Creatinine Clr Calc Pharmacy 30.6 ml/min; Est GFR (African American) 30.7; Est GFR (Non-African American) 26.5; Potassium 3.7 mmol/L (3.5-5.1)
[2019-07-25 06:34] LABS: Albumin Globulin Ratio 0.3 (0.9-2); Bilirubin,Total 0.3 mg/dl (0.2-1); Globulin 4.5 gm/dl (2.5-4.0)
[2019-07-25] MEDS: FOLIC ACID 1 MG TAB PO SCH (08:00)
[2019-07-25] MEDS: LITHIUM CARBONATE 300 MG TAB PO SCH (08:00)
[2019-07-25] MEDS: FLINTSTONES COMPLETE CHEWABLE TAB PO SCH (08:00)
[2019-07-25] MEDS: PANTOprazole 40 MG TAB PO SCH (08:01)
[2019-07-25] MEDS: NYSTATIN SUSP 500,000 U/5 ML UDC PO SCH ×4 (08:01→21:37)
[2019-07-25] MEDS: risperiDONE 0.5 MG TABLET PO SCH ×2 (08:02→21:37)
[2019-07-25] MEDS: TIOTROPIUM BROMIDE 5 PUFF/90 MCG INH INH SCH (08:02)
[2019-07-25] MEDS: AMOXICILLIN/CLAVULANATE SUSP 400MG/5ML 50ML BOTTLE PO SCH (08:26)
[2019-07-25] MEDS: CEFEPIME 2,000 MG in SYRINGE 7.5 ML IV SCH ×2 (11:29→22:44)
[2019-07-25 14:46] LABS: BUN Creatinine Ratio 8.5 (10-20); Calcium 7.7 mg/dl (8.5-10.1); Creatinine Clr Calc Pharmacy 29.2 ml/min; Est GFR (African American) 28.9; Est GFR (Non-African American) 24.9; Potassium 3.9 mmol/L (3.5-5.1)
[2019-07-25] MEDS: PEPTAMEN 1.5 CAL 1,000 ML BAG PO SCH (18:54)
[2019-07-25] MEDS: PRAMIPEXOLE DIHYDROCHLO 0.5 MG TAB PO SCH (21:34)
[2019-07-25] MEDS: LEVOTHYROXINE SODIUM 75 MCG TABLET PO SCH (21:36)
[2019-07-25] MEDS: ATORVASTATIN 40 MG TAB PO SCH (21:37)
[2019-07-25] MEDS: INSULIN GLARGINE SOLOSTAR 100 UNITS/ML 3 ML PEN SC SCH (21:38)
--- NOTE | 2019-07-25 22:42 | Hospitalist Progress Note ---
Date of Service July 25, 2019 Assessment & Plan (1) Squamous cell carcinoma: * Patient with extensive abnormality of lower vagina and vulva -- mass discovered on exam and CT 07/18. Patient with hx hysterectomy, so unlikely endometrial in origin * Y[facility] SORTER consulted for likely neoplastic and malignant growth of posterior vaginal wall/perineum- discussion with family resulted in biopsy with subsequent palliative RT. CA 19-9 and CA-125 without abnormality. * Biopsy done- pathology sent -- invasive squamous cell carcinoma, well-mod differentiate --> most likely source of bleeding, as EGD with cautery of AVM without significant bleeding -- son had conversation with Dr. Pittman from Rad Onc last evening about palliative radiation/options moving forward --> patient had first RT Thursday, completed third treatment on 07/25, tolerating well * H/h stable * Radiation Oncology consult -- Dr Pittman initially, then Dr. Santana for treatments -- appreciate input -- palliative external beam radiation --> total number of treatments evaluated based on response, likely in the range of 10-15 treatments, treatment number 3 today * Palliative Consult-- continues to try to make contact with son, can be difficult at times (2) Clostridium difficile infection: * Stable * Abdominal distension 07/19 with fecal retention on KUB following episode of foul smelling diarrhea. 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 * PEG tube placed by Dr. Whitt on 07/18 to assist with improving free water intake * [employer] consult for TF recommendations -- was initially given fibersource, but as patient with improved oral intake and worsening abdominal pain, held at that time -- patient with second overnight feed with decreased residual -- PEG may need to be used as supplemental nutrition source as patient unlikely to have adequate protein, but will need further discussion with nutrition in AM repeat BMP in the morning (4) Acute kidney injury superimposed on chronic kidney disease: * Worsening slightly today, Cr up to 1.86, making adequate urine * repeat BMP tomorrow * Renal U/S, no signs of obstruction * UA with likely contamination as patient incontinent and specimen collected from purewick -- although, WBC >> epi, and 3+ leuk est * change Augmentin to Cefepime for Pseudomonas UTI (5) Hyperglycemia: * continue Lantus * will stop D5W which should help, monitor closely (6) Hypercalcemia: * resolved, Ca stable at 7.7 * Stable- secondary to hyperparathyroidism d/t chronic lithium use/parathyroid gland hyperplasia-- with elevated PTH at 87.1. PTH related protein elevated at 31 * With adequate hydration, patient has been able to manage DI and hypercalcemia, however given recent difficulty swallowing patient underwent PEG placement as above * Would not stop lithium at this time, as reversal of hyperplasia not likely. 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 * Melena prior to admission with subsequent EGD on 07/11 with cautery of AVM * Patient did receive 2 units PRBC on 07/05 with hemoglobin improved to 9.3 * Additional unit given 07/21 for hgb 7.8 -- trending back down, but remains stable GI bleed resolved (8) Dysphagia: * Video swallow -- patient able to have nectar thick liquids but Speech Therapy recommended transition to honey thick if had difficulty-- may have pills with pudding - likely continued aspiration and evidence of possible aspiration/infectious process RLL * Unclear as to why worsening dysphagia-- possible progression of dementia/parkinsonism * TSH wnl * PEG tube as above * Given CT findings as above, patient initiated back on Zosyn for aspiration pneumonitis --> transitioned to PO Augmentin syrup * Patient tolerating pureed diet intermittently but not enough to adequately hydrate or give nutrition (9) CKD (chronic kidney disease), stage III: * As above * Cr elevated at 1.86 baseline appears to be ~1.4 (10) Hypothyroidism: * Continue Synthroid * Last TSH on file 8.32 in February 2018 * TSH 0.473, wnl (11) Hyperlipemia: * Continue atorvastatin (12) HTN (hypertension): * Slightly elevated, but stable- 148/77 currently * Outpatient lasix held as patient borderline hypotensive throughout stay * Monitor the blood pressure closely * Hesitant to restart as patient with poor intake already (13) Colitis: * Colitis seen on CT on admission. Continued leukocytosis. Peripheral Smear as above. 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: * As above (18) Recurrent UTI: * culture growing E coli, dugan sensitive -- patient intially treated with Zosyn-- transitioned to Rocephin-- completed >7 day course * repeat urine culture with Pseudomonas, change Augmentin to Cefepime (19) Vaginal mass: * As above (20) DVT prophylaxis: * SCDs * Chemical prophylaxis held in setting of bleeding Dispo: continue radiation, need to control sodium with just tube feeds and free water flushes follow BMP daily likely to [facility] in a few days Subjective patient tolerating tube feeds at night, discussed with artificial flowers supervisor will increase free water flushes to get her off of D5W as she is experiencing hyperglycemia reviewed chart from the past week patient with invasive squamous cell carcinoma of vulva, started on palliative radiation patient was eating more for a few days, now not eating too well reviewed labs, Na was up this morning at 146, down to 143 this afternoon Cr remains elevated at 1.86 Review of Systems Review of Systems: Unobtainable due to mental health condition (no distress, denies pain, cannot get into much detailed questions) Physical Exam Constitutional: WD/WN, vitals as above + overweight Eyes: PERRL, conjunctivae normal, anicteric sclerae ENMT: external ear and nose normal, oropharynx normal Nose: + dry nasal mucous membranes Mouth: + dry oral mucous membranes Neck: trachea midline, no thyromegaly Respiratory: normal respiratory effort, lungs clear to auscultation (decreased in bases) Cardiovascular: RRR, no murmur, no edema Gastrointestinal (Abdomen): normal bowel sounds, soft, nontender, no hepatosplenomegaly Musculoskeletal: no cyanosis or clubbing, extremities motor strength 5/5 Skin: no rashes, warm and dry Neurologic: patellar DTR's 2+ bilat, sensation intact and PERRL, EOMI, accommodation nl, no face palsy, no dysarthria Psychiatric: Orientation: oriented to person; + not oriented to place and + not oriented to time Lymphatic: no cervical or axillary lymphadenopathy Results & Data Vital Signs (Past 12 Hours) Vital Signs Temp Pulse Resp BP Pulse Ox 07/25/19 15:31 36.3 C L 92 H 16 118/71 95 Laboratory Results Laboratory Results - last 24 hr 07/24/19 07/25/19 07/25/19 23:55 05:24 05:24 WBC 16.79 H RBC 3.37 L Hgb 9.0 L Hct 31.9 L MCV 94.7 MCH 26.7 MCHC 28.2 L RDW Std Deviation 67.6 H RDW Coeff of Catarino 19.5 H Plt Count 214 MPV 10.1 Immature Gran % (Auto) 0.7 Neut % (Auto) 87.5 Lymph % (Auto) 6.1 [place] % (Auto) 3.9 Eos % (Auto) 1.7 Baso % (Auto) 0.1 Immature Gran # (Auto) 0.11 H Neut # (Auto) 14.69 H Lymph # (Auto) 1.03 L [place] # (Auto) 0.66 H Eos # (Auto) 0.29 Baso # (Auto) 0.01 Absolute Nucleated RBC 0.06 H Nucleated RBC % (auto) 0.4 Sodium 146 H Potassium 3.7 Chloride 117 H Carbon Dioxide 25 Anion Gap 4.0 BUN 14 Creatinine 1.77 H Est Cr Clr Drug Dosing 30.6 Est GFR ( Amer) 30.7 Est GFR (Non-Af Amer) 26.5 BUN/Creatinine Ratio 8.0 L Glucose 269 H POC Glucose 218 H Calcium 7.5 L Total Bilirubin 0.3 AST 16 ALT 21 Alkaline Phosphatase 155 H Total Protein 6.0 L Albumin 1.5 L Globulin 4.5 H Albumin/Globulin Ratio 0.3 L 07/25/19 07/25/19 07/25/19 05:54 11:43 14:22 WBC RBC Hgb Hct MCV MCH MCHC RDW Std Deviation RDW Coeff of Catarino Plt Count MPV Immature Gran % (Auto) Neut % (Auto) Lymph % (Auto) [place] % (Auto) Eos % (Auto) Baso % (Auto) Immature Gran # (Auto) Neut # (Auto) Lymph # (Auto) [place] # (Auto) Eos # (Auto) Baso # (Auto) Absolute Nucleated RBC Nucleated RBC % (auto) Sodium 143 Potassium 3.9 Chloride 115 H Carbon Dioxide 24 Anion Gap 4.0 BUN 16 Creatinine 1.86 H Est Cr Clr Drug Dosing 29.2 Est GFR ( Amer) 28.9 Est GFR (Non-Af Amer) 24.9 BUN/Creatinine Ratio 8.5 L Glucose 177 H POC Glucose 290 H 213 H Calcium 7.7 L Total Bilirubin AST ALT Alkaline Phosphatase Total Protein Albumin Globulin Albumin/Globulin Ratio 07/25/19 17:06 WBC RBC Hgb Hct MCV MCH MCHC RDW Std Deviation RDW Coeff of Catarino Plt Count MPV Immature Gran % (Auto) Neut % (Auto) Lymph % (Auto) [place] % (Auto) Eos % (Auto) Baso % (Auto) Immature Gran # (Auto) Neut # (Auto) Lymph # (Auto) [place] # (Auto) Eos # (Auto) Baso # (Auto) Absolute Nucleated RBC Nucleated RBC % (auto) Sodium Potassium Chloride Carbon Dioxide Anion Gap BUN Creatinine Est Cr Clr Drug Dosing Est GFR ( Amer) Est GFR (Non-Af Amer) BUN/Creatinine Ratio Glucose POC Glucose 145 H Calcium Total Bilirubin AST ALT Alkaline Phosphatase Total Protein Albumin Globulin Albumin/Globulin Ratio Medications Administered Current Inpatient Medications Acetaminophen (Tylenol) 650 mg PO Q4H PRN PRN Reason: Pain Stop: 08/07/19 13:54 Last Admin: 07/25/19 15:50 Dose: 650 mg Documented by: Atorvastatin Calcium (Lipitor) 80 mg PO HS RODOLFO Stop: 07/31/19 20:59 Last Admin: 07/25/19 21:37 Dose: 80 mg Documented by: Dextromethorphan Polymer Complex (Delsym) 30 mg PO Q6H PRN PRN Reason: Cough Stop: 08/18/19 18:59 Dextrose (Dextrose 50%) 25 - 50 ml IV UD PRN; Protocol PRN Reason: Hypoglycemia Protocol Stop: 08/17/19 14:00 Diphenhydramine HCl (Benadryl) 25 mg IV [id number] PRN PRN Reason: Allergic Symptoms Stop: 07/31/19 21:01 Enteral Nutritional Formula (Peptamen 1.5 Elias) 1,000 ml PO Q24H RODOLFO; Protocol Stop: 08/21/19 12:59 Last Admin: 07/25/19 18:54 Dose: 1,000 ml Documented by: Folic Acid (Folvite) 1 mg PO QAM RODOLFO Stop: 08/01/19 08:59 Last Admin: 07/25/19 08:00 Dose: 1 mg Documented by: Glucagon (Glucagen) 1 mg SQ UD PRN; Protocol PRN Reason: Hypoglycemia Protocol Stop: 08/17/19 14:00 Glucose (Dex4 Glucose) 4 - 8 tabs PO UD PRN; Protocol PRN Reason: Hypoglycemia Protocol Stop: 08/17/19 14:00 Glucose (Glucose 40%) 15 - 30 gm PO UD PRN; Protocol PRN Reason: Hypoglycemia Protocol Stop: 08/17/19 14:00 Sodium Chloride (Nss) 250 mls @ 15 mls/hr IV .[id number] PRN PRN Reason: For Transfusion Stop: 08/04/19 19:48 Sodium Chloride (Nss) 250 mls @ 15 mls/hr IV .[id number] PRN PRN Reason: For Transfusion Stop: 08/20/19 13:06 Sodium Chloride (Nss) 250 mls @ 15 mls/hr IV .[id number] PRN PRN Reason: For Transfusion Stop: 08/20/19 13:18 Cefepime HCl 2,000 mg/ Syringe 20 mls @ 5 mls/min IV Q12H RODOLFO; Protocol Stop: 08/04/19 10:59 Last Admin: 07/25/19 11:29 Dose: 5 mls/min Documented by: Insulin Aspart (Novolog Flexpen) 0 units SC Q6 RODOLFO; Protocol Stop: 08/17/19 17:59 Last Admin: 07/25/19 18:09 Dose: 1 units Documented by: Insulin Glargine (Lantus Solostar Pen) 8 units SC HS RODOLFO Stop: 08/18/19 23:49 Last Admin: 07/25/19 21:38 Dose: 8 units Documented by: Levothyroxine Sodium (Synthroid) 75 mcg PO HS RODOFLO Stop: 07/31/19 20:59 Last Admin: 07/25/19 21:36 Dose: 75 mcg Documented by: Tat Momoli Carbonate (Tat Momoli Carbonate) 300 mg PO QAM [facility] Stop: 08/01/19 08:59 Last Admin: 07/25/19 08:00 Dose: 300 mg Documented by: Miscellaneous (Carbohydrates For Hypoglycemia) 15 - 30 gm PO UD PRN PRN Reason: Hypoglycemia Protocol Stop: 08/17/19 14:00 Multivitamins/Folic Acid/Vitamin C (Flintstones Complete Chew Tab) 1 tab PO QAM [facility] Stop: 08/23/19 09:14 Last Admin: 07/25/19 08:00 Dose: 1 tab Documented by: Nystatin (Mycostatin) 5 ml PO QID [facility] Stop: 08/19/19 16:59 Last Admin: 07/25/19 21:37 Dose: 5 ml Documented by: Ondansetron HCl (Zofran) 4 mg IV Q6H PRN PRN Reason: Nausea Stop: 07/31/19 23:42 Last Admin: 07/02/19 00:00 Dose: 4 mg Documented by: Pantoprazole Sodium (Protonix) 40 mg PO QAM [facility] Stop: 08/10/19 15:59 Last Admin: 07/25/19 08:01 Dose: 40 mg Documented by: Pramipexole Dihydrochloride (Mirapex) 0.5 mg PO HS [facility] Stop: 07/31/19 20:59 Last Admin: 07/25/19 21:34 Dose: 0.5 mg Documented by: Raspberry (Raspberry) 5 ml PO Q6 RODOLFO Stop: 08/03/19 00:00 Last Admin: 07/25/19 17:58 Dose: 5 ml Documented by: Risperidone (Risperdal) 0.5 mg PO BID [facility] Stop: 07/31/19 20:59 Last Admin: 07/25/19 21:37 Dose: 0.5 mg Documented by: Sterile Water (Tube Feeding Water Flush) 1 ea GT Q4H [facility] Stop: 08/18/19 19:29 Last Admin: 07/25/19 19:23 Dose: 1 ea Documented by: Tiotropium [place] (Spiriva) 1 puffs INH DAILY [facility]; Protocol Stop: 08/08/19 08:59 Last Admin: 07/25/19 08:02 Dose: 1 puffs Documented by: Vancomycin HCl (Vancomycin Hcl) 125 mg PO Q6 [facility] Stop: 07/30/19 00:00 Last Admin: 07/25/19 17:58 Dose: 125 mg Documented by: PG Care Time/CCT Total # of Minutes Spent Total Time Spent with Patient: Total time spent is greater than 50% in coordination of care (as documented) at patient's floor/unit and/or counseling patient: (1) GI bleed GI bleed type/associated pathology: unspecified gastrointestinal hemorrhage type Qualified Code(s): K92.2 - Gastrointestinal hemorrhage, unspecified (2) Anemia Anemia type: unspecified type Qualified Code(s): D64.9 - Anemia, unspecified
[2019-07-26] MEDS: ACETAMINOPHEN 325 MG TAB PO PRN ×2 (00:12→09:56)
[2019-07-26] MEDS: INSULIN ASPART 100 UNITS/ML 3 ML PEN SC SCH ×4 (00:15→18:23)
[2019-07-26] MEDS: PEPTAMEN 1.5 CAL 1,000 ML BAG PO SCH (01:00)
[2019-07-26] MEDS: TUBE FEEDING WATER FLUSH GT SCH ×6 (04:25→19:30)
[2019-07-26] MEDS: VANCOMYCIN HCL 125 MG/2.5ML SOLN PO SCH ×4 (05:44→18:02)
[2019-07-26] MEDS: RASPBERRY SYRUP 5 ML UDP PO SCH ×4 (05:45→18:02)
[2019-07-26] MEDS: FOLIC ACID 1 MG TAB PO SCH (08:15)
[2019-07-26] MEDS: PANTOprazole 40 MG TAB PO SCH (08:16)
[2019-07-26] MEDS: risperiDONE 0.5 MG TABLET PO SCH ×2 (08:16→20:34)
[2019-07-26] MEDS: NYSTATIN SUSP 500,000 U/5 ML UDC PO SCH ×4 (08:16→20:32)
[2019-07-26] MEDS: FLINTSTONES COMPLETE CHEWABLE TAB PO SCH (08:16)
[2019-07-26] MEDS: LITHIUM CARBONATE 300 MG TAB PO SCH (08:16)
[2019-07-26] MEDS: TIOTROPIUM BROMIDE 5 PUFF/90 MCG INH INH SCH (09:56)
[2019-07-26] MEDS: ONDANSETRON INJ 2 MG/ML 2 ML VIAL IV PRN (09:56)
[2019-07-26] MEDS: CEFEPIME 2,000 MG in SYRINGE 7.5 ML IV SCH (11:52)
[2019-07-26 12:32] LABS: Basophils # (auto) 0.02 K/uL (0-0.2); Basophils % (auto) 0.1 %; Eosinophils # (auto) 0.29 K/uL (0-0.5); Eosinophils % (auto) 2.1 %; Hematocrit (blood only) 31.6 % (37-47); Hemoglobin 9.1 g/dL (12.0-16.0); Immature Granulocytes # (auto) 0.12 K/uL (0.00-0.02); Immature Granulocytes % (auto) 0.9 %; Lymphocytes % (auto) 6.6 %; Mean Corpuscular Hemoglobin 26.6 pg (25-34); Mean Corpuscular Hgb Conc 28.8 g/dL (32-36); Mean Corpuscular Volume 92.4 fL (80-100); Mean Platelet Volume 10.1 fL (7.4-10.4); Monocytes # (auto) 0.41 K/uL (0.11-0.59); Neutrophils # (auto) 11.91 K/uL (1.4-6.5); Neutrophils % (auto) 87.3 %; Platelet Count 199 K/uL (130-400); RDW Coefficient of Variation 19.6 % (11.5-14.5); RDW Standard Deviation 65.4 fL (36.4-46.3); Red Blood Count 3.42 M/uL (4.2-5.4); White Blood Count 13.65 K/uL (4.8-10.8)
[2019-07-26 12:53] LABS: Albumin Level 1.7 gm/dl (3.4-5.0); BUN Creatinine Ratio 8.3 (10-20); Calcium 8.5 mg/dl (8.5-10.1); Creatinine Clr Calc Pharmacy 27.2 ml/min; Est GFR (African American) 26.5; Est GFR (Non-African American) 22.8; Potassium 4.3 mmol/L (3.5-5.1)
[2019-07-26 12:56] LABS: Albumin Globulin Ratio 0.3 (0.9-2); Bilirubin,Total 0.2 mg/dl (0.2-1); Globulin 4.9 gm/dl (2.5-4.0); Total Protein 6.6 gm/dl (6.4-8.2)
[2019-07-26] MEDS: INSULIN GLARGINE SOLOSTAR 100 UNITS/ML 3 ML PEN SC SCH (20:30)
[2019-07-26] MEDS: ATORVASTATIN 40 MG TAB PO SCH (20:31)
[2019-07-26] MEDS: PRAMIPEXOLE DIHYDROCHLO 0.5 MG TAB PO SCH (20:32)
[2019-07-26] MEDS: LEVOTHYROXINE SODIUM 75 MCG TABLET PO SCH (20:33)
--- NOTE | 2019-07-26 22:38 | Hospitalist Progress Note ---
Date of Service July 26, 2019 Assessment & Plan (1) Squamous cell carcinoma: * Patient with extensive abnormality of lower vagina and vulva -- mass discovered on exam and CT 07/18. Patient with hx hysterectomy, so unlikely endometrial in origin * LINUX ENGINEER consulted for likely neoplastic and malignant growth of posterior vaginal wall/perineum- discussion with family resulted in biopsy with subsequent palliative RT. CA 19-9 and CA-125 without abnormality. * Biopsy done- pathology sent -- invasive squamous cell carcinoma, well-mod differentiate --> most likely source of bleeding, as EGD with cautery of AVM without significant bleeding -- son had conversation with Dr. Pittman from Rad Onc last evening about palliative radiation/options moving forward --> patient had first RT Thursday, completed 4th treatment on 07/26, tolerating well * H/h stable * Radiation Oncology consult -- Dr Pittman initially, then Dr. Santana for treatments -- appreciate input -- palliative external beam radiation --> total number of treatments evaluated based on response, likely in the range of 10-15 treatments, treatment number 4 today * Palliative Consult-- continues to try to make contact with son, can be difficult at times, need to discuss goals of care (2) Clostridium difficile infection: * Abdominal distension 07/19 with fecal retention on KUB following episode of foul smelling diarrhea. 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 * PEG tube placed by Dr. Whitt on 07/18 to assist with improving free water intake repeat BMP in the morning (4) Acute kidney injury superimposed on chronic kidney disease: * Worsening slightly today, Cr up to 2.0, making adequate urine * repeat BMP tomorrow * Renal U/S, no signs of obstruction * UA with likely contamination as patient incontinent and specimen collected from purewick -- although, WBC >> epi, and 3+ leuk est * change Augmentin to Cefepime for Pseudomonas UTI (5) Hyperglycemia: * continue Lantus * sugars much better with stopping D5W (6) Hypercalcemia: * resolved, Ca stable at 8.5 * Stable- secondary to hyperparathyroidism d/t chronic lithium use/parathyroid gland hyperplasia-- with elevated PTH at 87.1. PTH related protein elevated at 31 * With adequate hydration, patient has been able to manage DI and hypercalcemia, however given recent difficulty swallowing patient underwent PEG placement as above * Would not stop lithium at this time, as reversal of hyperplasia not likely. 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 * Melena prior to admission with subsequent EGD on 07/11 with cautery of AVM * Patient did receive 2 units PRBC on 07/05 with hemoglobin improved to 9.3 * Additional unit given 07/21 for hgb 7.8 -- trending back down, but remains stable GI bleed resolved (8) Dysphagia: * Video swallow -- patient able to have nectar thick liquids but Speech Therapy recommended transition to honey thick if had difficulty-- may have pills with pudding - likely continued aspiration and evidence of possible aspiration/infectious process RLL * Unclear as to why worsening dysphagia-- possible progression of dementia/parkinsonism * TSH wnl * PEG tube as above * Given CT findings as above, patient initiated back on Zosyn for aspiration pneumonitis --> transitioned to PO Augmentin syrup * Patient tolerating pureed diet intermittently but not enough to adequately hydrate or give nutrition (9) CKD (chronic kidney disease), stage III: * As above * Cr elevated at 2.0 baseline appears to be ~1.4 (10) Hypothyroidism: * Continue Synthroid * Last TSH on file 8.32 in February 2018 * TSH 0.473, wnl (11) Hyperlipemia: * Continue atorvastatin (12) HTN (hypertension): * Slightly elevated, but stable- 148/77 currently * Outpatient lasix held as patient borderline hypotensive throughout stay * Monitor the blood pressure closely * Hesitant to restart as patient with poor intake already (13) Colitis: * Colitis seen on CT on admission. Continued leukocytosis but down to 13k. Peripheral Smear as above. 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: * As above (18) Recurrent UTI: * culture growing E coli, dugan sensitive -- patient intially treated with Zosyn-- transitioned to Rocephin-- completed >7 day course * repeat urine culture with Pseudomonas, change Augmentin to Cefepime * no fever, WBC down to 13k from 16k (19) Vaginal mass: * As above (20) DVT prophylaxis: * SCDs * Chemical prophylaxis held in setting of bleeding Dispo: continue radiation, need to control sodium with just tube feeds and free water flushes follow BMP daily likely to [facility] in a few days Subjective patient seen after radiation therapy calm, no distress, no pain says that her abdomen is distended, tells me that she is having a baby girl (this is a common delusion for her) reviewed labs, Na 147 on just free water flushes Cr up to 2.0, calcium 8.5, WBC down to 13k, Hb stable at 9.1 patient denies chest pain, dyspnea, cough, fever/chills Review of Systems Review of Systems: All systems reviewed & are unremarkable except as noted in HPI & below Physical Exam Constitutional: WD/WN, vitals as above + overweight Eyes: PERRL, conjunctivae normal, anicteric sclerae ENMT: external ear and nose normal, oropharynx normal Neck: trachea midline, no thyromegaly Respiratory: normal respiratory effort, lungs clear to auscultation (decreased in bases) Cardiovascular: RRR, no murmur, no edema Gastrointestinal (Abdomen): normal bowel sounds, soft, nontender, no hepatosplenomegaly Musculoskeletal: no cyanosis or clubbing, extremities motor strength 5/5 Skin: no rashes, warm and dry Neurologic: patellar DTR's 2+ bilat, sensation intact and PERRL, EOMI, accommodation nl, no face palsy, no dysarthria Psychiatric: Orientation: oriented to person; + not oriented to place and + not oriented to time Lymphatic: no cervical or axillary lymphadenopathy Results & Data Vital Signs (Past 12 Hours) Vital Signs Temp Pulse Resp BP Pulse Ox 07/26/19 14:53 36.7 C 78 20 122/70 96 Laboratory Results Laboratory Results - last 24 hr 07/26/19 07/26/19 07/26/19 00:11 05:43 11:56 WBC RBC Hgb Hct MCV MCH MCHC RDW Std Deviation RDW Coeff of Catarino Plt Count MPV Immature Gran % (Auto) Neut % (Auto) Lymph % (Auto) Johnston % (Auto) Eos % (Auto) Baso % (Auto) Immature Gran # (Auto) Neut # (Auto) Lymph # (Auto) Johnston # (Auto) Eos # (Auto) Baso # (Auto) Sodium Potassium Chloride Carbon Dioxide Anion Gap BUN Creatinine Est Cr Clr Drug Dosing Est GFR ( Amer) Est GFR (Non-Af Amer) BUN/Creatinine Ratio Glucose POC Glucose 166 H 257 H 161 H Calcium Total Bilirubin AST ALT Alkaline Phosphatase Total Protein Albumin Globulin Albumin/Globulin Ratio 07/26/19 07/26/19 07/26/19 12:08 12:08 17:47 WBC 13.65 H RBC 3.42 L Hgb 9.1 L Hct 31.6 L MCV 92.4 MCH 26.6 MCHC 28.8 L RDW Std Deviation 65.4 H RDW Coeff of Catarino 19.6 H Plt Count 199 MPV 10.1 Immature Gran % (Auto) 0.9 Neut % (Auto) 87.3 Lymph % (Auto) 6.6 Johnston % (Auto) 3.0 Eos % (Auto) 2.1 Baso % (Auto) 0.1 Immature Gran # (Auto) 0.12 H Neut # (Auto) 11.91 H Lymph # (Auto) 0.90 L Johnston # (Auto) 0.41 Eos # (Auto) 0.29 Baso # (Auto) 0.02 Sodium 147 H Potassium 4.3 Chloride 121 H Carbon Dioxide 23 Anion Gap 3.0 BUN 17 Creatinine 2.00 H Est Cr Clr Drug Dosing 27.2 Est GFR ( Amer) 26.5 Est GFR (Non-Af Amer) 22.8 BUN/Creatinine Ratio 8.3 L Glucose 194 H POC Glucose 139 H Calcium 8.5 Total Bilirubin 0.2 AST 22 ALT 23 Alkaline Phosphatase 145 H Total Protein 6.6 Albumin 1.7 L Globulin 4.9 H Albumin/Globulin Ratio 0.3 L Medications Administered Current Inpatient Medications Acetaminophen (Tylenol) 650 mg PO Q4H PRN PRN Reason: Pain Stop: 08/07/19 13:54 Last Admin: 07/26/19 09:56 Dose: 650 mg Documented by: Atorvastatin Calcium (Lipitor) 80 mg PO HS RODOLFO Stop: 07/31/19 20:59 Last Admin: 07/26/19 20:31 Dose: 80 mg Documented by: Dextromethorphan Polymer Complex (Delsym) 30 mg PO Q6H PRN PRN Reason: Cough Stop: 08/18/19 18:59 Dextrose (Dextrose 50%) 25 - 50 ml IV UD PRN; Protocol PRN Reason: Hypoglycemia Protocol Stop: 08/17/19 14:00 Diphenhydramine HCl (Benadryl) 25 mg IV [id number] PRN PRN Reason: Allergic Symptoms Stop: 07/31/19 21:01 Enteral Nutritional Formula (Peptamen 1.5 Elias) 1,000 ml PO Q24H RODOLFO; Protocol Stop: 08/21/19 12:59 Last Admin: 07/26/19 01:00 Dose: 1,000 ml Documented by: Folic Acid (Folvite) 1 mg PO QAM RODOLFO Stop: 08/01/19 08:59 Last Admin: 07/26/19 08:15 Dose: 1 mg Documented by: Glucagon (Glucagen) 1 mg SQ UD PRN; Protocol PRN Reason: Hypoglycemia Protocol Stop: 08/17/19 14:00 Glucose (Dex4 Glucose) 4 - 8 tabs PO UD PRN; Protocol PRN Reason: Hypoglycemia Protocol Stop: 08/17/19 14:00 Glucose (Glucose 40%) 15 - 30 gm PO UD PRN; Protocol PRN Reason: Hypoglycemia Protocol Stop: 08/17/19 14:00 Sodium Chloride (Nss) 250 mls @ 15 mls/hr IV .[id number] PRN PRN Reason: For Transfusion Stop: 08/04/19 19:48 Sodium Chloride (Nss) 250 mls @ 15 mls/hr IV .[id number] PRN PRN Reason: For Transfusion Stop: 08/20/19 13:06 Sodium Chloride (Nss) 250 mls @ 15 mls/hr IV .[id number] PRN PRN Reason: For Transfusion Stop: 08/20/19 13:18 Cefepime HCl 2,000 mg/ Syringe 20 mls @ 5 mls/min IV Q12H [facility]; Protocol Stop: 08/04/19 10:59 Last Admin: 07/26/19 11:52 Dose: 5 mls/min Documented by: Insulin Aspart (Novolog Flexpen) 0 units SC Q6 [facility]; Protocol Stop: 08/17/19 17:59 Last Admin: 07/26/19 18:23 Dose: Not Given Documented by: Insulin Glargine (Lantus Solostar Pen) 8 units SC [facility] Stop: 08/18/19 23:49 Last Admin: 07/26/19 20:30 Dose: 8 units Documented by: Levothyroxine Sodium (Synthroid) 75 mcg PO [facility] Stop: 07/31/19 20:59 Last Admin: 07/26/19 20:33 Dose: 75 mcg Documented by: [place] Carbonate ([place] Carbonate) 300 mg PO [facility] Stop: 08/01/19 08:59 Last Admin: 07/26/19 08:16 Dose: 300 mg Documented by: Miscellaneous (Carbohydrates For Hypoglycemia) 15 - 30 gm PO UD PRN PRN Reason: Hypoglycemia Protocol Stop: 08/17/19 14:00 Multivitamins/Folic Acid/Vitamin C (Flintstones Complete Chew Tab) 1 tab PO [facility] Stop: 08/23/19 09:14 Last Admin: 07/26/19 08:16 Dose: 1 tab Documented by: Nystatin (Mycostatin) 5 ml PO QID [facility] Stop: 08/19/19 16:59 Last Admin: 07/26/19 20:32 Dose: 5 ml Documented by: Ondansetron HCl (Zofran) 4 mg IV Q6H PRN PRN Reason: Nausea Stop: 07/31/19 23:42 Last Admin: 07/26/19 09:56 Dose: 4 mg Documented by: Pantoprazole Sodium (Protonix) [facility] Stop: 08/10/19 15:59 Last Admin: 07/26/19 08:16 Dose: 40 mg Documented by: Pramipexole Dihydrochloride (Mirapex) 0.5 mg PO [facility] Stop: 07/31/19 20:59 Last Admin: 07/26/19 20:32 Dose: 0.5 mg Documented by: Raspberry (Raspberry) 5 ml PO Q6 [facility] Stop: 08/03/19 00:00 Last Admin: 07/26/19 18:02 Dose: 5 ml Documented by: Risperidone (Risperdal) 0.5 mg PO BID RODOLFO Stop: 07/31/19 20:59 Last Admin: 07/26/19 20:34 Dose: 0.5 mg Documented by: Sterile Water (Tube Feeding Water Flush) 1 ea GT Q4H [facility] Stop: 08/18/19 19:29 Last Admin: 07/26/19 19:30 Dose: 1 ea Documented by: Tiotropium [place] (Spiriva) 1 puffs INH DAILY RODOLFO; Protocol Stop: 08/08/19 08:59 Last Admin: 07/26/19 09:56 Dose: 1 puffs Documented by: Vancomycin HCl (Vancomycin Hcl) 125 mg PO Q6 RODOLFO Stop: 07/30/19 00:00 Last Admin: 07/26/19 18:02 Dose: 125 mg Documented by: PG Care Time/CCT Total # of Minutes Spent Total Time Spent with Patient: Total time spent is greater than 50% in coordination of care (as documented) at patient's floor/unit and/or counseling patient: (1) GI bleed GI bleed type/associated pathology: unspecified gastrointestinal hemorrhage type Qualified Code(s): K92.2 - Gastrointestinal hemorrhage, unspecified (2) Anemia Anemia type: unspecified type Qualified Code(s): D64.9 - Anemia, unspecified
[2019-07-27] MEDS: TUBE FEEDING WATER FLUSH GT SCH ×6 (00:25→19:36)
[2019-07-27] MEDS: CEFEPIME 2,000 MG in SYRINGE 7.5 ML IV SCH ×3 (00:25→22:15)
[2019-07-27] MEDS: RASPBERRY SYRUP 5 ML UDP PO SCH ×4 (00:26→18:26)
[2019-07-27] MEDS: VANCOMYCIN HCL 125 MG/2.5ML SOLN PO SCH ×4 (00:26→18:25)
[2019-07-27] MEDS: INSULIN ASPART 100 UNITS/ML 3 ML PEN SC SCH ×4 (00:39→18:33)
[2019-07-27] MEDS: LITHIUM CARBONATE 300 MG TAB PO SCH (08:19)
[2019-07-27] MEDS: FOLIC ACID 1 MG TAB PO SCH (08:19)
[2019-07-27] MEDS: NYSTATIN SUSP 500,000 U/5 ML UDC PO SCH ×4 (08:19→20:15)
[2019-07-27] MEDS: PANTOprazole 40 MG TAB PO SCH (08:19)
[2019-07-27] MEDS: TIOTROPIUM BROMIDE 5 PUFF/90 MCG INH INH SCH (08:20)
[2019-07-27] MEDS: FLINTSTONES COMPLETE CHEWABLE TAB PO SCH (08:20)
[2019-07-27] MEDS: risperiDONE 0.5 MG TABLET PO SCH ×2 (08:20→20:14)
[2019-07-27 09:17] LABS: Hematocrit (blood only) 32.4 % (37-47); Hemoglobin 9.3 g/dL (12.0-16.0); Mean Corpuscular Hgb Conc 28.7 g/dL (32-36); Mean Corpuscular Volume 94.2 fL (80-100); Mean Platelet Volume 9.8 fL (7.4-10.4); Nucleated RBC # (auto) 0.03 K/uL (0-0); Nucleated RBC % (auto) 0.2 %; Platelet Count 210 K/uL (130-400); RDW Coefficient of Variation 19.6 % (11.5-14.5); RDW Standard Deviation 66.9 fL (36.4-46.3); Red Blood Count 3.44 M/uL (4.2-5.4); White Blood Count 15.24 K/uL (4.8-10.8)
[2019-07-27 09:18] LABS: Basophils # (auto) 0.01 K/uL (0-0.2); Basophils % (auto) 0.1 %; Echinocytes 1+; Eosinophils # (auto) 0.25 K/uL (0-0.5); Eosinophils % (auto) 1.6 %; Immature Granulocytes # (auto) 0.18 K/uL (0.00-0.02); Immature Granulocytes % (auto) 1.2 %; Lymphocytes # (auto) 0.83 K/uL (1.2-3.4); Lymphocytes % (auto) 5.4 %; Monocytes # (auto) 0.42 K/uL (0.11-0.59); Monocytes % (auto) 2.8 %; Neutrophils # (auto) 13.55 K/uL (1.4-6.5); Neutrophils % (auto) 88.9 %
[2019-07-27 09:28] LABS: BUN Creatinine Ratio 9.7 (10-20); Calcium 9.1 mg/dl (8.5-10.1); Est GFR (African American) 30.7; Est GFR (Non-African American) 26.5; Potassium 4.1 mmol/L (3.5-5.1)
--- NOTE | 2019-07-27 16:09 | Hospitalist Progress Note ---
Date of Service July 27, 2019 Assessment & Plan (1) Squamous cell carcinoma: * Patient with extensive abnormality of lower vagina and vulva -- mass discovered on exam and CT 07/18. Patient with hx hysterectomy, so unlikely endometrial in origin * IT COMMUNICATIONS MANAGER consulted for likely neoplastic and malignant growth of posterior vaginal wall/perineum- discussion with family resulted in biopsy with subsequent palliative RT. CA 19-9 and CA-125 without abnormality. * Biopsy done- pathology sent -- invasive squamous cell carcinoma, well-mod differentiate --> most likely source of bleeding, as EGD with cautery of AVM without significant bleeding -- son had conversation with Dr. Pittman from Rad Onc last evening about palliative radiation/options moving forward --> patient had first RT Sunday 07/22, completed 5th treatment on 07/26, tolerating well * H/h stable * Radiation Oncology consult -- Dr Pittman initially, then Dr. Santana for treatments -- appreciate input -- palliative external beam radiation --> total number of treatments evaluated based on response, likely in the range of 10-15 treatments, treatment number 5 today * Palliative Consult-- continues to try to make contact with son, can be difficult at times, need to discuss goals of care (2) Clostridium difficile infection: * Abdominal distension 07/19 with fecal retention on KUB following episode of foul smelling diarrhea. 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 * PEG tube placed by Dr. Whitt on 07/18 to assist with improving free water intake (4) Acute kidney injury superimposed on chronic kidney disease: * Cr improved slightly to 1.77, making adequate urine * certainly not due to dehydration * repeat BMP tomorrow * Renal U/S, no signs of obstruction * UA with likely contamination as patient incontinent and specimen collected from purewick -- although, WBC >> epi, and 3+ leuk est * continue Cefepime for Pseudomonas UTI (5) Hyperglycemia: * continue Lantus * sugars much better with stopping D5W (6) Hypercalcemia: * worsening, up to 9.1, will increase free water administration * Stable- secondary to hyperparathyroidism d/t chronic lithium use/parathyroid gland hyperplasia-- with elevated PTH at 87.1. PTH related protein elevated at 31 * Would not stop lithium at this time, as reversal of hyperplasia not likely. * Zoledronic acid on 07/15 (7) GI bleed: * Originally admitted for GI bleed, however likley d/t squamous cell carcinoma of vaginal origin * Melena prior to admission with subsequent EGD on 07/11 with cautery of AVM GI bleed resolved (8) Dysphagia: * Video swallow -- patient able to have nectar thick liquids but Speech Therapy recommended transition to honey thick if had difficulty-- may have pills with pudding - likely continued aspiration and evidence of possible aspiration/infectious process RLL * Unclear as to why worsening dysphagia-- possible progression of dementia/parkinsonism * TSH wnl * PEG tube as above * Given CT findings as above, patient initiated back on Zosyn for aspiration pneumonitis --> transitioned to PO Augmentin syrup * Patient tolerating pureed diet intermittently but not enough to adequately hydrate or give nutrition (9) CKD (chronic kidney disease), stage III: * As above * Cr 1.7 today (10) Hypothyroidism: * Continue Synthroid * Last TSH on file 8.32 in February 2018 * TSH 0.473, wnl (11) Hyperlipemia: * Continue atorvastatin (12) HTN (hypertension): * Slightly elevated, but stable- 148/77 currently * Outpatient lasix held as patient borderline hypotensive throughout stay * Monitor the blood pressure closely * Hesitant to restart as patient with poor intake already (13) Colitis: * Colitis seen on CT on admission. Continued leukocytosis but down to 13k. Peripheral Smear as above. 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: * As above (18) Recurrent UTI: * culture growing E coli, dugan sensitive -- patient intially treated with Zosyn-- transitioned to Rocephin-- completed >7 day course * repeat urine culture with Pseudomonas, change Augmentin to Cefepime * no fever, WBC down to 13k from 16k (19) Vaginal mass: * As above (20) DVT prophylaxis: * SCDs * Chemical prophylaxis held in setting of bleeding Dispo: continue radiation, need to control sodium with just tube feeds and free water flushes follow BMP daily likely to [facility] in a few days once there is a free water regimen that controls sodium Subjective patient not eating much today reviewed labs, Na up to 148, chloride up to 122 off the D5W Cr down to 1.77 from 2.0 will increase free water flushes to 500cc q4 from 400cc q4, this will give 600cc more a day tolerating tube feeds at night vitals stable, no fever still with leukocytosis of 15k, up slightly from 13k patient denies any pain today, denies dyspnea, chest pain, nausea/vomiting Review of Systems Review of Systems: All systems reviewed & are unremarkable except as noted in HPI & below Physical Exam Constitutional: WD/WN, vitals as above + overweight Eyes: PERRL, conjunctivae normal, anicteric sclerae ENMT: external ear and nose normal, oropharynx normal Nose: + dry nasal mucous membranes Mouth: + dry oral mucous membranes Neck: trachea midline, no thyromegaly Respiratory: normal respiratory effort, lungs clear to auscultation (decreased in bases) Cardiovascular: RRR, no murmur, no edema Gastrointestinal (Abdomen): Inspection/Auscultation: + abdomen distended and normal bowel sounds Percussion/Palpation: abdomen soft; abdomen nontender, no guarding, abdomen not rigid and no ascites Musculoskeletal: no cyanosis or clubbing, extremities motor strength 5/5 Skin: no rashes, warm and dry Neurologic: patellar DTR's 2+ bilat, sensation intact and PERRL, EOMI, accommodation nl, no face palsy, no dysarthria Psychiatric: Orientation: oriented to person; + not oriented to place and + not oriented to time Lymphatic: no cervical or axillary lymphadenopathy Results & Data Vital Signs (Past 12 Hours) Vital Signs Temp Pulse Resp BP Pulse Ox 07/27/19 15:01 36.4 C L 83 16 106/63 93 07/27/19 07:46 36.4 C L 86 16 113/72 91 Laboratory Results Laboratory Results - last 24 hr 07/26/19 07/27/19 07/27/19 17:47 00:32 06:06 WBC RBC Hgb Hct MCV MCH MCHC RDW Std Deviation RDW Coeff of Catarino Plt Count MPV Immature Gran % (Auto) Neut % (Auto) Lymph % (Auto) Bre[place] % (Auto) Eos % (Auto) Baso % (Auto) Immature Gran # (Auto) Neut # (Auto) Lymph # (Auto) Bre[place] # (Auto) Eos # (Auto) Baso # (Auto) Absolute Nucleated RBC Nucleated RBC % (auto) Echinocytes Sodium Potassium Chloride Carbon Dioxide Anion Gap BUN Creatinine Est Cr Clr Drug Dosing Est GFR ( Amer) Est GFR (Non-Af Amer) BUN/Creatinine Ratio Glucose POC Glucose 139 H 150 H 158 H Calcium 07/27/19 07/27/19 07/27/19 08:22 08:22 12:01 WBC 15.24 H RBC 3.44 L Hgb 9.3 L Hct 32.4 L MCV 94.2 MCH 27.0 MCHC 28.7 L RDW Std Deviation 66.9 H RDW Coeff of Catarino 19.6 H Plt Count 210 MPV 9.8 Immature Gran % (Auto) 1.2 Neut % (Auto) 88.9 Lymph % (Auto) 5.4 Bremer % (Auto) 2.8 Eos % (Auto) 1.6 Baso % (Auto) 0.1 Immature Gran # (Auto) 0.18 H Neut # (Auto) 13.55 H Lymph # (Auto) 0.83 L Bremer # (Auto) 0.42 Eos # (Auto) 0.25 Baso # (Auto) 0.01 Absolute Nucleated RBC 0.03 H Nucleated RBC % (auto) 0.2 Echinocytes 1+ Sodium 148 H Potassium 4.1 Chloride 122 H Carbon Dioxide 22 Anion Gap 4.0 BUN 17 Creatinine 1.77 H Est Cr Clr Drug Dosing 31.0 Est GFR ( Amer) 30.7 Est GFR (Non-Af Amer) 26.5 BUN/Creatinine Ratio 9.7 L Glucose 198 H POC Glucose 173 H Calcium 9.1 Medications Administered Current Inpatient Medications Acetaminophen (Tylenol) 650 mg PO Q4H PRN PRN Reason: Pain Stop: 08/07/19 13:54 Last Admin: 07/26/19 09:56 Dose: 650 mg Documented by: Atorvastatin Calcium (Lipitor) 80 mg PO HS RODOLFO Stop: 07/31/19 20:59 Last Admin: 07/26/19 20:31 Dose: 80 mg Documented by: Dextromethorphan Polymer Complex (Delsym) 30 mg PO Q6H PRN PRN Reason: Cough Stop: 08/18/19 18:59 Dextrose (Dextrose 50%) 25 - 50 ml IV UD PRN; Protocol PRN Reason: Hypoglycemia Protocol Stop: 08/17/19 14:00 Diphenhydramine HCl (Benadryl) 25 mg IV [id number] PRN PRN Reason: Allergic Symptoms Stop: 07/31/19 21:01 Enteral Nutritional Formula (Peptamen 1.5 Elias) 1,000 ml PO Q24H RODOLFO; Protocol Stop: 08/21/19 12:59 Last Admin: 07/26/19 01:00 Dose: 1,000 ml Documented by: Folic Acid (Folvite) 1 mg PO QAM RODOLFO Stop: 08/01/19 08:59 Last Admin: 07/27/19 08:19 Dose: 1 mg Documented by: Glucagon (Glucagen) 1 mg SQ UD PRN; Protocol PRN Reason: Hypoglycemia Protocol Stop: 08/17/19 14:00 Glucose (Dex4 Glucose) 4 - 8 tabs PO UD PRN; Protocol PRN Reason: Hypoglycemia Protocol Stop: 08/17/19 14:00 Glucose (Glucose 40%) 15 - 30 gm PO UD PRN; Protocol PRN Reason: Hypoglycemia Protocol Stop: 08/17/19 14:00 Sodium Chloride (Nss) 250 mls @ 15 mls/hr IV .[id number] PRN PRN Reason: For Transfusion Stop: 08/04/19 19:48 Sodium Chloride (Nss) 250 mls @ 15 mls/hr IV .[id number] PRN PRN Reason: For Transfusion Stop: 08/20/19 13:06 Sodium Chloride (Nss) 250 mls @ 15 mls/hr IV .[id number] PRN PRN Reason: For Transfusion Stop: 08/20/19 13:18 Cefepime HCl 2,000 mg/ Syringe 20 mls @ 5 mls/min IV Q12H [facility]; Protocol Stop: 08/04/19 10:59 Last Admin: 07/27/19 11:37 Dose: 5 mls/min Documented by: Insulin Aspart (Novolog Flexpen) 0 units SC Q6 [facility]; Protocol Stop: 08/17/19 17:59 Last Admin: 07/27/19 12:33 Dose: 2 units Documented by: Insulin Glargine (Lantus Solostar Pen) 8 units SC [facility] Stop: 08/18/19 23:49 Last Admin: 07/26/19 20:30 Dose: 8 units Documented by: Levothyroxine Sodium (Synthroid) 75 mcg PO [facility] Stop: 07/31/19 20:59 Last Admin: 07/26/19 20:33 Dose: 75 mcg Documented by: [place] Carbonate ([place] Carbonate) 300 mg PO [facility] Stop: 08/01/19 08:59 Last Admin: 07/27/19 08:19 Dose: 300 mg Documented by: Miscellaneous (Carbohydrates For Hypoglycemia) 15 - 30 gm PO UD PRN PRN Reason: Hypoglycemia Protocol Stop: 08/17/19 14:00 Multivitamins/Folic Acid/Vitamin C (Flintstones Complete Chew Tab) 1 tab PO [facility] Stop: 08/23/19 09:14 Last Admin: 07/27/19 08:20 Dose: Not Given Documented by: Nystatin (Mycostatin) 5 ml PO QID [facility] Stop: 08/19/19 16:59 Last Admin: 07/27/19 12:35 Dose: 5 ml Documented by: Ondansetron HCl (Zofran) 4 mg IV Q6H PRN PRN Reason: Nausea Stop: 07/31/19 23:42 Last Admin: 07/26/19 09:56 Dose: 4 mg Documented by: Pantoprazole Sodium (Protonix) 40 mg PO [facility] Stop: 08/10/19 15:59 Last Admin: 07/27/19 08:19 Dose: 40 mg Documented by: Pramipexole Dihydrochloride (Mirapex) 0.5 mg PO [facility] Stop: 07/31/19 20:59 Last Admin: 07/26/19 20:32 Dose: 0.5 mg Documented by: Raspberry (Raspberry) 5 ml PO Q6 [facility] Stop: 08/03/19 00:00 Last Admin: 07/27/19 11:37 Dose: 5 ml Documented by: Risperidone (Risperdal) 0.5 mg PO BID [facility] Stop: 07/31/19 20:59 Last Admin: 07/27/19 08:20 Dose: 0.5 mg Documented by: Sterile Water (Tube Feeding Water Flush) 1 ea GT Q4H [facility] Stop: 08/18/19 19:29 Last Admin: 07/27/19 15:45 Dose: 1 ea Documented by: Tiotropium [place] (Spiriva) 1 puffs INH DAILY [facility]ODOLFO; Protocol Stop: 08/08/19 08:59 Last Admin: 07/27/19 08:20 Dose: 1 puffs Documented by: Vancomycin HCl (Vancomycin Hcl) 125 mg PO Q6 [facility] Stop: 07/30/19 00:00 Last Admin: 07/27/19 11:38 Dose: 125 mg Documented by: PG Care Time/CCT Total # of Minutes Spent Total Time Spent with Patient: Total time spent is greater than 50% in coordination of care (as documented) at patient's floor/unit and/or counseling patient: (1) GI bleed GI bleed type/associated pathology: unspecified gastrointestinal hemorrhage type Qualified Code(s): K92.2 - Gastrointestinal hemorrhage, unspecified (2) Anemia Anemia type: unspecified type Qualified Code(s): D64.9 - Anemia, unspecified
[2019-07-27] MEDS: PEPTAMEN 1.5 CAL 1,000 ML BAG PO SCH (19:14)
[2019-07-27] MEDS: INSULIN GLARGINE SOLOSTAR 100 UNITS/ML 3 ML PEN SC SCH (20:13)
[2019-07-27] MEDS: ATORVASTATIN 40 MG TAB PO SCH (20:14)
[2019-07-27] MEDS: LEVOTHYROXINE SODIUM 75 MCG TABLET PO SCH (20:15)
[2019-07-27] MEDS: PRAMIPEXOLE DIHYDROCHLO 0.5 MG TAB PO SCH (20:16)
[2019-07-28] MEDS: TUBE FEEDING WATER FLUSH GT SCH ×6 (00:05→19:09)
[2019-07-28] MEDS: VANCOMYCIN HCL 125 MG/2.5ML SOLN PO SCH ×4 (00:06→18:26)
[2019-07-28] MEDS: RASPBERRY SYRUP 5 ML UDP PO SCH ×4 (00:06→18:26)
[2019-07-28] MEDS: INSULIN ASPART 100 UNITS/ML 3 ML PEN SC SCH ×4 (00:14→18:27)
[2019-07-28 05:53] LABS: Hematocrit (blood only) 31.2 % (37-47); Hemoglobin 8.9 g/dL (12.0-16.0); Mean Corpuscular Hgb Conc 28.5 g/dL (32-36); Mean Corpuscular Volume 94.5 fL (80-100); Nucleated RBC # (auto) 0.05 K/uL (0-0); Nucleated RBC % (auto) 0.3 %; Platelet Count 207 K/uL (130-400); RDW Standard Deviation 68.3 fL (36.4-46.3)
[2019-07-28 06:17] LABS: Basophils # (auto) 0.02 K/uL (0-0.2); Basophils % (auto) 0.1 %; Echinocytes 1+; Eosinophils # (auto) 0.27 K/uL (0-0.5); Eosinophils % (auto) 1.8 %; Immature Granulocytes # (auto) 0.27 K/uL (0.00-0.02); Immature Granulocytes % (auto) 1.8 %; Lymphocytes # (auto) 0.86 K/uL (1.2-3.4); Lymphocytes % (auto) 5.8 %; Monocytes # (auto) 0.51 K/uL (0.11-0.59); Monocytes % (auto) 3.4 %; Neutrophils # (auto) 12.97 K/uL (1.4-6.5); Neutrophils % (auto) 87.1 %
[2019-07-28 06:19] LABS: Anisocytosis Present; Hypochromasia Present
[2019-07-28 06:23] LABS: BUN Creatinine Ratio 9.6 (10-20); Calcium 9.6 mg/dl (8.5-10.1); Creatinine Clr Calc Pharmacy 27.2 ml/min; Est GFR (African American) 26.2; Est GFR (Non-African American) 22.6; Potassium 4.5 mmol/L (3.5-5.1)
[2019-07-28] MEDS: PANTOprazole 40 MG TAB PO SCH (07:54)
[2019-07-28] MEDS: NYSTATIN SUSP 500,000 U/5 ML UDC PO SCH ×4 (07:54→20:27)
[2019-07-28] MEDS: TIOTROPIUM BROMIDE 5 PUFF/90 MCG INH INH SCH (07:54)
[2019-07-28] MEDS: risperiDONE 0.5 MG TABLET PO SCH ×2 (07:55→20:27)
[2019-07-28] MEDS: FOLIC ACID 1 MG TAB PO SCH (07:55)
[2019-07-28] MEDS: FLINTSTONES COMPLETE CHEWABLE TAB PO SCH (07:55)
[2019-07-28] MEDS: LITHIUM CARBONATE 300 MG TAB PO SCH (07:55)
[2019-07-28] MEDS ORDERED: Nursing to Pharmacy Communication ONE (09:25)
[2019-07-28] MEDS: CEFEPIME 2,000 MG in SYRINGE 7.5 ML IV SCH ×2 (11:32→22:22)
--- NOTE | 2019-07-28 12:53 | Hospitalist Progress Note ---
Date of Service July 28, 2019 Assessment & Plan (1) Squamous cell carcinoma: * Patient with extensive abnormality of lower vagina and vulva -- mass discovered on exam and CT 07/18. Patient with hx hysterectomy, so unlikely endometrial in origin * FAMILY LIFE EDUCATOR consulted for likely neoplastic and malignant growth of posterior vaginal wall/perineum- discussion with family resulted in biopsy with subsequent palliative RT. CA 19-9 and CA-125 without abnormality. * Biopsy done- pathology sent -- invasive squamous cell carcinoma, well-mod differentiate --> most likely source of bleeding, as EGD with cautery of AVM without significant bleeding -- son had conversation with Dr. Pittman from Rad Onc last evening about palliative radiation/options moving forward --> patient had first RT Sunday 07/22, completed 5th treatment on 07/26, tolerating well * H/h stable * Radiation Oncology consult -- Dr Pittman initially, then Dr. Santana for treatments -- appreciate input -- palliative external beam radiation --> total number of treatments evaluated based on response, likely in the range of 10-15 treatments, treatment number 5 yesterday NO RADIATION TODAY, HOLIDAY * Palliative Consult-- will reach out to son tomorrow to discuss (2) Clostridium difficile infection: * Abdominal distension 07/19 with fecal retention on KUB following episode of foul smelling diarrhea. 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 * PEG tube placed by Dr. Whitt on 07/18 to assist with improving free water intake (4) Acute kidney injury superimposed on chronic kidney disease: * Cr up to 2.0, making adequate urine * certainly not due to dehydration * repeat BMP tomorrow * Renal U/S, no signs of obstruction * UA with likely contamination as [facility]ent [facility] -- although, WBC >> epi, and 3+ leuk est * continue Cefepime for Pseudomonas UTI (5) Hyperglycemia: * continue Lantus * sugars much better with stopping D5W (6) Hypercalcemia: * worsening, up to 9.6, repeat tomorrow * Stable- secondary to hyperparathyroidism d/t chronic lithium use/parathyroid gland hyperplasia-- with elevated PTH at 87.1. PTH related protein elevated at 31 * Would not stop lithium at this time, as reversal of hyperplasia not likely. * Zoledronic acid on 07/15 (7) GI bleed: * Originally admitted for GI bleed, however likley d/t squamous cell carcinoma of vaginal origin * Melena prior to admission with subsequent EGD on 07/11 with cautery of AVM GI bleed resolved (8) Dysphagia: * Video swallow -- patient able to have nectar thick liquids but Speech Therapy recommended transition to honey thick if had difficulty-- may have pills with pudding - likely continued aspiration and evidence of possible aspiration/infectious process RLL * Unclear as to why worsening dysphagia-- possible progression of dementia/parkinsonism * TSH wnl * PEG tube as above * Given CT findings as above, patient initiated back on Zosyn for aspiration pneumonitis --> transitioned to PO Augmentin syrup * Patient tolerating pureed diet intermittently but not enough to adequately hydrate or give nutrition (9) CKD (chronic kidney disease), stage III: * As above * Cr 2.0 today (10) Hypothyroidism: * Continue Synthroid * Last TSH on file 8.32 in February 2018 * TSH 0.473, wnl (11) Hyperlipemia: * Continue atorvastatin (12) HTN (hypertension): * Stable (13) Colitis: * Colitis seen on CT on admission. Continued leukocytosis at 14k. Peripheral Smear as above. 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: * As above (18) Recurrent UTI: * culture growing E coli, dugan sensitive -- patient intially treated with Zosyn-- transitioned to Rocephin-- completed >7 day course * repeat urine culture with Pseudomonas, change Augmentin to Cefepime * no fever, WBC 14k (19) Vaginal mass: * As above (20) DVT prophylaxis: * SCDs * Chemical prophylaxis held in setting of bleeding Dispo: continue radiation, need to control sodium with just tube feeds and free water flushes follow BMP daily likely to [facility] in a few days once there is a free water regimen that controls sodium Subjective patient eating less today tolerating tube feeds and free water flushes of 500cc q4, no vomiting making a lot of clear urine Cr up slightly to 2.0 Na is up to 149 and Cl is 121, Ca is 9.6 patient denies chest pain/pressure, denies fever/chills, denies dyspnea, has a mild intermittent cough Review of Systems Review of Systems: All systems reviewed & are unremarkable except as noted in HPI & below Physical Exam Constitutional: WD/WN, vitals as above + overweight Eyes: PERRL, conjunctivae normal, anicteric sclerae ENMT: external ear and nose normal, oropharynx normal Nose: + dry nasal mucous membranes Mouth: + dry oral mucous membranes Neck: trachea midline, no thyromegaly Respiratory: normal respiratory effort, lungs clear to auscultation (decreased in bases) Cardiovascular: RRR, no murmur, no edema Gastrointestinal (Abdomen): Inspection/Auscultation: + abdomen distended and normal bowel sounds Percussion/Palpation: abdomen soft; abdomen nontender, no guarding, abdomen not rigid and no ascites Musculoskeletal: no cyanosis or clubbing, extremities motor strength 5/5 Skin: no rashes, warm and dry Neurologic: patellar DTR's 2+ bilat, sensation intact and PERRL, EOMI, accommodation nl, no face palsy, no dysarthria Psychiatric: Orientation: oriented to person; + not oriented to place and + not oriented to time Lymphatic: no cervical or axillary lymphadenopathy Results & Data Vital Signs (Past 12 Hours) Vital Signs Temp Pulse Resp BP Pulse Ox 07/28/19 07:00 36.4 C L 91 H 20 144/74 H 91 Laboratory Results Laboratory Results - last 24 hr 07/27/19 07/28/19 07/28/19 18:24 00:13 05:15 WBC 14.90 H RBC 3.30 L Hgb 8.9 L Hct 31.2 L MCV 94.5 MCH 27.0 MCHC 28.5 L RDW Std Deviation 68.3 H RDW Coeff of Caatrino 20.0 H Plt Count 207 MPV 10.0 Immature Gran % (Auto) 1.8 Neut % (Auto) 87.1 Lymph % (Auto) 5.8 [place] % (Auto) 3.4 Eos % (Auto) 1.8 Baso % (Auto) 0.1 Immature Gran # (Auto) 0.27 H Neut # (Auto) 12.97 H Lymph # (Auto) 0.86 L [place] # (Auto) 0.51 Eos # (Auto) 0.27 Baso # (Auto) 0.02 Absolute Nucleated RBC 0.05 H Nucleated RBC % (auto) 0.3 Hypochromasia Present Anisocytosis Present Echinocytes 1+ Sodium Potassium Chloride Carbon Dioxide Anion Gap BUN Creatinine Est Cr Clr Drug Dosing Est GFR ( Amer) Est GFR (Non-Af Amer) BUN/Creatinine Ratio Glucose POC Glucose 130 H 216 H Calcium 07/28/19 07/28/19 07/28/19 05:15 06:16 11:33 WBC RBC Hgb Hct MCV MCH MCHC RDW Std Deviation RDW Coeff of Catarino Plt Count MPV Immature Gran % (Auto) Neut % (Auto) Lymph % (Auto) [place] % (Auto) Eos % (Auto) Baso % (Auto) Immature Gran # (Auto) Neut # (Auto) Lymph # (Auto) [place] # (Auto) Eos # (Auto) Baso # (Auto) Absolute Nucleated RBC Nucleated RBC % (auto) Hypochromasia Anisocytosis Echinocytes Sodium 149 H Potassium 4.5 Chloride 121 H Carbon Dioxide 25 Anion Gap 3.0 BUN 19 H Creatinine 2.02 H Est Cr Clr Drug Dosing 27.2 Est GFR ( Amer) 26.2 Est GFR (Non-Af Amer) 22.6 BUN/Creatinine Ratio 9.6 L Glucose 177 H POC Glucose 198 H 95 Calcium 9.6 Medications Administered Current Inpatient Medications Acetaminophen (Tylenol) 650 mg PO Q4H PRN PRN Reason: Pain Stop: 08/07/19 13:54 Last Admin: 07/26/19 09:56 Dose: 650 mg Documented by: Atorvastatin Calcium (Lipitor) 80 mg PO HS RODOLFO Stop: 07/31/19 20:59 Last Admin: 07/27/19 20:14 Dose: 80 mg Documented by: Dextromethorphan Polymer Complex (Delsym) 30 mg PO Q6H PRN PRN Reason: Cough Stop: 08/18/19 18:59 Dextrose (Dextrose 50%) 25 - 50 ml IV UD PRN; Protocol PRN Reason: Hypoglycemia Protocol Stop: 08/17/19 14:00 Diphenhydramine HCl (Benadryl) 25 mg IV [id number] PRN PRN Reason: Allergic Symptoms Stop: 07/31/19 21:01 Enteral Nutritional Formula (Peptamen 1.5 Elias) 1,000 ml PO Q24H RODOLFO; Protocol Stop: 08/21/19 12:59 Last Admin: 07/27/19 19:14 Dose: 1,000 ml Documented by: Folic Acid (Folvite) 1 mg PO QAM RODOLFO Stop: 08/01/19 08:59 Last Admin: 07/28/19 07:55 Dose: 1 mg Documented by: Glucagon (Glucagen) 1 mg SQ UD PRN; Protocol PRN Reason: Hypoglycemia Protocol Stop: 08/17/19 14:00 Glucose (Dex4 Glucose) 4 - 8 tabs PO UD PRN; Protocol PRN Reason: Hypoglycemia Protocol Stop: 08/17/19 14:00 Glucose (Glucose 40%) 15 - 30 gm PO UD PRN; Protocol PRN Reason: Hypoglycemia Protocol Stop: 08/17/19 14:00 Sodium Chloride (Nss) 250 mls @ 15 mls/hr IV .[id number] PRN PRN Reason: For Transfusion Stop: 08/04/19 19:48 Sodium Chloride (Nss) 250 mls @ 15 mls/hr IV .[id number] PRN PRN Reason: For Transfusion Stop: 08/20/19 13:06 Sodium Chloride (Nss) 250 mls @ 15 mls/hr IV .[id number] PRN PRN Reason: For Transfusion Stop: 08/20/19 13:18 Cefepime HCl 2,000 mg/ Syringe 20 mls @ 5 mls/min IV Q12H RODOLFO; Protocol Stop: 08/04/19 10:59 Last Admin: 07/28/19 11:32 Dose: 5 mls/min Documented by: Insulin Aspart (Novolog Flexpen) 0 units SC Q6 RODOLOF; Protocol Stop: 08/17/19 17:59 Last Admin: 07/28/19 12:04 Dose: Not Given Documented by: Insulin Glargine (Lantus Solostar Pen) 8 units SC [facility] Stop: 08/18/19 23:49 Last Admin: 07/27/19 20:13 Dose: 8 units Documented by: Levothyroxine Sodium (Synthroid) 75 mcg PO [facility] Stop: 07/31/19 20:59 Last Admin: 07/27/19 20:15 Dose: 75 mcg Documented by: Kildeer Carbonate (K[facility]er Carbonate) [facility]: 08/01/19 08:59 Last Admin: 07/28/19 07:55 Dose: 300 mg Documented by: Miscellaneous (Carbohydrates For Hypoglycemia) 15 - 30 gm PO UD PRN PRN Reason: Hypoglycemia Protocol Stop: 08/17/19 14:00 Multivitamins (Multivitamin Tab) 1 tab PO [facility] Stop: 08/28/19 08:59 Nystatin (Mycostatin) 5 ml PO QID [facility] Stop: 08/19/19 16:59 Last Admin: 07/28/19 07:54 Dose: 5 ml Documented by: Ondansetron HCl (Zofran) 4 mg IV Q6H PRN PRN Reason: Nausea Stop: 07/31/19 23:42 Last Admin: 07/26/19 09:56 Dose: 4 mg Documented by: Pantoprazole Sodium (Protonix) 40 mg PO QAM [facility] Stop: 08/10/19 15:59 Last Admin: 07/28/19 07:54 Dose: 40 mg Documented by: Pramipexole Dihydrochloride (Mirapex) 0.5 mg PO [facility] Stop: 07/31/19 20:59 Last Admin: 07/27/19 20:16 Dose: 0.5 mg Documented by: Raspberry (Raspberry) 5 ml PO Q6 [facility] Stop: 08/03/19 00:00 Last Admin: 07/28/19 11:34 Dose: 5 ml Documented by: Risperidone (Risperdal) 0.5 mg PO BID [facility] Stop: 07/31/19 20:59 Last Admin: 07/28/19 07:55 Dose: 0.5 mg Documented by: Sterile Water (Tube Feeding Water Flush) 1 ea GT Q4H [facility] Stop: 08/18/19 19:29 Last Admin: 07/28/19 11:33 Dose: 1 ea Documented by: Tiotropium Critz (Spiriva) 1 puffs INH DAILY RODOLFO; Protocol Stop: 08/08/19 08:59 Last Admin: 07/28/19 07:54 Dose: 1 puffs Documented by: Vancomycin HCl (Vancomycin Hcl) 125 mg PO Q6 RODOLFO Stop: 07/30/19 00:00 Last Admin: 07/28/19 11:33 Dose: 125 mg Documented by: PG Care Time/CCT Total # of Minutes Spent Total Time Spent with Patient: Total time spent is greater than 50% in coordination of care (as documented) at patient's floor/unit and/or counseling patient: (1) GI bleed GI bleed type/associated pathology: unspecified gastrointestinal hemorrhage type Qualified Code(s): K92.2 - Gastrointestinal hemorrhage, unspecified (2) Anemia Anemia type: unspecified type Qualified Code(s): D64.9 - Anemia, unspecified
[2019-07-28] MEDS: PEPTAMEN 1.5 CAL 1,000 ML BAG PO SCH (18:59)
[2019-07-28] MEDS: INSULIN GLARGINE SOLOSTAR 100 UNITS/ML 3 ML PEN SC SCH (20:26)
[2019-07-28] MEDS: LEVOTHYROXINE SODIUM 75 MCG TABLET PO SCH (20:27)
[2019-07-28] MEDS: PRAMIPEXOLE DIHYDROCHLO 0.5 MG TAB PO SCH (20:27)
[2019-07-28] MEDS: ATORVASTATIN 40 MG TAB PO SCH (20:28)
[2019-07-29] MEDS: TUBE FEEDING WATER FLUSH GT SCH ×8 (01:19→22:25)
[2019-07-29] MEDS: INSULIN ASPART 100 UNITS/ML 3 ML PEN SC SCH ×4 (01:19→18:21)
[2019-07-29] MEDS: RASPBERRY SYRUP 5 ML UDP PO SCH ×4 (01:19→17:37)
[2019-07-29] MEDS: VANCOMYCIN HCL 125 MG/2.5ML SOLN PO SCH ×4 (01:19→17:37)
--- NOTE | 2019-07-29 06:38 | CT Scan Report ---
CT SCAN OF THE BRAIN WITHOUT IV CONTRAST CLINICAL HISTORY: Right-sided weakness. Difficulty with speech. COMPARISON STUDY: CT of the brain dated 08/19/2016. TECHNIQUE: Unenhanced axial CT scan of the brain is performed from the vertex to the skull base. A do se lowering technique was utilized adhering to the principles of ALARA. CT DOSE: 614.27 mGy.cm FINDINGS: Brain parenchyma: There are age-related involutional changes noting mild subcortical and periventric ular microangiopathic change. There is no hemorrhage, mass effect, or evidence of acute territorial i schemia by CT criteria. Keating-white matter differentiation is preserved. No extra-axial fluid collecti on is seen. Ventricles, sulci, cisterns: Prominent secondary to involutional change. Intracranial vasculature: There is atherosclerotic calcification of the cavernous carotid and vertebr al arteries. Calvarium: Unremarkable. Sinuses and mastoids: Trace mucosal thickening is seen within the maxillary sinuses. The remaining vi sualized paranasal sinuses are clear. There is a large right mastoid effusion. The left mastoid air c ells are well pneumatized. Orbits: The bony orbits are grossly intact. IMPRESSION: There is no hemorrhage, mass effect, or evidence of acute territorial ischemia by CT cedric guillory. Electronically signed by: Tom Osorio M.D. 07/29/2019 6:37 AM
--- NOTE | 2019-07-29 07:03 | Progress Note ---
Date of Service July 29, 2019 Subjective RN called overnight regarding patient having L facial droop and L sided arm weakness Pt evaluated. EXAM: Alert and oriented x 1, pt was unable to follow commands for me to complete neuro exam. At rest seemed to have some L facial droop however I did get her to smile some and seemed symmetric Ct head ordered which was reassuring Pt was also noted to be mildly hypothermic - possibly environmental as her room was cold vs. in the setting of her infection vs. dysautonomia Bear miguegger ordered Results & Data Vital Signs (Past 12 Hours) Vital Signs Temp Pulse Resp BP Pulse Ox 07/29/19 02:32 35.5 C L 93 H 18 122/66 94 07/29/19 00:57 35.1 C L 07/29/19 00:20 35.9 C L 94 H 18 117/64 95 07/28/19 23:00 36.3 C L 93 H 18 99/55 L 93 PG Care Time/CCT Total # of Minutes Spent Total Time Spent with Patient: Total time spent is greater than 50% in coordination of care (as documented) at patient's floor/unit and/or counseling patient: Resident Activity Tracking Resident Involvement: Resident Care Provided Care Provided: Adult Hospital Medicine
[2019-07-29] MEDS: FOLIC ACID 1 MG TAB PO SCH (07:42)
[2019-07-29] MEDS: LITHIUM CARBONATE 300 MG TAB PO SCH (07:42)
[2019-07-29] MEDS: PANTOprazole 40 MG TAB PO SCH (07:42)
[2019-07-29] MEDS: risperiDONE 0.5 MG TABLET PO SCH ×2 (07:43→20:51)
[2019-07-29] MEDS: NYSTATIN SUSP 500,000 U/5 ML UDC PO SCH ×4 (07:49→20:45)
[2019-07-29] MEDS: TIOTROPIUM BROMIDE 5 PUFF/90 MCG INH INH SCH (07:50)
[2019-07-29 09:00] LABS: Anisocytosis Present; Basophils # (auto) 0.01 K/uL (0-0.2); Basophils % (auto) 0.1 %; Eosinophils # (auto) 0.25 K/uL (0-0.5); Eosinophils % (auto) 1.6 %; Hematocrit (blood only) 30.7 % (37-47); Hemoglobin 8.7 g/dL (12.0-16.0); Hypochromasia Present; Immature Granulocytes # (auto) 0.22 K/uL (0.00-0.02); Immature Granulocytes % (auto) 1.4 %; Lymphocytes # (auto) 0.81 K/uL (1.2-3.4); Lymphocytes % (auto) 5.2 %; Mean Corpuscular Hemoglobin 26.7 pg (25-34); Mean Corpuscular Hgb Conc 28.3 g/dL (32-36); Mean Corpuscular Volume 94.2 fL (80-100); Mean Platelet Volume 10.4 fL (7.4-10.4); Monocytes # (auto) 0.57 K/uL (0.11-0.59); Monocytes % (auto) 3.7 %; Neutrophils # (auto) 13.57 K/uL (1.4-6.5); Nucleated RBC # (auto) 0.08 K/uL (0-0); Nucleated RBC % (auto) 0.5 %; Platelet Count 203 K/uL (130-400); RDW Coefficient of Variation 20.3 % (11.5-14.5); RDW Standard Deviation 68.4 fL (36.4-46.3); Red Blood Count 3.26 M/uL (4.2-5.4); White Blood Count 15.43 K/uL (4.8-10.8)
[2019-07-29] MEDS ORDERED: MULTIVITAMIN TAB PO SCH (09:00)
[2019-07-29 09:05] LABS: BUN Creatinine Ratio 10.9 (10-20); Calcium 10.1 mg/dl (8.5-10.1); Est GFR (African American) 27.1; Est GFR (Non-African American) 23.4; Potassium 4.6 mmol/L (3.5-5.1)
[2019-07-29] MEDS: CEFEPIME 2,000 MG in SYRINGE 7.5 ML IV SCH (11:53)
--- NOTE | 2019-07-29 15:45 | Hospitalist Progress Note ---
Date of Service July 29, 2019 Assessment & Plan (1) Squamous cell carcinoma: * Patient with extensive abnormality of lower vagina and vulva -- mass discovered on exam and CT 07/18. Patient with hx hysterectomy, so unlikely endometrial in origin * SHADOW GRAPH WEIGHT OPERATOR consulted for likely neoplastic and malignant growth of posterior vaginal wall/perineum- discussion with family resulted in biopsy with subsequent palliative RT. CA 19-9 and CA-125 without abnormality. * Biopsy done- pathology sent -- invasive squamous cell carcinoma, well-mod differentiate --> most likely source of bleeding, as EGD with cautery of AVM without significant bleeding -- son had conversation with Dr. Pittman from Rad Onc last evening about palliative radiation/options moving forward --> patient had first RT Sunday 07/22, completed 5th treatment on 07/26, tolerating well * H/h stable * Radiation Oncology consult -- Dr Pittman initially, then Dr. Santana for treatments -- appreciate input -- palliative external beam radiation --> total number of treatments evaluated based on response, likely in the range of 10-15 treatments, 5 done so far NO RADIATION TODAY, HOLIDAY * Palliative Consult-- discussed situation with son today, will see how she responds to more free water (2) Clostridium difficile infection: * Abdominal distension 07/19 with fecal retention on KUB following episode of foul smelling diarrhea. 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 * PEG tube placed by Dr. Whitt on 07/18 to assist with improving free water intake (4) Acute kidney injury superimposed on chronic kidney disease: * Cr stable at 1.9, making adequate urine * certainly not due to dehydration * repeat BMP tomorrow * Renal U/S, no signs of obstruction * UA with likely contamination as patient incontinent and specimen collected from purewick -- although, WBC >> epi, and 3+ leuk est * continue Cefepime for Pseudomonas UTI (5) Hyperglycemia: * continue Lantus * sugars stabel after stopping D5W (6) Hypercalcemia: * worsening, up to 10.1, repeat tomorrow, increase total free water to 4 liters * Stable- secondary to hyperparathyroidism d/t chronic lithium use/parathyroid gland hyperplasia-- with elevated PTH at 87.1. PTH related protein elevated at 31 * Would not stop lithium at this time, as reversal of hyperplasia not likely. 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 * Melena prior to admission with subsequent EGD on 07/11 with cautery of AVM GI bleed resolved (8) Dysphagia: * Video swallow -- patient able to have nectar thick liquids but Speech Therapy recommended transition to honey thick if had difficulty-- may have pills with pudding - likely continued aspiration and evidence of possible as piration/infectious process RLL * Unclear as to why worsening dysphagia-- possible progression of dementia/parkinsonism * TSH wnl * PEG tube as above * Patient tolerating pureed diet intermittently but not enough to adequately hydrate or give nutrition, eating even less today (9) CKD (chronic kidney disease), stage III: * As above * Cr 1.9 today (10) Hypothyroidism: * Continue Synthroid * Last TSH on file 8.32 in February 2018 * TSH 0.473, wnl (11) Hyperlipemia: * Continue atorvastatin (12) HTN (hypertension): * Stable (13) Colitis: * Colitis seen on CT on admission. 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: * As above (18) Recurrent UTI: * culture growing E coli, dugan sensitive -- patient intially treated with Zosyn-- transitioned to Rocephin-- completed >7 day course * repeat urine culture with Pseudomonas, change Augmentin to Cefepime * no fever, WBC 15k (19) Vaginal mass: * As above (20) DVT prophylaxis: * SCDs * Chemical prophylaxis held in setting of bleeding Dispo: continue radiation, need to control sodium with just tube feeds and free water flushes follow BMP daily likely to [facility] in a few days once there is a free water regimen that controls sodium, increased free water to 4L daily Subjective patient more lethargic today, not eating anything, not communicating much last night she had a CT head that did not show any acute changes discussed with her son Bill that lethargy could be due to rising sodium level at 150 tolerating the free water flushes, making a lot of clear urine no vomiting will increase free water to 500cc every 3 hours for a total of 4000cc a day, hope that this will start to drive down the sodium labs: Na 150, Cl 124, Cr 1.96, WBC 15k (elevated all week) Review of Systems Review of Systems: Unobtainable due to cognitive status Physical Exam Constitutional: WD/WN, vitals as above + overweight Eyes: PERRL, conjunctivae normal, anicteric sclerae ENMT: external ear and nose normal, oropharynx normal Nose: + dry nasal mucous membranes Mouth: + dry oral mucous membranes Neck: trachea midline, no thyromegaly Respiratory: normal respiratory effort, lungs clear to auscultation (decreased in bases) Cardiovascular: RRR, no murmur, no edema Gastrointestinal (Abdomen): normal bowel sounds, soft, nontender, no hepatosplenomegaly Inspection/Auscultation: + abdomen distended and normal bowel sounds Percussion/Palpation: abdomen soft; abdomen nontender, no guarding, abdomen not rigid and no ascites Musculoskeletal: no cyanosis or clubbing, extremities motor strength 5/5 Skin: no rashes, warm and dry Neurologic: patellar DTR's 2+ bilat, sensation intact and PERRL, EOMI, accommodation nl, no face palsy, no dysarthria Psychiatric: Orientation: + not alert, + not oriented to person, + not oriented to place and + not oriented to time Lymphatic: no cervical or axillary lymphadenopathy Results & Data Vital Signs (Past 12 Hours) Vital Signs Temp Pulse Resp BP Pulse Ox 07/29/19 15:26 36.5 C 88 19 99/53 L 92 07/29/19 07:13 36.9 C 98 H 22 118/60 92 Laboratory Results Laboratory Results - last 24 hr 07/28/19 07/29/19 07/29/19 18:25 00:15 06:20 WBC RBC Hgb Hct MCV MCH MCHC RDW Std Deviation RDW Coeff of Catarino Plt Count MPV Immature Gran % (Auto) Neut % (Auto) Lymph % (Auto) [place] % (Auto) Eos % (Auto) Baso % (Auto) Immature Gran # (Auto) Neut # (Auto) Lymph # (Auto) [place] # (Auto) Eos # (Auto) Baso # (Auto) Absolute Nucleated RBC Nucleated RBC % (auto) Hypochromasia Anisocytosis Sodium Potassium Chloride Carbon Dioxide Anion Gap BUN Creatinine Est Cr Clr Drug Dosing Est GFR ( Amer) Est GFR (Non-Af Amer) BUN/Creatinine Ratio Glucose POC Glucose 156 H 252 H 79 Calcium 07/29/19 07/29/19 07/29/19 08:29 08:29 12:12 WBC 15.43 H RBC 3.26 L Hgb 8.7 L Hct 30.7 L MCV 94.2 MCH 26.7 MCHC 28.3 L RDW Std Deviation 68.4 H RDW Coeff of Catarino 20.3 H Plt Count 203 MPV 10.4 Immature Gran % (Auto) 1.4 Neut % (Auto) 88.0 Lymph % (Auto) 5.2 [place] % (Auto) 3.7 Eos % (Auto) 1.6 Baso % (Auto) 0.1 Immature Gran # (Auto) 0.22 H Neut # (Auto) 13.57 H Lymph # (Auto) 0.81 L [place] # (Auto) 0.57 Eos # (Auto) 0.25 Baso # (Auto) 0.01 Absolute Nucleated RBC 0.08 H Nucleated RBC % (auto) 0.5 Hypochromasia Present Anisocytosis Present Sodium 150 H Potassium 4.6 Chloride 124 H Carbon Dioxide 22 Anion Gap 4.0 BUN 21 H Creatinine 1.96 H Est Cr Clr Drug Dosing 28.0 Est GFR ( Amer) 27.1 Est GFR (Non-Af Amer) 23.4 BUN/Creatinine Ratio 10.9 Glucose 132 H POC Glucose 157 H Calcium 10.1 Medications Administered Current Inpatient Medications Acetaminophen (Tylenol) 650 mg PO Q4H PRN PRN Reason: Pain Stop: 08/07/19 13:54 Last Admin: 07/26/19 09:56 Dose: 650 mg Documented by: Atorvastatin Calcium (Lipitor) 80 mg PO HS RODOLFO Stop: 07/31/19 20:59 Last Admin: 07/28/19 20:28 Dose: 80 mg Documented by: Dextromethorphan Polymer Complex (Delsym) 30 mg PO Q6H PRN PRN Reason: Cough Stop: 08/18/19 18:59 Dextrose (Dextrose 50%) 25 - 50 ml IV UD PRN; Protocol PRN Reason: Hypoglycemia Protocol Stop: 08/17/19 14:00 Diphenhydramine HCl (Benadryl) 25 mg IV [id number] PRN PRN Reason: Allergic Symptoms Stop: 07/31/19 21:01 Enteral Nutritional Formula (Peptamen 1.5 Elias) 1,000 ml PO Q24H RODOLFO; Protocol Stop: 08/21/19 12:59 Last Admin: 07/28/19 18:59 Dose: 1,000 ml Documented by: Folic Acid (Folvite) 1 mg PO QAM [facility] Stop: 08/01/19 08:59 Last Admin: 07/29/19 07:42 Dose: 1 mg Documented by: Glucagon (Glucagen) 1 mg SQ UD PRN; Protocol PRN Reason: Hypoglycemia Protocol Stop: 08/17/19 14:00 Glucose (Dex4 Glucose) 4 - 8 tabs PO UD PRN; Protocol PRN Reason: Hypoglycemia Protocol Stop: 08/17/19 14:00 Glucose (Glucose 40%) 15 - 30 gm PO UD PRN; Protocol PRN Reason: Hypoglycemia Protocol Stop: 08/17/19 14:00 Sodium Chloride (Nss) 250 mls @ 15 mls/hr IV .[id number] PRN PRN Reason: For Transfusion Stop: 08/04/19 19:48 Sodium Chloride (Nss) 250 mls @ 15 mls/hr IV .[id number] PRN PRN Reason: For Transfusion Stop: 08/20/19 13:06 Sodium Chloride (Nss) 250 mls @ 15 mls/hr IV .[id number] PRN PRN Reason: For Transfusion Stop: 08/20/19 13:18 Cefepime HCl 2,000 mg/ Syringe 20 mls @ 5 mls/min IV Q24H RODOLFO; Protocol Stop: 08/04/19 10:59 Insulin Aspart (Novolog Flexpen) 0 units SC Q6 [facility]; Protocol Stop: 08/17/19 17:59 Last Admin: 07/29/19 13:00 Dose: 1 units Documented by: Insulin Glargine (Lantus Solostar Pen) 8 units SC [facility] Stop: 08/18/19 23:49 Last Admin: 07/28/19 20:26 Dose: 8 units Documented by: Levothyroxine Sodium (Synthroid) 75 mcg PO [facility] Stop: 07/31/19 20:59 Last Admin: 07/28/19 20:27 Dose: 75 mcg Documented by: [place] Carbonate ([place] Carbonate) 300 mg PO [facility] Stop: 08/01/19 08:59 Last Admin: 07/29/19 07:42 Dose: 300 mg Documented by: Miscellaneous (Carbohydrates For Hypoglycemia) 15 - 30 gm PO UD PRN PRN Reason: Hypoglycemia Protocol Stop: 08/17/19 14:00 Multivitamins (Multivitamin Tab) 1 tab PO [facility] Stop: 08/28/19 08:59 Last Admin: 07/29/19 07:42 Dose: 1 tab Documented by: Nystatin (Mycostatin) 5 ml PO QID [facility] Stop: 08/19/19 16:59 Last Admin: 07/29/19 11:53 Dose: 5 ml Documented by: Ondansetron HCl (Zofran) 4 mg IV Q6H PRN PRN Reason: Nausea Stop: 07/31/19 23:42 Last Admin: 07/26/19 09:56 Dose: 4 mg Documented by: Pantoprazole Sodium (Protonix) 40 mg PO [facility] Stop: 08/10/19 15:59 Last Admin: 07/29/19 07:42 Dose: 40 mg Documented by: Pramipexole Dihydrochloride (Mirapex) 0.5 mg PO [facility] Stop: 07/31/19 20:59 Last Admin: 07/28/19 20:27 Dose: 0.5 mg Documented by: Raspberry (Raspberry) 5 ml PO Q6 [facility] Stop: 08/03/19 00:00 Last Admin: 07/29/19 11:52 Dose: 5 ml Documented by: Risperidone (Risperdal) 0.5 mg PO BID [facility] Stop: 07/31/19 20:59 Last Admin: 07/29/19 07:43 Dose: 0.5 mg Documented by: Sterile Water (Tube Feeding Water Flush) 1 ea GT Q4H [facility] Stop: 08/18/19 19:29 Last Admin: 07/29/19 11:52 Dose: 1 ea Documented by: Tiotropium [place] (Spiriva) 1 puffs INH DAILY [facility]; Protocol Stop: 08/08/19 08:59 Last Admin: 07/29/19 07:50 Dose: 1 puffs Documented by: Vancomycin HCl (Vancomycin Hcl) 125 mg PO Q6 [facility] Stop: 07/30/19 00:00 Last Admin: 07/29/19 11:52 Dose: 125 mg Documented by: PG Care Time/CCT Total # of Minutes Spent Total Time Spent with Patient: Total time spent is greater than 50% in coordination of care (as documented) at patient's floor/unit and/or counseling patient: (1) GI bleed GI bleed type/associated pathology: unspecified gastrointestinal hemorrhage type Qualified Code(s): K92.2 - Gastrointestinal hemorrhage, unspecified (2) Anemia Anemia type: unspecified type Qualified Code(s): D64.9 - Anemia, unspecified
[2019-07-29] MEDS: PEPTAMEN 1.5 CAL 1,000 ML BAG PO SCH (19:32)
[2019-07-29] MEDS: ATORVASTATIN 40 MG TAB PO SCH (20:45)
[2019-07-29] MEDS: PRAMIPEXOLE DIHYDROCHLO 0.5 MG TAB PO SCH (20:45)
[2019-07-29] MEDS: LEVOTHYROXINE SODIUM 75 MCG TABLET PO SCH (20:45)
[2019-07-29] MEDS: INSULIN GLARGINE SOLOSTAR 100 UNITS/ML 3 ML PEN SC SCH (20:46)
[2019-07-29] MEDS ORDERED: CEFEPIME 2,000 MG in SYRINGE 7.5 ML IV SCH (22:00)
[2019-07-30] MEDS: INSULIN ASPART 100 UNITS/ML 3 ML PEN SC SCH ×5 (00:18→23:56)
[2019-07-30] MEDS: VANCOMYCIN HCL 125 MG/2.5ML SOLN PO SCH (00:25)
[2019-07-30] MEDS: RASPBERRY SYRUP 5 ML UDP PO SCH ×3 (00:25→12:58)
[2019-07-30] MEDS: TUBE FEEDING WATER FLUSH GT SCH ×8 (01:27→23:17)
[2019-07-30] MEDS ORDERED: Nursing to Pharmacy Communication ONE (07:38)
[2019-07-30] MEDS ORDERED: ACETAMINOPHEN 325 MG TAB PEG PRN (07:45)
[2019-07-30] MEDS ORDERED: DEXTROMETHORPHAN POLYMR COMPLX 30 MG/5 ML UDP PEG PRN (08:00)
[2019-07-30] MEDS: risperiDONE 0.5 MG TABLET PEG SCH ×2 (08:06→08:33)
[2019-07-30] MEDS: FOLIC ACID 1 MG TAB PO SCH (08:06)
[2019-07-30] MEDS: LITHIUM CARBONATE 300 MG TAB PO SCH (08:06)
[2019-07-30] MEDS: NYSTATIN SUSP 500,000 U/5 ML UDC PO SCH ×3 (08:07→16:00)
[2019-07-30] MEDS: TIOTROPIUM BROMIDE 5 PUFF/90 MCG INH INH SCH (08:07)
[2019-07-30] MEDS ORDERED: LANSOPRAZOLE 30 MG SOLTAB PEG SCH (09:00)
[2019-07-30] MEDS ORDERED: MULTI VIT W/MINERALS LIQUID 15 ML UDP PO SCH (09:00)
[2019-07-30 09:21] LABS: Albumin Level 1.5 gm/dl (3.4-5.0); Anisocytosis Present; Basophils # (auto) 0.01 K/uL (0-0.2); Basophils % (auto) 0.1 %; Calcium 10.4 mg/dl (8.5-10.1); Creatinine Clr Calc Pharmacy 25.1 ml/min; Eosinophils # (auto) 0.25 K/uL (0-0.5); Eosinophils % (auto) 1.6 %; Est GFR (African American) 23.6; Est GFR (Non-African American) 20.4; Hemoglobin 8.5 g/dL (12.0-16.0); Hypochromasia Present; Immature Granulocytes # (auto) 0.18 K/uL (0.00-0.02); Immature Granulocytes % (auto) 1.2 %; Lymphocytes # (auto) 1.16 K/uL (1.2-3.4); Lymphocytes % (auto) 7.5 %; Mean Corpuscular Hemoglobin 26.9 pg (25-34); Mean Corpuscular Hgb Conc 28.3 g/dL (32-36); Mean Corpuscular Volume 94.9 fL (80-100); Mean Platelet Volume 10.6 fL (7.4-10.4); Monocytes # (auto) 0.67 K/uL (0.11-0.59); Monocytes % (auto) 4.3 %; Neutrophils % (auto) 85.3 %; Nucleated RBC # (auto) 0.07 K/uL (0-0); Nucleated RBC % (auto) 0.4 %; Platelet Count 192 K/uL (130-400); Potassium 4.5 mmol/L (3.5-5.1); RDW Coefficient of Variation 20.5 % (11.5-14.5); RDW Standard Deviation 68.5 fL (36.4-46.3); Red Blood Count 3.16 M/uL (4.2-5.4); White Blood Count 15.47 K/uL (4.8-10.8)
[2019-07-30 09:24] LABS: Albumin Globulin Ratio 0.3 (0.9-2); Bilirubin,Total 0.2 mg/dl (0.2-1); Globulin 5.1 gm/dl (2.5-4.0); Total Protein 6.6 gm/dl (6.4-8.2)
--- NOTE | 2019-07-30 12:55 | Hospitalist Progress Note ---
Date of Service July 30, 2019 Assessment & Plan (1) Squamous cell carcinoma: * Patient with extensive abnormality of lower vagina and vulva -- mass discovered on exam and CT 07/18. Patient with hx hysterectomy, so unlikely endometrial in origin * Biopsy done- pathology sent -- invasive squamous cell carcinoma, well-mod differentiate * Radiation Oncology consult -- palliative external beam radiation --> total number of treatments evaluated based on response, likely in the range of 10-15 treatments, 5 done so far NO RADIATION past few days due to holiday and vacation * likely need to pursue a more palliative approach, mental status getting worse, no quality of life the past few days (2) Clostridium difficile infection: * Abdominal distension 07/19 with fecal retention on KUB following episode of foul smelling diarrhea. 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 * PEG tube placed by Dr. Whitt on 07/18 to assist with improving free water intake, not helping with quality of life (4) Acute kidney injury superimposed on chronic kidney disease: * Cr going up to 2.2, making copious amounts of urine * certainly not due to dehydration * repeat BMP tomorrow * Renal U/S, no signs of obstruction * UA with likely contamination as patient incontinent and specimen collected from [facility] -- although, WBC >> epi, and 3+ leuk est * continue Cefepime for Pseudomonas UTI * worsening renal function another reason to consider hospice (5) Hyperglycemia: * continue Lantus * sugars stabel after stopping D5W (6) Hypercalcemia: * worsening, up to 10.4, corrected would be > 12 with albumin of 1.5 * secondary to hyperparathyroidism d/t chronic lithium use/parathyroid gland hyperplasia-- with elevated PTH at 87.1. PTH related protein elevated at 31 * Would not stop lithium at this time, as reversal of hyperplasia not likely. 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 * Melena prior to admission with subsequent EGD on 07/11 with cautery of AVM GI bleed resolved (8) Dysphagia: * Video swallow -- patient able to have nectar thick liquids but Speech Therapy recommended transition to honey thick if had difficulty-- may have pills with pudding - likely continued aspiration and evidence of possible aspiration/infectious process RLL * Unclear as to why worsening dysphagia-- possible progression of dementia/parkinsonism * TSH wnl * PEG tube as above * Patient was tolerating pureed diet intermittently but now not eating at all or taking medications (9) CKD (chronic kidney disease), stage III: * As above * Cr 2.2 today (10) Hypothyroidism: * Continue Synthroid * Last TSH on file 8.32 in February 2018 * TSH 0.473, wnl (11) Hyperlipemia: * Continue atorvastatin (12) HTN (hypertension): * Stable (13) Colitis: * Colitis seen on CT on admission * Repeat CT a/p without evidence of colitis * +Cdiff -- continue Vanco as above (14) Anemia: * As above (15) Bipolar disorder: * Continue home medications, lithium and risperidone * Pt on [place] for years, has likely caused irreversible damage, DI and hyperparathyroidism (16) Dementia with Lewy bodies: * Supportive care (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: * As above (18) Recurrent UTI: * culture growing E coli, dugan sensitive -- patient intially treated with Zosyn-- transitioned to Rocephin-- completed >7 day course * repeat urine culture with Pseudomonas, change Augmentin to Cefepime * no fever, WBC 16k * prone to recurrent UTI, ongoing issue (19) Vaginal mass: * As above (20) DVT prophylaxis: * SCDs * Chemical prophylaxis held in setting of bleeding Dispo: very difficult situation, poor quality of life Na and Calcium cannot be controlled with administration of free water, causing lethargy ongoing issues with vaginal cancer, recurrent UTI, C diff colitis, dysphagia, malnutrition, Bipolar disorder will discuss changing to hospice with son later today Subjective patient lethargic today, won't respond at all not safe to take medications PO, will convert to PEG patient with a small loose stool, had large loose BM yesterday had a small vomiting episode yesterday getting more residual via the PEG labs reviewed, Cr up to 2.2, Na down very slightly at 149, Cl 125, calcium 10.4 WBC remains elevated at 15k Review of Systems Review of Systems: Unobtainable due to cognitive status Physical Exam Constitutional: WD/WN, vitals as above + lethargic and + overweight Eyes: PERRL, conjunctivae normal, anicteric sclerae ENMT: Nose: + dry nasal mucous membranes Mouth: + dry oral mucous membranes Neck: trachea midline, no thyromegaly Respiratory: normal respiratory effort, lungs clear to auscultation (decreased in bases) Cardiovascular: RRR, no murmur, no edema Gastrointestinal (Abdomen): normal bowel sounds, soft, nontender, no hepatosplenomegaly Inspection/Auscultation: + abdomen distended and normal bowel sounds Percussion/Palpation: abdomen soft; abdomen nontender, no guarding, abdomen not rigid and no ascites Musculoskeletal: no cyanosis or clubbing, extremities motor strength 5/5 Skin: no rashes, warm and dry Neurologic: patellar DTR's 2+ bilat, sensation intact and PERRL, EOMI, accommodation nl, no face palsy, no dysarthria Psychiatric: Orientation: + not alert, + not oriented to person, + not oriented to place and + not oriented to time Lymphatic: no cervical or axillary lymphadenopathy Results & Data Vital Signs (Past 12 Hours) Vital Signs Temp Pulse Resp BP Pulse Ox 07/30/19 07:41 36.7 C 93 H 16 140/66 96 Laboratory Results Laboratory Results - last 24 hr 07/29/19 07/29/19 07/30/19 16:36 19:45 00:16 WBC RBC Hgb Hct MCV MCH MCHC RDW Std Deviation RDW Coeff of Catarino Plt Count MPV Immature Gran % (Auto) Neut % (Auto) Lymph % (Auto) [place] % (Auto) Eos % (Auto) Baso % (Auto) Immature Gran # (Auto) Neut # (Auto) Lymph # (Auto) [place] # (Auto) Eos # (Auto) Baso # (Auto) Absolute Nucleated RBC Nucleated RBC % (auto) Hypochromasia Anisocytosis Sodium Potassium Chloride Carbon Dioxide Anion Gap BUN Creatinine Est Cr Clr Drug Dosing Est GFR ( Amer) Est GFR (Non-Af Amer) BUN/Creatinine Ratio Glucose POC Glucose 131 H 117 H 223 H Calcium Total Bilirubin AST ALT Alkaline Phosphatase Total Protein Albumin Globulin Albumin/Globulin Ratio 07/30/19 07/30/19 07/30/19 06:12 08:18 08:18 WBC 15.47 H RBC 3.16 L Hgb 8.5 L Hct 30.0 L MCV 94.9 MCH 26.9 MCHC 28.3 L RDW Std Deviation 68.5 H RDW Coeff of Catarino 20.5 H Plt Count 192 MPV 10.6 H Immature Gran % (Auto) 1.2 Neut % (Auto) 85.3 Lymph % (Auto) 7.5 [place] % (Auto) 4.3 Eos % (Auto) 1.6 Baso % (Auto) 0.1 Immature Gran # (Auto) 0.18 H Neut # (Auto) 13.20 H Lymph # (Auto) 1.16 L [place] # (Auto) 0.67 H Eos # (Auto) 0.25 Baso # (Auto) 0.01 Absolute Nucleated RBC 0.07 H Nucleated RBC % (auto) 0.4 Hypochromasia Present Anisocytosis Present Sodium 149 H Potassium 4.5 Chloride 125 H Carbon Dioxide 21 Anion Gap 3.0 BUN 22 H Creatinine 2.20 H Est Cr Clr Drug Dosing 25.1 Est GFR ( Amer) 23.6 Est GFR (Non-Af Amer) 20.4 BUN/Creatinine Ratio 10.0 Glucose 182 H POC Glucose 195 H Calcium 10.4 H Total Bilirubin 0.2 AST 19 ALT 17 Alkaline Phosphatase 124 H Total Protein 6.6 Albumin 1.5 L Globulin 5.1 H Albumin/Globulin Ratio 0.3 L 07/30/19 11:56 WBC RBC Hgb Hct MCV MCH MCHC RDW Std Deviation RDW Coeff of Catarino Plt Count MPV Immature Gran % (Auto) Neut % (Auto) Lymph % (Auto) [place] % (Auto) Eos % (Auto) Baso % (Auto) Immature Gran # (Auto) Neut # (Auto) Lymph # (Auto) [place] # (Auto) Eos # (Auto) Baso # (Auto) Absolute Nucleated RBC Nucleated RBC % (auto) Hypochromasia Anisocytosis Sodium Potassium Chloride Carbon Dioxide Anion Gap BUN Creatinine Est Cr Clr Drug Dosing Est GFR ( Amer) Est GFR (Non-Af Amer) BUN/Creatinine Ratio Glucose POC Glucose 147 H Calcium Total Bilirubin AST ALT Alkaline Phosphatase Total Protein Albumin Globulin Albumin/Globulin Ratio Medications Administered Current Inpatient Medications Acetaminophen (Tylenol) 650 mg PEG Q4H PRN PRN Reason: Pain Stop: 08/07/19 13:54 Atorvastatin Calcium (Lipitor) 80 mg PEG HS RODOLFO Stop: 07/31/19 20:59 Dextromethorphan Polymer Complex (Delsym) 30 mg PEG Q6H PRN PRN Reason: Cough Stop: 08/18/19 18:59 Dextrose (Dextrose 50%) 25 - 50 ml IV UD PRN; Protocol PRN Reason: Hypoglycemia Protocol Stop: 08/17/19 14:00 Diphenhydramine HCl (Benadryl) 25 mg IV 3XDQ4 PRN PRN Reason: Allergic Symptoms Stop: 07/31/19 21:01 Enteral Nutritional Formula (Peptamen 1.5 Elias) 1,000 ml PO Q24H RODOLFO; Protocol Stop: 08/21/19 12:59 Last Admin: 07/29/19 19:32 Dose: 1,000 ml Documented by: Folic Acid (Folvite) 1 mg PO QAM RODOLFO Stop: 08/01/19 08:59 Last Admin: 07/30/19 08:06 Dose: 1 mg Documented by: Glucagon (Glucagen) 1 mg SQ UD PRN; Protocol PRN Reason: Hypoglycemia Protocol Stop: 08/17/19 14:00 Glucose (Dex4 Glucose) 4 - 8 tabs PO UD PRN; Protocol PRN Reason: Hypoglycemia Protocol Stop: 08/17/19 14:00 Glucose (Glucose 40%) 15 - 30 gm PO UD PRN; Protocol PRN Reason: Hypoglycemia Protocol Stop: 08/17/19 14:00 Sodium Chloride (Nss) 250 mls @ 15 mls/hr IV .[id number] PRN PRN Reason: For Transfusion Stop: 08/04/19 19:48 Sodium Chloride (Nss) 250 mls @ 15 mls/hr IV .[id number] PRN PRN Reason: For Transfusion Stop: 08/20/19 13:06 Sodium Chloride (Nss) 250 mls @ 15 mls/hr IV .[id number] PRN PRN Reason: For Transfusion Stop: 08/20/19 13:18 Cefepime HCl 2,000 mg/ Syringe 20 mls @ 5 mls/min IV Q24H [facility]; Protocol Stop: 08/04/19 10:59 Last Admin: 07/29/19 22:25 Dose: 5 mls/min Documented by: Insulin Aspart (Novolog Flexpen) 0 units SC Q6 [facility]; Protocol Stop: 08/17/19 17:59 Last Admin: 07/30/19 13:00 Dose: 1 units Documented by: Insulin Glargine (Lantus Solostar Pen) 8 units SC [facility] Stop: 08/18/19 23:49 Last Admin: 07/29/19 20:46 Dose: 8 units Documented by: [facility]oprazole ([facility]vacid) [facility] [place] [facility]: 08/29/19 08:59 Last Admin: 07/30/19 08:05 Dose: 30 mg Documented by: Levothyroxine Sodium (Synthroid) 75 mcg PEG [facility] Stop: 07/31/19 20:59 [place] Carbonate ([place] Carbonate) 300 mg PO QAM [facility] Stop: 08/01/19 08:59 Last Admin: 07/30/19 08:06 Dose: 300 mg Documented by: Miscellaneous (Carbohydrates For Hypoglycemia) 15 - 30 gm PO UD PRN PRN Reason: Hypoglycemia Protocol Stop: 08/17/19 14:00 Multivitamins/Minerals (Cerovite Liquid) 15 ml PO QAM [facility] Stop: 08/29/19 08:59 Last Admin: 07/30/19 08:05 Dose: 15 ml Documented by: Nystatin (Mycostatin) 5 ml PO QID [facility] Stop: 08/19/19 16:59 Last Admin: 07/30/19 12:48 Dose: Not Given Documented by: Ondansetron HCl (Zofran) 4 mg IV Q6H PRN PRN Reason: Nausea Stop: 07/31/19 23:42 Last Admin: 07/26/19 09:56 Dose: 4 mg Documented by: Pramipexole Dihydrochloride (Mirapex) 0.5 mg PO [facility] Stop: 07/31/19 20:59 Last Admin: 07/29/19 20:45 Dose: Not Given Documented by: Raspberry (Raspberry) 5 ml PO Q6 [facility] Stop: 08/03/19 00:00 Last Admin: 07/30/19 12:58 Dose: Not Given Documented by: Risperidone (Risperdal) 0.5 mg PEG BID RODOLFO Stop: 07/31/19 20:59 Last Admin: 07/30/19 08:33 Dose: Not Given Documented by: Sterile Water (Tube Feeding Water Flush) 1 ea GT Q3H RODOLFO Stop: 08/28/19 16:29 Last Admin: 07/30/19 13:05 Dose: 1 ea Documented by: Tiotropium [place] (Spiriva) 1 puffs INH DAILY RODOLFO; Protocol Stop: 08/08/19 08:59 Last Admin: 07/30/19 08:07 Dose: Not Given Documented by: PG Care Time/CCT Total # of Minutes Spent Total Time Spent with Patient: Total time spent is greater than 50% in coordination of care (as documented) at patient's floor/unit and/or counseling patient: (1) GI bleed GI bleed type/associated pathology: unspecified gastrointestinal hemorrhage type Qualified Code(s): K92.2 - Gastrointestinal hemorrhage, unspecified (2) Anemia Anemia type: unspecified type Qualified Code(s): D64.9 - Anemia, unspecified
[2019-07-30] MEDS ORDERED: FUROSEMIDE 40 MG in SYRINGE 0 ML IV ONE (14:00)
[2019-07-30] MEDS: MoRPHine SULFATE 2 MG/ML CARP IV PRN (17:25)
[2019-07-30] MEDS: INSULIN GLARGINE SOLOSTAR 100 UNITS/ML 3 ML PEN SC SCH (20:51)
[2019-07-30] MEDS ORDERED: LEVOTHYROXINE SODIUM 75 MCG TABLET PEG SCH (21:00)
[2019-07-30] MEDS ORDERED: ATORVASTATIN 40 MG TAB PEG SCH (21:00)
[2019-07-31] MEDS: TUBE FEEDING WATER FLUSH GT SCH ×2 (04:50→11:30)
[2019-07-31 05:54] LABS: Hemoglobin 8.9 g/dL (12.0-16.0); Mean Corpuscular Hemoglobin 26.8 pg (25-34); Mean Corpuscular Hgb Conc 28.7 g/dL (32-36); Mean Corpuscular Volume 93.4 fL (80-100); Mean Platelet Volume 9.8 fL (7.4-10.4); Nucleated RBC # (auto) 0.02 K/uL (0-0); Nucleated RBC % (auto) 0.1 %; Platelet Count 187 K/uL (130-400); RDW Coefficient of Variation 20.6 % (11.5-14.5); RDW Standard Deviation 67.9 fL (36.4-46.3); Red Blood Count 3.32 M/uL (4.2-5.4); White Blood Count 15.84 K/uL (4.8-10.8)
[2019-07-31] MEDS: MoRPHine SULFATE 2 MG/ML CARP IV PRN ×4 (06:01→23:28)
[2019-07-31 06:11] LABS: Anisocytosis Present; Basophils # (auto) 0.01 K/uL (0-0.2); Basophils % (auto) 0.1 %; Eosinophils # (auto) 0.29 K/uL (0-0.5); Eosinophils % (auto) 1.8 %; Immature Granulocytes # (auto) 0.13 K/uL (0.00-0.02); Immature Granulocytes % (auto) 0.8 %; Lymphocytes # (auto) 1.14 K/uL (1.2-3.4); Lymphocytes % (auto) 7.2 %; Monocytes # (auto) 0.94 K/uL (0.11-0.59); Monocytes % (auto) 5.9 %; Neutrophils # (auto) 13.33 K/uL (1.4-6.5); Neutrophils % (auto) 84.2 %
[2019-07-31 06:23] LABS: BUN Creatinine Ratio 10.1 (10-20); Calcium 10.5 mg/dl (8.5-10.1); Creatinine Clr Calc Pharmacy 24.1 ml/min; Est GFR (African American) 22.5; Est GFR (Non-African American) 19.4; Potassium 4.6 mmol/L (3.5-5.1)
[2019-07-31] MEDS: INSULIN ASPART 100 UNITS/ML 3 ML PEN SC SCH (06:25)
--- NOTE | 2019-07-31 11:44 | Hospitalist Progress Note ---
Date of Service July 31, 2019 Assessment & Plan (1) Squamous cell carcinoma: * Patient with extensive abnormality of lower vagina and vulva -- mass discovered on exam and CT 07/18. Patient with hx hysterectomy, so unlikely endometrial in origin * Biopsy done- pathology sent -- invasive squamous cell carcinoma, well-mod differentiate * Radiation Oncology consult -- palliative external beam radiation --> total number of treatments evaluated based on response, likely in the range of 10-15 treatments, 5 done so far NO RADIATION past few days due to holiday and vacation * no further radiation treatments, patient will be comfort care/hospice (2) Clostridium difficile infection: * Abdominal distension 07/19 with fecal retention on KUB following episode of foul smelling diarrhea. 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 * PEG tube placed by Dr. Whitt on 07/18 to assist with improving free water intake, not helping with quality of life as we had hoped (4) Acute kidney injury superimposed on chronic kidney disease: * Cr going up to 2.29, making copious amounts of urine * certainly not due to dehydration * no further labs * Renal U/S, no signs of obstruction * UA with likely contamination as patient incontinent [facility] -- although, WBC >> epi, and 3+ leuk est * continue Cefepime for Pseudomonas UTI * worsening renal function another reason to transition to hospice (5) Hyperglycemia: * stop insulin, stop glucose checks (6) Hypercalcemia: * worsening, up to 10.5, corrected would be > 12 with albumin of 1.5 * secondary to hyperparathyroidism d/t chronic lithium use/parathyroid gland hyperplasia-- with elevated PTH at 87.1. PTH related protein elevated at 31 * stop free water, stop lithium * becoming more clear that calcium will be difficult/impossible to control (7) GI bleed: * Originally admitted for GI bleed, however addie d/t squamous cell carcinoma of vaginal origin * Melena prior to admission with subsequent EGD on 07/11 with cautery of AVM GI bleed resolved (8) Dysphagia: * Video swallow -- patient able to have nectar thick liquids but Speech Therapy recommended transition to honey thick if had difficulty-- may have pills with pudding - likely continued aspiration and evidence of possible aspiration/infectious process RLL * Unclear as to why worsening dysphagia-- possible progression of dementia/parkinsonism * TSH wnl * PEG tube as above * Patient was tolerating pureed diet intermittently but now not eating at all or taking medications (9) CKD (chronic kidney disease), stage III: * As above * Cr 2.29 today (10) Hypothyroidism: * Continue Synthroid * Last TSH on file 8.32 in February 2018 * TSH 0.473, wnl (11) Hyperlipemia: * stop atorvastatin (12) HTN (hypertension): * Stable (13) Bipolar disorder: * Continue home medications, lithium and risperidone * Pt on [place] for years, has likely caused irreversible damage, DI and hyperparathyroidism (14) Dementia with Lewy bodies: * Supportive care (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: * As above (16) Recurrent UTI: * culture growing E coli, dugan sensitive -- patient intially treated with Zosyn-- transitioned to Rocephin-- completed >7 day course * repeat urine culture with Pseudomonas, change Augmentin to Cefepime * no fever, WBC 15k * prone to recurrent UTI, ongoing issue, another issue that limits quality of life (17) Vaginal mass: * As above, no further radiation treatment, palliative care (18) DVT prophylaxis: * SCDs * Chemical prophylaxis held in setting of bleeding Dispo: very difficult situation, poor quality of life Na and Calcium cannot be controlled with administration of free water, causing lethargy ongoing issues with vaginal cancer, recurrent UTI, C diff colitis, dysphagia, malnutrition, Bipolar disorder, renal failure change to comfort measures, likely to remain in hospital as decline continues to be rapid Palliative care consulted, manuel Caruso anticipates a call from them tomorrow, more to determine inpatient vs hospice at SNF Subjective talked with patient's son Shady last night will transition the patient to comfort care very little quality of life, despite best efforts with free water intake patient with ongoing C diff, Pseudomonas UTI, vaginal cancer, bipolar disorder, hypernatremia, hypercalcemia, renal failure becoming more and more malnourished due to not eating abdomen more and more distended d/w RN this morning, patient is obtunded, no response does get a little restless at times, Morphine helping labs this AM continue to show hypernatremia, hypercalcemia, worsening renal function comfort measures order placed Review of Systems Review of Systems: Unobtainable due to cognitive status Physical Exam Constitutional: WD/WN, vitals as above + lethargic and + overweight Eyes: PERRL, conjunctivae normal, anicteric sclerae ENMT: external ear and nose normal, oropharynx normal Nose: + dry nasal mucous membranes Mouth: + dry oral mucous membranes Neck: trachea midline, no thyromegaly Respiratory: normal respiratory effort, lungs clear to auscultation (decreased in bases) Cardiovascular: RRR, no murmur, no edema Gastrointestinal (Abdomen): normal bowel sounds, soft, nontender, no hepatosplenomegaly Inspection/Auscultation: + abdomen distended and normal bowel sounds Percussion/Palpation: abdomen soft; abdomen nontender, no guarding, abdomen not rigid and no ascites Musculoskeletal: no cyanosis or clubbing, extremities motor strength 5/5 Skin: no rashes, warm and dry Neurologic: patellar DTR's 2+ bilat, sensation intact and PERRL, EOMI, accommodation nl, no face palsy, no dysarthria Psychiatric: Orientation: + not alert, + not oriented to person, + not oriented to place and + not oriented to time Lymphatic: no cervical or axillary lymphadenopathy Results & Data Vital Signs (Past 12 Hours) Vital Signs Temp Pulse Resp BP Pulse Ox 07/31/19 07:25 37.3 C 86 16 122/63 92 Laboratory Results Laboratory Results - last 24 hr 07/30/19 07/30/19 07/30/19 11:56 18:12 19:54 WBC RBC Hgb Hct MCV MCH MCHC RDW Std Deviation RDW Coeff of Catarino Plt Count MPV Immature Gran % (Auto) Neut % (Auto) Lymph % (Auto) [place] % (Auto) Eos % (Auto) Baso % (Auto) Immature Gran # (Auto) Neut # (Auto) Lymph # (Auto) [place] # (Auto) Eos # (Auto) Baso # (Auto) Absolute Nucleated RBC Nucleated RBC % (auto) Anisocytosis Sodium Potassium Chloride Carbon Dioxide Anion Gap BUN Creatinine Est Cr Clr Drug Dosing Est GFR ( Amer) Est GFR (Non-Af Amer) BUN/Creatinine Ratio Glucose POC Glucose 147 H 108 H 95 Calcium 07/30/19 07/31/19 07/31/19 23:55 05:37 05:37 WBC 15.84 H RBC 3.32 L Hgb 8.9 L Hct 31.0 L MCV 93.4 MCH 26.8 MCHC 28.7 L RDW Std Deviation 67.9 H RDW Coeff of Catarino 20.6 H Plt Count 187 MPV 9.8 Immature Gran % (Auto) 0.8 Neut % (Auto) 84.2 Lymph % (Auto) 7.2 [place] % (Auto) 5.9 Eos % (Auto) 1.8 Baso % (Auto) 0.1 Immature Gran # (Auto) 0.13 H Neut # (Auto) 13.33 H Lymph # (Auto) 1.14 L [place] # (Auto) 0.94 H Eos # (Auto) 0.29 Baso # (Auto) 0.01 Absolute Nucleated RBC 0.02 H Nucleated RBC % (auto) 0.1 Anisocytosis Present Sodium 149 H Potassium 4.6 Chloride 122 H Carbon Dioxide 23 Anion Gap 4.0 BUN 23 H Creatinine 2.29 H Est Cr Clr Drug Dosing 24.1 Est GFR ( Amer) 22.5 Est GFR (Non-Af Amer) 19.4 BUN/Creatinine Ratio 10.1 Glucose 102 H POC Glucose 96 Calcium 10.5 H 07/31/19 06:21 WBC RBC Hgb Hct MCV MCH MCHC RDW Std Deviation RDW Coeff of Catarino Plt Count MPV Immature Gran % (Auto) Neut % (Auto) Lymph % (Auto) [place] % (Auto) Eos % (Auto) Baso % (Auto) Immature Gran # (Auto) Neut # (Auto) Lymph # (Auto) [place] # (Auto) Eos # (Auto) Baso # (Auto) Absolute Nucleated RBC Nucleated RBC % (auto) Anisocytosis Sodium Potassium Chloride Carbon Dioxide Anion Gap BUN Creatinine Est Cr Clr Drug Dosing Est GFR ( Amer) Est GFR (Non-Af Amer) BUN/Creatinine Ratio Glucose POC Glucose 118 H Calcium Medications Administered Current Inpatient Medications Acetaminophen (Tylenol) 650 mg PEG Q4H PRN PRN Reason: Pain Stop: 08/07/19 13:54 Dextromethorphan Polymer Complex (Delsym) 30 mg PEG Q6H PRN PRN Reason: Cough Stop: 08/18/19 18:59 Dextrose (Dextrose 50%) 25 - 50 ml IV UD PRN; Protocol PRN Reason: Hypoglycemia Protocol Stop: 08/17/19 14:00 Diphenhydramine HCl (Benadryl) 25 mg IV 3XDQ4 PRN PRN Reason: Allergic Symptoms Stop: 07/31/19 21:01 Glucagon (Glucagen) 1 mg SQ UD PRN; Protocol PRN Reason: Hypoglycemia Protocol Stop: 08/17/19 14:00 Glucose (Dex4 Glucose) 4 - 8 tabs PO UD PRN; Protocol PRN Reason: Hypoglycemia Protocol Stop: 08/17/19 14:00 Glucose (Glucose 40%) 15 - 30 gm PO UD PRN; Protocol PRN Reason: Hypoglycemia Protocol Stop: 08/17/19 14:00 Miscellaneous (Carbohydrates For Hypoglycemia) 15 - 30 gm PO UD PRN PRN Reason: Hypoglycemia Protocol Stop: 08/17/19 14:00 Morphine Sulfate (Morphine Sulfate) 2 mg IV Q2H PRN PRN Reason: Pain Stop: 08/13/19 16:54 Ondansetron HCl (Zofran) 4 mg IV Q6H PRN PRN Reason: Nausea Stop: 07/31/19 23:42 Last Admin: 07/26/19 09:56 Dose: 4 mg Documented by: Sterile Water (Tube Feeding Water Flush) 1 ea GT Q6H RODOLFO Stop: 08/29/19 16:59 Last Admin: 07/31/19 11:30 Dose: 1 ea Documented by: PG Care Time/CCT Total # of Minutes Spent Total Time Spent with Patient: Total time spent is greater than 50% in coordination of care (as documented) at patient's floor/unit and/or counseling patient: (1) GI bleed GI bleed type/associated pathology: unspecified gastrointestinal hemorrhage type Qualified Code(s): K92.2 - Gastrointestinal hemorrhage, unspecified
[2019-08-01] MEDS: MoRPHine SULFATE 2 MG/ML CARP IV PRN ×4 (05:49→19:04)
--- NOTE | 2019-08-01 09:18 | Palliative Care Progress Note ---
Date of Service August 01, 2019 Assessment & Plan (1) Comfort measures only status: -Patient is now comfort measures only. -Had some labored breathing, tachypnea and flushing this morning during my visit. She is obtunded, did not respond to stimuli. -Continue PRN morphine for nonverbal signs of pain and SOB/tachypnea. -Given patient's rapid decline, would not be surprised if she passes away in the hospital in next hours to days. -Talked to patient's son, Robert, on phone-- he was in to see his mother over the weekend. He states he just wants her to be comfortable. We discussed some end of life issues. He is comfortable with the plan. I discussed that if patient does stabilize and we can keep her comfortable on oral medications, and/or if she does rally and wake up some, we may discuss transferring her back to [facility] for comfort measures. He verbalized understanding. Updated case management and primary provider. (2) Squamous cell carcinoma of vagina: (3) PEG (percutaneous endoscopic gastrostomy) adjustment/replacement/removal: (4) Clostridium difficile infection: (5) Acute kidney injury superimposed on chronic kidney disease: Subjective Patient had a major decline over the weekend-- now obtunded. Was transitioning t o comfort measures only today. Upon entering room this morning, patient is flushed, mildly tachypneic. Nurse was present and was going to administer morphine. Skin hot to touch, appeared to be flushed. Review of Systems Review of Systems: Unobtainable due to reduced consciousness Physical Exam Constitutional: + ill appearing, + morbidly obese and + physical limitations ENMT: external ear and nose normal, oropharynx normal Respiratory: + labored breathing and + tachypneic Auscultation: + diminished lung sounds Cardiovascular: Rate/Rhythm: regular rate and regular rhythm Extremities: + edema (generalized trace edema) Gastrointestinal (Abdomen): Inspection/Auscultation: normal bowel sounds Percussion/Palpation: abdomen soft Skin: hot to touch, flushed Neurologic: + obtunded Time Spent Midlevel 45 minutes with >50% of the time spent at bedside with patient and on phone with family discussing end of life care; as well as collaborating with IDT to coodrinate care.
--- NOTE | 2019-08-01 13:51 | Hospitalist Progress Note ---
Date of Service August 01, 2019 Assessment & Plan (1) Squamous cell carcinoma: * Patient with extensive abnormality of lower vagina and vulva -- mass discovered on exam and CT 07/18. Patient with hx hysterectomy, so unlikely endometrial in origin * Biopsy done- pathology sent -- invasive squamous cell carcinoma, well-mod differentiate * Radiation Oncology consult -- palliative external beam radiation --> total number of treatments evaluated based on response, likely in the range of 10-15 treatments, 5 done so far NO RADIATION past few days due to holiday and vacation * no further radiation treatments, patient will be comfort care/hospice -- no further labs/VS/etc * Palliative consult done today (2) Clostridium difficile infection: * Abdominal distension 07/19 with fecal retention on KUB following episode of foul smelling diarrhea. 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 * PEG tube placed by Dr. Whitt on 07/18 to assist with improving free water intake, not helping with quality of life as we had hoped (4) Acute kidney injury superimposed on chronic kidney disease: * Cr up to 2.29 on last check, making copious amounts of urine. * Certainly not due to dehydration. No further labs * Renal U/S, no signs of obstruction * UA with likely contamination as patient incontinent and specimen collected from [facility] -- although, WBC >> epi, and 3+ leuk est * Continue Cefepime for Pseudomonas UTI * worsening renal function another reason to transition to hospice (5) Hyperglycemia: * stop insulin, stop glucose checks (6) Hypercalcemia: * worsening, up to 10.5, corrected would be > 12 with albumin of 1.5 * secondary to hyperparathyroidism d/t chronic lithium use/parathyroid gland hyperplasia-- with elevated PTH at 87.1. PTH related protein elevated at 31 * stop free water, stop lithium * becoming more clear that calcium will be difficult/impossible to control (7) GI bleed: * Originally admitted for GI bleed, however addie d/t squamous cell carcinoma of vaginal origin * Melena prior to admission with subsequent EGD on 07/11 with cautery of AVM GI bleed resolved (8) Dysphagia: * Video swallow -- patient able to have nectar thick liquids but Speech Therapy recommended transition to honey thick if had difficulty-- may have pills with pudding - likely continued aspiration and evidence of possible aspiration/infectious process RLL * Unclear as to why worsening dysphagia-- possible progression of dementia/ parkinsonism * TSH wnl * PEG tube as above * Patient was tolerating pureed diet intermittently but now not eating at all or taking medications (9) CKD (chronic kidney disease), stage III: * As above * Cr 2.29 (10) Hypothyroidism: * Continue Synthroid * Last TSH on file 8.32 in February 2018 * TSH 0.473, wnl (11) Hyperlipemia: * stop atorvastatin (12) HTN (hypertension): * Stable (13) Bipolar disorder: * Continue home medications, lithium and risperidone * Pt on [place] for years, has likely caused irreversible damage, DI and hyperparathyroidism (14) Dementia with Lewy bodies: * Supportive care (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: * As above (16) Recurrent UTI: * culture growing E coli, dugan sensitive -- patient intially treated with Zosyn-- transitioned to Rocephin-- completed >7 day course * repeat urine culture with Pseudomonas, change Augmentin to Cefepime * no fever, WBC 15k * prone to recurrent UTI, ongoing issue, another issue that limits quality of life (17) Vaginal mass: * As above, no further radiation treatment, palliative care (18) DVT prophylaxis: * SCDs * Chemical prophylaxis held in setting of bleeding Dispo: very difficult situation, poor quality of life Na and Calcium cannot be controlled with administration of free water, causing lethargy ongoing issues with vaginal cancer, recurrent UTI, C diff colitis, dysphagia, malnutrition, Bipolar disorder, renal failure change to comfort measures, likely to remain in hospital as decline continues to be rapid Palliative care consulted, manuel Caruso had conversation KRISTI lFowers today -- agree with comfort care Will likely be discharged on hospice at SNF ([facility]) Supervising Physician Co-Signing Physician Notes Attending Attestation: Chart reviewed in detail, care plan d/w PEARL Rehman. I agree w/ the nielsen components of her documentation. Patient now on comfort care measures. Dispo - probable SNF w/ comfort care/hospice. Ernie Quarles MD Subjective Patient evaluated at bedside this morning. Patient not very responsive today, obtunded. Patient with decreased quality of life. Patient no longer eating/drinking. Abdomen more distended. [facility] goal of hospice. Review of Systems Review of Systems: Unobtainable due to cognitive status and Unobtainable due to reduced consciousness Physical Exam Constitutional: + obese and + disheveled; no acute distress Neck: trachea midline, no thyromegaly Respiratory: no respiratory distress and no labored breathing Auscultation: + diminished lung sounds and + rhonchi Cardiovascular: Rate/Rhythm: regular rate and regular rhythm Heart Sounds: normal S1 and normal S2; no murmur Gastrointestinal (Abdomen): Inspection/Auscultation: + abdomen distended and normal bowel sounds Percussion/Palpation: abdomen soft and + tympanic to perc ussion Skin: Warm, dry Neurologic: DTRs 2+ bilaterally Psychiatric: Orientation: + not alert, + not oriented to person, + not oriented to place and + not oriented to time PG Care Time/CCT Total # of Minutes Spent Total Time Spent with Patient: Total time spent is greater than 50% in coordination of care (as documented) at patient's floor/unit and/or counseling patient: (1) GI bleed GI bleed type/associated pathology: unspecified gastrointestinal hemorrhage type Qualified Code(s): K92.2 - Gastrointestinal hemorrhage, unspecified
[2019-08-02] MEDS: MoRPHine SULFATE 2 MG/ML CARP IV PRN ×5 (00:22→23:17)
[2019-08-02] MEDS ORDERED: ATROPINE SULFATE 1% OP SOLN 2 ML BTL PO PRN (01:35)
[2019-08-02] MEDS ORDERED: SCOPOLAMINE 1.5 MG TDSY TD SCH (02:30)
[2019-08-02] MEDS: CHECK SCOPOLAMINE PATCH PLACEMENT SCH ×3 (07:04→23:18)
--- NOTE | 2019-08-02 10:25 | Hospitalist Progress Note ---
Date of Service August 02, 2019 Assessment & Plan (1) Squamous cell carcinoma: * Patient originally admitted for melena with suspected GI bleed * Patient with extensive abnormality of lower vagina and vulva -- mass discovered on exam and CT 07/18. Patient with hx hysterectomy, so unlikely end ometrial in origin * Biopsy done- pathology sent -- invasive squamous cell carcinoma, well-mod differentiate * Radiation Oncology consult -- palliative external beam radiation --> 5 total radiation treatments done so far--> no further at this time * no further radiation treatments, patient will be comfort care/hospice -- no further labs/VS/etc * Course complicated by c.diff infection, difficult to eradicate. Dysphagia with aspiration pneumonitis. UTI with pseudomonas. Hypernatremia without improvement with free water fluses via PEG by Dr. Whitt on 07/18, Hyp ercalcemia, Bipolar, Dementia. * Palliative care following-- appreciate input * Comfort care only now -- if patient becomes more comfortable, can consider discharge to [facility] with services, otherwise patient will likely remain inpatient. (2) Comfort measures only status: * As above Dispo: very difficult situation, poor quality of life Na and Calcium cannot be controlled with administration of free water, causing lethargy ongoing issues with vaginal cancer, recurrent UTI, C diff colitis, dysphagia, malnutrition, Bipolar disorder, renal failure Palliative care consulted, son Shady had conversation Ran Flowers -- agree with comfort care changed to comfort measures, likely to remain in hospital as decline continues to be rapid Supervising Physician Co-Signing Physician Notes Attending Attestation: Chart reviewed in detail, care plan d/w PEARL Rehman. I agree w/ the nielsen components of her documentation. Patient remains on comfort care measures. GIP candidate? Defer to palliative care team. Support for family by staff, providers, etc. Ernie Quarles MD Subjective Patient evaluated this morning. She appears to be flushed. Mild agitation with restlessness of bilateral legs. Per discussion with nursing, patient did receive 2mg IV morphine this morning but no additional doses since. Scopalomine patch was placed last night. Requested nursing to administer additional morphine after my examination. Review of Systems Review of Systems: Unobtainable due to cognitive status and Unobtainable due to reduced consciousness Physical Exam Physical Exam: Constitutional + obese; no acute distress. Obtunded Neck trachea midline, no thyromegaly Respiratory no respiratory distress and no labored breathing Auscultation: + diminished lung sounds, no wheezing rhonchi or crackles Cardiovascular Rate/Rhythm: regular rate and regular rhythm Heart Sounds: normal S1 and normal S2; no murmur Gastrointestinal (Abdomen) Inspection/Auscultation: + abdomen distended and normal bowel sounds Percussion/Palpation: abdomen soft and + tympanic to percussion Skin Warm, dry, flushed Neurologic DTRs 2+ bilaterally Psychiatric Orientation: + not alert, + not oriented to person, + not oriented to place and + not oriented to time PG Care Time/CCT Total # of Minutes Spent Total Time Spent with Patient: Total time spent is greater than 50% in coordination of care (as documented) at patient's floor/unit and/or counseling patient:
--- NOTE | 2019-08-02 16:43 | Palliative Care Progress Note ---
Date of Service August 02, 2019 Assessment & Plan (1) Comfort measures only status: -Patient having periods of apnea. Obtunded. -Receiving PRN IV morphine for comfort. -Patient's sister at bedside today and had questions about end of life. We talked and her questions were answered. -Patient expected to in next hours to days. (2) Squamous cell carcinoma of vagina: (3) PEG (percutaneous endoscopic gastrostomy) adjustment/replacement/removal: (4) Clostridium difficile infection: (5) Acute kidney injury superimposed on chronic kidney disease: Subjective Patient obtunded. Comfort measures only. Patient's sister at bedside. Patient having periods of apnea. Review of Systems Review of Systems: Unobtainable due to cognitive status and Unobtainable due to reduced consciousness Physical Exam Constitutional: + ill appearing ENMT: external ear and nose normal, oropharynx normal Respiratory: normal respiratory effort, lungs clear to auscultation + labored breathing Auscultation: + diminished lung sounds Cardiovascular: Rate/Rhythm: regular rate and regular rhythm Extremities: + edema (generalized trace edema) Gastrointestinal (Abdomen): Inspection/Auscultation: normal bowel sounds Percussion/Palpation: abdomen soft; abdomen nontender Skin: + pallor flushed Neurologic: + obtunded Time Spent Midlevel 35 minutes with >50% of the time spent at bedside with patient and family discussing end of life care.
[2019-08-03] MEDS: MoRPHine SULFATE 2 MG/ML CARP IV PRN ×9 (06:00→22:10)
[2019-08-03] MEDS: CHECK SCOPOLAMINE PATCH PLACEMENT SCH ×2 (09:17→16:23)
--- NOTE | 2019-08-03 11:50 | Palliative Care Progress Note ---
Date of Service August 03, 2019 Assessment & Plan (1) Comfort measures only status: -Patient remains comfort measures only. -During my encounter, patient with facial grimacing, moving her left lower extremity, audible moaning, diaphragmatic breathing with periods of apnea. -This morning received one dose of Morphine IV at 0600. -Discussed physical assessment with nursing. Low threshold for Morphine administration for symptom management: facial grimacing, diaphragmatic breathing indicating possible air hunger, restlessness, etc. Increased Morphine to 2mg Q1 PRN. -Patient's son, two granddaughters, and a few other family members at bedside today and we discussed end of life symptoms and set expectations. -Bereavement cart to be delivered to patients room. -Patient expected to within the next 24 hours. -PPS 10% (2) Squamous cell carcinoma of vagina: (3) PEG (percutaneous endoscopic gastrostomy) adjustment/replacement/removal: (4) Clostridium difficile infection: (5) Acute kidney injury superimposed on chronic kidney disease: Subjective Patient is comfort measures only Pt obtunded, some symptom management needs See A/P for further details. Review of Systems 2 Review of Systems: Unobtainable due to reduced consciousness Physical Exam Constitutional: + ill appearing and + frail appearing Respiratory: + respiratory distress, + labored breathing, + uses accessory muscles and + abnormal respiratory pattern; + asymmetric chest movement Auscultation: + diminished lung sounds Cardiovascular: Extremities: + edema (LLE); + abnormal capillary refill Gastrointestinal (Abdomen): normal bowel sounds, soft, nontender, no hepatosplenomegaly Skin: no rashes, warm and dry warm to touch Genitourinary: Alvarez catheter in place, draining small amounts of urine PG Care Time/CCT Total # of Minutes Spent Total Time Spent with Patient: Total time spent is greater than 50% in coordination of care (as documented) at patient's floor/unit and/or counseling patient: 35 Time Spent Midlevel Total time spent 35 minutes with > 50% of that time spent assessing patient, discussing symptom management and end of life concerns with family.
--- NOTE | 2019-08-03 12:44 | Hospitalist Progress Note ---
Date of Service August 03, 2019 Assessment & Plan (1) Squamous cell carcinoma: * Patient originally admitted for melena with suspected GI bleed * Patient with extensive abnormality of lower vagina and vulva -- mass discovered on exam and CT 07/18. Patient with hx hysterectomy, so unlikely end ometrial in origin * Biopsy done- pathology sent -- invasive squamous cell carcinoma, well-mod differentiate * Radiation Oncology consult -- palliative external beam radiation --> 5 total radiation treatments done so far--> no further at this time * no further radiation treatments, patient will be comfort care/hospice -- no further labs/VS/etc * Course complicated by c.diff infection, difficult to eradicate. Dysphagia with aspiration pneumonitis. UTI with pseudomonas. Hypernatremia without improvement with free water fluses via PEG by Dr. Whitt on 07/18, Hyp ercalcemia, Bipolar, Dementia. * Palliative care following-- appreciate input-- morphine 2mg IV prn, atropine drops, scopalamine patch * Comfort care currently -- given rapid decline and continued restlessness/comfort, patient likely to remain hospitalized -- if this were to change and patient appears comfortable, may consider discharge to [facility] * -----Requested morphine given this morning -- per discussion with palliative care, may need to schedule dosing in the future if patient continues to appear uncomfortable and is not receiving. (2) Comfort measures only status: * As above Dispo: very difficult situation, poor quality of life Na and Calcium cannot be controlled with administration of free water, causing lethargy ongoing issues with vaginal cancer, recurrent UTI, C diff colitis, dysphagia, malnutrition, Bipolar disorder, renal failure Palliative care consulted, son Shady had conversation KRISTI Flowers -- agree with comfort care changed to comfort measures, likely to remain in hospital as decline continues to be rapid Supervising Physician Co-Signing Physician Notes Attending Attestation - Chart reviewed, care plan d/w PEARL Rehman. I agree w/ the nielsen components of her documentation. PT remains on comfort care pathway. Ernie Quarles MD Subjective Patient still obtunded. Alone in her room. Skin flushed. Periods of apnea, air hunger. Restless this morning but did receive morphine around 6 am. Patient continued to be restless during my visit, and discussion with nursing to give dose of morphine now. Review of Systems Review of Systems: Unobtainable due to reduced consciousness Physical Exam Constitutional: + ill appearing and + obese ENMT: external ear and nose normal, oropharynx normal Respiratory: + labored breathing Auscultation: lungs clear to auscultation bilaterally (but diminished diffusely) periods of apnea Cardiovascular: Rate/Rhythm: regular rate and regular rhythm Heart Sounds: normal S1 and normal S2; no murmur Extremities: + edema (trace non-pitting b/l LE) Gastrointestinal (Abdomen): PEG tube present Skin: flushed, warm Neurologic: + obtunded PG Care Time/CCT Total # of Minutes Spent Total Time Spent with Patient: Total time spent is greater than 50% in coordination of care (as documented) at patient's floor/unit and/or counseling patient:
[2019-08-03] MEDS ORDERED: LORazepam 0.5 MG/1 ML VIAL IV PRN ×2 (20:28→20:57)
[2019-08-03] MEDS ORDERED: ATROPINE SULFATE 1% OP SOLN 2 ML BTL PO PRN (21:15)
--- NOTE | 2019-08-04 08:09 | Death Summary ---
Date of Service August 04, 2019 Pronouncement Note Date and Time of Date of : 08/03/19 Time of : 22:25 Contributing Factors (1) Squamous cell carcinoma: Contributing factors: Hypernatremia, Hypercalcemia, Dysphagia, Diabetes Insipidus, Hyperparathyroidism (2) Comfort measures only status: Additional Data Confirmation of : no pulse, no respirations, no heart sounds and pupils fixed and dilated Family: at bedside Attending/PCP notified?: No Attending physician: Ernie Quarles Was code activated?: No Autopsy requested?: No entry examiner notified?: No Organ bank notified?: No Advance directives: No Supervising Physician Co-Signing Physician Notes Primary cause of - squamous cell cancer of the vagina. Other diagnoses/conditions that contributed to - * dementia * malnutrition - severe protein calorie * PEG tube feeding status * COPD * bipolar disorder * CKD stage 3 * dysphagia * drug-induced parkinsonism certificate completed by myself and Constance KANG. Ernie Quarles MD
--- NOTE | 2019-08-15 07:20 | Discharge Summary ---
Date of Service August 15, 2019 Admission HPI Per Admitting Provider Chief Complaint: Rectal bleeding Primary Care Provider: Annie Hickman The patient is 83 years old female was is a resident of [facility]. She has history of dementia and bipolar disorder and is a poor historian. She has sent from the [facility] with the complaints of rectal bleeding for last few days. It appears that initially the nursing staff thought that she is having vaginal bleeding but now it appears that she is having rectal bleeding. Stool for occult blood is positive in the ER. The CT scan shows questionable colitis. Labs showed leukocytosis. The patient herself is a very poor historian. No history of vomiting or hematemesis. No significant abdominal pain. The patient will be admitted for further evaluation and management. Admission Exam Per Admitting Provider GENERAL : No acute distress EYES: No icterus, gaze conjugate NOSE: No evidence of epistaxis MOUTH: No lesions or candidiasis, mucosa moist NECK: Supple LUNGS: CTA B/L, no wheezes, rales or rhonchi HEART: Regular, rate controlled ABDOMEN: Soft, NT, ND, BS Present EXTREMITIES: No LE edema, pedal pulses intact NEURO: A&OX3 Principal Diagnosis Vaginal Carcinoma Discharge Exam Constitutional + ill appearing; no acute distress Neck trachea midline, no thyromegaly Respiratory + labored breathing; no respiratory distress Auscultation: + rhonchi Cardiovascular RRR, no murmur, no edema Rate/Rhythm: regular rate and regular rhythm Heart Sounds: normal S1 and normal S2 Extremities: + edema (trace non-pitting b/l LE) Gastrointestinal (Abdomen) Inspection/Auscultation: normal bowel sounds Percussion/Palpation: abdomen soft and normal to percussion Skin no rashes, warm and dry Neurologic + obtunded Lymphatic no cervical or axillary lymphadenopathy Discharge Data Allergies Allergy/AdvReac Type Severity Reaction Status Date / Time levofloxacin Allergy Intermediate RASH Verified 07/01/19 12:20 Penicillins Allergy Intermediate HIVES Verified 07/02/19 14:24 tramadol Allergy Intermediate rash Verified 07/01/19 12:20 amoxicillin Allergy Unknown UNKNOWN Verified 07/01/19 12:20 Consultations 07/01/19 14:10 ED Decision to Admit Stat 07/01/19 18:53 Consult Gastroenterology Routine 07/17/19 11:57 Consult Gastroenterology Routine 07/18/19 18:06 Consult Gynecology Routine 07/20/19 17:28 Consult Radiation Oncology Routine 07/21/19 13:10 Consult Palliative Care Routine Procedures Performed Operation Date: 07/06/19 16:00 <No data on this case meets the specified criteria> Operation Date: 07/07/19 16:30 <No data on this case meets the specified criteria> Operation Date: 07/11/19 16:00 Actual Procedures p EGD Biopsy Cytology - Chad Whitt s EGD Hemostasis - Chad Whitt Operation Date: 07/18/19 17:45 Actual Procedures p EGD Gastric Tube Placement - Chad Whitt Ordered Studies 07/01/19 12:16 CT abd pelvis IV con only Stat 07/04/19 12:30 FL video swallow Routine 07/18/19 14:04 CT abd pelvis IV con only Urgent 07/21/19 CT guide rad therapy pelvis Routine 07/24/19 09:04 US renal/blad retro comp Routine 07/29/19 00:25 CT head/brain wo con Urgent Hospital Course (1) Squamous cell carcinoma: * Patient originally admitted for melena with suspected GI bleed * Patient with extensive abnormality of lower vagina and vulva -- mass discovered on exam and CT 07/18. Patient with hx hysterectomy, so unlikely endometrial in origin * Biopsy done- pathology sent -- invasive squamous cell carcinoma, well-mod differentiate * Radiation Oncology consult -- palliative external beam radiation --> 5 total radiation treatments done * no further radiation treatments were performed after the first five treatments, patient will be comfort care/hospice -- no further labs/VS/etc * Course complicated by c.diff infection, difficult to eradicate. Dysphagia with aspiration pneumonitis. UTI with pseudomonas. Hypernatremia without improvement with free water fluses via PEG by Dr. Whitt on 07/18, Hypercalcemia, Bipolar, Dementia. * Palliative care consult placed morphine , atropine, scopalamine patch prn * Comfort care only -- given rapid decline and continued restlessness/comfort, patient required to continue to remain hospitalized (2) Comfort measures only status: * As above * very difficult situation, poor quality of life * Na and Calcium cannot be controlled with administration of free water, causing lethargy * Continued issues with vaginal cancer, recurrent UTI, C diff colitis, dysphagia, malnutrition, Bipolar disorder, renal failure Total Time Total Time Spent Total Time Spent (In Minutes): 40 Discharge Plan Discharge Items Patient Disposition: Reason For Visit: RECTAL BLEEDING Follow-up/Referrals: Annie Hickman [Primary Care Provider] - Admission Data Admit Date/Time: 07/01/19 15:34 Other DC Date/Time DO NOT enter until pt leaves facility: 08/03/19 23:30 Supervising Physician Co-Signing Physician Notes Attending Attestation - I did not see Ms Wright on the day of her . However, I agree w/ the nielsen components of this /discharge summary as outlined by PEARL Rehman. Protracted hospitalization for his 83yo female with dementia who ultimately was diagnosed with vaginal cancer during the stay. Numerous comorbidities including severe dysphagia leading to PEG tube placement. Course was complicated by severe protein calorie malnutrition, failure to thrive, delirium, c. diff colitis, electrolyte disturbances, etc. Ultimately made comfort care and passed peacefully on such. Ernie Quarles MD
== END 2019-08-03 23:30 | disposition expired | DRG 746 ==
LOC: ED 10:33 → SUATTDRO 15:34 → 2W 15:34 → 4W 07-24 21:49